=== PATIENT | male | born 1950 | race Caucasian/White ===

== ENCOUNTER → 2017-05-17 | Outpatient (CLI) | payer MEDICARE, OTHER ==
[~2017-05-17] MED LIST: ACYC200C8 PO; ALLO15TA PO; CELE1CAP9 PO; FLUT1SPR2; FOLI1TAB4 PO; JANU100T PO; LEVO75TA4 PO; META1TAB22 PO; OXYC1TAB23 PO; PARO20TA4 PO; PREG50CA PO; PREV1CAP PO; RISP1TAB3 PO; SYNT150T PO; TERA5CA PO; TRAZ-136 PO; TYLETAB14 PO; XANA0.5T PO; ZYRTTAB8 PO
--- NOTE | 2017-05-17 14:55 | REP ---
Chest two views HISTORY: Hypertension Comparison: 02/25/2016 The lungs are clear. The heart is normal in size. The pulmonary vasculature is normal in appearance. There is an old compression fracture of the T12 vertebral body. The bony structure is intact. IMPRESSION: No acute disease. Signed by Jason Saucedo MD 05/17/2017 02:46 P
[2017-05-17 15:11] LABS: MEAN CORPUSCULAR HEMOGLOBIN 32.1 pg (27.0-33.0); MEAN CORPUSCULAR HGB CONC 34.1 g/dl (32.0-36.5); MEAN CORPUSCULAR VOLUME 94.3 fl (80.0-96.0); RED CELL DISTRIBUTION WIDTH 13.7 % (11.5-14.5); WHITE BLOOD COUNT 5.9 K/mm3 (4.0-10.0)
[2017-05-17 15:31] LABS: ALBUMIN 3.8 GM/DL (3.2-5.2); ALBUMIN/GLOBULIN RATIO 1.19 (1.00-1.93); ALKALINE PHOSPHATASE 83 U/L (45-117); ALT/SGPT 20 U/L (12-78); ANION GAP 8 MEQ/L (8-16); AST/SGOT 13 U/L (15-37); BILIRUBIN,TOTAL 0.4 MG/DL (0.2-1.0); BLOOD UREA NITROGEN 8 MG/DL (7-18); CALCIUM LEVEL 8.2 MG/DL (8.8-10.2); CARBON DIOXIDE LEVEL 26 MEQ/L (21-32); CHLORIDE LEVEL 103 MEQ/L (98-107); CHOLESTEROL LEVEL 202 MG/DL (<200); CREATININE FOR GFR 0.99 MG/DL (0.70-1.30); GLOMERULAR FILTRATION RATE > 60.0 (>49); GLUCOSE, FASTING 127 MG/DL (80-110); POTASSIUM SERUM 4.3 MEQ/L (3.5-5.1); SODIUM LEVEL 137 MEQ/L (136-145); TRIGLYCERIDES LEVEL 127 MG/DL (<150)
--- NOTE | 2017-05-17 23:15 | ECGEPIP ---
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 Electronically Signed On 05-17-2017 23:15:37 EDT by Tyshawn Ramirez
== END ==
LOC: M LAB 14:04
PROVIDERS: ATTEND Family Medicine
DX: I10 Essential (primary) hypertension (principal); E11.9 Type 2 diabetes mellitus without complications; E29.1 Testicular hypofunction; G89.4 Chronic pain syndrome; E03.9 Hypothyroidism, unspecified

== ENCOUNTER → 2017-05-17 | Outpatient (REF) | payer MEDICARE, OTHER ==
[2017-05-28 06:31] LABS: SUMMARY SEE SEPARATE REPORT
== END ==
LOC: M LAB REF 21:18
PROVIDERS: ATTEND Family Medicine
DX: G89.4 Chronic pain syndrome (principal)

== ENCOUNTER → 2017-07-04 | Outpatient (REF) | payer MEDICARE, OTHER ==
[2017-07-04 15:53] LABS: FERRITIN 23 NG/ML (26-388)
[2017-07-04 15:56] LABS: FOLATE 19.1 NG/ML (>5.4); VITAMIN B12 LEVEL 545 PG/ML (247-911)
[2017-07-08 00:06] LABS: VITAMIN E LEVEL 8.2 mg/L (5.3-17.5)
== END ==
LOC: M LABDRAW1 14:09
PROVIDERS: ATTEND Psychiatry & Neurology Neurology
DX: E03.9 Hypothyroidism, unspecified (principal); M54.5 Low back pain; R53.1 Weakness; R25.1 Tremor, unspecified; Z13.88 Encounter for screening for disorder due to exposure to contaminants

== ENCOUNTER → 2017-11-18 | Outpatient (REF) | payer MEDICARE, OTHER ==
[2017-11-18 16:55] LABS: HEMATOCRIT 41.6 % (42.0-52.0); MEAN CORPUSCULAR HEMOGLOBIN 32.3 pg (27.0-33.0); MEAN CORPUSCULAR HGB CONC 33.7 g/dl (32.0-36.5); MEAN CORPUSCULAR VOLUME 96.1 fl (80.0-96.0); PLATELET COUNT, AUTOMATED 254 10^3/uL (150-450); RED BLOOD COUNT 4.33 10^6/uL (4.30-6.10); RED CELL DISTRIBUTION WIDTH 12.8 % (11.5-14.5); WHITE BLOOD COUNT 6.4 10^3/uL (4.0-10.0)
[2017-11-18 17:06] LABS: ALBUMIN 4.1 GM/DL (3.2-5.2); ALBUMIN/GLOBULIN RATIO 1.46 (1.00-1.93); ALKALINE PHOSPHATASE 89 U/L (45-117); ALT/SGPT 11 U/L (12-78); ANION GAP 6 MEQ/L (8-16); AST/SGOT 10 U/L (7-37); BILIRUBIN,TOTAL 0.3 MG/DL (0.2-1.0); BLOOD UREA NITROGEN 8 MG/DL (7-18); CARBON DIOXIDE LEVEL 28 MEQ/L (21-32); CHLORIDE LEVEL 105 MEQ/L (98-107); CHOLESTEROL LEVEL 176 MG/DL (<200); CHOLESTEROL RISK RATIO 3.666 (<5); CREATININE FOR GFR 0.88 MG/DL (0.70-1.30); GLOMERULAR FILTRATION RATE > 60.0 (>49); GLUCOSE, FASTING 127 MG/DL (80-110); HDL CHOLESTEROL 48 MG/DL (>40); LDL CHOLESTEROL 97.8 MG/DL (<100); NON-HDL-C 128 MG/DL; POTASSIUM SERUM 3.9 MEQ/L (3.5-5.1); PSA SCREENING 1.73 NG/ML (< 4.0); SODIUM LEVEL 139 MEQ/L (136-145); TOTAL PROTEIN 6.9 GM/DL (6.4-8.2); TRIGLYCERIDES LEVEL 151 MG/DL (<150)
[2017-11-18 17:08] LABS: ESTIMATED AVERAGE GLUCOSE 120 MG/DL (60-110); HEMOGLOBIN A1c 5.8 %
== END ==
LOC: M LABDRAW1 16:03
DX: E11.9 Type 2 diabetes mellitus without complications (principal); R53.83 Other fatigue
CPT/HCPCS: 84443

== ENCOUNTER → 2018-12-29 | Outpatient (REF) | payer MEDICARE, OTHER ==
[~2018-12-29] MED LIST changes: +FOLI1TAB11 PO; -FOLI1TAB4 PO; -TERA5CA PO; +TERA5CAP3 PO; -TRAZ-136 PO; +TRAZ-163 PO
[2018-12-29 14:19] LABS: BASO # 0.1 10^3/uL (0.0-0.2); BASO % 0.8 % (0.0-1.0); EOS # 0.4 10^3/uL (0.0-0.50); EOS % 3.2 % (0.0-3.0); HEMATOCRIT 44.4 % (42.0-52.0); HEMOGLOBIN 15.4 g/dl (13.5-17.5); LYMPH # 2.9 10^3/uL (1.5-4.5); LYMPH % 26.8 % (24.0-44.0); MEAN CORPUSCULAR HEMOGLOBIN 32.3 pg (27.0-33.0); MEAN CORPUSCULAR HGB CONC 34.7 g/dl (32.0-36.5); MEAN CORPUSCULAR VOLUME 93.1 fl (80.0-96.0); MONO # 0.6 10^3/uL (0.0-0.8); MONO % 5.9 % (0.0-5.0); NEUTROPHILS # 6.8 10^3/uL (1.8-7.7); PLATELET COUNT, AUTOMATED 283 10^3/uL (150-450); RED BLOOD COUNT 4.77 10^6/uL (4.30-6.10); WHITE BLOOD COUNT 10.9 10^3/uL (4.0-10.0)
[2018-12-29 14:52] LABS: ALBUMIN 4.1 GM/DL (3.2-5.2); ALT/SGPT 8 U/L (12-78); BILIRUBIN,TOTAL 0.5 MG/DL (0.2-1.0); BLOOD UREA NITROGEN 6 MG/DL (7-18); CALCIUM LEVEL 8.3 MG/DL (8.8-10.2); CARBON DIOXIDE LEVEL 24 MEQ/L (21-32); CHLORIDE LEVEL 107 MEQ/L (98-107); CHOLESTEROL LEVEL 202 MG/DL (<200); CHOLESTEROL RISK RATIO 4.809 (<5); CREATININE FOR GFR 0.89 MG/DL (0.70-1.30); GLOMERULAR FILTRATION RATE > 60.0 (>49); GLUCOSE, FASTING 92 MG/DL (70-100); HDL CHOLESTEROL 42 MG/DL (>40); LDL CHOLESTEROL 122 MG/DL (<100); NON-HDL-C 160 MG/DL; POTASSIUM SERUM 4.4 MEQ/L (3.5-5.1); SODIUM LEVEL 139 MEQ/L (136-145); THYROID STIMULATING HORMONE 0.951 uIU/ML (0.358-3.740); TOTAL PROTEIN 7.4 GM/DL (6.4-8.2); TRIGLYCERIDES LEVEL 190 MG/DL (<150)
== END ==
LOC: M LABDRAW1 13:21
DX: M79.18 Myalgia, other site (principal); F32.9 Major depressive disorder, single episode, unspecified; E03.8 Other specified hypothyroidism; G89.4 Chronic pain syndrome

== ENCOUNTER 2019-01-09 04:18 | Inpatient (IN) | payer MEDICARE, OTHER ==
[~2019-01-09] VITALS: Ht 180.3 cm; Wt 82.7 kg
[2019-01-09] MEDS ORDERED: IPRATROPIUM 0.5MG/ALBUTEROL 2.5MG INH SOL UD 3ML (DUONEB)(J7620) NEB ONE (05:15)
[2019-01-09 05:25] LABS: ABG BASE EXCESS -2.8 (-2.0-2.0); ABG HCO3 18.3 MEQ/L (22.0-26.0); ABG O2 SATURATION 98.3 % (95.0-99.0); ABG PARTIAL PRESSURE CO2 23.3 mmHg (35.0-45.0); ABG PARTIAL PRESSURE O2 122.5 mmHg (75.0-100.0); ABG STANDARD HCO3 22.2 MEQ/L (22.0-26.0); ABG pH (ARTERIAL) 7.513 UNITS (7.350-7.450)
[2019-01-09 05:46] LABS: BASO # 0.1 10^3/uL (0.0-0.2); BASO % 0.6 % (0.0-1.0); EOS # 0.1 10^3/uL (0.0-0.50); EOS % 1.4 % (0.0-3.0); HEMATOCRIT 39.4 % (42.0-52.0); HEMOGLOBIN 13.8 g/dl (13.5-17.5); LYMPH # 2.3 10^3/uL (1.5-4.5); LYMPH % 26.8 % (24.0-44.0); MEAN CORPUSCULAR HEMOGLOBIN 31.5 pg (27.0-33.0); MONO # 0.6 10^3/uL (0.0-0.8); MONO % 7.4 % (0.0-5.0); NEUTROPHILS # 5.4 10^3/uL (1.8-7.7); NEUTROPHILS % 63.4 % (36.0-66.0); PLATELET COUNT, AUTOMATED 244 10^3/uL (150-450); RED BLOOD COUNT 4.38 10^6/uL (4.30-6.10); WHITE BLOOD COUNT 8.6 10^3/uL (4.0-10.0)
[2019-01-09 06:07] LABS: BLOOD UREA NITROGEN 8 MG/DL (7-18); CALCIUM LEVEL 7.7 MG/DL (8.8-10.2); CARBON DIOXIDE LEVEL 23 MEQ/L (21-32); CHLORIDE LEVEL 100 MEQ/L (98-107); CPK CREATINE PHOSPHOKINASE 201 U/L (39-308); CREATININE FOR GFR 0.91 MG/DL (0.70-1.30); GLOMERULAR FILTRATION RATE > 60.0 (>49); GLUCOSE, FASTING 111 MG/DL (70-100); MB/CK RELATIVE INDEX 2.09 (< OR =4); NT-PRO BNP 99 PG/ML (<125); POTASSIUM SERUM 3.1 MEQ/L (3.5-5.1); SODIUM LEVEL 135 MEQ/L (136-145); TROPONIN I < 0.02 NG/ML (< 0.10)
[2019-01-09 06:14] LABS: INFLUENZA A AMPLIFICATION NEGATIVE (NEGATIVE); INFLUENZA B AMPLIFICATION NEGATIVE (NEGATIVE)
[2019-01-09] MEDS ORDERED: POTASSIUM CHLORIDE 10 MEQ SR TABLET PO ONE (06:30)
[2019-01-09] MEDS ORDERED: NS 2,590 ML in APPROPRIATE DILUENT 1 EA IV ONE (06:30)
[2019-01-09] MEDS ORDERED: ISOVUE-370 76% 100ML VIAL (Q9967) As Ordered ONE (06:43)
[2019-01-09] MEDS ORDERED: ONDANSETRON 4MG/2ML VIAL (J2405) IV ONE (07:00)
--- NOTE | 2019-01-09 07:04 | REP ---
Clinical: Cough and dyspnea . Comparison: 05/17/2017 . Findings: The mediastinum and cardiac silhouette are stable and within normal limits for portable technique. The lung gurrola are clear without acute consolidation, effusion, or pneumothorax. Skeletal structures are intact. Impression: No acute cardiopulmonary process appreciated. Electronically Signed by Miller Kumari MD 01/09/2019 06:56 A
--- NOTE | 2019-01-09 08:53 | REP ---
CT of the chest with IV contrast, CT pulmonary angiography protocol: There are no emboli in the pulmonary trunk or central pulmonary arteries. There are no emboli in the pulmonary lobe or segment branches. There is discoid atelectasis in the lower lobes bilaterally. Lung gurrola otherwise clear. There is no mediastinal, hilar or axillary adenopathy. The thoracic aorta is unremarkable. Cardiac size is normal. The visualized upper abdominal contents are unremarkable except I suspect there are surgical clips at the gastroesophageal junction. There are surgical clips in the gallbladder fossa. Impression: There are no pulmonary emboli. Otherwise, essentially negative CT study of the chest except for bilateral lower lobe discoid atelectasis. Cholecystectomy. Surgical clips at the gastroesophageal junction. Electronically Signed by Ford Richards MD 01/09/2019 08:44 A
[2019-01-09] MEDS ORDERED: CEFEPIME HCL 2 GM in D5W MINI-BAG PLUS 50 ML IV ONE (09:00)
[2019-01-09] MEDS: CETIRIZINE (ZyrTEC) 10 MG TAB PO SCH (09:00)
[2019-01-09] MEDS ORDERED: GLUCAGON FOR INJ 1 MG VIAL (J1610) SC PRN (10:30)
[2019-01-09] MEDS ORDERED: DEXTROSE 50% 50 ML SYRINGE IV PRN (10:30)
[2019-01-09] MEDS ORDERED: GLUCOSE 4 GM CHEW TABLET PO PRN (10:30)
[2019-01-09] MEDS ORDERED: IPRATROPIUM 0.5MG/ALBUTEROL 2.5MG INH SOL UD 3ML (DUONEB)(J7620) NEB PRN (10:30)
[2019-01-09] MEDS ORDERED: FLUO20CA19 PO (10:55)
[2019-01-09] MEDS ORDERED: CARB25TA9 PO (10:55)
[2019-01-09] MEDS ORDERED: ENTA1TAB PO (10:55)
[2019-01-09] MEDS ORDERED: LACT10SO29 PO (10:55)
[2019-01-09] MEDS ORDERED: FLON1SPR (10:55)
[2019-01-09] MEDS ORDERED: LEVO100T54 PO (10:55)
[2019-01-09] MEDS ORDERED: ZYLO300T6 PO (10:55)
[2019-01-09] MEDS ORDERED: CARB1TAB97 PO (10:55)
[2019-01-09] MEDS ORDERED: methylPREDNISolone INJ 125 MG/2 ML VIAL (J2930) IV ONE (11:00)
[2019-01-09] MEDS ORDERED: METAXALONE 800 MG TABLET PO PRN (11:30)
[2019-01-09] MEDS ORDERED: ACETAMINOPHEN TAB 650MG DOSE (2X325MG) PO PRN (11:30)
[2019-01-09] MEDS ORDERED: ACETAMINOPH W/CODEINE #3 TAB UD PO PRN (11:30)
[2019-01-09] MEDS ORDERED: FLUTICASONE PROP 0.05% NASAL SPRAY 16 GM (FLONASE) PRN (11:30)
--- NOTE | 2019-01-09 11:44 | ECGEPIP ---
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
[2019-01-09] MEDS: HumaLOG INSULIN (NovoLOG) PER UNIT SC SCH ×3 (12:00→21:54)
[2019-01-09] MEDS ORDERED: methylPREDNISolone INJ 40 MG/1 ML VIAL (J2920) IV SCH (14:00)
[2019-01-09] MEDS: IPRATROPIUM 0.5MG/ALBUTEROL 2.5MG INH SOL UD 3ML (DUONEB)(J7620) NEB SCH ×2 (14:00→20:00)
[2019-01-09 14:15] LABS: CPK CREATINE PHOSPHOKINASE 238 U/L (39-308); MB/CK RELATIVE INDEX 2.61 (< OR =4); TROPONIN I < 0.02 NG/ML (< 0.10)
[2019-01-09 14:20] VITALS: BP 158/86
[2019-01-09] MEDS: FLUoxetine 20 MG CAP PO SCH (14:34)
[2019-01-09] MEDS: OMEPRAZOLE 20 MG CAP PO SCH (14:34)
[2019-01-09] MEDS: ALLOPURINOL 300 MG TAB PO SCH (14:34)
[2019-01-09] MEDS: guaiFENesin ER 600 MG TAB PO SCH ×2 (14:34→21:53)
[2019-01-09] MEDS: FOLIC ACID 1 MG TAB PO SCH (14:35)
[2019-01-09] MEDS: LEVOTHYROXINE 100MCG TABLET (0.1MG) PO SCH (14:35)
[2019-01-09] MEDS: HEPARIN SOD (PORCINE) 5000 UNITS/ML VIAL SC SCH ×2 (14:36→21:54)
[2019-01-09] MEDS: SINEMET 25-100 MG TAB PO SCH ×2 (14:36→18:20)
[2019-01-09] MEDS: ENTACAPONE 200MG TABLET (COMTAN) PO SCH ×2 (15:36→18:20)
[2019-01-09] MEDS: PREGABALIN 50 MG CAP (LYRICA) PO SCH ×2 (15:37→21:58)
[2019-01-09] MEDS: TERAZOSIN 5 MG CAP PO SCH (15:37)
[2019-01-09] MEDS ORDERED: ALPRAZolam 0.5 MG TAB PO ONE (16:00)
--- NOTE | 2019-01-09 17:00 | HPEPDOC ---
General Date of Admission Jan 09, 2019 at 11:17 Chief Complaint The patient is a 68-year-old male who Presented to the ER with complaints of jyoti rt of breath History of Present Illness Patient is a 68-year-old male with a PMHx of Parkinsons, NIDDM2, Hypothyroidism, Chronic back pain, Gout, BPH, Anxiety / Depression, Environmental allergies , who presented to the ER with complaints of shortness of breath associated with nonproductive cough. Patient noted that it occurred suddenly this morning he noted that he had chest pain and may have been expressing some palpitations. He noted that he had some nausea but did not have any vomiting. Patient denied any excessive sweating. Patient denies any abdominal pain. He did have constipation initially but has been taking several stool softeners and is having some loose stools at this time. Patient denies any discomfort with urination. Has not experienced any fevers or chills. Patient denies any lower extremity swelling. Does not experience any shortness o f breath by lying flat on his back and does not experience any nighttime awakenings for shortness of breath. As per the daughter, patient has been expressing upper respiratory tract symptoms including a dry cough and congestion over the last several days. She notes that she was expressing symptoms prior and may have passed it on to her father. Patient does report a poor appetite but is unsure of any weight change. Home Medications Scheduled (Zyrtec-D Allergy/Congesti 5-120 mg) 1 Tab Tab, 1 TAB PO BID, (Reported) (Celecoxib) 200 Mg Cap, 200 MG PO BID, (Reported) (Acyclovir) 200 Mg Cap, 200 MG PO BID, (Reported) Allopurinol (Zyloprim) 300 Mg Tab, 300 MG PO DAILY, (Reported) Alprazolam (Xanax) 0.5 Mg Tab, 1 MG PO BID, (Reported) Carbidopa/Levodopa (Carbidopa/Levodopa ER 50-200 mg) 1 Tab Tabcr, 1 TAB PO QHS, (Reported) Carbidopa/Levodopa (Carbidopa/Levodopa 25-100 mg) 1 Tab Tab, 1 TAB PO TID, (Reported) TAKES WITH ENTACAPONE AT 100, 1400, 1800 Entacapone (Entacapone) 200 Mg Tab, 200 MG PO TID, (Reported) TAKE WITH SINEMET TID AT 1000, 1400, 1800 Fluoxetine Hcl (Fluoxetine HCl) 20 Mg Cap, 20 MG PO DAILY, (Reported) Folic Acid (Folic Acid) 1 Mg Tab, 1 MG PO DAILY, (Reported) Lansoprazole (Prevacid) 30 Mg Cap, 30 MG PO DAILY, (Reported) Levothyroxine Sodium (Levoxyl) 100 Mcg Tab, 100 MCG PO DAILY, (Reported) Pregabalin (Lyrica) 50 Mg Cap, 50 MG PO TID, (Reported) Sitagliptin Phosphate (Januvia) 100 Mg Tab, 100 MG PO DAILY, (Reported) Terazosin HCl (Terazosin HCl) 5 Mg Cap, 5 MG PO DAILY, (Reported) Trazodone HCl (Trazodone HCl) 100 Mg Tab, 200 MG PO QHS, (Reported) Scheduled PRN Acetaminophen/Codeine (Tylenol/Codeine #3 300-30 mg) 1 Tab Tab, 1 TAB PO Q4H PRN for HEADACHE, (Reported) Fluticasone Propionate (Flonase Allergy Relief) 50 Mcg/Act Spr, 2 SPRAY NA DAILY PRN for NASAL CONGESTION, (Reported) Lactulose (Lactulose) 10 Gm/15 Ml Laura, 30 ML PO QID PRN for CONSTIPATION, (Reported) Metaxalone (Metaxalone) 800 Mg Tab, 800 MG PO TID PRN for MUSCLE SPASMS, (Reported) Allergies Coded Allergies: Pentazocine (Verified Allergy, Unknown, 02/13/13) Past Medical History Medical History Parkinsons, NIDDM2, Hypothyroidism, Chronic back pain, Gout, BPH, Anxiety / Depression, Environmental allergies Surgical History Right shoulder repair Cholecystectomy Esophageal repair for what appears to be reported esophagitis / Barretts esophagus Family History - Mother at 101 - Father at 90 - Daughter with history of thyroid cancer Social History - Denies the use of alcohol or illicit drugs; quit smoking approximately 35 years ago was a smoker of 5 years but only cigars - Denies recent travel - Lives with sister - 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; 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 Review of Systems Other systems 10 point review of systems complete, all negative otherwise stated in HPI Vital Signs - Vitals: BP 158/86, HR 97, RR 18, Sat 97RA, Temp 97.8F - General: Lying in bed, No acute distress, Speaking in full sentences, AAOx3 - HEENT: NC, AT, PERRLA, EOMI - CVS: RRR, +S1S2, - Murmurs / rubs / gallops - Lungs: Fair air entry bilaterally, mild wheezing is appreciated, no appreciable rhonchi or crackles - Abdomen: Soft, Non-distended, Non-tender - Extremities: No lower extremity edema, No calf tenderness - Neuro: No focal motor or sensory deficit - Skin: No visible rashes Laboratory Data Labs 24H Laboratory Tests 2 01/09/19 05:04: Anion Gap 12, Glomerular Filtration Rate > 60.0, Blood Urea Nitrogen 8, Creatinine 0.91, Sodium Level 135L, Potassium Level 3.1L, Chloride Level 100, Carbon Dioxide Level 23, Calcium Level 7.7L, Total Creatine Kinase 201, Creatine Kinase MB 4.0H, Creatine Kinase MB Relative Index 2.09, Troponin I < 0.02, MF-Aez-D-Type Natriuretic Peptide 99 01/09/19 05:21: Blood Gas Bicarbonate Standard 22.2, Arterial Blood pH 7.513H, Arterial Blood Partial Pressure CO2 23.3L, Arterial Blood Partial Pressure O2 122.5H, Arterial Blood Total CO2 19.0L, Arterial Blood HCO3 18.3L, Arterial Blood Base Excess - 2.8L, Arterial Blood Oxygen Saturation 98.3 01/09/19 05:30: Immature Granulocyte % (Auto) 0.4, White Blood Count 8.6, Red Blood Count 4.38, Hemoglobin 13.8, Hematocrit 39.4L, Mean Corpuscular Volume 90.0, Mean Corpuscular Hemoglobin 31.5, Mean Corpuscular Hemoglobin Concent 35.0, Red Cell Distribution Width 12.1, Platelet Count 244, Neutrophils (%) (Auto) 63.4, Lymphocytes (%) (Auto) 26.8, Monocytes (%) (Auto) 7.4H, Eosinophils (%) (Auto) 1.4, Basophils (%) (Auto) 0.6, Neutrophils # (Auto) 5.4, Lymphocytes # (Auto) 2.3, Monocytes # (Auto) 0.6, Eosinophils # (Auto) 0.1, Basophils # (Auto) 0.1, Nucleated Red Blood Cells % (auto) 0.0, Lactic Acid Level 4.2*H, Influenza Type A (RT-PCR) NEGATIVE, Influenza Type B (RT-PCR) NEGATIVE 01/09/19 09:57: Lactic Acid Followup at 4 Hours 1.8 01/09/19 12:06: Bedside Glucose (Misc Panel) 119H 01/09/19 13:41: Total Creatine Kinase 238, Creatine Kinase MB 6.0H, Creatine Kinase MB Relative Index 2.61, Troponin I < 0.02 CBC/BMP Laboratory Tests 01/09/19 05:04 Calcium Level 7.7 L, Total Creatine Kinase 201 01/09/19 05:30 Red Blood Count 4.38, Mean Corpuscular Volume 90.0, Mean Corpuscular Hemoglobin 31.5, Mean Corpuscular Hemoglobin Concent 35.0, Red Cell Distribution Width 12.1, Neutrophils (%) (Auto) 63.4, Lymphocytes (%) (Auto) 26.8, Monocytes (%) (Auto) 7.4 H, Eosinophils (%) (Auto) 1.4, Basophils (%) (Auto) 0.6, Neutrophils # (Auto) 5.4, Lymphocytes # (Auto) 2.3, Monocytes # (Auto) 0.6, Eosinophils # (Auto) 0.1, Basophils # (Auto) 0.1 Microbiology Microbiology 01/09/19 Blood Culture, Received Pending 01/09/19 Blood Culture, Received Pending 01/09/19 Respiratory Virus Panel (PCR) ([facility]USY) - Final, Complete 01/09/19 Urine Culture, Received Pending Plan / VTE VTE Prophylaxis Ordered?: Yes Plan Plan Shortness of breath - possibly 2/2 lung disease (obstructive etiology), unlikely 2/2 embolism, unlikely 2/2 infection, possibly 2/2 viral illness / congestion, possibly 2/2 panic attack / anxiety attack - Presented to the ER with complaints of shortness of breath and chest pain - Patient has a history of smoking remotely; however has 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 Upon arrival - Lab work remains benign - Respiratory panel 01/09: Negative; Cultures pending - CXR 01/09: No acute cardiopulmonary process appreciated. - CTA Chest 01/09: There are no pulmonary emboli. Otherwise, essentially negative CT study of the chest except for bilateral lower lobe discoid atelectasis. Cholecystectomy. Surgical clips at the gastroesophageal junction. - Will start methylprednisolone and Duoneb inhaled therapy - Will start PT tomorrow if clinically stable - See anxiety below Chest pain - possibly 2/2 anxiety, less likely 2/2 cardiac etiology - Currently patient is no longer expressing any chest pain - No reproducible chest pain on physical exam - Troponin 2 sets have been negative - EKG performed in the ER reveals sinus tachycardia with occasional supraventricular complexes at a rate of 104, QTC of 456 - Will order ECHO - Will continue with telemetry monitoring and completion of troponin trend s/p Lactic acidosis - Has improved with IV fluid hydration Parkinsons - c/w Entacapone, Carbidopa / Levodopa NIDDM2 Hypothyroidism - c/w Levothyroxine Chronic back pain - c/w Metaxalone Gout - c/w Allopurinol BPH - c/w Terazosin Anxiety / Depression / Insomnia - c/w Trazodone, Fluoxetine, Alprazolam Neuropathy - c/w Lyrica Environmental allergies - c/w Zyrtec GERD - c/w Omeprazole DVT prophylaxis - Will start Heparin MOISE CALDWELL MD Jan 09, 2019 17:00
[2019-01-09 20:10] LABS: CPK CREATINE PHOSPHOKINASE 249 U/L (39-308); MB/CK RELATIVE INDEX 2.33 (< OR =4); TROPONIN I < 0.02 NG/ML (< 0.10)
[2019-01-09] MEDS: CelecoXIB (CeleBREX) 100 MG CAP PO SCH (21:53)
[2019-01-09] MEDS: traZODone 100 MG TAB PO SCH (21:53)
[2019-01-09] MEDS: ACYCLOVIR 200 MG CAPSULE PO SCH (21:54)
[2019-01-09] MEDS: SINEMET**CR** 25/100 TABCR PO SCH (21:54)
[2019-01-09] MEDS: ALPRAZolam 0.5 MG TAB PO SCH (21:54)
[2019-01-09 22:00] VITALS: BP 148/78
[2019-01-10] MEDS: IPRATROPIUM 0.5MG/ALBUTEROL 2.5MG INH SOL UD 3ML (DUONEB)(J7620) NEB SCH ×2 (02:00→08:22)
[2019-01-10] MEDS ORDERED: methylPREDNISolone INJ 40 MG/1 ML VIAL (J2920) IV SCH (02:00)
[2019-01-10] MEDS: HEPARIN SOD (PORCINE) 5000 UNITS/ML VIAL SC SCH ×3 (05:59→23:32)
[2019-01-10] MEDS: LEVOTHYROXINE 100MCG TABLET (0.1MG) PO SCH (05:59)
[2019-01-10 06:00] VITALS: BP 141/79
[2019-01-10 06:32] LABS: BASO % 0.3 % (0.0-1.0); HEMATOCRIT 38.4 % (42.0-52.0); HEMOGLOBIN 13.4 g/dl (13.5-17.5); LYMPH # 0.8 10^3/uL (1.5-4.5); LYMPH % 11.9 % (24.0-44.0); MEAN CORPUSCULAR HEMOGLOBIN 31.4 pg (27.0-33.0); MEAN CORPUSCULAR HGB CONC 34.9 g/dl (32.0-36.5); MEAN CORPUSCULAR VOLUME 89.9 fl (80.0-96.0); MONO # 0.1 10^3/uL (0.0-0.8); NEUTROPHILS % 86.4 % (36.0-66.0); PLATELET COUNT, AUTOMATED 230 10^3/uL (150-450); RED BLOOD COUNT 4.27 10^6/uL (4.30-6.10)
[2019-01-10 06:52] LABS: BLOOD UREA NITROGEN 7 MG/DL (7-18); CALCIUM LEVEL 7.6 MG/DL (8.8-10.2); CARBON DIOXIDE LEVEL 25 MEQ/L (21-32); CHLORIDE LEVEL 105 MEQ/L (98-107); CREATININE FOR GFR 0.61 MG/DL (0.70-1.30); GLOMERULAR FILTRATION RATE > 60.0 (>49); GLUCOSE, FASTING 128 MG/DL (70-100); MAGNESIUM LEVEL 2.5 MG/DL (1.8-2.4); POTASSIUM SERUM 3.7 MEQ/L (3.5-5.1); SODIUM LEVEL 137 MEQ/L (136-145)
[2019-01-10] MEDS: HumaLOG INSULIN (NovoLOG) PER UNIT SC SCH ×4 (07:30→21:00)
[2019-01-10] MEDS: ACYCLOVIR 200 MG CAPSULE PO SCH ×2 (09:40→20:19)
[2019-01-10] MEDS: guaiFENesin ER 600 MG TAB PO SCH ×2 (09:41→20:18)
[2019-01-10] MEDS: FLUoxetine 20 MG CAP PO SCH (09:41)
[2019-01-10] MEDS: ALLOPURINOL 300 MG TAB PO SCH (09:41)
[2019-01-10] MEDS: FOLIC ACID 1 MG TAB PO SCH (09:41)
[2019-01-10] MEDS: CelecoXIB (CeleBREX) 100 MG CAP PO SCH ×2 (09:41→20:18)
[2019-01-10] MEDS: OMEPRAZOLE 20 MG CAP PO SCH (09:41)
[2019-01-10] MEDS: SINEMET 25-100 MG TAB PO SCH ×3 (09:41→17:06)
[2019-01-10] MEDS: TERAZOSIN 5 MG CAP PO SCH (09:42)
[2019-01-10] MEDS: ENTACAPONE 200MG TABLET (COMTAN) PO SCH ×3 (09:42→17:06)
[2019-01-10] MEDS: PREGABALIN 50 MG CAP (LYRICA) PO SCH ×3 (09:42→20:19)
[2019-01-10] MEDS: ALPRAZolam 0.5 MG TAB PO SCH ×2 (09:42→20:18)
[2019-01-10] MEDS: CETIRIZINE (ZyrTEC) 10 MG TAB PO SCH (09:44)
[2019-01-10 14:00] VITALS: BP 122/70
[2019-01-10] MEDS: SINEMET**CR** 25/100 TABCR PO SCH (20:18)
[2019-01-10] MEDS: traZODone 100 MG TAB PO SCH (20:19)
[2019-01-10 22:00] VITALS: BP 133/74
--- NOTE | 2019-01-11 02:12 | IPNPDOC ---
Text Note Date of Service The patient was seen on 01/10/19. NOTE Subjective: Feels better this morning. Does not have any SOB or cough. No fever or chills, no chest pain , no abodminal pain or nausea or vomiting. Physical Exam: Vitals: As below General: Lying in bed, No acute distress, Speaking in full sentences, AAOx3 HEENT: NC, AT, PERRLA, EOMI CVS: RRR, +S1S2, - Murmurs / rubs / gallops Lungs: Fair air entry bilaterally, mild wheezing is appreciated, no appreciable rhonchi or crackles Abdomen: Soft, Non-distended, Non-tender Extremities: No lower extremity edema, No calf tenderness Neuro: No focal motor or sensory deficit Skin: No visible rashes Labs and Radiology: Reviewed Assessment and Plan: Patient is a 68-year-old male with a PMHx of Parkinsons, NIDDM2, Hypothyroidism, Chronic back pain, Gout, BPH, Anxiety / Depression, Environmental allergies, seizure disorder, GERD, who presented to the ER with complaints of shortness of breath associated with nonproductive cough. Patient noted that it occurred suddenly this morning he noted that he had chest pain and may have been expressing some palpitations. He noted that he had some nausea but did not have any vomiting. Patient denied any excessive sweating. As per the daughter, patient has been expressing upper respiratory tract symptoms including a dry cough and congestion over the last several days. She notes that she was expressing symptoms prior and may have passed it on to her father. 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 Upon arrival - On methylprednisolone and Duoneb inhaled therapy - See anxiety below - Cleared PT. Chest pain - possibly 2/2 anxiety - cardiac work up was negative. - ECHO pending. - telemetry did not show any acute arrhythmias. s/p Lactic acidosis - Has improved with IV fluid hydration Parkinsons - c/w Entacapone, Carbidopa / Levodopa NIDDM2 -diet controlled Hypothyroidism - c/w Levothyroxine Chronic back pain - c/w Metaxalone Gout - c/w Allopurinol BPH - c/w Terazosin Anxiety / Depression / Insomnia - c/w Trazodone, Fluoxetine, Alprazolam Neuropathy - c/w Lyrica Environmental allergies - c/w Zyrtec GERD - c/w Omeprazole DVT prophylaxis - Will start Heparin VS,Fishbone, I+O VS, Fishbone, I+O Laboratory Tests 01/10/19 05:52 Red Blood Count 4.27 L, Mean Corpuscular Volume 89.9, Mean Corpuscular Hemoglobin 31.4, Mean Corpuscular Hemoglobin Concent 34.9, Red Cell Distribution Width 12.3, Neutrophils (%) (Auto) 86.4 H, Lymphocytes (%) (Auto) 11.9 L, Monocytes (%) (Auto) 1.0, Eosinophils (%) (Auto) 0.0, Basophils (%) (Auto) 0.3, Neutrophils # (Auto) 6.0, Lymphocytes # (Auto) 0.8 L, Monocytes # (Auto) 0.1, Eosinophils # (Auto) 0.0, Basophils # (Auto) 0.0, Calcium Level 7.6 L Vital Signs Date Time Temp Pulse Resp B/P (MAP) Pulse Ox O2 Delivery O2 Flow Rate FiO2 01/10/19 22:00 97.6 96 16 133/74 (93) 97 01/09/19 13:56 1.0 01/09/19 11:21 Room Air I&O- Last 24 Hours up to 6 AM 01/11/19 06:00 Intake Total 570 ml Output Total 0 ml Balance 570 ml TODD FELIZ MD Jan 11, 2019 02:11
[2019-01-11 06:00] VITALS: BP 146/76
[2019-01-11 06:49] LABS: BASO % 0.4 % (0.0-1.0); EOS # 0.1 10^3/uL (0.0-0.50); EOS % 1.4 % (0.0-3.0); HEMATOCRIT 35.2 % (42.0-52.0); HEMOGLOBIN 12.1 g/dl (13.5-17.5); LYMPH # 2.3 10^3/uL (1.5-4.5); LYMPH % 30.6 % (24.0-44.0); MEAN CORPUSCULAR HEMOGLOBIN 30.9 pg (27.0-33.0); MEAN CORPUSCULAR HGB CONC 34.4 g/dl (32.0-36.5); MONO # 0.5 10^3/uL (0.0-0.8); MONO % 6.5 % (0.0-5.0); NEUTROPHILS # 4.5 10^3/uL (1.8-7.7); NEUTROPHILS % 60.7 % (36.0-66.0); PLATELET COUNT, AUTOMATED 216 10^3/uL (150-450); RED BLOOD COUNT 3.91 10^6/uL (4.30-6.10); WHITE BLOOD COUNT 7.4 10^3/uL (4.0-10.0)
[2019-01-11] MEDS: LEVOTHYROXINE 100MCG TABLET (0.1MG) PO SCH (06:53)
[2019-01-11] MEDS: HEPARIN SOD (PORCINE) 5000 UNITS/ML VIAL SC SCH ×2 (06:54→13:37)
[2019-01-11 07:07] LABS: BLOOD UREA NITROGEN 9 MG/DL (7-18); CALCIUM LEVEL 7.4 MG/DL (8.8-10.2); CARBON DIOXIDE LEVEL 27 MEQ/L (21-32); CHLORIDE LEVEL 104 MEQ/L (98-107); CREATININE FOR GFR 0.72 MG/DL (0.70-1.30); GLOMERULAR FILTRATION RATE > 60.0 (>49); GLUCOSE, FASTING 96 MG/DL (70-100); MAGNESIUM LEVEL 2.4 MG/DL (1.8-2.4); POTASSIUM SERUM 3.2 MEQ/L (3.5-5.1); SODIUM LEVEL 137 MEQ/L (136-145)
[2019-01-11] MEDS: HumaLOG INSULIN (NovoLOG) PER UNIT SC SCH ×2 (07:30→12:00)
[2019-01-11] MEDS ORDERED: POTASSIUM CHLORIDE 10 MEQ SR TABLET PO ONE (08:15)
[2019-01-11] MEDS: OMEPRAZOLE 20 MG CAP PO SCH (09:35)
[2019-01-11] MEDS: ALLOPURINOL 300 MG TAB PO SCH (09:35)
[2019-01-11] MEDS: FOLIC ACID 1 MG TAB PO SCH (09:35)
[2019-01-11] MEDS: ACYCLOVIR 200 MG CAPSULE PO SCH (09:35)
[2019-01-11] MEDS: CETIRIZINE (ZyrTEC) 10 MG TAB PO SCH (09:35)
[2019-01-11] MEDS: PREGABALIN 50 MG CAP (LYRICA) PO SCH (09:35)
[2019-01-11] MEDS: guaiFENesin ER 600 MG TAB PO SCH (09:35)
[2019-01-11 09:36] VITALS: BP 146/68
[2019-01-11] MEDS: CelecoXIB (CeleBREX) 100 MG CAP PO SCH (09:36)
[2019-01-11] MEDS: TERAZOSIN 5 MG CAP PO SCH (09:36)
[2019-01-11] MEDS: ALPRAZolam 0.5 MG TAB PO SCH (09:36)
[2019-01-11] MEDS: FLUoxetine 20 MG CAP PO SCH (09:36)
[2019-01-11] MEDS: SINEMET 25-100 MG TAB PO SCH ×2 (09:37→13:37)
[2019-01-11] MEDS: ENTACAPONE 200MG TABLET (COMTAN) PO SCH ×2 (09:37→13:37)
--- NOTE | 2019-01-11 10:24 | PFTRPT ---
Height: 71.00 Inches Weight: 190.00 Lbs BSA: 2.06 Diagnosis: COPD DATE OF PROCEDURE: 01/11/2019 ORDERED BY: Dr. Socrates Douglas Spirometry: Study of excellent technical quality. Forced vital capacity normal. FEV1 in proportion. Obstructive index is, therefore, normal. Flow Volume Loop: Expiratory limb of the flow volume loop is normal. IMPRESSION: Normal study. MTDD
--- NOTE | 2019-01-11 11:18 | NUR ---
Pt tolerated regular solids & thin liquids w/o s/sx aspiration or penetration. Recommend continue regular diet, thin liquids. Please provide pt w/ medications 1-2 at a time. Addendum: 01/11/19 at [address] [facility] Amended: Links added.
--- NOTE | 2019-01-11 21:54 | ECHO ---
DATE OF PROCEDURE: 01/09/2019 REFERRING PHYSICIAN: Socrates Douglas MD INDICATION: dyspnea. HEIGHT: 180 cm WEIGHT: 86.4 kg 2D MEASUREMENTS: Ventricular septum: 1.12 cm Posterior wall: 0.86 cm Left atrium: 3.3 cm LVOT: 2.2 cm DOPPLER MEASUREMENTS: Aortic valve velocity: 168 cm/s LVOT velocity: 114 cm/s LVOT VTI: 19.5 cm Mitral E velocity: 60.1 cm/s Mitral A velocity: 118 cm/s MITRAL ANNULAR TISSUE DOPPLER: E prime septal: 7.0 cm/s E prime lateral: 10.7 cm/s DESCRIPTION: Rhythm was sinus. This was a technically difficult echocardiogram. Images were available from the apical and subcostal windows. No pericardial effusion. CONCLUSIONS: 1. Mildly reduced left ventricle (LV) cavity size. Hyperdynamic LV systolic function. Left ventricular ejection fraction (LVEF) 75% by visual esitmate. No regional wall motion abnormalities. Grade I LV diastolic dysfunction (impaired relaxation filling pattern) at 94 BPM. 2. Mild mitral annular calcification. 3. Mild right ventricle hypertrophy with normal right ventricle (RV) systolic function. 4. Technically difficult echocardiogram.
--- NOTE | 2019-01-16 01:57 | DS.PDOC ---
Discharge Summary General Date of Admission Jan 09, 2019 at 11:17 Date of Discharge 01/11/19 Attending Physician: TODD FELIZ MD Discharge Summary PROCEDURES PERFORMED DURING STAY: None DISCHARGE DIAGNOSES: Viral upper respiratory tract infection Post Infective bronchospasm Parkinson's disease Anxiety and depression Diabetes with neuropathy Gout BPH Chronic back pain GERD COMPLICATIONS/CHIEF COMPLAINT: Shortness Of Breath. HISTORY OF PRESENT ILLNESS: Please see history and physical HOSPITAL COURSE: General: Lying in bed, No acute distress, Speaking in full sentences, AAOx3 HEENT: NC, AT, PERRLA, EOMI CVS: RRR, +S1S2, - Murmurs / rubs / gallops Lungs: Fair air entry bilaterally, mild wheezing is appreciated, no appreciable rhonchi or crackles Abdomen: Soft, Non-distended, Non-tender Extremities: No lower extremity edema, No calf tenderness Neuro: No focal motor or sensory deficit Skin: No visible rashes Labs and Radiology: Reviewed Assessment and Plan: Patient is a 68-year-old male with a PMHx of Parkinsons, NIDDM2, Hypothyroidism, Chronic back pain, Gout, BPH, Anxiety / Depression, Environmental allergies, seizure disorder, GERD, who presented to the ER with complaints of shortness of breath associated with nonproductive cough. Patient noted that it occurred suddenly this morning he noted that he had chest pain and may have been expressing some palpitations. He noted that he had some nausea but did not have any vomiting. Patient denied any excessive sweating. As per the daughter, patient has been expressing upper respiratory tract symptoms including a dry cough and congestion over the last several days. He notesd that he was expressing symptoms prior and may have passed it on to her father. Shortness of breath - possibly 2/2 post infective bronchospasm after a URI. - ruled out lung disease (obstructive etiology). PFT was normal - Presented to the ER with complaints of shortness of breath and chest pain - Physical had revealed mild wheezing - ER had reported significant coughing and wheezing. Upon arrival - responded to Steroids and Duoneb inhaled therapy - Cleared PT. Chest pain - possibly 2/2 bronchospasm. - cardiac work up was negative. - ECHO reviewed shows grade 1 diastolic dysfunction with preserved systolic function. - telemetry did not show any acute arrhythmias. s/p Lactic acidosis - Due to increased work of breathing. - Has improved with IV fluid hydration Parkinsons - c/w Entacapone, Carbidopa / Levodopa - had complained of some difficulty in swallowing with a few choking episodes so had a swallow eval which was good NIDDM2 -diet controlled Hypothyroidism - c/w Levothyroxine Chronic back pain - c/w Metaxalone Gout - c/w Allopurinol BPH - c/w Terazosin Anxiety / Depression / Insomnia - c/w Trazodone, Fluoxetine, Alprazolam Neuropathy - c/w Lyrica Environmental allergies - c/w Zyrtec GERD - c/w Omeprazole DISCHARGE MEDICATIONS: Please see below. ALLERGIES: Please see below. PHYSICAL EXAMINATION ON DISCHARGE: VITAL SIGNS: Please see below. GENERAL: Lying in bed, No acute distress, Speaking in full sentences, AAOx3 HEENT: NC, AT, PERRLA, EOMI CVS: RRR, +S1S2, - Murmurs / rubs / gallops Lungs: Fair air entry bilaterally, mild wheezing is appreciated, no appreciable rhonchi or crackles Abdomen: Soft, Non-distended, Non-tender Extremities: No lower extremity edema, No calf tenderness Neuro: No focal motor or sensory deficit Skin: No visible rashes LABORATORY DATA: Please see below. ACTIVITY: [As tolerated]. DIET: As tolerated DISPOSITION: 01 Home, Self-Care. DISCHARGE INSTRUCTIONS: 1. . ITEMS TO FOLLOWUP ON ON OUTPATIENT: 1. . DISCHARGE CONDITION: [Stable]. TIME SPENT ON DISCHARGE: Greater than minutes. Vital Signs/I&Os Vital Signs Date Time Temp Pulse Resp B/P (MAP) Pulse Ox O2 Delivery O2 Flow Rate FiO2 01/11/19 09:36 146/68 01/11/19 06:00 98.8 91 20 96 Laboratory Data CBC/BMP Item Value Date Time White Blood Count 7.4 10^3/uL 01/11/19 0625 Red Blood Count 3.91 10^6/uL L 01/11/19624 Hemoglobin 12.1 g/dl L 01/11/19624 Hematocrit 35.2 % L 01/11/19624 Mean Corpuscular Volume 90.0 fl 01/11/19624 Mean Corpuscular Hemoglobin 30.9 pg 01/11/19624 Mean Corpuscular Hemoglobin Concent 34.4 g/dl 01/11/19624 Red Cell Distribution Width 12.4 % 3/7/19 0625 Platelet Count 216 10^3/uL 01/11/19 0625 Immature Granulocyte % (Auto) 0.4 % 01/11/19 0625 Neutrophils (%) (Auto) 60.7 % 01/11/19 0625 Lymphocytes (%) (Auto) 30.6 % 01/11/19 0625 Monocytes (%) (Auto) 6.5 % H 01/11/19 0625 Eosinophils (%) (Auto) 1.4 % 01/11/19 0625 Basophils (%) (Auto) 0.4 % 01/11/19 0625 Neutrophils # (Auto) 4.5 10^3/uL 01/11/19 0625 Lymphocytes # (Auto) 2.3 10^3/uL 01/11/19 0625 Monocytes # (Auto) 0.5 10^3/uL 01/11/19 0625 Eosinophils # (Auto) 0.1 10^3/uL 01/11/19 0625 Basophils # (Auto) 0.0 10^3/uL 01/11/19 0625 Nucleated Red Blood Cells % (auto) 0.0 % 01/11/19 0625 Sodium Level 137 MEQ/L 01/11/19 0625 Potassium Level 3.2 MEQ/L L 01/11/19 0625 Chloride Level 104 MEQ/L 01/11/19 0625 Carbon Dioxide Level 27 MEQ/L 01/11/19 0625 Anion Gap 6 MEQ/L L 01/11/19 0625 Blood Urea Nitrogen 9 MG/DL 01/11/19 0625 Creatinine 0.72 MG/DL 01/11/19 0625 Glomerular Filtration Rate > 60.0 01/11/1925 Fasting Glucose 96 MG/DL 01/11/19 0625 Calcium Level 7.4 MG/DL L 01/11/19 0625 Magnesium Level 2.4 MG/DL 01/11/19 0625 Microbiology Microbiology 01/09/19 Blood Culture - Final, Complete NO GROWTH AFTER 5 DAYS 01/09/19 Blood Culture - Final, Complete NO GROWTH AFTER 5 DAYS 01/09/19 Respiratory Virus Panel (PCR) (S[facility]) - Final, Complete 01/09/19 Urine Culture - Final, Complete Discharge Medications Scheduled (Zyrtec-D Allergy/Congesti 5-120 mg) 1 Tab Tab, 1 TAB PO BID, (Reported) (Celecoxib) 200 Mg Cap, 200 MG PO BID, (Reported) (Acyclovir) 200 Mg Cap, 200 MG PO BID, (Reported) Allopurinol (Zyloprim) 300 Mg Tab, 300 MG PO DAILY, (Reported) Alprazolam (Xanax) 0.5 Mg Tab, 1 MG PO BID, (Reported) Carbidopa/Levodopa (Carbidopa/Levodopa ER 50-200 mg) 1 Tab Tabcr, 1 TAB PO QHS, (Reported) Carbidopa/Levodopa (Carbidopa/Levodopa 25-100 mg) 1 Tab Tab, 1 TAB PO TID, (Reported) TAKES WITH ENTACAPONE AT 100, 1400, 1800 Entacapone (Entacapone) 200 Mg Tab, 200 MG PO TID, (Reported) TAKE WITH SINEMET TID AT 1000, 1400, 1800 Fluoxetine Hcl (Fluoxetine HCl) 20 Mg Cap, 20 MG PO DAILY, (Reported) Folic Acid (Folic Acid) 1 Mg Tab, 1 MG PO DAILY, (Reported) Lansoprazole (Prevacid) 30 Mg Cap, 30 MG PO DAILY, (Reported) Levothyroxine Sodium (Levoxyl) 100 Mcg Tab, 100 MCG PO DAILY, (Reported) Pregabalin (Lyrica) 50 Mg Cap, 50 MG PO TID, (Reported) Sitagliptin Phosphate (Januvia) 100 Mg Tab, 100 MG PO DAILY, (Reported) Terazosin HCl (Terazosin HCl) 5 Mg Cap, 5 MG PO DAILY, (Reported) Trazodone HCl (Trazodone HCl) 100 Mg Tab, 200 MG PO QHS, (Reported) Scheduled PRN Acetaminophen/Codeine (Tylenol/Codeine #3 300-30 mg) 1 Tab Tab, 1 TAB PO Q4H PRN for HEADACHE, (Reported) Fluticasone Propionate (Flonase Allergy Relief) 50 Mcg/Act Spr, 2 SPRAY NA DAILY PRN for NASAL CONGESTION, (Reported) Lactulose (Lactulose) 10 Gm/15 Ml Laura, 30 ML PO QID PRN for CONSTIPATION, (Reported) Metaxalone (Metaxalone) 800 Mg Tab, 800 MG PO TID PRN for MUSCLE SPASMS, (Reported) Allergies Coded Allergies: Pentazocine (Verified Allergy, Unknown, 02/13/13) TODD FELIZ MD Jan 16, 2019 01:57
== END 2019-01-11 13:46 | disposition home or self-care (01) | DRG 153 ==
LOC: M ED 04:18 → M ED INP 11:17 → M MSPAV 14:21
PROVIDERS: ADMIT Internal Medicine; ATTEND Internal Medicine Nephrology
DX: J06.9 Acute upper respiratory infection, unspecified (principal); E87.2 Acidosis; G20 Parkinson's disease; E11.40 Type 2 diabetes mellitus with diabetic neuropathy, unspecified; E03.9 Hypothyroidism, unspecified; M10.9 Gout, unspecified; G40.909 Epilepsy, unspecified, not intractable, without status epilepticus; R06.02 Shortness of breath; K21.9 Gastro-esophageal reflux disease without esophagitis; N40.0 Benign prostatic hyperplasia without lower urinary tract symptoms; M54.9 Dorsalgia, unspecified; F41.9 Anxiety disorder, unspecified; R07.9 Chest pain, unspecified; J98.01 Acute bronchospasm; F32.9 Major depressive disorder, single episode, unspecified; J30.9 Allergic rhinitis, unspecified; Z88.8 Allergy status to other drugs, medicaments and biological substances; Z90.49 Acquired absence of other specified parts of digestive tract; Z79.899 Other long term (current) drug therapy; Z77.22 Contact with and (suspected) exposure to environmental tobacco smoke (acute) (chronic); Z87.891 Personal history of nicotine dependence

== ENCOUNTER 2019-02-17 12:10 | Emergency (ER) | payer MEDICARE, OTHER ==
[~2019-02-17] VITALS: Ht 180.3 cm; Wt 73.5 kg
[~2019-02-17 12:10] MED LIST changes: -ALLO15TA PO; +ALLO300T2 PO; +AMOX500C PO; +CARB1TAB97 PO; +CARB25TA9 PO; +ENTA1TAB PO; +FLOM0.4C39 PO; +FLON1SPR; +FLUO20CA19 PO; +LACT10SO29 PO; +LEVO100T54 PO; +LISI-542 PO; +PEG1POW PO; +SENN1TAB40 PO; +ZYLO300T6 PO
[2019-02-17] MEDS ORDERED: ZOFR4TAB16 PO ×2 (12:36→16:57)
[2019-02-17 12:56] LABS: BASO % 0.2 % (0.0-1.0); EOS % 0.1 % (0.0-3.0); HEMATOCRIT 39.5 % (42.0-52.0); HEMOGLOBIN 13.8 g/dl (13.5-17.5); LYMPH # 1.8 10^3/uL (1.5-4.5); LYMPH % 16.1 % (24.0-44.0); MEAN CORPUSCULAR HEMOGLOBIN 31.1 pg (27.0-33.0); MEAN CORPUSCULAR HGB CONC 34.9 g/dl (32.0-36.5); MONO # 0.7 10^3/uL (0.0-0.8); MONO % 6.6 % (0.0-5.0); NEUTROPHILS # 8.4 10^3/uL (1.8-7.7); NEUTROPHILS % 76.3 % (36.0-66.0); PLATELET COUNT, AUTOMATED 333 10^3/uL (150-450); RED BLOOD COUNT 4.44 10^6/uL (4.30-6.10)
[2019-02-17 13:24] LABS: ALBUMIN 3.8 GM/DL (3.2-5.2); ALT/SGPT 56 U/L (12-78); BILIRUBIN,DIRECT 0.1 MG/DL (0.0-0.2); BILIRUBIN,TOTAL 0.9 MG/DL (0.2-1.0); BLOOD UREA NITROGEN 7 MG/DL (7-18); CALCIUM LEVEL 8.6 MG/DL (8.8-10.2); CARBON DIOXIDE LEVEL 23 MEQ/L (21-32); CHLORIDE LEVEL 94 MEQ/L (98-107); CREATININE FOR GFR 0.99 MG/DL (0.70-1.30); GLOMERULAR FILTRATION RATE > 60.0 (>42); GLUCOSE, FASTING 144 MG/DL (70-100); LIPASE 192 U/L (73-393); POTASSIUM SERUM 3.2 MEQ/L (3.5-5.1); SODIUM LEVEL 134 MEQ/L (136-145); TOTAL PROTEIN 7.1 GM/DL (6.4-8.2)
[2019-02-17] MEDS ORDERED: POTASSIUM CHLORIDE 10 MEQ SR TABLET PO ONE (14:00)
[2019-02-17] MEDS ORDERED: CIPROFLOXACIN 500 MG TAB PO ONE (14:00)
[2019-02-17] MEDS ORDERED: ONDANSETRON 4MG/2ML VIAL (J2405) IV ONE (14:30)
[2019-02-17] MEDS: GASTROGRAFIN SOLUTION 30ML PO SCH ×2 (14:40→15:10)
[2019-02-17] MEDS ORDERED: ISOVUE-370 76% 100ML VIAL (Q9967) As Ordered ONE (15:44)
[2019-02-17] MEDS ORDERED: CIPR-249 PO (16:58)
[2019-02-17 17:02] VITALS: BP 155/74
--- NOTE | 2019-02-18 07:32 | REP ---
CT abdomen and pelvis with IV and oral contrast: History: Abdomen pain and vomiting. Comparison study: January 22, 2019. CT contrast dose: 100 ml of intravenous Isovue 370. CT findings: The preliminary [employer] radiograph of the abdomen demonstrates air and fluid filled loops of colon and small bowel throughout the abdomen. Question ileus. The lung bases are clear on axial CT images. There is no evidence of pleural effusion or upper abdominal ascites. Gallbladder surgically absent. The liver and the spleen are normal in size homogeneous in texture on postcontrast images. No pancreatic abnormality is observed. No adrenal lesion is seen. There are clips in the gastroesophageal junction region as well. Stomach is otherwise unremarkable. No biliary ductal dilation is observed. The kidneys enhance symmetrically and appear morphologically intact. There is an intrarenal calculus in the lower pole of the right kidney measuring 2 mm in diameter. No hydronephrosis is seen. Vascular calcification is observed. The aorta is normal in caliber. No retroperitoneal mass or adenopathy is seen. The appendix is again noted to be somewhat to enlarged measuring 13 mm in greatest transverse dimension. There is no evidence of appendiceal inflammation or mural thickening. No fluid distension is seen. The appendix is unchanged in size and appearance from the January 03, 2019 study. There is a rim calcification in the cul-de-sac measuring 2.2 cm in greatest diameter unchanged from both prior studies as well. This is a chronic finding, most likely a calcified lymph node. There is an air bubble and the urinary bladder and there is diffuse moderate bladder wall thickening question cystitis. Urinary bladder is less distended than it was previously. Small bowel loops are opacified. Air and fluid filled small and large bowel loops are seen. No evidence of obstruction. No free air or abnormal fluid collection seen. Impression: 1. Intrarenal calculus lower pole right kidney without hydronephrosis. 2. Appendix at the upper range of normal in size but no inflammatory changes. Its appearance is unchanged from January 03, 2019. 3. Diffuse thickening of the urinary bladder wall question cystitis. 4. Post cholecystectomy. Clips in the gastroesophageal junction. Electronically Signed by Jadiel Adames MD 02/18/2019 07:53 A
== END 2019-02-17 18:05 | disposition home or self-care (01) ==
LOC: M ED 12:10
DX: N39.0 Urinary tract infection, site not specified (principal); R11.10 Vomiting, unspecified; E87.6 Hypokalemia; E11.9 Type 2 diabetes mellitus without complications; G20 Parkinson's disease; F41.9 Anxiety disorder, unspecified; F32.9 Major depressive disorder, single episode, unspecified; G89.29 Other chronic pain; M54.9 Dorsalgia, unspecified; M10.9 Gout, unspecified; N40.0 Benign prostatic hyperplasia without lower urinary tract symptoms; Z72.0 Tobacco use; N20.0 Calculus of kidney; Z79.899 Other long term (current) drug therapy; Z88.8 Allergy status to other drugs, medicaments and biological substances
CPT/HCPCS: 74177; 80048; 80076; 81001; 83690; 85025; 87088; 87186; 93041; 96374; 99284; J2405; Q9963; Q9967

== ENCOUNTER 2019-02-23 10:43 | Inpatient (IN) | payer MEDICARE, OTHER ==
[~2019-02-23] VITALS: Ht 180.3 cm; Wt 70.7 kg
[~2019-02-23 10:43] MED LIST changes: +CIPR-249 PO; +ZOFR4TAB16 PO
[2019-02-23] MEDS ORDERED: ONDANSETRON 4MG/2ML VIAL (J2405) IV ONE (11:00)
[2019-02-23] MEDS ORDERED: LIDOCAINE 2% 5ML JELLY UROJET TOP ONE ×2 (11:00→12:30)
[2019-02-23] MEDS ORDERED: NS 1,000 ML IV ONE ×3 (11:00→13:15)
[2019-02-23 11:06] LABS: BASO % 0.2 % (0.0-1.0); EOS % 0.1 % (0.0-3.0); HEMATOCRIT 34.2 % (42.0-52.0); HEMOGLOBIN 12.2 g/dl (13.5-17.5); MEAN CORPUSCULAR HGB CONC 35.7 g/dl (32.0-36.5); MONO # 0.9 10^3/uL (0.0-0.8); MONO % 4.7 % (0.0-5.0); NEUTROPHILS # 16.7 10^3/uL (1.8-7.7); NEUTROPHILS % 84.3 % (36.0-66.0); PLATELET COUNT, AUTOMATED 249 10^3/uL (150-450); RED BLOOD COUNT 3.93 10^6/uL (4.30-6.10); WHITE BLOOD COUNT 19.8 10^3/uL (4.0-10.0)
[2019-02-23 11:06] LABS: ABG BASE EXCESS 1.1 (-2.0-2.0); ABG HCO3 23.6 MEQ/L (22.0-26.0); ABG PARTIAL PRESSURE CO2 30.9 mmHg (35.0-45.0); ABG STANDARD HCO3 25.4 MEQ/L (22.0-26.0); ABG TOTAL CO2 24.5 MEQ/L (23.0-31.0)
[2019-02-23 11:17] LABS: INR 1.04; PARTIAL THROMBOPLASTIN TIME 27.4 SECONDS (25.4-37.6); PROTHROMBIN TIME 13.7 SECONDS (12.1-14.4)
--- NOTE | 2019-02-23 11:31 | REP ---
CT Head without contrast HISTORY: Altered mental status COMPARISON: 07/28/2014 Areas of decreased attenuation are present in the periventricular white matter. This represents small-vessel ischemic disease. There is no intraparenchymal hemorrhage, acute infarct, mass or midline shift. The ventricular system and cortical sulci and subarachnoid space in the posterior fossa are dilated consistent with moderate volume loss. There is no extra cerebral collection. There is no fracture. The visualized sinuses are clear. IMPRESSION: 1. Small vessel ischemic disease. 2. Moderate volume loss. Electronically Signed by Jason Saucedo MD 02/23/2019 11:23 A
--- NOTE | 2019-02-23 11:38 | REP ---
Portable chest, 11:04 a.m., single AP view, the patient semi upright: Comparison is 01/09/2019. The lung gurrola are clear. The cardiac size is normal. The jhonny, mediastinum, and skeletal structures are unremarkable. Impression: Negative portable chest. There is no interval change. Electronically Signed by Ford Richards MD 02/23/2019 11:30 A
[2019-02-23] MEDS ORDERED: PIPERACILLIN/TAZOBACTAM SOD 4.5 GM in D5W MINI-BAG PLUS 50 ML IV ONE (11:45)
[2019-02-23 12:04] LABS: BLOOD UREA NITROGEN 33 MG/DL (7-18); CREATININE FOR GFR 5.12 MG/DL (0.70-1.30); GLOMERULAR FILTRATION RATE 11.9 (>42); GLUCOSE, FASTING 128 MG/DL (70-100)
[2019-02-23 12:05] LABS: CARBON DIOXIDE LEVEL 23 MEQ/L (21-32); CHLORIDE LEVEL 90 MEQ/L (98-107); SODIUM LEVEL 129 MEQ/L (136-145)
[2019-02-23 12:06] LABS: ALT/SGPT 9 U/L (12-78); CALCIUM LEVEL 7.4 MG/DL (8.8-10.2); CK-MB VALUE MASS 14.4 NG/ML (<3.6); CPK CREATINE PHOSPHOKINASE 1301 U/L (39-308)
[2019-02-23 12:07] LABS: AMYLASE 41 U/L (25-115); BILIRUBIN,DIRECT 0.1 MG/DL (0.0-0.2); BILIRUBIN,TOTAL 0.5 MG/DL (0.2-1.0); MB/CK RELATIVE INDEX 1.11 (< OR =4)
[2019-02-23 12:08] LABS: ACETAMINOPHEN LEVEL < 2.0 UG/ML (10.0-30.0); ALBUMIN 3.5 GM/DL (3.2-5.2); ETHYL ALCOHOL (ETHANOL) < 0.003 % (0.000-0.010); LIPASE 115 U/L (73-393); SALICYLATE LEVEL 5.6 MG/DL (5.0-30.0); TOTAL PROTEIN 6.6 GM/DL (6.4-8.2); TROPONIN I 0.18 NG/ML (< 0.10)
[2019-02-23 12:09] LABS: THYROID STIMULATING HORMONE 0.848 uIU/ML (0.358-3.740)
[2019-02-23] MEDS ORDERED: ONDA-195 PO (12:27)
[2019-02-23] MEDS ORDERED: LISI-542 PO (12:27)
[2019-02-23] MEDS ORDERED: CIPR500T3 PO (12:27)
[2019-02-23] MEDS ORDERED: FLOM0.4C39 PO (12:27)
[2019-02-23] MEDS ORDERED: MIRA3350 PO (12:27)
[2019-02-23] MEDS ORDERED: SENN-23 PO (12:27)
[2019-02-23] MEDS ORDERED: KCL 10MEQ/100ML SWI (KRUN) 10 MEQ in APPROPRIATE DILUENT 1 EA IV ONE (12:30)
[2019-02-23 12:37] LABS: AMPHETAMINES LEVEL URINE NEGATIVE (NEGATIVE); BARBITURATES URINE NEGATIVE (NEGATIVE); BENZODIAZEPINES URINE POSITIVE (NEGATIVE); CANNABINOIDS URINE NEGATIVE (NEGATIVE); COCAINE METABOLITE URINE NEGATIVE (NEGATIVE); METHADONE URINE NEGATIVE (NEGATIVE); OPIATES URINE NEGATIVE (NEGATIVE)
[2019-02-23 12:38] LABS: PHENCYCLIDINE URINE NEGATIVE (NEGATIVE)
--- NOTE | 2019-02-23 12:55 | REP ---
CT of the chest without IV contrast: Comparison is 01/22/2019. There is bibasilar discoid atelectasis as an interval change. There are no pleural effusions. There are no masses or nodules. There is a calcified granuloma in the lingula and there are calcified granulomas in the left hilus and in the mediastinum. There is no mediastinal lymph node enlargement. In the absence of IV contrast the study is insensitive for hilar lymph node enlargement. There is no axillary lymph node enlargement. The unenhanced thoracic aorta is unremarkable. Cardiac size is normal. There is no pericardial effusion. There is calcified vascular atheroma in the coronary arteries. The upper abdomen. There are surgical clips in the gallbladder fossa. There is fatty atrophy of the pancreas. Spleen, adrenals and renal upper poles are unremarkable. There are surgical clips adjacent to the distal esophagus. Impression: Bibasilar discoid atelectasis. Calcified granulomas. No infiltrates, pleural effusions or masses. Electronically Signed by Ford Richards MD 02/23/2019 12:47 P
[2019-02-23 13:16] LABS: MAGNESIUM LEVEL 2.2 MG/DL (1.8-2.4)
--- NOTE | 2019-02-23 13:16 | REP ---
CT of the abdomen and pelvis without IV or bowel contrast: Comparison is 02/17/2019. The study is performed. Contiguous with the chest CT this same date. The unenhanced hepatic parenchyma is homogeneous. There are surgical clips in the gallbladder fossa, this is unchanged. There is fatty atrophy of the pancreas. This is unchanged. The spleen is normal size and unremarkable. There is a small renal calculus in the lower pole of the right kidney, nonobstructive, unchanged. There are no left renal calculi. There is no hydronephrosis. The there is no perinephric stranding. The abdominal aorta is unremarkable. There is no retroperitoneal or mesenteric lymph node enlargement. There is no ascites. There is no bowel distension or obstruction. The appendix is dilated measuring up to 11 mm, however, there is no periappendiceal inflammation or abscess. The appendix is unchanged from prior study of 01/03/2019. There is no diverticulosis or diverticulitis. The pelvic bowel loops are unremarkable. There is no pelvic ascites or adenopathy. The calcification in the cul-de-sac, unchanged, likely fat necrosis. The bladder is unremarkable. There is is small bubble of air in the bladder anteriorly, possibly from recent catheterization. Impression: Nonobstructive right renal calculus, unchanged. Dilated appendix without evidence of inflammation or abscess, unchanged from prior studies. Small volume of air in the bladder, likely from recent catheterization. Cholecystectomy. Surgical clips adjacent to the distal esophagus. No bowel distension or obstruction. No ascites. Electronically Signed by Ford Richards MD 02/23/2019 01:08 P
[2019-02-23 17:15] VITALS: BP 132/60
[2019-02-23 18:00] VITALS: BP 125/64
[2019-02-23] MEDS ORDERED: ACETAMINOPHEN TAB 650MG DOSE (2X325MG) PO PRN (18:45)
[2019-02-23] MEDS ORDERED: GLUCAGON FOR INJ 1 MG VIAL (J1610) SC PRN (19:00)
[2019-02-23] MEDS ORDERED: GLUCOSE 4 GM CHEW TABLET PO PRN (19:00)
[2019-02-23] MEDS ORDERED: DEXTROSE 50% 50 ML SYRINGE IV PRN (19:00)
[2019-02-23] MEDS ORDERED: PILL CRUSHER/CUTTER 1 EACH XX PRN (19:15)
--- NOTE | 2019-02-23 19:28 | HPEPDOC ---
General Date of Admission Feb 23, 2019 at 13:37 Chief Complaint The patient is a 69-year-old male admitted with a reason for visit of Sepsis,Ut i. Source: Patient, Family History of Present Illness The history is off and partly from the patient and partly from his daughter was present at bedside. The patient has some somnolence/U therefore history was limited from him. Further history the patient is a 69-year-old gentleman who was recently diagnosed as having a urinary tract infection following an ER visit. Urine cultures did subsequently grow Klebsiella. He was treated in the ER and sent home on antibiotics. However, his daughter reports that the patient has been progressively getting weaker. Reports he has not been eating drinking well for almost 10 days now. She reports he has been complaining of dysphagia when he swallows and he has been spitting for right back up. She is unsure if he had any true vomitingit seemed more that food seemed seem to be getting stuck. He has also not been drinking liquids. Subsequently, the patient also started getting more lethargic. She also reports he has had a couple of falls in the last few days. Given concerns regarding worsening mentation as well as was no weakness, she called EMS. Apparently when initially seen by EMS, blood pressure was in the 60s. In the ER on arrival, blood pressure was in the 80s. The patient received 30 ML per ki logram fluid bolus. Patient also was noticed to have new acute kidney injury with a creatinine of 5.1. Troponin was slightly elevated at 0.18. CT scan of the chest showed atelectasis, CT scan of abdomen and pelvis did not show acute findings, chest x-ray did not show acute findings, CT scan of the head did not show acute findings - there was some small vessel ischemic changes. Admission was requested for further management. Home Medications Scheduled Acyclovir (Acyclovir) 200 Mg Cap, 200 MG PO BID, (Reported) Allopurinol (Zyloprim) 300 Mg Tab, 300 MG PO DAILY, (Reported) Alprazolam (Xanax) 0.5 Mg Tab, 1 MG PO BID, (Reported) Carbidopa/Levodopa (Carbidopa-Levo ER 50-200 Tab) 1 Tab Tabcr, 1 TAB PO QHS, (Reported) Carbidopa/Levodopa (Carbidopa-Levodopa 25-100 Tab) 1 Tab Tab, 2.5 TAB PO TID, (Reported) TAKES WITH ENTACAPONE AT 1000, 1400, 1800 Cetirizine HCl/Pseudoephedrine (Zyrtec-D Tablet) 1 Tab Tab, 1 TAB PO BID, (Reported) Ciprofloxacin HCl (Ciprofloxacin HCl) 500 Mg Tablet, 500 MG PO BID, (Reported) FILLED 02/17/19 FOR 7 DAYS Entacapone (Entacapone) 200 Mg Tab, 200 MG PO TID, (Reported) TAKE WITH SINEMET TID AT 1000, 1400, 1800 Fluoxetine Hcl (Fluoxetine HCl) 20 Mg Cap, 20 MG PO DAILY, (Reported) Folic Acid (Folic Acid) 1 Mg Tab, 1 MG PO DAILY, (Reported) Lansoprazole (Prevacid) 30 Mg Cap, 30 MG PO DAILY, (Reported) Levothyroxine Sodium (Levoxyl) 100 Mcg Tab, 100 MCG PO DAILY, (Reported) Lisinopril (Lisinopril) 5 Mg Tablet, 5 MG PO DAILY, (Reported) Polyethylene Glycol 3350 (Miralax) 119 Gm Powder, 17 GM PO DAILY, (Reported) Pregabalin (Lyrica) 50 Mg Cap, 50 MG PO TID, (Reported) Sennosides/Docusate Sodium (Senna-S Tablet) 1 Each Tablet, 1 TAB PO DAILY, (Reported) Sitagliptin Phosphate (Januvia) 100 Mg Tab, 100 MG PO DAILY, (Reported) Tamsulosin HCl (Flomax) 0.4 Mg Capsule, 0.4 MG PO QHS, (Reported) Trazodone HCl (Trazodone HCl) 100 Mg Tab, 200 MG PO QHS, (Reported) Scheduled PRN Acetaminophen with Codeine (Tylenol with Codeine #3 Tablet) 1 Tab Tab, 1 TAB PO Q4H PRN for HEADACHE, (Reported) TAKE ONE TO TWO TABS Fluticasone Propionate (Flonase Allergy Relief) 50 Mcg/Act Spr, 2 SPRAY NA DAILY PRN for NASAL CONGESTION, (Reported) Metaxalone (Metaxalone) 800 Mg Tab, 800 MG PO TID PRN for MUSCLE SPASMS, (Report ed) Ondansetron HCl (Ondansetron HCl) 4 Mg Tablet, 4 MG PO Q6H PRN for NAUSEA OR VOMITING, (Reported) Allergies Coded Allergies: pentazocine (Verified Allergy, Unknown, unknown, 02/17/19) PT AND DAUGHTER SAYS THEY DON'T THINK THIS IS AN ALLERGY Past Medical History Medical History Parkinson's disease, diabetes mellitus type 2, hypothyroidism, chronic back pain, gout, anxiety, depression, BPH, environmental allergies Surgical History Right shoulder repair, cholecystectomy, esophageal repair for Huizar's esophagus Family History Mom passed at 101, father passed at 90, daughter has a history of thyroid cancer Social History No alcohol use or drug use. Remote history of smoking for 5 yearssmoked cigars, quit 34 years ago. Lives with his sister. 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 Review of Systems Other systems Negative for 10 systems except as noted under history of present illness. It was quite limited as patient is a little somnolent. Physical Examination General Exam: Positive: No Acute Distress, Other (lying in bed, a little somnolent, arousable but dozes off.) Eye Exam: Positive: PERRLA ENT Exam: Positive: Other ENT (whitish coating over the tongue) Neck Exam: Positive: Supple Chest Exam: Positive: Clear to auscultation, Other (no rales, no rhonchi, no wheeze) Heart Exam: Positive: Rate Normal, Normal S1, Normal S2 Abdomen Exam: Positive: Normal bowel sounds, Soft, Other (nontender) Skin Exam: Positive: Nl turgor and temperature, Other skin issue (patient has fungal/yeast rash in bilateral groins as well as area of erythema over the sacrum as well as a smaller area over the right gluteus with superficial denudation of skin); Negative: Rash Neuro Exam: Positive: Other (a little somnolent but arousable. He is oriented 3. Able to move all 4 extremities to command but weak.) Vital Signs Vital Signs Date Time Temp Pulse Resp B/P (MAP) Pulse Ox O2 Delivery O2 Flow Rate FiO2 02/23/19 18:00 86 16 125/64 (84) 96 02/23/19 17:15 99.0 02/23/19 10:57 Room Air Laboratory Data Labs 24H Laboratory Tests 2 02/23/19 10:46: Blood Gas Bicarbonate Standard 25.4, Arterial Blood pH 7.500H, Arterial Blood Partial Pressure CO2 30.9L, Arterial Blood Partial Pressure O2 146.0H, Arterial Blood Total CO2 24.5, Arterial Blood HCO3 23.6, Arterial Blood Base Excess 1.1, Arterial Blood Oxygen Saturation 99.0 02/23/19 10:50: Immature Granulocyte % (Auto) 0.7, White Blood Count 19.8H, Red Blood Count 3.93L, Hemoglobin 12.2L, Hematocrit 34.2L, Mean Corpuscular Volume 87.0, Mean Corpuscular Hemoglobin 31.0, Mean Corpuscular Hemoglobin Concent 35.7, Red Cell Distribution Width 14.1, Platelet Count 249, Neutrophils (%) (Auto) 84.3H, L ymphocytes (%) (Auto) 10.0L, Monocytes (%) (Auto) 4.7, Eosinophils (%) (Auto) 0.1, Basophils (%) (Auto) 0.2, Neutrophils # (Auto) 16.7H, Lymphocytes # (Auto) 2.0, Monocytes # (Auto) 0.9H, Eosinophils # (Auto) 0.0, Basophils # (Auto) 0.0, Nucleated Red Blood Cells % (auto) 0.0, Prothrombin Time 13.7, Prothromb Time International Ratio 1.04, Activated Partial Thromboplast Time 27.4, Anion Gap 16, Glomerular Filtration Rate 11.9L, Lactic Acid Level 2.0, Calcium Level 7.4L, Magnesium Level 2.2, Aspartate Amino Transf (AST/SGOT) 35, Alanine Aminotransferase (ALT/SGPT) 9L, Alkaline Phosphatase 92, Total Bilirubin 0.5, Direct Bilirubin 0.1, Ammonia 21, Total Creatine Kinase 1301H, Creatine Kinase M B 14.4H, Creatine Kinase MB Relative Index 1.11, Troponin I 0.18H, Total Protein 6.6, Albumin 3.5, Albumin/Globulin Ratio 1.13, Amylase Level 41, Lipase 115, Thyroid Stimulating Hormone (TSH) 0.848, Salicylates Level 5.6, Acetaminophen Level < 2.0L, Ethyl Alcohol Level < 0.003 02/23/19 11:28: Urine Color CHRISTIANO, Urine Appearance CLEAR, Urine pH 5.0, Urine Specific [place] 1.015, Urine Protein 2+H, Urine Glucose (UA) NEGATIVE, Urine Ketones TRACEH, Urine Blood 1+H, Urine Nitrite NEGATIVE, Urine Bilirubin NEGATIVE, Urine Urobilinogen 0.2, Urine Leukocyte Esterase NEGATIVE, Urine WBC (Auto) 11H, Urine RBC (Auto) 1, Urine Hyaline Casts (Auto) 2, Urine Bacteria (Auto) 1+H, Urine Squamous Epithelial Cells 0, Urine Granular Casts (Auto) 87, Urine Mucus (Auto) SMALL, Urine Sperm (Auto) , Urine Amphetamines Screen NEGATIVE, Urine Benzodiazepines Screen POSITIVEH, Urine Opiates Screen NEGATIVE, Urine Methadone Screen NEGATIVE, Urine Barbiturates Screen NEGATIVE, Urine Phencyclidine Screen NEGATIVE, Urine Cocaine Metabolite Screen NEGATIVE, Urine Cannabinoids Screen NEGATIVE 02/23/19 16:13: CBC/BMP Laboratory Tests 02/23/19 10:50 Red Blood Count 3.93 L, Mean Corpuscular Volume 87.0, Mean Corpuscular Hemoglobin 31.0, Mean Corpuscular Hemoglobin Concent 35.7, Red Cell Distribution Width 14.1, Neutrophils (%) (Auto) 84.3 H, Lymphocytes (%) (Auto) 10.0 L, Monocytes (%) (Auto) 4.7, Eosinophils (%) (Auto) 0.1, Basophils (%) (Auto) 0.2, Neutrophils # (Auto) 16.7 H, Lymphocytes # (Auto) 2.0, Monocytes # (Auto) 0.9 H, Eosinophils # (Auto) 0.0, Basophils # (Auto) 0.0 Microbiology Microbiology 02/23/19 Blood Culture, Received Pending 02/23/19 Blood Culture, Received Pending 02/23/19 Urine Culture, Received Pending Assessment/Plan Hypotension, possibly secondary to sepsis secondary to Klebsiella UTI present on admission: -Patient has known Klebsiella UTI for which she was recently treated with antibiotic -UA today does show bacteria. Pro-calcitonin has been sent -Treat with IV Zosyn. He received 30 ML per kilogram IV fluid bolus. Lactic acid was normal. Blood pressures have improved with fluids. -Well perfused extremities at this time. Capillary refill is brisk and less than 1 second. -Continue monitoring I's and O'spatient has Morales catheter in place. -Follow up on blood cultures -If pro-calcitonin is normal and cultures are negative, plan will be to discontinue antibiotics. -The patient has not been able to eat for the last 10 daysas suspect there is definitely a component of dehydration contributing to the hypotension Acute kidney injury, likely secondary to ATN secondary to dehydration: -Aggressive IV hydration -Morales catheter for input and output -CT scan does not show any obstructive uropathy -Avoid nephrotoxins -Renal dosing of medications -Monitor renal functionif not improving over the next 1-2 days, may need nephrology consultation Acute medical encephalopathy; -Likely secondary to ongoing sepsis/hypotension/dehydration -Avoid sedating medications -Head CT did not show acute findings Dysphagia in setting of history of Huizar's esophagus requiring repair: -We will need to assess patient's swallowing once he is more alert -May need endoscopy by GIat this time, he will not be stable for EGD in any case. -Anticipate possibly having GI see the patient either on Tuesday or Tuesday to evaluate for possible EGD -Currently nothing by mouth Diabetes mellitus type 2: -Patient was placed on sliding scale insulin for now with fingersticks every 6 hours Parkinson's: -Continue Sinemet Hypothyroidism: -Continue levothyroxin BPH: -Hold Flomax in view of hypotension Oral thrush: -Nystatin swish and swallow Groin yeast rash/tenia infection: -Topical nystatin Generalized weakness and recurrent falls: -PT/OT once patient is more alert GI/DVT prophylaxis: -Famotidine, subcutaneous heparin CODE STATUS: -Full code per my discussion with the patient and daughter Disposition: -Admit to ICU as an inpatient. Anticipated length of stay more than 2 midnights. Anticipate may need long-term facility placement was his home with home health on discharge. Plan / VTE VTE Prophylaxis Ordered?: Yes MARLENI GUZMAN MD Feb 23, 2019 19:28
--- NOTE | 2019-02-23 19:32 | ECGEPIP ---
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
[2019-02-23] MEDS: ENTACAPONE 200MG TABLET (COMTAN) PO SCH (19:52)
[2019-02-23] MEDS: SINEMET 25-100 MG TAB PO SCH (19:52)
[2019-02-23] MEDS: PIPERACILLIN/TAZOBACTAM SOD 2.25 GM in D5W MINI-BAG PLUS 50 ML IV SCH (19:54)
[2019-02-23] MEDS: NS 1,000 ML IV SCH (19:54)
[2019-02-23 20:00] VITALS: BP 123/60
[2019-02-23] MEDS: ACYCLOVIR 200 MG CAPSULE PO SCH (21:00)
[2019-02-23] MEDS: SINEMET**CR** 25/100 TABCR PO SCH (21:00)
[2019-02-23] MEDS: NYSTATIN 100,000 UNITS/GM TOPICAL PWD 15 GM TOP SCH (21:04)
[2019-02-23] MEDS: HEPARIN SOD (PORCINE) 5000 UNITS/ML VIAL SC SCH (21:04)
[2019-02-23] MEDS ORDERED: ACETAMINOPHEN 650 MG SUPP PR PRN (22:45)
[2019-02-23] MEDS: NYSTATIN 500,000 U/5 ML SUSP UDC SS SCH (22:54)
[2019-02-24] VITALS (12 sets, daily range): BP systolic 117–161; BP diastolic 64–86
[2019-02-24] MEDS ORDERED: ACETAMINOPHEN 120 MG SUPP PR ONE (00:45)
[2019-02-24] MEDS: PIPERACILLIN/TAZOBACTAM SOD 2.25 GM in D5W MINI-BAG PLUS 50 ML IV SCH ×2 (04:03→12:24)
[2019-02-24] MEDS: NS 1,000 ML IV SCH (04:03)
[2019-02-24 05:14] LABS: HEMOGLOBIN 10.9 g/dl (13.5-17.5); MEAN CORPUSCULAR HEMOGLOBIN 30.5 pg (27.0-33.0); MEAN CORPUSCULAR HGB CONC 35.2 g/dl (32.0-36.5); MEAN CORPUSCULAR VOLUME 86.8 fl (80.0-96.0); PLATELET COUNT, AUTOMATED 207 10^3/uL (150-450); RED BLOOD COUNT 3.57 10^6/uL (4.30-6.10); WHITE BLOOD COUNT 13.2 10^3/uL (4.0-10.0)
[2019-02-24 05:52] LABS: ALBUMIN 2.6 GM/DL (3.2-5.2); BILIRUBIN,TOTAL 0.5 MG/DL (0.2-1.0); CALCIUM LEVEL 6.8 MG/DL (8.8-10.2); CREATININE FOR GFR 2.02 MG/DL (0.70-1.30); GLOMERULAR FILTRATION RATE 34.9 (>42); MAGNESIUM LEVEL 1.5 MG/DL (1.8-2.4); POTASSIUM SERUM 2.3 MEQ/L (3.5-5.1); TOTAL PROTEIN 5.9 GM/DL (6.4-8.2)
[2019-02-24] MEDS: HumaLOG INSULIN (NovoLOG) PER UNIT SC SCH ×4 (05:56→18:00)
[2019-02-24] MEDS ORDERED: LEVOTHYROXINE 100MCG TABLET (0.1MG) PO SCH (06:00)
[2019-02-24] MEDS: KCL 10MEQ/100ML SWI (KRUN) 10 MEQ in APPROPRIATE DILUENT 1 EA IV SCH ×10 (06:42→23:00)
[2019-02-24] MEDS: MAG SULF 1GM/100ML (MAG RUN) 1 GM in APPROPRIATE DILUENT 1 EA IV SCH ×4 (06:50→19:24)
[2019-02-24] MEDS: NYSTATIN 500,000 U/5 ML SUSP UDC SS SCH ×4 (08:59→21:00)
[2019-02-24] MEDS: HEPARIN SOD (PORCINE) 5000 UNITS/ML VIAL SC SCH ×2 (08:59→20:38)
[2019-02-24] MEDS: NYSTATIN 100,000 UNITS/GM TOPICAL PWD 15 GM TOP SCH ×2 (09:00→20:38)
[2019-02-24] MEDS: ACYCLOVIR 200 MG CAPSULE PO SCH ×2 (09:00→21:00)
[2019-02-24] MEDS ORDERED: NS IV SCH (09:00)
[2019-02-24] MEDS ORDERED: FAMOTIDINE IV SCH (09:00)
[2019-02-24] MEDS: KCL 40MEQ in NS 1000ML 1,000 ML IV SCH ×2 (09:01→18:57)
[2019-02-24] MEDS: ENTACAPONE 200MG TABLET (COMTAN) PO SCH ×3 (10:00→18:00)
[2019-02-24] MEDS: SINEMET 25-100 MG TAB PO SCH ×3 (10:00→18:00)
[2019-02-24] MEDS ORDERED: MAGIC MOUTHWASH SUSPENSION BTL SSP PRN (16:00)
[2019-02-24] MEDS ORDERED: MAG SULF 1GM/100ML (MAG RUN) 1 GM in APPROPRIATE DILUENT 1 EA IV ONE (16:15)
--- NOTE | 2019-02-24 16:17 | IPNPDOC ---
Subjective Date Seen The patient was seen on 02/24/19. Subjective Chief Complaint/HPI Generalized weakness, recurrent falls, lethargy Events since last encounter The patient seems a little more alert today. Reports his mouth feels sore. Reports difficulty swallowing. Denies any chest pain. Denies any cough. Denies any abdominal pain. No vomiting. Nurse reports the patient did not do well with water sips yesterday and therefore has been maintained nothing by mouth. Denies any constipation. Objective Physical Examination General Exam: Positive: Other (lying in bed, awake. No distress. A little weak appearing still.) Eye Exam: Positive: PERRLA ENT Exam: Positive: Other ENT (whitish coating over the tongue, ? Oral thrush) Chest Exam: Positive: Clear to auscultation, Other (no rales, no rhonchi, no wheeze); Negative: Rhonchi, Wheezing Heart Exam: Positive: Rate Normal, Normal S1, Normal S2 Abdomen Exam: Positive: Normal bowel sounds, Soft; Negative: Tenderness Neuro Exam: Positive: Other (awake, alert, oriented 3. Answering questions appropriately. ) Assessment /Plan Assessment Hypotension, possibly secondary to sepsis secondary to Klebsiella UTI present on admission: -Patient has known Klebsiella UTI for which he was recently treated with antibiotic -Urine culture does not show any bacteria -Discontinue IV Zosyn -Blood pressures are better -Pro-calcitonin level is pending -Suspect that dehydration and poor oral intake was contributing to the hypotension Acute kidney injury, likely secondary to ATN secondary to dehydration: -Continue IV hydration -Creatinine improving - good urine output -Morales catheter for accurate input and output -CT scan did not show any obstructive uropathy -Avoid nephrotoxins -Renal dosing of medications Acute metabolic encephalopathy; -Likely secondary to hypotension/dehydration -Avoid sedating medications -Head CT did not show acute findings -Mentation is better today, although still a little weak appearing Dysphagia in setting of history of Huizar's esophagus requiring repair: -We will need to assess patient's swallowing once he is more alert -May need endoscopy by GI possibly on Tuesday or Tuesday -Currently nothing by mouth -Requested LOAD OUT PERSON evaluation of bedside swallowing as well as Diabetes mellitus type 2: -Continue sliding scale insulin for now with fingersticks every 6 hours Parkinson's: -Continue Sinemet Hypothyroidism: -IV levothyroxine BPH: -Holding Flomax in view of hypotension Oral thrush: -Nystatin swish and spit Groin yeast rash/tenia infection: -Topical nystatin Generalized weakness and recurrent falls: -PT/OT once patient is more alert GI/DVT prophylaxis: -Famotidine, subcutaneous heparin Plan/VTE VTE Prophylaxis Ordered?: Yes VS, I&O, 24H, Fishbone Vital Signs/I&O Vital Signs Date Time Temp Pulse Resp B/P (MAP) Pulse Ox O2 Delivery O2 Flow Rate FiO2 02/24/19 13:00 98 144/78 (100) 98 02/24/19 12:00 98.1 18 02/23/19 10:57 Room Air I&O- Last 24 Hours up to 6 AM 02/24/19 06:00 Intake Total 1195 ml Output Total 3260 ml Balance -2065 ml Laboratory Data 24H LABS Laboratory Tests 2 02/23/19 16:13: 02/23/19 18:58: Troponin I 0.15H 02/23/19 23:59: Bedside Glucose (Misc Panel) 106 02/24/19 00:51: Troponin I 0.15H 02/24/19 05:04: Nucleated Red Blood Cells % (auto) 0.0, Anion Gap 10, Glomerular Filtration Rate 34.9L, Blood Urea Nitrogen 24H, Creatinine 2.02#H, Sodium Level 137#, Potassium Level 2.3#*L, Chloride Level 101, Carbon Dioxide Level 26, Calcium Level 6.8L, Aspartate Amino Transf (AST/SGOT) 90H, Alanine Aminotransferase (ALT/SGPT) 17, Total Creatine Kinase 3327#H, Alkaline Phosphatase 83, Total Bilirubin 0.5, Total Protein 5.9L, Albumin 2.6#L, Magnesium Level 1.5L, Albumin/Globulin Ratio 0.79L 02/24/19 11:33: Bedside Glucose (Misc Panel) 106 CBC/BMP Laboratory Tests 02/24/19 05:04 Red Blood Count 3.57 L, Mean Corpuscular Volume 86.8, Mean Corpuscular Hemoglobin 30.5, Mean Corpuscular Hemoglobin Concent 35.2, Red Cell Distribution Width 13.8, Calcium Level 6.8 L, Aspartate Amino Transf (AST/SGOT) 90 H, Alanine Aminotransferase (ALT/SGPT) 17, Total Creatine Kinase 3327 #H, Alkaline Phosphatase 83, Total Bilirubin 0.5, Total Protein 5.9 L, Albumin 2.6 #L Microbiology Microbiology 02/23/19 Blood Culture - Preliminary, Resulted No growth after 24 hours . All specim... 02/23/19 Blood Culture - Preliminary, Resulted No growth after 24 hours . All specim... 02/23/19 Urine Culture - Final, Complete MARLENI GUZMAN MD Feb 24, 2019 16:17
[2019-02-24 16:56] LABS: BLOOD UREA NITROGEN 15 MG/DL (7-18); CALCIUM LEVEL 6.9 MG/DL (8.8-10.2); CARBON DIOXIDE LEVEL 28 MEQ/L (21-32); CHLORIDE LEVEL 103 MEQ/L (98-107); CREATININE FOR GFR 1.09 MG/DL (0.70-1.30); GLOMERULAR FILTRATION RATE > 60.0 (>42); GLUCOSE, FASTING 100 MG/DL (70-100); MAGNESIUM LEVEL 1.6 MG/DL (1.8-2.4); POTASSIUM SERUM 2.8 MEQ/L (3.5-5.1); SODIUM LEVEL 139 MEQ/L (136-145)
[2019-02-24] MEDS ORDERED: NYSTATIN 500,000 U/5 ML SUSP UDC SSP SCH (18:00)
[2019-02-24 18:13] LABS: CPK CREATINE PHOSPHOKINASE 2295 U/L (39-308)
[2019-02-24] MEDS: SINEMET**CR** 25/100 TABCR PO SCH (21:00)
[2019-02-25] VITALS (7 sets, daily range): BP systolic 144–172; BP diastolic 80–91
[2019-02-25] MEDS: HumaLOG INSULIN (NovoLOG) PER UNIT SC SCH ×5 (00:07→20:52)
[2019-02-25] MEDS: KCL 10MEQ/100ML SWI (KRUN) 10 MEQ in APPROPRIATE DILUENT 1 EA IV SCH ×6 (00:28→12:15)
[2019-02-25] MEDS: KCL 40MEQ in NS 1000ML 1,000 ML IV SCH ×3 (01:40→20:25)
[2019-02-25 06:10] LABS: BASO % 0.1 % (0.0-1.0); EOS % 0.4 % (0.0-3.0); HEMATOCRIT 31.4 % (42.0-52.0); HEMOGLOBIN 10.9 g/dl (13.5-17.5); LYMPH # 1.5 10^3/uL (1.5-4.5); LYMPH % 18.6 % (24.0-44.0); MEAN CORPUSCULAR HGB CONC 34.7 g/dl (32.0-36.5); MEAN CORPUSCULAR VOLUME 86.5 fl (80.0-96.0); MONO # 0.5 10^3/uL (0.0-0.8); MONO % 6.1 % (0.0-5.0); NEUTROPHILS % 73.9 % (36.0-66.0); PLATELET COUNT, AUTOMATED 232 10^3/uL (150-450); RED BLOOD COUNT 3.63 10^6/uL (4.30-6.10); WHITE BLOOD COUNT 8.1 10^3/uL (4.0-10.0)
[2019-02-25 06:36] LABS: BLOOD UREA NITROGEN 9 MG/DL (7-18); CALCIUM LEVEL 7.4 MG/DL (8.8-10.2); CARBON DIOXIDE LEVEL 25 MEQ/L (21-32); CHLORIDE LEVEL 103 MEQ/L (98-107); CREATININE FOR GFR 0.74 MG/DL (0.70-1.30); GLOMERULAR FILTRATION RATE > 60.0 (>42); GLUCOSE, FASTING 98 MG/DL (70-100); POTASSIUM SERUM 3.3 MEQ/L (3.5-5.1); SODIUM LEVEL 139 MEQ/L (136-145)
[2019-02-25 06:37] LABS: ALBUMIN 2.7 GM/DL (3.2-5.2); ALT/SGPT 27 U/L (12-78); BILIRUBIN,TOTAL 0.7 MG/DL (0.2-1.0); CPK CREATINE PHOSPHOKINASE 1696 U/L (39-308); MAGNESIUM LEVEL 1.5 MG/DL (1.8-2.4); PHOSPHORUS LEVEL 1.1 MG/DL (2.5-4.9); TOTAL PROTEIN 6.3 GM/DL (6.4-8.2)
--- NOTE | 2019-02-25 07:16 | ECHO ---
DATE OF PROCEDURE: 02/24/2019 AGE: 69 GENDER: Male REFERRING PHYSICIAN: Dr. Nithin Eaton. HEIGHT: 71 inches. WEIGHT: 156 pounds. BODY SURFACE AREA: 1.9 sq m. INPATIENT: Intensive care unit (ICU) room 3208. INDICATION: Elevated troponin. MEASUREMENTS: 2D MEASUREMENTS: RV - 3.6 cm LV- 4.2 cm Septum - 1.2 cm Posterior wall - 1.2 cm Aortic root - 3.1 cm LA - 3.6 cm LVEF - 75% DOPPLER MEASUREMENTS: AV - 1.5 m/s LVOT - 1.3 m/s LVOT diameter - 2.0 cm MV-E: 86 A: 115 EA ratio 0.8 Early mitral deacceleration time: 285 ms E-prime - 7.5 A-prime - 13 E/E prime ratio - 11.5 PTWP - 15 mmHg PV - 1.2 ms Pulmonary artery acceleration time 91 ms PASP - 41 mmHg IVC - 1.8 cm COMMENTS: Normal sinus rhythm without intraventricular conduction disturbance. Technically challenging study in light of the patient's body habitus such that were not able to obtain very satisfactory left sternal, left parasternal views but apical and subcostal imaging was fair. M-mode and two-dimensional echocardiography was performed with pulsed, continuous wave, color flow and tissue Doppler studies. Borderline left ventricular hypertrophy with hyperkinetic wall motion. No localized wall motion abnormality. Left atrial size upper limits of normal with Doppler evidence of an impairment of LV diastolic function but current estimated mean left atrial pressure was upper limits of normal. Normal right heart chamber sizes and motion with Doppler evidence of moderate pulmonary hypertension. Normal IVC size and collapse against an elevated central venous pressure. What we could visualize of his aortic valve was slightly sclerotic but it still opened normally and there was no functional abnormality. Aortic root appeared to be normal in size. Normal-appearing mitral valvular apparatus and function. No apparent intracardiac mass or pericardial effusion. MTDD
[2019-02-25] MEDS: NYSTATIN 500,000 U/5 ML SUSP UDC SS SCH ×4 (09:00→20:26)
[2019-02-25] MEDS: ACYCLOVIR 200 MG CAPSULE PO SCH ×2 (09:00→20:26)
[2019-02-25] MEDS: NYSTATIN 100,000 UNITS/GM TOPICAL PWD 15 GM TOP SCH ×2 (09:00→20:26)
--- NOTE | 2019-02-25 09:01 | ECGEPIP ---
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
[2019-02-25] MEDS: ENTACAPONE 200MG TABLET (COMTAN) PO SCH ×3 (09:41→17:21)
[2019-02-25] MEDS: SINEMET 25-100 MG TAB PO SCH ×3 (09:41→17:21)
[2019-02-25] MEDS: FAMOTIDINE IV BAG 20 MG in APPROPRIATE DILUENT 1 EA IV SCH ×2 (09:57→20:25)
[2019-02-25] MEDS: LEVOTHYROXINE 100 MCG (0.1MG) VIAL IV SCH (09:57)
[2019-02-25] MEDS: HEPARIN SOD (PORCINE) 5000 UNITS/ML VIAL SC SCH (09:57)
--- NOTE | 2019-02-25 10:17 | REP ---
REASON FOR EXAM: Blurred vision. COMPARISON: Two days ago. There is no change from two days ago. There is volume loss and deep white matter ischemic change. No acute intracranial hemorrhagic or nonhemorrhagic event has developed since the last exam. There is no acute fracture. IMPRESSION: No change from two days ago. No acute disease. Electronically Signed by William Washington DO 02/25/2019 01:50 P
[2019-02-25] MEDS: MAG SULF 1GM/100ML (MAG RUN) 1 GM in APPROPRIATE DILUENT 1 EA IV SCH ×3 (10:38→12:44)
--- NOTE | 2019-02-25 15:36 | IPNPDOC ---
Subjective Date Seen The patient was seen on 02/25/19. Subjective Chief Complaint/HPI Generalized weakness, recurrent falls, lethargy Events since last encounter The patient seems more alert this morning. He reports he was having some cramping in his bilateral upper extremities especially most in the left hand. Also reports some associated numbness. Also reports some blurriness of vision which he reports had been ongoing for a few minutes prior to me evaluating him as well as reports headache. Also reports chest pain ongoing for a few minutes prior to me evaluating him. Reports he also feels a little short of breath. Patient did seem quite anxious during my evaluation. Denies any nausea or vomiting. Also reports that he wants to have some liquids by mouthadvised patient to a rate swallow evaluation by D[employer] BRUSH ASSEMBLER until tomorrow, however, he remains quite adamant about having liquids today despite discussing with him regarding risk of aspiration pneumonia. Discussed with patient that we will assess a bedside swallow screen again and if he does well, I will start him on clear liquids. Objective Physical Examination General Exam: Positive: Other (more awake and alert today. Lying in bed. No distress) Eye Exam: Positive: PERRLA ENT Exam: Positive: Other ENT (whitish coating over tongue) Chest Exam: Positive: Clear to auscultation, Other (no distress); Negative: Rhonchi, Wheezing Heart Exam: Positive: Rate Normal, Normal S1, Normal S2 Abdomen Exam: Positive: Normal bowel sounds, Soft; Negative: Tenderness Neuro Exam: Positive: Other (extraocular muscle testing was a little limited as patient had a hard time following the instructions accurately. Otherwise cranial2-12 appear intact. No pronator drift noted. Patient did seem to have some spasm office fingers in the left hand. Strength appears 4+ over 5 in jesse ateral upper and lower extremities. Intact fine touch. No obvious lateralizing deficit noted on my exam.) Psych Exam: Positive: Anxiety RAD Interpretation STUDY: Head CT noncontrast done stat this morning shows no changes from head CT from 2 days ago. No acute findings. Assessment /Plan Assessment 12-lead EKG done stat this morning shows sinus tachycardia, no acute ST changes. Echo: Borderline left ventricular hypertrophy with hyperkinetic wall motion. No localized wall motion abnormality. Hypotension, possibly secondary to sepsis secondary to Klebsiella UTI present on admission: -Patient has known Klebsiella UTI for which he was recently treated with antibiotic -Urine culture does not show any bacteria -Off IV Zosyn -Blood pressures are normal -Pro-calcitonin level is pending -Suspect that dehydration and poor oral intake was contributing to the hypotension Acute kidney injury, likely secondary to ATN secondary to dehydration: -Resolved -Continue IV fluids until he is able to tolerate oral intake -Good urine output -Morales catheter to be discontinued. Resume Flomax. 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 Will discuss with on-call tomorrow regarding same -Requested [employer] ASSEMBLER evaluation of bedside swallowing as well as Elevated troponin on presentation, suspect related to cognition of acute kidney injury and rhabdomyolysis: -Echocardiogram does not show any wall motion abnormality as noted above -I will plan on starting aspirin once he is able to tolerate oral intake/ take PO meds -He was reporting some chest pain, which seemed atypical, today -Stat 12-lead EKG did not show any acute ST changes -Troponins have been negative 2 - 6 hours apart Headache/blurry vision/bilateral hand numbness/spasms -Patient reported these symptomsreported this started a few minutes prior to me evaluating him this morning -Neurologic exam did not show any lateralizing deficits -Head CT did not show any acute findings -Suspect at least the spasms and perhaps the numbness may be related to his electrolyte abnormalities Acute rhabdomyolysis: -CPK improving -Continue IV hydration -Recheck CPK in a.m. Diabetes mellitus type 2: -Continue sliding scale insulin for now with fingersticks every 6 hours Parkinson's: -Continue Sinemet Hypothyroidism: -IV levothyroxine BPH: -Resume Flomax -Check post void residual after Morales discontinued today Oral thrush: -Nystatin swish and spit Groin yeast rash/tenia infection: -Topical nystatin Generalized weakness and recurrent falls: -PT/OT GI/DVT prophylaxis: -Famotidine, subcutaneous heparin Disposition: Patient will likely require EGD as noted above. Anticipate discharge home with home health versus nursing home facility thereafter pending PT/OT eval and recommendations Plan/VTE VTE Prophylaxis Ordered?: Yes VS, I&O, 24H, Fishbone Vital Signs/I&O Vital Signs Date Time Temp Pulse Resp B/P (MAP) Pulse Ox O2 Delivery O2 Flow Rate FiO2 02/25/19 12:00 98.4 106 18 146/83 (104) 95 02/23/19 10:57 Room Air I&O- Last 24 Hours up to 6 AM 02/25/19 06:00 Intake Total 2200 ml Output Total 3520 ml Balance -1320 ml Laboratory Data 24H LABS Laboratory Tests 2 02/24/19 16:22: Anion Gap 8, Glomerular Filtration Rate > 60.0, Blood Urea Nitrogen 15, Creatinine 1.09, Sodium Level 139, Potassium Level 2.8#*L, Chloride Level 103, Carbon Dioxide Level 28, Calcium Level 6.9L, Magnesium Level 1.6L, Total Creatine Kinase 2295H 02/24/19 23:57: Bedside Glucose (Misc Panel) 121H 02/25/19 05:46: Anion Gap 11, Glomerular Filtration Rate > 60.0, Blood Urea Nitrogen 9, Creatinine 0.74, Sodium Level 139, Potassium Level 3.3L, Chloride Level 103, Carbon Dioxide Level 25, Calcium Level 7.4L, Magnesium Level 1.5L, Total Creatine Kinase 1696H, Immature Granulocyte % (Auto) 0.9, White Blood Count 8.1, Red Blood Count 3.63L, Hemoglobin 10.9L, Hematocrit 31.4L, Mean Corpuscular Volume 86.5, Mean Corpuscular Hemoglobin 30.0, Mean Corpuscular Hemoglobin Concent 34.7, Red Cell Distribution Width 13.9, Platelet Count 232, Neutrophils (%) (Auto) 73.9H, Lymphocytes (%) (Auto) 18.6L, Monocytes (%) (Auto) 6.1H, Eosinophils (%) (Auto) 0.4, Basophils (%) (Auto) 0.1, Neutrophils # (Auto) 6.0, Lymphocytes # (Auto) 1.5, Monocytes # (Auto) 0.5, Eosinophils # (Auto) 0.0, Basophils # (Auto) 0.0, Nucleated Red Blood Cells % (auto) 0.0, Phosphorus Level 1.1L, Aspartate Amino Transf (AST/SGOT) 60H, Alanine Aminotransferase (ALT/SGPT) 27, Alkaline Phosphatase 86, Total Bilirubin 0.7, Total Protein 6.3L, Albumin 2.7L, Albumin/Globulin Ratio 0.75L 02/25/19 06:37: Bedside Glucose (Misc Panel) 102 02/25/19 08:58: Troponin I 0.06# 02/25/19 11:45: Bedside Glucose (Misc Panel) 129H 02/25/19 14:36: CBC/BMP Laboratory Tests 02/24/19 16:22 Calcium Level 6.9 L 02/25/19 05:46 Calcium Level 7.4 L, Red Blood Count 3.63 L, Mean Corpuscular Volume 86.5, Mean Corpuscular Hemoglobin 30.0, Mean Corpuscular Hemoglobin Concent 34.7, Red Cell Distribution Width 13.9, Neutrophils (%) (Auto) 73.9 H, Lymphocytes (%) (Auto) 18.6 L, Monocytes (%) (Auto) 6.1 H, Eosinophils (%) (Auto) 0.4, Basophils (%) (Auto) 0.1, Neutrophils # (Auto) 6.0, Lymphocytes # (Auto) 1.5, Monocytes # (Auto) 0.5, Eosinophils # (Auto) 0.0, Basophils # (Auto) 0.0, Phosphorus Level 1.1 L, Aspartate Amino Transf (AST/SGOT) 60 H, Alanine Aminotransferase (ALT/SGPT) 27, Total Creatine Kinase 1696 H, Alkaline Phosphatase 86, Total Bilirubin 0.7, Total Protein 6.3 L, Albumin 2.7 L Microbiology Microbiology 02/23/19 Blood Culture - Preliminary, Resulted No Growth after 48 hours. All Specime... 02/23/19 Blood Culture - Preliminary, Resulted No Growth after 48 hours. All Specime... 02/23/19 Urine Culture - Final, Complete GUZMAN,MARLENI Lilly MD Feb 25, 2019 15:04
[2019-02-25] MEDS ORDERED: POTASSIUM PHOSPHATE INJ 30 MMOL in D5W 500 ML IV ONE (17:00)
[2019-02-25] MEDS: ENOXAPARIN 40 MG/0.4 ML SYRINGE (J1650) SC SCH (20:25)
[2019-02-25] MEDS: SINEMET**CR** 25/100 TABCR PO SCH (20:26)
[2019-02-25] MEDS: TAMSULOSIN 0.4 MG CAP PO SCH (20:27)
[2019-02-26] VITALS (7 sets, daily range): BP systolic 114–159; BP diastolic 69–96
[2019-02-26 05:52] LABS: BASO % 0.1 % (0.0-1.0); EOS % 0.6 % (0.0-3.0); HEMATOCRIT 31.2 % (42.0-52.0); LYMPH # 1.7 10^3/uL (1.5-4.5); LYMPH % 24.4 % (24.0-44.0); MEAN CORPUSCULAR HEMOGLOBIN 30.4 pg (27.0-33.0); MEAN CORPUSCULAR HGB CONC 35.3 g/dl (32.0-36.5); MEAN CORPUSCULAR VOLUME 86.2 fl (80.0-96.0); MONO # 0.6 10^3/uL (0.0-0.8); MONO % 8.8 % (0.0-5.0); NEUTROPHILS # 4.5 10^3/uL (1.8-7.7); NEUTROPHILS % 65.8 % (36.0-66.0); PLATELET COUNT, AUTOMATED 228 10^3/uL (150-450); RED BLOOD COUNT 3.62 10^6/uL (4.30-6.10); WHITE BLOOD COUNT 6.8 10^3/uL (4.0-10.0)
[2019-02-26] MEDS: KCL 40MEQ in NS 1000ML 1,000 ML IV SCH ×2 (06:01→09:19)
[2019-02-26 06:29] LABS: ALBUMIN 2.8 GM/DL (3.2-5.2); ALT/SGPT 27 U/L (12-78); BILIRUBIN,TOTAL 0.6 MG/DL (0.2-1.0); BLOOD UREA NITROGEN 8 MG/DL (7-18); CALCIUM LEVEL 6.8 MG/DL (8.8-10.2); CARBON DIOXIDE LEVEL 24 MEQ/L (21-32); CHLORIDE LEVEL 104 MEQ/L (98-107); CPK CREATINE PHOSPHOKINASE 1078 U/L (39-308); GLOMERULAR FILTRATION RATE > 60.0 (>42); GLUCOSE, FASTING 118 MG/DL (70-100); MAGNESIUM LEVEL 1.3 MG/DL (1.8-2.4); PHOSPHORUS LEVEL 1.9 MG/DL (2.5-4.9); POTASSIUM SERUM 3.5 MEQ/L (3.5-5.1); SODIUM LEVEL 138 MEQ/L (136-145); TOTAL PROTEIN 6.3 GM/DL (6.4-8.2)
[2019-02-26] MEDS: HumaLOG INSULIN (NovoLOG) PER UNIT SC SCH ×4 (07:30→21:00)
[2019-02-26] MEDS: LEVOTHYROXINE 100 MCG (0.1MG) VIAL IV SCH (08:25)
[2019-02-26] MEDS: NYSTATIN 100,000 UNITS/GM TOPICAL PWD 15 GM TOP SCH ×2 (08:25→21:18)
[2019-02-26] MEDS: NYSTATIN 500,000 U/5 ML SUSP UDC SS SCH ×4 (08:25→21:09)
[2019-02-26] MEDS: FAMOTIDINE IV BAG 20 MG in APPROPRIATE DILUENT 1 EA IV SCH ×2 (08:25→21:09)
[2019-02-26] MEDS: ACYCLOVIR 200 MG CAPSULE PO SCH ×2 (08:25→21:07)
[2019-02-26] MEDS: MAG SULF 1GM/100ML (MAG RUN) 1 GM in APPROPRIATE DILUENT 1 EA IV SCH ×4 (08:26→12:39)
[2019-02-26] MEDS: SINEMET 25-100 MG TAB PO SCH ×3 (09:20→17:55)
[2019-02-26] MEDS: ENTACAPONE 200MG TABLET (COMTAN) PO SCH ×3 (09:20→17:56)
[2019-02-26] MEDS: PANTOPRAZOLE 40MG TAB (PROTONIX) PO SCH (09:56)
[2019-02-26] MEDS: ALPRAZolam 0.5 MG TAB PO SCH ×2 (09:57→21:07)
[2019-02-26] MEDS: ALLOPURINOL 300 MG TAB PO SCH (09:57)
[2019-02-26] MEDS: PREGABALIN 50 MG CAP (LYRICA) PO SCH ×3 (09:58→21:09)
[2019-02-26] MEDS: FLUoxetine 20 MG CAP PO SCH (09:58)
[2019-02-26] MEDS ORDERED: POTASSIUM PHOSPHATE INJ 30 MMOL in D5W 500 ML IV ONE (10:00)
[2019-02-26] MEDS ORDERED: SLF 3 ML SYR IV PRN (11:00)
[2019-02-26] MEDS: SLF 3 ML SYR IV SCH ×2 (14:31→21:00)
--- NOTE | 2019-02-26 14:54 | NUR ---
Patient presents w/oropharyngeal dysphagia which impacts his ability to safely chew and swallow regular solid food. ST recommends level 2 diet with regular/thin liquids. Sit patient up and assure his dentures are in prior to PO intake. Do not lay down for at least a half hour after meals. Assure he only swallows 1 pill at a time. ST also recommends GI consult due to patient reporting that he feels like food "gets stuck" and he is "sick to his stomach" during and immediately after PO intake. Addendum: 02/26/19 at 1457 by МАРИНА ROGERS Amended: Links added.
--- NOTE | 2019-02-26 18:32 | IPNPDOC ---
Subjective Date Seen The patient was seen on 02/26/19. Subjective Chief Complaint/HPI Generalized weakness, recurrent falls, lethargy Events since last encounter Patient reports he is feeling better today. Reports no problems with blurriness of vision today. Denies headache. No muscle spasms today. No numbness in his upper extremities. Denies any chest pain today. Tolerating oral liquids okay. No abdominal pain. Denies feeling constipated. Reports he has been urinating often after the Morales catheter was discontinued. Objective Physical Examination General Exam: Positive: Alert, Cooperative, No Acute Distress, Other (lying in bed) Eye Exam: Positive: PERRLA Chest Exam: Positive: Clear to auscultation; Negative: Rhonchi, Wheezing Heart Exam: Positive: Rate Normal, Normal S1, Normal S2 Abdomen Exam: Positive: Normal bowel sounds, Soft; Negative: Tenderness Neuro Exam: Positive: Other (awake, alert, answering questions appropriately and moving all 4 extremities to command) Assessment /Plan Assessment Hypotension, secondary to sepsis secondary to Klebsiella UTI present on admission: -Patient had known Klebsiella UTI for which he was recently treated with antibiotic -Urine culture did not show any bacteria -Dced IV Zosyn -Blood pressures are normal now -Pro-calcitonin level was elevated at 2.26 indicating underlying bacterial infection as etiology -Suspect that dehydration and poor oral intake was also contributing to the hypotension Acute kidney injury, likely secondary to ATN secondary to dehydration: -Resolved -Continue IV fluids until he is able to tolerate oral intake -Good urine output -Morales catheter was discontinued. Ct Flomax. 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 Sneed from gastroenterology - we will keep nothing by mouth for planned EGD tomorrow -Patient was also seen by EXTERNAL RELATIONS DIRECTOR and has been ordered modified diet Elevated troponin on presentation, suspect related to combination of acute kidney injury and rhabdomyolysis: -Echo: Borderline left ventricular hypertrophy with hyperkinetic wall motion. No localized wall motion abnormality. -Start aspirin Acute rhabdomyolysis: -CPK continues to improve -Continue IV fluids -Monitor Diabetes mellitus type 2: -Continue sliding scale Parkinson's disease: -Continue Sinemet Hypothyroidism: -Continue levothyroxine BPH: -Ct Flomax Oral thrush: -Nystatin swish and spit Groin yeast rash/tenia infection: -Topical nystatin Generalized weakness and recurrent falls: -Ct PT/OT GI/DVT prophylaxis: -Famotidine, subcutaneous heparin Disposition: Plan EGD tomorrow. Anticipate discharge home with home health versus half-way facility once able to tolerate oral intake Plan/VTE VTE Prophylaxis Ordered?: Yes VS, I&O, 24H, Fishbone Vital Signs/I&O Vital Signs Date Time Temp Pulse Resp B/P (MAP) Pulse Ox O2 Delivery O2 Flow Rate FiO2 02/26/19 16:00 98.1 99 20 136/79 (98) 95 02/23/19 10:57 Room Air I&O- Last 24 Hours up to 6 AM 02/26/19 06:00 Intake Total 3280 ml Output Total 5190 ml Balance -1910 ml Laboratory Data 24H LABS Laboratory Tests 2 02/25/19 20:34: Bedside Glucose (Misc Panel) 128H 02/25/19 20:47: Troponin I 0.05 02/26/19 05:21: Immature Granulocyte % (Auto) 0.3, White Blood Count 6.8, Red Blood Count 3.62L, Hemoglobin 11.0L, Hematocrit 31.2L, Mean Corpuscular Volume 86.2, Mean Corpuscular Hemoglobin 30.4, Mean Corpuscular Hemoglobin Concent 35.3, Red Cell Distribution Width 14.1, Platelet Count 228, Neutrophils (%) (Auto) 65.8, Lymphocytes (%) (Auto) 24.4, Monocytes (%) (Auto) 8.8H, Eosinophils (%) (Auto) 0 .6, Basophils (%) (Auto) 0.1, Neutrophils # (Auto) 4.5, Lymphocytes # (Auto) 1.7, Monocytes # (Auto) 0.6, Eosinophils # (Auto) 0.0, Basophils # (Auto) 0.0, Nucleated Red Blood Cells % (auto) 0.0, Anion Gap 10, Glomerular Filtration Rate > 60.0, Blood Urea Nitrogen 8, Creatinine 0.70, Sodium Level 138, Potassium Level 3.5, Chloride Level 104, Carbon Dioxide Level 24, Calcium Level 6.8L, Phosphorus Level 1.9#L, Aspartate Amino Transf (AST/SGOT) 46H, Alanine Aminotransferase (ALT/SGPT) 27, Total Creatine Kinase 1078H, Alkaline Phosphatase 77, Total Bilirubin 0.6, Total Protein 6.3L, Albumin 2.8L, Magnesium Level 1.3L, Albumin/Globulin Ratio 0.80L 02/26/19 12:13: Bedside Glucose (Misc Panel) 214H 02/26/19 16:56: Bedside Glucose (Misc Panel) 121H CBC/BMP Laboratory Tests 02/26/19 05:21 Red Blood Count 3.62 L, Mean Corpuscular Volume 86.2, Mean Corpuscular Hemoglobin 30.4, Mean Corpuscular Hemoglobin Concent 35.3, Red Cell Distribution Width 14.1, Neutrophils (%) (Auto) 65.8, Lymphocytes (%) (Auto) 24.4, Monocytes (%) (Auto) 8.8 H, Eosinophils (%) (Auto) 0.6, Basophils (%) (Auto) 0.1, Neutrophils # (Auto) 4.5, Lymphocytes # (Auto) 1.7, Monocytes # (Auto) 0.6, Eosinophils # (Auto) 0.0, Basophils # (Auto) 0.0, Calcium Level 6.8 L, Phosphorus Level 1.9 #L, Aspartate Amino Transf (AST/SGOT) 46 H, Alanine Aminotransferase (ALT/SGPT) 27, Total Creatine Kinase 1078 H, Alkaline Phosphatase 77, Total Bilirubin 0.6, Total Protein 6.3 L, Albumin 2.8 L Microbiology Microbiology 02/23/19 Blood Culture - Preliminary, Resulted No Growth after 72 hours. All specime... 02/23/19 Blood Culture - Preliminary, Resulted No Growth after 72 hours. All specime... 02/23/19 Urine Culture - Final, Complete GUZMANMARLENI Morrison MD Feb 26, 2019 18:32
[2019-02-26] MEDS: ACETAMINOPHEN TAB 650MG DOSE (2X325MG) PO PRN (19:04)
[2019-02-26] MEDS: SINEMET**CR** 25/100 TABCR PO SCH (21:07)
[2019-02-26] MEDS: traZODone 100 MG TAB PO SCH (21:07)
[2019-02-26] MEDS: METAXALONE 800 MG TABLET PO PRN (21:09)
[2019-02-26] MEDS: TAMSULOSIN 0.4 MG CAP PO SCH (21:13)
[2019-02-26] MEDS: ENOXAPARIN 40 MG/0.4 ML SYRINGE (J1650) SC SCH (21:14)
[2019-02-26 22:12] LABS: MB/CK RELATIVE INDEX 0.58 (< OR =4); TROPONIN I 0.03 NG/ML (< 0.10)
[2019-02-27] MEDS: KCL 40MEQ in NS 1000ML 1,000 ML IV SCH ×2 (01:04→14:07)
[2019-02-27] MEDS: ACETAMINOPHEN TAB 650MG DOSE (2X325MG) PO PRN (01:04)
[2019-02-27 04:00] VITALS: BP 142/87
[2019-02-27 06:09] LABS: BASO % 0.3 % (0.0-1.0); EOS # 0.1 10^3/uL (0.0-0.50); EOS % 2.3 % (0.0-3.0); HEMATOCRIT 29.3 % (42.0-52.0); LYMPH # 1.9 10^3/uL (1.5-4.5); LYMPH % 32.1 % (24.0-44.0); MEAN CORPUSCULAR HEMOGLOBIN 29.9 pg (27.0-33.0); MEAN CORPUSCULAR HGB CONC 34.1 g/dl (32.0-36.5); MEAN CORPUSCULAR VOLUME 87.7 fl (80.0-96.0); MONO # 0.5 10^3/uL (0.0-0.8); NEUTROPHILS # 3.4 10^3/uL (1.8-7.7); PLATELET COUNT, AUTOMATED 211 10^3/uL (150-450); RED BLOOD COUNT 3.34 10^6/uL (4.30-6.10)
[2019-02-27 06:42] LABS: BLOOD UREA NITROGEN 6 MG/DL (7-18); CALCIUM LEVEL 6.7 MG/DL (8.8-10.2); CARBON DIOXIDE LEVEL 24 MEQ/L (21-32); CHLORIDE LEVEL 105 MEQ/L (98-107); CPK CREATINE PHOSPHOKINASE 582 U/L (39-308); CREATININE FOR GFR 0.73 MG/DL (0.70-1.30); GLOMERULAR FILTRATION RATE > 60.0 (>42); GLUCOSE, FASTING 110 MG/DL (70-100); MAGNESIUM LEVEL 1.4 MG/DL (1.8-2.4); MB/CK RELATIVE INDEX 0.58 (< OR =4); PHOSPHORUS LEVEL 2.5 MG/DL (2.5-4.9); POTASSIUM SERUM 3.7 MEQ/L (3.5-5.1); SODIUM LEVEL 136 MEQ/L (136-145); TROPONIN I 0.02 NG/ML (< 0.10)
[2019-02-27] MEDS: SLF 3 ML SYR IV SCH ×3 (06:58→21:52)
[2019-02-27] MEDS ORDERED: CALCIUM GLUCONATE 1,000 MG in D5W MINI-BAG PLUS 100 ML IV ONE (07:15)
[2019-02-27] MEDS: HumaLOG INSULIN (NovoLOG) PER UNIT SC SCH ×4 (07:30→21:54)
[2019-02-27 08:00] VITALS: BP 141/84
[2019-02-27] MEDS: ASPIRIN 81 MG ENTERIC TAB PO SCH (09:00)
[2019-02-27] MEDS: FLUoxetine 20 MG CAP PO SCH (09:00)
[2019-02-27] MEDS: PANTOPRAZOLE 40MG TAB (PROTONIX) PO SCH (09:00)
[2019-02-27] MEDS: MAG SULF 1GM/100ML (MAG RUN) 1 GM in APPROPRIATE DILUENT 1 EA IV SCH ×4 (09:35→16:26)
[2019-02-27] MEDS: LEVOTHYROXINE 100 MCG (0.1MG) VIAL IV SCH (09:35)
[2019-02-27] MEDS: SINEMET 25-100 MG TAB PO SCH ×4 (09:36→18:00)
[2019-02-27] MEDS: ENTACAPONE 200MG TABLET (COMTAN) PO SCH ×4 (09:36→18:00)
[2019-02-27] MEDS: ACYCLOVIR 200 MG CAPSULE PO SCH ×2 (09:36→21:48)
[2019-02-27] MEDS: PREGABALIN 50 MG CAP (LYRICA) PO SCH ×2 (09:36→21:00)
[2019-02-27] MEDS: ALLOPURINOL 300 MG TAB PO SCH (09:37)
[2019-02-27] MEDS: ALPRAZolam 0.5 MG TAB PO SCH ×2 (09:37→21:00)
[2019-02-27 12:00] VITALS: BP 151/91
[2019-02-27 16:00] VITALS: BP 161/95
[2019-02-27] MEDS ORDERED: MAGNESIUM SULFATE 1 GM/100 ML D5W BAG (10MG/ML) (J3475) As Ordered ONE (16:22)
[2019-02-27] MEDS ORDERED: LIDOCAINE 2% INJ 100 MG/5 ML SDV (FOR ANES.) As Ordered ONE (17:51)
[2019-02-27] MEDS ORDERED: PROPOFOL 200 MG/20 ML VIAL As Ordered ONE (17:51)
[2019-02-27] MEDS ORDERED: PHENYLephrine HCL 500 MCG/5 ML (100MCG/ML) SYRINGE (J2370) As Ordered ONE (18:08)
--- NOTE | 2019-02-27 18:13 | ROOR ---
Patient Name: Vini Lundberg Procedure Date: 02/27/2019 5:37 PM Date of : 1950 Age: 69 Room: Main OR Gender: Male Note Status: Finalized Procedure: Upper GI endoscopy Indications: Dysphagia Providers: Tyshawn MESA MD Referring MD: 2. Inpatient 2. Inpatient Requesting Provider: Medicines: Monitored Anesthesia Care Complications: No immediate complications. Procedure: Pre-Anesthesia Assessment: - The heart rate, respiratory rate, oxygen saturations, blood pressure, adequacy of pulmonary ventilation, and response to care were monitored throughout the procedure. The Endoscope was introduced through the mouth, and advanced to the third part of duodenum. The upper GI endoscopy was accomplished without difficulty. The patient tolerated the procedure well. Findings: Mildly severe esophagitis was found in the lower third of the esophagus. Bilious fluid was found in the entire examined stomach. Fluid aspiration was performed. Diffuse mildly erythematous mucosa without bleeding was found in the entire examined stomach. This was biopsied with a cold forceps for histology. The examined duodenum was normal. Suspect gastroparesis due to absence of peristalsis, patient symptoms and retained gastric contents. Impression: - Mildly severe reflux esophagitis without stricture or obstruction/spasm. LES widely patent - Large amount of bilious gastric fluid and small food/puill particles. Fluid aspiration performed. - Erythematous mucosa in the stomach. Biopsied. - Pylorus widely patent with normal examined duodenum. - Gastroparesis. Recommendation: - Suggest surgical consultation for Jejunostomy feeding tube. +/- decompression G tube. - Try gastroparesis diet: - Eat smaller, more frequent meals throughout the day. - Low fat diet. - Liquid/soft foods are tolerated better than solid foods. - Low fiber/well cooked vegetables are tolerated better than high fiber/fibrous foods/raw vegetables. - Avoid medications that inhibit gastric/intestinal motility such as narcotic medications. Tyshawn Mesa MD Tyshawn MESA MD 02/27/2019 6:12:34 PM Electronically signed by Tyshawn MESA MD Number of Addenda: 0 Note Initiated On: 02/27/2019 5:37 PM Estimated Blood Loss: Estimated blood loss: none.
[2019-02-27] MEDS ORDERED: ONDANSETRON 4MG/2ML VIAL (J2405) IV PRN (18:45)
--- NOTE | 2019-02-27 19:39 | IPNPDOC ---
Subjective Date Seen The patient was seen on 02/27/19. Subjective Chief Complaint/HPI Generalized weakness, recurrent falls, lethargy Events since last encounter Patient reports he is doing okay. Denies any nausea/vomiting.tolerating liquids. Currently nothing by mouth this morning for planned EGD. Denies abdominal pain. No chest shortness of breath. Objective Physical Examination General Exam: Positive: Alert, Cooperative, No Acute Distress, Other (lying in bed) Eye Exam: Positive: PERRLA Chest Exam: Positive: Clear to auscultation; Negative: Rhonchi, Wheezing Heart Exam: Positive: Rate Normal, Normal S1, Normal S2 Abdomen Exam: Positive: Soft; Negative: Tenderness Neuro Exam: Positive: Other (awake, alert, answering questions appropriately. Moving all 4 extremities.) Assessment /Plan Assessment Hypotension, secondary to sepsis secondary to Klebsiella UTI present on admission: -Patient had known Klebsiella UTI for which he was recently treated with antibiotic -Urine culture did not show any bacteria -Dced IV Zosyn -Blood pressures are normal now -Pro-calcitonin level was elevated at 2.26 indicating underlying bacterial infection as etiology -Suspect that dehydration and poor oral intake was also contributing to the hypotension Acute kidney injury, likely secondary to ATN secondary to dehydration: -Resolved -Continue IV fluids until he is able to tolerate oral intake -Good urine output -Morales catheter was discontinued. Ct Flomax. 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 Mesa from gastroenterology - plan for EGD today -Patient was also seen by MEDICATION TECH and has been ordered modified diet Elevated troponin on presentation, suspect related to combination of acute kidney injury and rhabdomyolysis: -Echo: Borderline left ventricular hypertrophy with hyperkinetic wall motion. No localized wall motion abnormality. -Start aspirin Acute rhabdomyolysis: -CPK continues to improve -Continue IV fluids -Monitor Diabetes mellitus type 2: -Continue sliding scale Parkinson's disease: -Continue Sinemet Hypothyroidism: -Continue levothyroxine Hypomagnesemia: -Replete and recheck BPH: -Ct Flomax Oral thrush: -Nystatin swish and spit Groin yeast rash/tenia infection: -Topical nystatin Generalized weakness and recurrent falls: -Ct PT/OT GI/DVT prophylaxis: -Famotidine, subcutaneous heparin Plan/VTE VTE Prophylaxis Ordered?: Yes VS, I&O, 24H, Fishbone Vital Signs/I&O Vital Signs Date Time Temp Pulse Resp B/P (MAP) Pulse Ox O2 Delivery O2 Flow Rate FiO2 02/27/19 18:40 97.4 92 18 135/79 (97) 98 02/23/19 10:57 Room Air I&O- Last 24 Hours up to 6 AM 02/27/19 06:00 Intake Total 3525 ml Output Total 1600 ml Balance 1925 ml Laboratory Data 24H LABS Laboratory Tests 2 02/26/19 20:57: Bedside Glucose (Misc Panel) 151H 02/26/19 21:32: Total Creatine Kinase 719H, Creatine Kinase MB 4.0H, Creatine Kinase MB Relative Index 0.58, Troponin I 0.03# 02/27/19 05:38: Total Creatine Kinase 582H, Creatine Kinase MB 3.0, Creatine Kinase MB Relative Index 0.58, Troponin I 0.02#, Immature Granulocyte % (Auto) 0.3, White Blood Count 6.0, Red Blood Count 3.34L, Hemoglobin 10.0L, Hematocrit 29.3L, Mean Corpuscular Volume 87.7, Mean Corpuscular Hemoglobin 29.9, Mean Corpuscular Hemoglobin Concent 34.1, Red Cell Distribution Width 14.2, Platelet Count 211, Neutrophils (%) (Auto) 57.0, Lymphocytes (%) (Auto) 32.1, Monocytes (%) (Auto) 8.0H, Eosinophils (%) (Auto) 2.3, Basophils (%) (Auto) 0.3, Neutrophils # (Auto) 3.4, Lymphocytes # (Auto) 1.9, Monocytes # (Auto) 0.5, Eosinophils # (Auto) 0.1, Basophils # (Auto) 0.0, Nucleated Red Blood Cells % (auto) 0.0, Anion Gap 7L, Glomerular Filtration Rate > 60.0, Blood Urea Nitrogen 6L, Creatinine 0.73, Sodium Level 136, Potassium Level 3.7, Chloride Level 105, Carbon Dioxide Level 24, Calcium Level 6.7L, Phosphorus Level 2.5#, Magnesium Level 1.4L 02/27/19 11:50: Bedside Glucose (Misc Panel) 114H 02/27/19 16:31: Bedside Glucose (Misc Panel) 120H CBC/BMP Laboratory Tests 02/27/19 05:38 Red Blood Count 3.34 L, Mean Corpuscular Volume 87.7, Mean Corpuscular Hemoglobin 29.9, Mean Corpuscular Hemoglobin Concent 34.1, Red Cell Distribution Width 14.2, Neutrophils (%) (Auto) 57.0, Lymphocytes (%) (Auto) 32.1, Monocytes (%) (Auto) 8.0 H, Eosinophils (%) (Auto) 2.3, Basophils (%) (Auto) 0.3, Neutrophils # (Auto) 3.4, Lymphocytes # (Auto) 1.9, Monocytes # (Auto) 0.5, Eosinophils # (Auto) 0.1, Basophils # (Auto) 0.0, Calcium Level 6.7 L, Phosphorus Level 2.5 #, Total Creatine Kinase 582 H Microbiology Microbiology 02/23/19 Blood Culture - Preliminary, Resulted No Growth after 72 hours. All specime... 02/23/19 Blood Culture - Preliminary, Resulted No Growth after 72 hours. All specime... 02/23/19 Urine Culture - Final, Complete GUZMAN,MARLENI Lilly MD Feb 27, 2019 19:39
[2019-02-27] MEDS: ENOXAPARIN 40 MG/0.4 ML SYRINGE (J1650) SC SCH (21:41)
[2019-02-27] MEDS: traZODone 100 MG TAB PO SCH (21:46)
[2019-02-27] MEDS: NYSTATIN 500,000 U/5 ML SUSP UDC SS SCH (21:47)
[2019-02-27] MEDS: SINEMET**CR** 25/100 TABCR PO SCH (21:48)
[2019-02-27] MEDS: NYSTATIN 100,000 UNITS/GM TOPICAL PWD 15 GM TOP SCH (21:48)
[2019-02-27] MEDS: TAMSULOSIN 0.4 MG CAP PO SCH (21:49)
[2019-02-27 22:00] VITALS: BP 170/84
[2019-02-28 02:00] VITALS: BP 149/90
[2019-02-28] MEDS: KCL 40MEQ in NS 1000ML 1,000 ML IV SCH ×3 (03:09→17:44)
[2019-02-28 06:00] VITALS: BP 153/93
[2019-02-28 06:45] LABS: BASO % 0.3 % (0.0-1.0); EOS # 0.1 10^3/uL (0.0-0.50); HEMATOCRIT 33.1 % (42.0-52.0); HEMOGLOBIN 11.1 g/dl (13.5-17.5); LYMPH # 1.9 10^3/uL (1.5-4.5); LYMPH % 26.5 % (24.0-44.0); MEAN CORPUSCULAR HEMOGLOBIN 30.3 pg (27.0-33.0); MEAN CORPUSCULAR HGB CONC 33.5 g/dl (32.0-36.5); MEAN CORPUSCULAR VOLUME 90.4 fl (80.0-96.0); MONO # 0.5 10^3/uL (0.0-0.8); MONO % 7.3 % (0.0-5.0); NEUTROPHILS # 4.6 10^3/uL (1.8-7.7); NEUTROPHILS % 64.5 % (36.0-66.0); PLATELET COUNT, AUTOMATED 206 10^3/uL (150-450); RED BLOOD COUNT 3.66 10^6/uL (4.30-6.10); WHITE BLOOD COUNT 7.1 10^3/uL (4.0-10.0)
[2019-02-28 06:50] LABS: BLOOD UREA NITROGEN 8 MG/DL (7-18); CALCIUM LEVEL 6.9 MG/DL (8.8-10.2); CARBON DIOXIDE LEVEL 20 MEQ/L (21-32); CHLORIDE LEVEL 109 MEQ/L (98-107); CREATININE FOR GFR 0.74 MG/DL (0.70-1.30); GLOMERULAR FILTRATION RATE > 60.0 (>42); GLUCOSE, FASTING 110 MG/DL (70-100); MAGNESIUM LEVEL 1.6 MG/DL (1.8-2.4); PHOSPHORUS LEVEL 2.6 MG/DL (2.5-4.9); POTASSIUM SERUM 3.8 MEQ/L (3.5-5.1); SODIUM LEVEL 138 MEQ/L (136-145)
[2019-02-28] MEDS: PANTOPRAZOLE 40MG TAB (PROTONIX) PO SCH (10:19)
[2019-02-28] MEDS: ALPRAZolam 0.5 MG TAB PO SCH ×2 (10:19→21:50)
[2019-02-28] MEDS: ALLOPURINOL 300 MG TAB PO SCH (10:20)
[2019-02-28] MEDS: NYSTATIN 500,000 U/5 ML SUSP UDC SS SCH ×4 (10:20→21:50)
[2019-02-28] MEDS: FLUTICASONE PROP 0.05% NASAL SPRAY 16 GM (FLONASE) PRN (10:20)
[2019-02-28] MEDS: PREGABALIN 50 MG CAP (LYRICA) PO SCH ×3 (10:20→21:49)
[2019-02-28] MEDS: ASPIRIN 81 MG ENTERIC TAB PO SCH (10:20)
[2019-02-28] MEDS: SINEMET 25-100 MG TAB PO SCH ×3 (10:20→17:44)
[2019-02-28] MEDS: ENTACAPONE 200MG TABLET (COMTAN) PO SCH ×3 (10:20→17:43)
[2019-02-28] MEDS: ACYCLOVIR 200 MG CAPSULE PO SCH ×2 (10:20→21:49)
[2019-02-28] MEDS: LEVOTHYROXINE 100 MCG (0.1MG) VIAL IV SCH (10:20)
[2019-02-28] MEDS: NYSTATIN 100,000 UNITS/GM TOPICAL PWD 15 GM TOP SCH ×2 (10:21→21:00)
[2019-02-28] MEDS: HumaLOG INSULIN (NovoLOG) PER UNIT SC SCH ×4 (10:22→21:00)
[2019-02-28] MEDS: FLUoxetine 20 MG CAP PO SCH (10:23)
[2019-02-28] MEDS ORDERED: MAG SULF 1GM/100ML (MAG RUN) 1 GM in APPROPRIATE DILUENT 1 EA IV ONE (11:15)
--- NOTE | 2019-02-28 11:23 | IPNPDOC ---
Text Note Date of Service The patient was seen on 02/28/19. NOTE Subjective: patient seen and examined at bedside. No acute overnight events reported. No new medical complaints. Objective: General: NAD, lying comfortably in bed, elderly HEENT: NC/AT, EOMI Lungs: CTA B/L Heart: +S1S2, RRR Abd: soft, NT, +BS A/P: 69 yo male for UTI, weakness, dysphagia in the setting of sepsis secondary to Klebsiella UTI #Hypotension, secondary to sepsis secondary to Klebsiella UTI present on admission: -Patient had known Klebsiella UTI for which he was recently treated with antibiotic -Urine culture did not show any bacteria -Dced IV Zosyn -Blood pressures are normal now -Pro-calcitonin level was elevated at 2.26 indicating underlying bacterial i nfection as etiology -Suspect that dehydration and poor oral intake was also contributing to the hyp otension #Acute kidney injury, likely secondary to ATN secondary to dehydration: -Resolved -Continue IV fluids until he is able to tolerate oral intake -Good urine output -Morales catheter was discontinued. Ct Flomax. -CT scan did not show any obstructive uropathy -Avoid nephrotoxins #Acute metabolic encephalopathy; -Improving -Likely secondary to hypotension/dehydration -Avoid sedating medications -Head CT did not show acute findings #Dysphagia in setting of history of Huizar's esophagus requiring repair: -Tolerating oral liquids - s/p EGD - erosive esophagitis -Patient was also seen by CHAIR LIFT OPERATOR and has been ordered modified diet #Elevated troponin on presentation, suspect related to combination of acute kidney injury and rhabdomyolysis: -Echo: Borderline left ventricular hypertrophy with hyperkinetic wall motion. No localized wall motion abnormality. -Start aspirin #Acute rhabdomyolysis: -CPK continues to improve -on IV fluids - repeat CK pending, expecting resolution -Monitor #Diabetes mellitus type 2: -Continue sliding scale #Parkinson's disease: -Continue Sinemet #Hypothyroidism: -Continue levothyroxine #Hypomagnesemia: -Replete and recheck #BPH: -Ct Flomax #Oral thrush: -Nystatin swish and spit #Groin yeast rash/tenia infection: -Topical nystatin #Generalized weakness and recurrent falls: -Ct PT/OT #GI/DVT prophylaxis: -Famotidine, subcutaneous heparin Dispo: pt not interested in feeding tube; IV fluids, continue PT, PFS A-FIB/CHADSVASC A-FIB History Current/History of A-Fib/PAF?: No VS,Fishbone, I+O VS, Fishbone, I+O Laboratory Tests 02/28/19 06:18 Red Blood Count 3.66 L, Mean Corpuscular Volume 90.4, Mean Corpuscular Hemoglobin 30.3, Mean Corpuscular Hemoglobin Concent 33.5, Red Cell Distribution Width 14.6 H, Neutrophils (%) (Auto) 64.5, Lymphocytes (%) (Auto) 26.5, Monocytes (%) (Auto) 7.3 H, Eosinophils (%) (Auto) 1.0, Basophils (%) (Auto) 0.3, Neutrophils # (Auto) 4.6, Lymphocytes # (Auto) 1.9, Monocytes # (Auto) 0.5, Eosinophils # (Auto) 0.1, Basophils # (Auto) 0.0, Calcium Level 6.9 L Vital Signs Date Time Temp Pulse Resp B/P (MAP) Pulse Ox O2 Delivery O2 Flow Rate FiO2 02/28/19 06:00 97.8 99 18 153/93 (113) 98 02/23/19 10:57 Room Air I&O- Last 24 Hours up to 6 AM0 02/28/19 06:00 Intake Total 2110 ml Output Total 1780 ml Balance 330 ml HA FELIPE MD Feb 28, 2019 11:23
[2019-02-28 14:00] VITALS: BP 127/77
[2019-02-28 20:13] LABS: CPK CREATINE PHOSPHOKINASE 286 U/L (39-308)
[2019-02-28] MEDS: traZODone 100 MG TAB PO SCH (21:49)
[2019-02-28] MEDS: TAMSULOSIN 0.4 MG CAP PO SCH (21:49)
[2019-02-28] MEDS: SINEMET**CR** 25/100 TABCR PO SCH (21:50)
[2019-02-28] MEDS: ENOXAPARIN 40 MG/0.4 ML SYRINGE (J1650) SC SCH (21:50)
[2019-02-28 22:00] VITALS: BP 131/90
[2019-02-28] MEDS: ACETAMINOPHEN TAB 650MG DOSE (2X325MG) PO PRN (23:48)
[2019-03-01] MEDS ORDERED: ONDANSETRON 4 MG TAB (S0181) PO ONE (00:15)
[2019-03-01] MEDS ORDERED: CALCIUM CARBONATE 500 MG CHEW U/D PO ONE (00:15)
[2019-03-01] MEDS: KCL 40MEQ in NS 1000ML 1,000 ML IV SCH ×2 (00:57→10:06)
[2019-03-01] MEDS: METAXALONE 800 MG TABLET PO PRN (04:08)
[2019-03-01 08:04] LABS: BASO % 0.3 % (0.0-1.0); EOS # 0.1 10^3/uL (0.0-0.50); EOS % 1.5 % (0.0-3.0); HEMATOCRIT 31.6 % (42.0-52.0); LYMPH % 43.2 % (24.0-44.0); MEAN CORPUSCULAR HEMOGLOBIN 30.6 pg (27.0-33.0); MEAN CORPUSCULAR HGB CONC 34.8 g/dl (32.0-36.5); MONO # 0.7 10^3/uL (0.0-0.8); MONO % 7.4 % (0.0-5.0); NEUTROPHILS # 4.3 10^3/uL (1.8-7.7); NEUTROPHILS % 47.2 % (36.0-66.0); PLATELET COUNT, AUTOMATED 235 10^3/uL (150-450); RED BLOOD COUNT 3.59 10^6/uL (4.30-6.10); WHITE BLOOD COUNT 9.2 10^3/uL (4.0-10.0)
[2019-03-01] MEDS: HumaLOG INSULIN (NovoLOG) PER UNIT SC SCH ×4 (08:19→21:00)
[2019-03-01 08:25] LABS: ALBUMIN 2.9 GM/DL (3.2-5.2); ALT/SGPT 9 U/L (12-78); BILIRUBIN,TOTAL 0.8 MG/DL (0.2-1.0); BLOOD UREA NITROGEN 5 MG/DL (7-18); CALCIUM LEVEL 7.2 MG/DL (8.8-10.2); CARBON DIOXIDE LEVEL 18 MEQ/L (21-32); CHLORIDE LEVEL 104 MEQ/L (98-107); CREATININE FOR GFR 0.88 MG/DL (0.70-1.30); GLOMERULAR FILTRATION RATE > 60.0 (>42); GLUCOSE, FASTING 105 MG/DL (70-100); POTASSIUM SERUM 3.6 MEQ/L (3.5-5.1); SODIUM LEVEL 133 MEQ/L (136-145); TOTAL PROTEIN 6.4 GM/DL (6.4-8.2)
[2019-03-01 09:46] VITALS: BP 138/80
[2019-03-01] MEDS: ACETAMINOPHEN TAB 650MG DOSE (2X325MG) PO PRN ×3 (10:00→22:47)
[2019-03-01] MEDS: ALPRAZolam 0.5 MG TAB PO SCH ×2 (10:00→22:06)
[2019-03-01] MEDS: ACYCLOVIR 200 MG CAPSULE PO SCH ×2 (10:27→22:06)
[2019-03-01] MEDS: ENTACAPONE 200MG TABLET (COMTAN) PO SCH ×3 (10:27→17:52)
[2019-03-01] MEDS: SINEMET 25-100 MG TAB PO SCH ×3 (10:27→17:52)
[2019-03-01] MEDS: LEVOTHYROXINE 100MCG TABLET (0.1MG) PO SCH (10:28)
[2019-03-01] MEDS: PANTOPRAZOLE 40MG TAB (PROTONIX) PO SCH (10:28)
[2019-03-01] MEDS: ALLOPURINOL 300 MG TAB PO SCH (10:28)
[2019-03-01] MEDS: NYSTATIN 500,000 U/5 ML SUSP UDC SS SCH ×4 (10:29→22:16)
[2019-03-01] MEDS: PREGABALIN 50 MG CAP (LYRICA) PO SCH ×3 (10:29→22:05)
[2019-03-01] MEDS: FLUoxetine 20 MG CAP PO SCH (10:29)
[2019-03-01] MEDS: ASPIRIN 81 MG ENTERIC TAB PO SCH (10:29)
[2019-03-01] MEDS: NYSTATIN 100,000 UNITS/GM TOPICAL PWD 15 GM TOP SCH ×2 (10:30→22:07)
--- NOTE | 2019-03-01 12:24 | IPNPDOC ---
Text Note Date of Service The patient was seen on 03/01/19. NOTE Subjective: Patient seen and examined at bedside. No acute overnight events reported. No new medical complaints. Objective: General: NAD, lying comfortably in bed, elderly HEENT: NC/AT, EOMI Lungs: CTA B/L Heart: +S1S2, RRR Abd: soft, NT, +BS A/P: 69 yo male for UTI, weakness, dysphagia in the setting of sepsis secondary to Klebsiella UTI #Hypotension, secondary to sepsis secondary to Klebsiella UTI present on admission: -Patient had known Klebsiella UTI for which he was recently treated with antibiotic -Urine culture did not show any bacteria -Dced IV Zosyn -Blood pressures are normal now -Pro-calcitonin level was elevated at 2.26 indicating underlying bacterial i nfection as etiology -Suspect that dehydration and poor oral intake was also contributing to the hyp otension #Acute kidney injury, likely secondary to ATN secondary to dehydration: -Resolved -Continue IV fluids until he is able to tolerate oral intake -Good urine output -Morales catheter was discontinued. Continue Flomax. -CT scan did not show any obstructive uropathy -Avoid nephrotoxins #Acute metabolic encephalopathy; -Baseline not clear - d/w daughter at bedside who states last two months has been declining mentation -Head CT did not show acute findings #Dysphagia in setting of history of Huizar's esophagus requiring repair/gastroparesis: -Tolerating oral liquids - s/p EGD - erosive esophagitis, gastroparesis - no peristalsis -Patient was also seen by SUPERINTENDENT STEVEDORING and has been ordered modified diet - GI recs for J tube/G tube for decompression #Elevated troponin on presentation, suspect related to combination of acute kidney injury and rhabdomyolysis: -Echo: Borderline left ventricular hypertrophy with hyperkinetic wall motion. No localized wall motion abnormality. -Start aspirin #Acute rhabdomyolysis: - resolved #Diabetes mellitus type 2: -Continue sliding scale #Parkinson's disease: -Continue Sinemet #Hypothyroidism: -Continue levothyroxine #Hypomagnesemia: -Replete and recheck #BPH: -Flomax #Oral thrush: -Nystatin swish and spit #Groin yeast rash/tenia infection: -Topical nystatin #Generalized weakness and recurrent falls: -PT/OT #GI/DVT prophylaxis: -Famotidine, subcutaneous heparin Dispo: Returned to see patient later in day. Daughter was upset as she had not seen a physician. Patient's mentation had worsened. Daughter states this happens when his anxiety worsens. Patient complains of abdominals pain, he feels secondary to a tape worm. Extensive with discussion at bedside - advised her to notify nurses when she arrives, to notify attending. Daughter appeared to be satisfied with discussion. VS,Fishbone, I+O VS, Fishbone, I+O Laboratory Tests 03/01/19 07:33 Red Blood Count 3.59 L, Mean Corpuscular Volume 88.0, Mean Corpuscular Hemoglobin 30.6, Mean Corpuscular Hemoglobin Concent 34.8, Red Cell Distribution Width 14.0, Neutrophils (%) (Auto) 47.2, Lymphocytes (%) (Auto) 43.2, Monocytes (%) (Auto) 7.4 H, Eosinophils (%) (Auto) 1.5, Basophils (%) (Auto) 0.3, Neutrophils # (Auto) 4.3, Lymphocytes # (Auto) 4.0, Monocytes # (Auto) 0.7, Eosinophils # (Auto) 0.1, Basophils # (Auto) 0.0, Calcium Level 7.2 L, Aspartate Amino Transf (AST/SGOT) 22, Alanine Aminotransferase (ALT/SGPT) 9 L, Alkaline Phosphatase 91, Total Bilirubin 0.8, Total Protein 6.4, Albumin 2.9 L Vital Signs Date Time Temp Pulse Resp B/P (MAP) Pulse Ox O2 Delivery O2 Flow Rate FiO2 03/01/19 09:46 97.7 100 22 138/80 (99) 98 02/23/19 10:57 Room Air I&O- Last 24 Hours up to 6 AM 03/01/19 06:00 Intake Total 5240 ml Output Total 2650 ml Balance 2590 ml HA FELIPE MD Mar 01, 2019 12:24
[2019-03-01 14:00] VITALS: BP 128/78
[2019-03-01] MEDS ORDERED: LORazepam 2 MG/ML VIAL (J2060) IV STA (19:11)
[2019-03-01 22:00] VITALS: BP 137/88
[2019-03-01] MEDS: SINEMET**CR** 25/100 TABCR PO SCH (22:06)
[2019-03-01] MEDS: traZODone 100 MG TAB PO SCH (22:06)
[2019-03-01] MEDS: TAMSULOSIN 0.4 MG CAP PO SCH (22:06)
[2019-03-01] MEDS: ENOXAPARIN 40 MG/0.4 ML SYRINGE (J1650) SC SCH (22:07)
[2019-03-02] MEDS: KCL 40MEQ in NS 1000ML 1,000 ML IV SCH ×3 (00:20→20:09)
[2019-03-02] MEDS: LEVOTHYROXINE 100MCG TABLET (0.1MG) PO SCH (05:13)
[2019-03-02 06:00] VITALS: BP 103/92
[2019-03-02] MEDS ORDERED: LEVOTHYROXINE 50MCG TABLET (0.05MG) PO SCH (06:00)
[2019-03-02 08:08] LABS: HEMATOCRIT 34.1 % (42.0-52.0); HEMOGLOBIN 11.7 g/dl (13.5-17.5); MEAN CORPUSCULAR HEMOGLOBIN 30.2 pg (27.0-33.0); MEAN CORPUSCULAR HGB CONC 34.3 g/dl (32.0-36.5); MEAN CORPUSCULAR VOLUME 87.9 fl (80.0-96.0); PLATELET COUNT, AUTOMATED 243 10^3/uL (150-450); RED BLOOD COUNT 3.88 10^6/uL (4.30-6.10); WHITE BLOOD COUNT 5.9 10^3/uL (4.0-10.0)
[2019-03-02 08:34] LABS: BLOOD UREA NITROGEN 5 MG/DL (7-18); CALCIUM LEVEL 6.6 MG/DL (8.8-10.2); CARBON DIOXIDE LEVEL 22 MEQ/L (21-32); CHLORIDE LEVEL 106 MEQ/L (98-107); CREATININE FOR GFR 0.68 MG/DL (0.70-1.30); GLOMERULAR FILTRATION RATE > 60.0 (>42); GLUCOSE, FASTING 123 MG/DL (70-100); POTASSIUM SERUM 3.9 MEQ/L (3.5-5.1); SODIUM LEVEL 135 MEQ/L (136-145)
--- NOTE | 2019-03-02 08:41 | REP ---
Abdomen: Two views presented. HISTORY: Abdomen pain. Findings: Supine views of the abdomen demonstrate gaseous distension of multiple loops of large and small bowel throughout the upper abdomen. There are clips in the right upper quadrant and in the epigastric region in the upper abdomen. There is some vascular calcification in the pelvis. There is a triangular calcification overlying the lower sacrum which was seen on recent CT 02/23/2019 to be in the perirectal fat consistent with a dystrophic calcification. Impression: Ileus versus enteritis pattern. Electronically Signed by Jadiel Adames MD 03/02/2019 09:26 A
[2019-03-02] MEDS: SENNA 8.6 MG TAB (SENOKOT) PO SCH ×2 (09:00→20:57)
[2019-03-02] MEDS: ALLOPURINOL 300 MG TAB PO SCH (09:22)
[2019-03-02] MEDS: ACYCLOVIR 200 MG CAPSULE PO SCH ×2 (09:22→20:57)
[2019-03-02] MEDS: FLUoxetine 20 MG CAP PO SCH (09:22)
[2019-03-02] MEDS: PANTOPRAZOLE 40MG TAB (PROTONIX) PO SCH (09:22)
[2019-03-02] MEDS: ALPRAZolam 0.5 MG TAB PO SCH ×2 (09:22→20:57)
[2019-03-02] MEDS: SINEMET 25-100 MG TAB PO SCH ×3 (09:22→17:50)
[2019-03-02] MEDS: ASPIRIN 81 MG ENTERIC TAB PO SCH (09:22)
[2019-03-02] MEDS: NYSTATIN 500,000 U/5 ML SUSP UDC SS SCH ×4 (09:22→20:56)
[2019-03-02] MEDS: PREGABALIN 50 MG CAP (LYRICA) PO SCH ×3 (09:22→20:57)
[2019-03-02] MEDS: ENTACAPONE 200MG TABLET (COMTAN) PO SCH ×3 (09:22→17:50)
[2019-03-02] MEDS: NYSTATIN 100,000 UNITS/GM TOPICAL PWD 15 GM TOP SCH ×2 (09:23→20:58)
[2019-03-02] MEDS: HumaLOG INSULIN (NovoLOG) PER UNIT SC SCH ×4 (09:23→21:00)
[2019-03-02] MEDS: MAG SULF 1GM/100ML (MAG RUN) 1 GM in APPROPRIATE DILUENT 1 EA IV SCH ×3 (10:54→13:02)
--- NOTE | 2019-03-02 11:02 | IPNPDOC ---
Subjective Date Seen The patient was seen on 03/02/19. Subjective Chief Complaint/HPI Patient seen and examined at the bedside. States that he has been able to tolerate a liquid diet without any acute complaints. He has been encouraged to continue by mouth intake. We will hold off on feeding tube placement at this time, as the patient states that he has been taking in enough by mouth. Patient encouraged to work with PT/OT. Objective Physical Examination General Exam: Positive: Alert, Cooperative, No Acute Distress ENT Exam: Positive: Atraumatic, Mucous membr. moist/pink Chest Exam: Positive: Clear to auscultation, Normal air movement; Negative: Rhonchi, Wheezing Heart Exam: Positive: Rate Normal, Normal S1, Normal S2 Abdomen Exam: Positive: Soft; Negative: Tenderness Extremity Exam: Negative: Tenderness, Swelling A-FIB/CHADSVASC A-FIB History Current/History of A-Fib/PAF?: No Assessment /Plan Plan/VTE VTE Prophylaxis Ordered?: Yes Plan Acute kidney injury, likely secondary to ATN secondary to dehydration Resolved Continue IV fluids, PO Intake encouraged Acute metabolic encephalopathy 2/2 Above, resolved Head CT did not show acute findings Discussed with Daughter at the bedside, he is at his baseline at this time Dysphagia in setting of history of Huizar's esophagus requiring repair/gastroparesis Tolerating oral liquids at this time s/p EGD on 02/27 - erosive esophagitis, gastroparesis - no peristalsis GI has recommended J-Tube for feeding +/- decompression G Tube The patient/daughter have been reluctant about this--Speech therapy was consulted and a modified diet was recommended. At this time the patient/daughter have decided that the patient will try his best to follow the aforementioned modified diet recommendations and see how he does over the weekend. If his by mouth intake remains decreased, we will consider a feeding tube. Patient has been encouraged to get out of bed and into the chair. Elevated troponin on presentation, suspect related to combination of acute kidney injury and rhabdomyolysis EKG with no acute ST changes Patient with no acute complaints of chest pain, palpitations 2D Echo notable for borderline left ventricular hypertrophy with hyperkinetic wall motion. No localized wall motion abnormality. F/U outpatient Cardiology for Stress Testing Aspirin started Acute rhabdomyolysis: Resolved Diabetes mellitus type 2: Continue sliding scale Parkinson's disease: Continue Sinemet Hypothyroidism: Continue levothyroxine Hypomagnesemia Replete and recheck BPH Flomax Oral thrush: Nystatin swish and spit Generalized weakness and recurrent falls PT/OT Anxiety/Depression Cont regimen as ordered Constipation/Gastroparesis Low Residue diet encouraged Bowel regimen ordered Encourage OOB, Ambulation GI/DVT prophylaxis: Famotidine, subcutaneous lovenox VS, I&O, 24H, Fishbone Vital Signs/I&O Vital Signs Date Time Temp Pulse Resp B/P (MAP) Pulse Ox O2 Delivery O2 Flow Rate FiO2 03/02/19 06:00 97.7 82 18 103/92 (96) 99 I&O- Last 24 Hours up to 6 AM 03/02/19 06:00 Intake Total 3835 ml Output Total 3550 ml Balance 285 ml Laboratory Data 24H LABS Laboratory Tests 2 03/01/19 11:10: Bedside Glucose (Misc Panel) 124H 03/01/19 16:01: Bedside Glucose (Misc Panel) 106 03/01/19 20:40: Bedside Glucose (Misc Panel) 129H 03/02/19 07:44: Nucleated Red Blood Cells % (auto) 0.0, Anion Gap 7L, Glomerular Filtration Rate > 60.0, Blood Urea Nitrogen 5L, Creatinine 0.68L, Sodium Level 135L, Potassium Level 3.9, Chloride Level 106, Carbon Dioxide Level 22, Calcium Level 6.6L, Magnesium Level 1.0L CBC/BMP Laboratory Tests 03/02/19 07:44 Red Blood Count 3.88 L, Mean Corpuscular Volume 87.9, Mean Corpuscular Hemoglobin 30.2, Mean Corpuscular Hemoglobin Concent 34.3, Red Cell Distribution Width 14.1, Calcium Level 6.6 L Microbiology Microbiology 02/23/19 Blood Culture - Final, Complete NO GROWTH AFTER 5 DAYS 02/23/19 Blood Culture - Final, Complete NO GROWTH AFTER 5 DAYS 02/23/19 Urine Culture - Final, Complete CARA MORAN MD Mar 02, 2019 11:02
[2019-03-02 14:00] VITALS: BP 82/42
[2019-03-02] MEDS ORDERED: NS 500 ML IV ONE (14:15)
[2019-03-02] MEDS: TAMSULOSIN 0.4 MG CAP PO SCH (20:57)
[2019-03-02] MEDS: SINEMET**CR** 25/100 TABCR PO SCH (20:57)
[2019-03-02] MEDS: traZODone 100 MG TAB PO SCH (20:57)
[2019-03-02] MEDS: ENOXAPARIN 40 MG/0.4 ML SYRINGE (J1650) SC SCH (20:58)
[2019-03-02 22:00] VITALS: BP 110/66
[2019-03-03] MEDS: KCL 40MEQ in NS 1000ML 1,000 ML IV SCH (02:07)
[2019-03-03] MEDS: ACETAMINOPHEN TAB 650MG DOSE (2X325MG) PO PRN ×3 (03:19→20:11)
[2019-03-03 06:00] VITALS: BP 105/56
[2019-03-03] MEDS: LEVOTHYROXINE 100MCG TABLET (0.1MG) PO SCH (06:01)
[2019-03-03] MEDS: HumaLOG INSULIN (NovoLOG) PER UNIT SC SCH ×4 (07:30→20:12)
[2019-03-03 08:21] LABS: HEMATOCRIT 31.6 % (42.0-52.0); HEMOGLOBIN 10.6 g/dl (13.5-17.5); MEAN CORPUSCULAR HGB CONC 33.5 g/dl (32.0-36.5); MEAN CORPUSCULAR VOLUME 89.5 fl (80.0-96.0); PLATELET COUNT, AUTOMATED 246 10^3/uL (150-450); RED BLOOD COUNT 3.53 10^6/uL (4.30-6.10); WHITE BLOOD COUNT 8.5 10^3/uL (4.0-10.0)
[2019-03-03 08:52] LABS: BLOOD UREA NITROGEN 6 MG/DL (7-18); CALCIUM LEVEL 6.7 MG/DL (8.8-10.2); CARBON DIOXIDE LEVEL 18 MEQ/L (21-32); CHLORIDE LEVEL 106 MEQ/L (98-107); CREATININE FOR GFR 0.82 MG/DL (0.70-1.30); GLOMERULAR FILTRATION RATE > 60.0 (>42); GLUCOSE, FASTING 118 MG/DL (70-100); MAGNESIUM LEVEL 1.4 MG/DL (1.8-2.4); POTASSIUM SERUM 3.3 MEQ/L (3.5-5.1); SODIUM LEVEL 135 MEQ/L (136-145)
[2019-03-03] MEDS: FLUoxetine 20 MG CAP PO SCH (09:00)
[2019-03-03] MEDS: ALPRAZolam 0.5 MG TAB PO SCH ×2 (09:00→20:12)
[2019-03-03] MEDS: ALLOPURINOL 300 MG TAB PO SCH (09:00)
[2019-03-03] MEDS: SENNA 8.6 MG TAB (SENOKOT) PO SCH ×2 (09:00→20:11)
[2019-03-03] MEDS: PANTOPRAZOLE 40MG TAB (PROTONIX) PO SCH (09:00)
[2019-03-03] MEDS: ASPIRIN 81 MG ENTERIC TAB PO SCH (09:00)
[2019-03-03] MEDS: SINEMET 25-100 MG TAB PO SCH ×3 (09:00→17:23)
[2019-03-03] MEDS: NYSTATIN 500,000 U/5 ML SUSP UDC SS SCH ×4 (09:01→20:11)
[2019-03-03] MEDS: ACYCLOVIR 200 MG CAPSULE PO SCH ×2 (09:01→20:12)
[2019-03-03] MEDS: NYSTATIN 100,000 UNITS/GM TOPICAL PWD 15 GM TOP SCH ×2 (09:01→20:12)
[2019-03-03] MEDS: PREGABALIN 50 MG CAP (LYRICA) PO SCH ×3 (09:01→20:11)
[2019-03-03] MEDS: ENTACAPONE 200MG TABLET (COMTAN) PO SCH ×3 (09:01→17:23)
[2019-03-03] MEDS: MAG SULF 1GM/100ML (MAG RUN) 1 GM in APPROPRIATE DILUENT 1 EA IV SCH ×3 (10:36→13:05)
[2019-03-03] MEDS ORDERED: FLEET ENEMA PR ONE (11:00)
[2019-03-03] MEDS ORDERED: POTASSIUM CHLORIDE 10 MEQ SR TABLET PO ONE (11:00)
--- NOTE | 2019-03-03 12:51 | IPNPDOC ---
Subjective Date Seen The patient was seen on 03/03/19. Subjective Chief Complaint/HPI Patient seen and examined at the bedside. Reports that he has not had a BM in a few days. Fleet Enema ordered. Denies any other acute complaints at this time. Objective Physical Examination General Exam: Positive: Alert, Cooperative, No Acute Distress ENT Exam: Positive: Atraumatic, Mucous membr. moist/pink Chest Exam: Positive: Clear to auscultation, Normal air movement; Negative: Rhonchi, Wheezing Heart Exam: Positive: Rate Normal, Normal S1, Normal S2 Abdomen Exam: Positive: Soft; Negative: Tenderness Extremity Exam: Negative: Tenderness, Swelling Assessment /Plan Plan/VTE VTE Prophylaxis Ordered?: Yes Plan Dysphagia in setting of history of Huizar's esophagus requiring repair/gastroparesis Tolerating oral liquids at this time s/p EGD on 02/27 - erosive esophagitis, gastroparesis - no peristalsis GI has recommended J-Tube for feeding +/- decompression G Tube The patient/daughter have been reluctant about this--Speech therapy was consulted and a modified diet was recommended. At this time the patient/daughter have decided that the patient will try his best to follow the aforementioned modified diet recommendations and see how he does over the weekend. If his by mouth intake remains decreased, we will consider a feeding tube. Patient has been encouraged to get out of bed and into the chair, work with PT Acute kidney injury, likely secondary to ATN secondary to dehydration, resolved Acute metabolic encephalopathy 2/2 Above, resolved Head CT did not show acute findings Discussed with Daughter at the bedside, he is at his baseline at this time Elevated troponin on presentation, suspect related to combination of acute kidney injury and rhabdomyolysis EKG with no acute ST changes Patient with no acute complaints of chest pain, palpitations 2D Echo notable for borderline left ventricular hypertrophy with hyperkinetic wall motion. No localized wall motion abnormality. F/U outpatient Cardiology for Stress Testing Aspirin started Acute rhabdomyolysis: Resolved Diabetes mellitus type 2 Continue sliding scale Parkinson's disease Continue Sinemet Hypothyroidism: Continue levothyroxine Hypomagnesemia Replete and recheck BPH Flomax Oral thrush: Nystatin swish and spit Generalized weakness and recurrent falls PT/OT Anxiety/Depression Cont regimen as ordered Constipation/Gastroparesis Low Residue diet encouraged Bowel regimen ordered Encourage OOB, Ambulation GI/DVT prophylaxis: Famotidine, subcutaneous lovenox VS, I&O, 24H, Fishbone Vital Signs/I&O Vital Signs Date Time Temp Pulse Resp B/P (MAP) Pulse Ox O2 Delivery O2 Flow Rate FiO2 03/03/19 06:00 97.2 92 18 105/56 (72) 98 I&O- Last 24 Hours up to 6 AM 03/03/19 06:00 Intake Total 1960 ml Output Total 550 ml Balance 1410 ml Laboratory Data 24H LABS Laboratory Tests 2 03/02/19 17:07: Bedside Glucose (Misc Panel) 160H 03/02/19 21:01: Bedside Glucose (Misc Panel) 95 03/03/19 06:23: Bedside Glucose (Misc Panel) 130H 03/03/19 07:59: Nucleated Red Blood Cells % (auto) 0.0, Anion Gap 11, Glomerular Filtration Rate > 60.0, Blood Urea Nitrogen 6L, Creatinine 0.82, Sodium Level 135L, Potassium Level 3.3L, Chloride Level 106, Carbon Dioxide Level 18L, Calcium Level 6.7L, Magnesium Level 1.4L 03/03/19 11:25: Bedside Glucose (Misc Panel) 136H CBC/BMP Laboratory Tests 03/03/19 07:59 Red Blood Count 3.53 L, Mean Corpuscular Volume 89.5, Mean Corpuscular Hemoglobin 30.0, Mean Corpuscular Hemoglobin Concent 33.5, Red Cell Distribution Width 14.6 H, Calcium Level 6.7 L Microbiology Microbiology 02/23/19 Blood Culture - Final, Complete NO GROWTH AFTER 5 DAYS 02/23/19 Blood Culture - Final, Complete NO GROWTH AFTER 5 DAYS 02/23/19 Urine Culture - Final, Complete CARA MORAN MD Mar 03, 2019 12:51
[2019-03-03 14:00] VITALS: BP 117/65
[2019-03-03] MEDS: BISACODYL 10 MG SUPP PR PRN (17:23)
[2019-03-03] MEDS: ENOXAPARIN 40 MG/0.4 ML SYRINGE (J1650) SC SCH (20:12)
[2019-03-03] MEDS: TAMSULOSIN 0.4 MG CAP PO SCH (20:12)
[2019-03-03] MEDS: traZODone 100 MG TAB PO SCH (20:12)
[2019-03-03] MEDS: SINEMET**CR** 25/100 TABCR PO SCH (20:20)
[2019-03-03 22:00] VITALS: BP 141/64
[2019-03-04] MEDS: LEVOTHYROXINE 100MCG TABLET (0.1MG) PO SCH (05:16)
[2019-03-04 06:00] VITALS: BP 146/69
[2019-03-04 07:03] LABS: HEMATOCRIT 28.6 % (42.0-52.0); HEMOGLOBIN 9.9 g/dl (13.5-17.5); MEAN CORPUSCULAR HEMOGLOBIN 29.7 pg (27.0-33.0); MEAN CORPUSCULAR HGB CONC 34.6 g/dl (32.0-36.5); MEAN CORPUSCULAR VOLUME 85.9 fl (80.0-96.0); PLATELET COUNT, AUTOMATED 280 10^3/uL (150-450); RED BLOOD COUNT 3.33 10^6/uL (4.30-6.10); WHITE BLOOD COUNT 8.1 10^3/uL (4.0-10.0)
[2019-03-04 07:26] LABS: BLOOD UREA NITROGEN 3 MG/DL (7-18); CALCIUM LEVEL 6.9 MG/DL (8.8-10.2); CARBON DIOXIDE LEVEL 20 MEQ/L (21-32); CHLORIDE LEVEL 110 MEQ/L (98-107); CREATININE FOR GFR 0.78 MG/DL (0.70-1.30); GLOMERULAR FILTRATION RATE > 60.0 (>42); GLUCOSE, FASTING 89 MG/DL (70-100); MAGNESIUM LEVEL 1.6 MG/DL (1.8-2.4); POTASSIUM SERUM 3.4 MEQ/L (3.5-5.1); SODIUM LEVEL 137 MEQ/L (136-145)
[2019-03-04] MEDS: HumaLOG INSULIN (NovoLOG) PER UNIT SC SCH ×4 (07:30→21:00)
[2019-03-04] MEDS ORDERED: POTASSIUM CHLORIDE 10% LIQ 20 MEQ/15 ML UDC PO ONE (09:00)
[2019-03-04] MEDS ORDERED: MAGNESIUM OXIDE 400 MG TAB (MAG-OX) PO ONE ×2 (09:00→18:00)
[2019-03-04] MEDS: SINEMET 25-100 MG TAB PO SCH ×3 (09:23→17:21)
[2019-03-04] MEDS: ALLOPURINOL 300 MG TAB PO SCH (09:24)
[2019-03-04] MEDS: SENNA 8.6 MG TAB (SENOKOT) PO SCH (09:24)
[2019-03-04] MEDS: ALPRAZolam 0.5 MG TAB PO SCH ×2 (09:24→21:00)
[2019-03-04] MEDS: ACETAMINOPHEN TAB 650MG DOSE (2X325MG) PO PRN (09:24)
[2019-03-04] MEDS: ENTACAPONE 200MG TABLET (COMTAN) PO SCH ×3 (09:24→17:21)
[2019-03-04] MEDS: ASPIRIN 81 MG ENTERIC TAB PO SCH (09:25)
[2019-03-04] MEDS: PREGABALIN 50 MG CAP (LYRICA) PO SCH ×3 (09:25→21:00)
[2019-03-04] MEDS: ACYCLOVIR 200 MG CAPSULE PO SCH ×2 (09:25→21:00)
[2019-03-04] MEDS: NYSTATIN 500,000 U/5 ML SUSP UDC SS SCH ×4 (09:25→21:00)
[2019-03-04] MEDS: FLUoxetine 20 MG CAP PO SCH (09:25)
[2019-03-04] MEDS: NYSTATIN 100,000 UNITS/GM TOPICAL PWD 15 GM TOP SCH ×2 (09:26→21:00)
[2019-03-04] MEDS: PANTOPRAZOLE 40MG TAB (PROTONIX) PO SCH (09:35)
[2019-03-04 14:00] VITALS: BP 102/56
--- NOTE | 2019-03-04 14:10 | IPNPDOC ---
Subjective Date Seen The patient was seen on 03/04/19. Subjective Chief Complaint/HPI Patient seen and examined at the bedside. Reports that he has had several bowel movements since having an enema and bowel care added to his regimen yesterday. Denies any acute complaints at this time. He has been noted to be tolerating his advanced low residue diet at this time. Objective Physical Examination General Exam: Positive: Alert, Cooperative, No Acute Distress ENT Exam: Positive: Atraumatic, Mucous membr. moist/pink Chest Exam: Positive: Clear to auscultation, Normal air movement; Negative: Rhonchi, Wheezing Heart Exam: Positive: Rate Normal, Normal S1, Normal S2 Abdomen Exam: Positive: Soft; Negative: Tenderness Extremity Exam: Negative: Tenderness, Swelling Assessment /Plan Plan/VTE VTE Prophylaxis Ordered?: Yes Plan Dysphagia in setting of history of Huizar's esophagus requiring repair/gildardo roparesis Tolerating low residue diet at this time s/p EGD on 02/27 - erosive esophagitis, gastroparesis - no peristalsis GI has recommended J-Tube for feeding +/- decompression G Tube The patient/daughter have been reluctant about this--Speech therapy was consulted and a modified diet was recommended. At this time the patient/daughter have decided that the patient will try his best to follow the aforementioned modified diet recommendations and see how he does over the weekend. If his by mouth intake remains decreased, we will consider a feeding tube. Patient has been encouraged to get out of bed and into the chair, work with PT Acute kidney injury, likely secondary to ATN secondary to dehydration, resolved Acute metabolic encephalopathy 2/2 Above, resolved Head CT did not show acute findings Discussed with Daughter at the bedside, he is at his baseline at this time Elevated troponin on presentation, suspect related to combination of acute kidney injury and rhabdomyolysis EKG with no acute ST changes Patient with no acute complaints of chest pain, palpitations 2D Echo notable for borderline left ventricular hypertrophy with hyperkinetic wall motion. No localized wall motion abnormality. F/U outpatient Cardiology for Stress Testing Aspirin started Acute rhabdomyolysis: Resolved Diabetes mellitus type 2 Continue sliding scale Parkinson's disease Continue Sinemet Hypothyroidism: Continue levothyroxine Hypomagnesemia Replete and recheck BPH Flomax Oral thrush: Nystatin swish and spit Generalized weakness and recurrent falls PT/OT Anxiety/Depression Cont regimen as ordered Constipation/Gastroparesis Low Residue diet encouraged Bowel regimen ordered--patient has been having several bowel movements daily for the last 2 days Encourage OOB, Ambulation GI/DVT prophylaxis: Famotidine, subcutaneous lovenox Disposition-pending continued clinical improvement, physical therapy clearance. PFS on board. VS, I&O, 24H, Fishbone Vital Signs/I&O Vital Signs Date Time Temp Pulse Resp B/P (MAP) Pulse Ox O2 Delivery O2 Flow Rate FiO2 03/04/19 06:00 97.3 87 20 146/69 (94) 96 I&O- Last 24 Hours up to 6 AM 03/04/19 06:00 Intake Total 2240 ml Output Total 1550 ml Balance 690 ml Laboratory Data 24H LABS Laboratory Tests 2 03/03/19 16:08: Bedside Glucose (Misc Panel) 171H 03/03/19 19:56: Bedside Glucose (Misc Panel) 80L 03/04/19 06:34: Nucleated Red Blood Cells % (auto) 0.0, Anion Gap 7L, Glomerular Filtration Rate > 60.0, Blood Urea Nitrogen 3L, Creatinine 0.78, Sodium Level 137, Potassium Level 3.4L, Chloride Level 110H, Carbon Dioxide Level 20L, Calcium Level 6.9L, Magnesium Level 1.6L 03/04/19 12:02: Bedside Glucose (Misc Panel) 121H CBC/BMP Laboratory Tests 03/04/19 06:34 Red Blood Count 3.33 L, Mean Corpuscular Volume 85.9, Mean Corpuscular Hemoglobin 29.7, Mean Corpuscular Hemoglobin Concent 34.6, Red Cell Distribution Width 14.0, Calcium Level 6.9 L Microbiology Microbiology 02/23/19 Blood Culture - Final, Complete NO GROWTH AFTER 5 DAYS 02/23/19 Blood Culture - Final, Complete NO GROWTH AFTER 5 DAYS 02/23/19 Urine Culture - Final, Complete CARA MORAN MD Mar 04, 2019 14:10
[2019-03-04] MEDS: SINEMET**CR** 25/100 TABCR PO SCH (21:00)
[2019-03-04] MEDS: TAMSULOSIN 0.4 MG CAP PO SCH (21:00)
[2019-03-04] MEDS: DOCUSATE SODIUM 100 MG CAP PO SCH (21:00)
[2019-03-04] MEDS: traZODone 100 MG TAB PO SCH (21:00)
[2019-03-04] MEDS: ENOXAPARIN 40 MG/0.4 ML SYRINGE (J1650) SC SCH (21:57)
[2019-03-04 22:00] VITALS: BP 124/65
[2019-03-05] MEDS: LEVOTHYROXINE 100MCG TABLET (0.1MG) PO SCH (05:18)
[2019-03-05 06:00] VITALS: BP 113/65
[2019-03-05 06:09] LABS: HEMATOCRIT 30.3 % (42.0-52.0); HEMOGLOBIN 10.2 g/dl (13.5-17.5); MEAN CORPUSCULAR HEMOGLOBIN 29.8 pg (27.0-33.0); MEAN CORPUSCULAR HGB CONC 33.7 g/dl (32.0-36.5); MEAN CORPUSCULAR VOLUME 88.6 fl (80.0-96.0); PLATELET COUNT, AUTOMATED 257 10^3/uL (150-450); RED BLOOD COUNT 3.42 10^6/uL (4.30-6.10); WHITE BLOOD COUNT 7.4 10^3/uL (4.0-10.0)
[2019-03-05 06:32] LABS: BLOOD UREA NITROGEN 5 MG/DL (7-18); CALCIUM LEVEL 7.3 MG/DL (8.8-10.2); CARBON DIOXIDE LEVEL 22 MEQ/L (21-32); CHLORIDE LEVEL 109 MEQ/L (98-107); CREATININE FOR GFR 0.83 MG/DL (0.70-1.30); GLOMERULAR FILTRATION RATE > 60.0 (>42); GLUCOSE, FASTING 100 MG/DL (70-100); MAGNESIUM LEVEL 1.7 MG/DL (1.8-2.4); POTASSIUM SERUM 3.7 MEQ/L (3.5-5.1); SODIUM LEVEL 139 MEQ/L (136-145)
[2019-03-05] MEDS: HumaLOG INSULIN (NovoLOG) PER UNIT SC SCH ×4 (07:30→20:51)
[2019-03-05] MEDS: MAGNESIUM OXIDE 400 MG TAB (MAG-OX) PO SCH ×2 (08:52→20:49)
[2019-03-05] MEDS: ASPIRIN 81 MG ENTERIC TAB PO SCH (08:52)
[2019-03-05] MEDS: FLUoxetine 20 MG CAP PO SCH (08:53)
[2019-03-05] MEDS: DOCUSATE SODIUM 100 MG CAP PO SCH ×2 (08:53→20:49)
[2019-03-05] MEDS: ALLOPURINOL 300 MG TAB PO SCH (08:53)
[2019-03-05] MEDS: NYSTATIN 100,000 UNITS/GM TOPICAL PWD 15 GM TOP SCH ×2 (08:53→20:51)
[2019-03-05] MEDS: ACYCLOVIR 200 MG CAPSULE PO SCH ×2 (08:53→20:50)
[2019-03-05] MEDS: NYSTATIN 500,000 U/5 ML SUSP UDC SS SCH ×3 (08:53→18:01)
[2019-03-05] MEDS: PREGABALIN 50 MG CAP (LYRICA) PO SCH ×3 (09:01→20:49)
[2019-03-05] MEDS: SINEMET 25-100 MG TAB PO SCH ×3 (09:01→18:01)
[2019-03-05] MEDS: ENTACAPONE 200MG TABLET (COMTAN) PO SCH ×3 (09:01→18:01)
[2019-03-05] MEDS: PANTOPRAZOLE 40MG TAB (PROTONIX) PO SCH (09:01)
--- NOTE | 2019-03-05 12:26 | IPNPDOC ---
Subjective Date Seen The patient was seen on 03/05/19. Subjective Chief Complaint/HPI Patient seen and examined at the bedside. Denies any acute complaints at this time. Objective Physical Examination General Exam: Positive: Alert, Cooperative, No Acute Distress ENT Exam: Positive: Atraumatic, Mucous membr. moist/pink Chest Exam: Positive: Clear to auscultation, Normal air movement; Negative: Rhonchi, Wheezing Heart Exam: Positive: Rate Normal, Normal S1, Normal S2 Abdomen Exam: Positive: Soft; Negative: Tenderness Extremity Exam: Negative: Tenderness, Swelling A-FIB/CHADSVASC A-FIB History Current/History of A-Fib/PAF?: No Assessment /Plan Plan/VTE VTE Prophylaxis Ordered?: Yes Plan Dysphagia in setting of history of Huizar's esophagus requiring rep air/gastroparesis Tolerating low residue diet at this time s/p EGD on 02/27 - erosive esophagitis, gastroparesis - no peristalsis GI has recommended J-Tube for feeding +/- decompression G Tube The patient/daughter have been reluctant about this--Speech therapy was consulted and a modified diet was recommended. At this time the patient has been tolerating a PO diet w/o any acute complaints. Denies any abdominal pain and has been passing watery bowel movements (was previously on a liquid diet). Patient has been encouraged to get out of bed and into the chair, work with PT Acute kidney injury, likely secondary to ATN secondary to dehydration, resolved Acute metabolic encephalopathy 2/2 Above, resolved Head CT did not show acute findings Discussed with Daughter at the bedside, he is at his baseline at this time Elevated troponin on presentation, suspect related to combination of acute kid lynette injury and rhabdomyolysis EKG with no acute ST changes Patient with no acute complaints of chest pain, palpitations 2D Echo notable for borderline left ventricular hypertrophy with hyperkinetic wa ll motion. No localized wall motion abnormality. F/U outpatient Cardiology for Stress Testing Aspirin started Acute rhabdomyolysis: Resolved Diabetes mellitus type 2 Continue sliding scale Parkinson's disease Continue Sinemet Hypothyroidism: Continue levothyroxine Hypomagnesemia Replete and recheck BPH Flomax Oral thrush: Nystatin swish and spit Generalized weakness and recurrent falls PT/OT Anxiety/Depression Cont regimen as ordered Constipation/Gastroparesis Low Residue diet encouraged Bowel regimen ordered--Will follow up with a CT Abd/Pel Encourage OOB, Ambulation GI/DVT prophylaxis: Famotidine, subcutaneous lovenox Disposition-pending continued clinical improvement, physical therapy evaluation. PFS on board. VS, I&O, 24H, Fishbone Vital Signs/I&O Vital Signs Date Time Temp Pulse Resp B/P (MAP) Pulse Ox O2 Delivery O2 Flow Rate FiO2 03/05/19 06:00 96.4 81 18 113/65 (81) 95 I&O- Last 24 Hours up to 6 AM 03/05/19 06:00 Intake Total 840 ml Balance 840 ml Laboratory Data 24H LABS Laboratory Tests 2 03/04/19 17:08: Bedside Glucose (Misc Panel) 95 03/04/19 20:34: Bedside Glucose (Misc Panel) 105 03/05/19 05:56: Nucleated Red Blood Cells % (auto) 0.0, Anion Gap 8, Glomerular Filtration Rate > 60.0, Blood Urea Nitrogen 5#L, Creatinine 0.83, Sodium Level 139, Potassium Level 3.7, Chloride Level 109H, Carbon Dioxide Level 22, Calcium Level 7.3L, Magnesium Level 1.7L 03/05/19 11:26: Bedside Glucose (Misc Panel) 132H CBC/BMP Laboratory Tests 03/05/19 05:56 Red Blood Count 3.42 L, Mean Corpuscular Volume 88.6, Mean Corpuscular Hemoglobin 29.8, Mean Corpuscular Hemoglobin Concent 33.7, Red Cell Distribution Width 14.6 H, Calcium Level 7.3 L Microbiology Microbiology 02/23/19 Blood Culture - Final, Complete NO GROWTH AFTER 5 DAYS 02/23/19 Blood Culture - Final, Complete NO GROWTH AFTER 5 DAYS 02/23/19 Urine Culture - Final, Complete CARA MORAN MD Mar 05, 2019 12:26
[2019-03-05 14:00] VITALS: BP 111/73
--- NOTE | 2019-03-05 16:06 | REPVR ---
EXAM: CT Abdomen and Pelvis Without Contrast EXAM DATE/TIME: 03/04/2019 4:49 PM CLINICAL HISTORY: 69 years old, male; Abdominal pain; Generalized; Additional info: Abd pain TECHNIQUE: Imaging protocol: Axial computed tomography images of the abdomen and pelvis without contrast. Coronal and sagittal reformatted images were created and reviewed. Radiation optimization: All CT scans at this facility use at least one of these dose optimization techniques: automated exposure control; mA and/or kV adjustment per patient size (includes targeted exams where dose is matched to clinical indication); or iterative reconstruction. COMPARISON: CT ABD PELVIS W/O CONTRAST 02/23/2019 12:22 PM FINDINGS: Lungs: Stable calcified granuloma lingula lobe. There is bibasilar compressive atelectasis. ABDOMEN: Liver: Normal. No mass. Gallbladder and bile ducts: There has been a cholecystectomy. Pancreas: There is diffuse pancreatic atrophy. Spleen: Normal. No splenomegaly. Adrenals: Normal. No mass. Kidneys and ureters: Punctate nonobstructive calculus right kidney stable. Stomach and bowel: Surgical clips at the GE junction possibly related to prior vagotomy. There is increased fluid demonstrated in the colon consistent with the reported history of diarrhea. No mass demonstrated. Appendix: No evidence of appendicitis. PELVIS: Bladder: Unremarkable as visualized. Reproductive: Unremarkable as visualized. ABDOMEN and PELVIS: Intraperitoneal space: Normal. No free air. No significant fluid collection. Bones/joints: Stable compression deformity of L1. Soft tissues: Unremarkable. Vasculature: There is moderate atherosclerotic calcification of the coronary arteries. The aorta demonstrates mild atherosclerotic calcification. Lymph nodes: Normal. No enlarged lymph nodes. IMPRESSION: 1. There has been a cholecystectomy. 2. There is diffuse pancreatic atrophy. 3. There is increased fluid demonstrated in the colon consistent with the reported history of diarrhea. No mass demonstrated. 4. Stable nonobstructive right renal calculus. Electronically signed by: Gilberto Li On 03/05/2019 16:06:14 PM
[2019-03-05] MEDS: traZODone 100 MG TAB PO SCH (20:49)
[2019-03-05] MEDS: TAMSULOSIN 0.4 MG CAP PO SCH (20:49)
[2019-03-05] MEDS: SINEMET**CR** 25/100 TABCR PO SCH (20:49)
[2019-03-05] MEDS: ACETAMINOPHEN TAB 650MG DOSE (2X325MG) PO PRN (20:50)
[2019-03-05] MEDS: LORazepam 0.5 MG TAB PO PRN (20:50)
[2019-03-05] MEDS: ENOXAPARIN 40 MG/0.4 ML SYRINGE (J1650) SC SCH (20:51)
[2019-03-05 22:00] VITALS: BP 146/81
[2019-03-05] MEDS ORDERED: traMADol 50 MG TAB PO ONE (23:30)
[2019-03-06] MEDS: BISACODYL 10 MG SUPP PR PRN (02:51)
[2019-03-06 06:00] VITALS: BP 129/61
[2019-03-06] MEDS: LEVOTHYROXINE 100MCG TABLET (0.1MG) PO SCH (06:12)
[2019-03-06 06:53] LABS: HEMATOCRIT 28.7 % (42.0-52.0); HEMOGLOBIN 10.1 g/dl (13.5-17.5); MEAN CORPUSCULAR HEMOGLOBIN 30.1 pg (27.0-33.0); MEAN CORPUSCULAR HGB CONC 35.2 g/dl (32.0-36.5); MEAN CORPUSCULAR VOLUME 85.7 fl (80.0-96.0); PLATELET COUNT, AUTOMATED 338 10^3/uL (150-450); RED BLOOD COUNT 3.35 10^6/uL (4.30-6.10); WHITE BLOOD COUNT 11.9 10^3/uL (4.0-10.0)
[2019-03-06 07:17] LABS: BLOOD UREA NITROGEN 5 MG/DL (7-18); CALCIUM LEVEL 8.2 MG/DL (8.8-10.2); CARBON DIOXIDE LEVEL 18 MEQ/L (21-32); CHLORIDE LEVEL 108 MEQ/L (98-107); CREATININE FOR GFR 1.12 MG/DL (0.70-1.30); GLOMERULAR FILTRATION RATE > 60.0 (>42); GLUCOSE, FASTING 134 MG/DL (70-100); MAGNESIUM LEVEL 1.6 MG/DL (1.8-2.4); POTASSIUM SERUM 3.1 MEQ/L (3.5-5.1); SODIUM LEVEL 139 MEQ/L (136-145)
[2019-03-06] MEDS: HumaLOG INSULIN (NovoLOG) PER UNIT SC SCH ×4 (07:30→21:00)
[2019-03-06] MEDS ORDERED: LR 1,000 ML IV SCH (08:00)
[2019-03-06] MEDS ORDERED: POTASSIUM CHLORIDE 10 MEQ SR TABLET PO ONE ×2 (08:00→18:00)
[2019-03-06] MEDS: DOCUSATE SODIUM 100 MG CAP PO SCH ×2 (09:00→21:19)
[2019-03-06] MEDS: ACYCLOVIR 200 MG CAPSULE PO SCH ×3 (09:00→21:19)
[2019-03-06] MEDS: SINEMET 25-100 MG TAB PO SCH ×3 (09:29→17:12)
[2019-03-06] MEDS: ASPIRIN 81 MG ENTERIC TAB PO SCH (09:30)
[2019-03-06] MEDS: ENTACAPONE 200MG TABLET (COMTAN) PO SCH ×3 (09:31→17:11)
[2019-03-06] MEDS: ALLOPURINOL 300 MG TAB PO SCH (09:31)
[2019-03-06] MEDS: FLUoxetine 20 MG CAP PO SCH (09:31)
[2019-03-06] MEDS: PANTOPRAZOLE 40MG TAB (PROTONIX) PO SCH (09:31)
[2019-03-06] MEDS: PREGABALIN 50 MG CAP (LYRICA) PO SCH ×3 (09:32→21:19)
[2019-03-06] MEDS: NYSTATIN 100,000 UNITS/GM TOPICAL PWD 15 GM TOP SCH ×2 (09:34→21:20)
[2019-03-06] MEDS: LORazepam 0.5 MG TAB PO PRN (10:49)
[2019-03-06] MEDS: MAG SULF 1GM/100ML (MAG RUN) 1 GM in APPROPRIATE DILUENT 1 EA IV SCH ×2 (12:13→17:09)
--- NOTE | 2019-03-06 12:44 | IPNPDOC ---
Subjective Date Seen The patient was seen on 03/06/19. Subjective Chief Complaint/HPI Patient seen and examined at the bedside. Reports that he is having some abdominal discomfort which she describes as cramping. He did have a bowel movement this morning, and notes that he is passing flatus. Otherwise, no acute overnight events noted. Objective Physical Examination General Exam: Positive: Alert, Cooperative, Mild Distress (secondary to abdominal cramping) ENT Exam: Positive: Atraumatic, Mucous membr. moist/pink Chest Exam: Positive: Clear to auscultation, Normal air movement; Negative: Rhonchi, Wheezing Heart Exam: Positive: Rate Normal, Normal S1, Normal S2 Abdomen Exam: Positive: Soft, Tenderness (mild tenderness to deep palpation in the lower abdominal quadrants bilaterally. No rebound tenderness, guarding, or rigidity noted.) Extremity Exam: Negative: Tenderness, Swelling Assessment /Plan Plan/VTE VTE Prophylaxis Ordered?: Yes Plan Dysphagia/Abd Pain in setting of history of Huizar's esophagus requiring repair, gastroparesis s/p EGD on 02/27 - erosive esophagitis, gastroparesis - no peristalsis GI has recommended J-Tube for feeding +/- decompression G Tube The patient/daughter have been reluctant about this--Speech therapy was consulted and a modified diet was recommended. CT Abd/Pel done on 03/04/19 with no evidence of obstruction Patient complaining of some abdominal pain this morning but he is passing flatus and had a BM this AM. Abdomen remains soft, non-distended on exam We will encourage OOB, low residue diet Acute kidney injury, likely secondary to ATN secondary to dehydration, resolved Acute metabolic encephalopathy 2/2 Above, resolved Head CT did not show acute findings Discussed with Daughter at the bedside, he is at his baseline at this time Elevated troponin on presentation, suspect related to combination of acute kidney injury and rhabdomyolysis EKG with no acute ST changes Patient with no acute complaints of chest pain, palpitations 2D Echo notable for borderline left ventricular hypertrophy with hyperkinetic wall motion. No localized wall motion abnormality. F/U outpatient Cardiology for Stress Testing Aspirin started Acute rhabdomyolysis: Resolved Diabetes mellitus type 2 Continue sliding scale Parkinson's disease Continue Sinemet Hypothyroidism: Continue levothyroxine Hypomagnesemia Replete and recheck BPH Flomax Oral thrush: Nystatin swish and spit Generalized weakness and recurrent falls PT/OT Anxiety/Depression Cont regimen as ordered GI/DVT prophylaxis: Famotidine, subcutaneous lovenox Disposition-pending continued clinical improvement, physical therapy evaluation. PFS on board. VS, I&O, 24H, Fishbone Vital Signs/I&O Vital Signs Date Time Temp Pulse Resp B/P (MAP) Pulse Ox O2 Delivery O2 Flow Rate FiO2 03/06/19 06:00 97.7 105 22 129/61 (83) 99 I&O- Last 24 Hours up to 6 AM 03/06/19 06:00 Intake Total 4080 ml Output Total 950 ml Balance 3130 ml Laboratory Data 24H LABS Laboratory Tests 2 03/05/19 16:31: Bedside Glucose (Misc Panel) 152H 03/05/19 20:47: Bedside Glucose (Misc Panel) 122H 03/06/19 06:41: Nucleated Red Blood Cells % (auto) 0.0, Anion Gap 13, Glomerular Filtration Rate > 60.0, Blood Urea Nitrogen 5L, Creatinine 1.12, Sodium Level 139, Potassium Level 3.1L, Chloride Level 108H, Carbon Dioxide Level 18L, Calcium Level 8.2L, Magnesium Level 1.6L 03/06/19 11:35: Bedside Glucose (Misc Panel) 134H 03/06/19 11:50: CBC/BMP Laboratory Tests 03/06/19 06:41 Red Blood Count 3.35 L, Mean Corpuscular Volume 85.7, Mean Corpuscular Hemoglobin 30.1, Mean Corpuscular Hemoglobin Concent 35.2, Red Cell Distribution Width 14.2, Calcium Level 8.2 L CARA MORAN MD Mar 06, 2019 12:44
[2019-03-06] MEDS ORDERED: ACETAMINOPHEN *IV* 1,000 MG in APPROPRIATE DILUENT 1 EA IV ONE (13:00)
[2019-03-06 13:40] VITALS: BP 139/89
--- NOTE | 2019-03-06 14:38 | REP ---
CT Head without contrast HISTORY: Fall COMPARISON: 02/25/2019 Areas of decreased attenuation are present in the periventricular white matter. This represents small-vessel ischemic disease. There is no intraparenchymal hemorrhage, acute infarct, mass or midline shift. The ventricular system is and cortical sulci as well as subarachnoid space in the posterior fossa are dilated consistent with moderate volume loss. There is no extra cerebral collection. There is no fracture. The visualized sinuses are clear. IMPRESSION: 1. Small vessel ischemic disease. 2. Moderate volume loss. Electronically Signed by Jason Saucedo MD 03/06/2019 02:30 P
--- NOTE | 2019-03-06 16:16 | REP ---
REASON: Pain after trauma. AP and lateral views of the knee can not rule out a fracture. A trauma series consists of four views. This limited two view examination shows no gross fracture or dislocation. Electronically Signed by William Washington DO 03/06/2019 04:36 P
[2019-03-06] MEDS ORDERED: MAGNESIUM SULFATE 1 GM/100 ML D5W BAG (10MG/ML) (J3475) As Ordered ONE (17:02)
[2019-03-06] MEDS: SINEMET**CR** 25/100 TABCR PO SCH (21:19)
[2019-03-06] MEDS: TAMSULOSIN 0.4 MG CAP PO SCH (21:19)
[2019-03-06] MEDS: ENOXAPARIN 40 MG/0.4 ML SYRINGE (J1650) SC SCH (21:20)
[2019-03-06] MEDS: traZODone 100 MG TAB PO SCH (21:20)
[2019-03-06 22:00] VITALS: BP 141/86
[2019-03-07] MEDS: LEVOTHYROXINE 100MCG TABLET (0.1MG) PO SCH (05:38)
[2019-03-07 06:00] VITALS: BP 135/74
[2019-03-07 07:00] LABS: HEMATOCRIT 29.6 % (42.0-52.0); HEMOGLOBIN 9.9 g/dl (13.5-17.5); MEAN CORPUSCULAR HEMOGLOBIN 29.6 pg (27.0-33.0); MEAN CORPUSCULAR HGB CONC 33.4 g/dl (32.0-36.5); MEAN CORPUSCULAR VOLUME 88.6 fl (80.0-96.0); PLATELET COUNT, AUTOMATED 279 10^3/uL (150-450); RED BLOOD COUNT 3.34 10^6/uL (4.30-6.10); WHITE BLOOD COUNT 12.9 10^3/uL (4.0-10.0)
[2019-03-07 07:31] LABS: BLOOD UREA NITROGEN 6 MG/DL (7-18); CALCIUM LEVEL 7.6 MG/DL (8.8-10.2); CARBON DIOXIDE LEVEL 23 MEQ/L (21-32); CHLORIDE LEVEL 110 MEQ/L (98-107); CREATININE FOR GFR 0.86 MG/DL (0.70-1.30); GLOMERULAR FILTRATION RATE > 60.0 (>42); GLUCOSE, FASTING 96 MG/DL (70-100); MAGNESIUM LEVEL 2.1 MG/DL (1.8-2.4); SODIUM LEVEL 139 MEQ/L (136-145)
[2019-03-07] MEDS: ENTACAPONE 200MG TABLET (COMTAN) PO SCH ×3 (08:46→17:58)
[2019-03-07] MEDS: SINEMET 25-100 MG TAB PO SCH ×3 (08:46→17:58)
[2019-03-07] MEDS: PREGABALIN 50 MG CAP (LYRICA) PO SCH ×3 (08:46→20:35)
[2019-03-07] MEDS: ASPIRIN 81 MG ENTERIC TAB PO SCH (08:46)
[2019-03-07] MEDS: PANTOPRAZOLE 40MG TAB (PROTONIX) PO SCH (08:46)
[2019-03-07] MEDS: ALLOPURINOL 300 MG TAB PO SCH (08:46)
[2019-03-07] MEDS: ACYCLOVIR 200 MG CAPSULE PO SCH ×2 (08:46→20:35)
[2019-03-07] MEDS: FLUoxetine 20 MG CAP PO SCH (08:46)
[2019-03-07] MEDS: NYSTATIN 100,000 UNITS/GM TOPICAL PWD 15 GM TOP SCH ×2 (08:47→20:36)
[2019-03-07] MEDS: DOCUSATE SODIUM 100 MG CAP PO SCH ×2 (08:47→20:35)
[2019-03-07] MEDS: HumaLOG INSULIN (NovoLOG) PER UNIT SC SCH ×4 (08:48→20:36)
--- NOTE | 2019-03-07 11:01 | IPNPDOC ---
Subjective Date Seen The patient was seen on 03/07/19. Subjective Chief Complaint/HPI Patient seen and examined at bedside. Reports that he is feeling better today and denies any complaints of abdominal pain. States that he has been tolerating a by mouth diet and has been having bowel movements which have been loose. Objective Physical Examination General Exam: Positive: Alert, Cooperative, No Acute Distress ENT Exam: Positive: Atraumatic, Mucous membr. moist/pink Chest Exam: Positive: Clear to auscultation, Normal air movement; Negative: Rhonchi, Wheezing Heart Exam: Positive: Rate Normal, Normal S1, Normal S2 Abdomen Exam: Positive: Soft; Negative: Tenderness Extremity Exam: Negative: Tenderness, Swelling Assessment /Plan Plan/VTE VTE Prophylaxis Ordered?: Yes Plan Dysphagia/Abd Pain in setting of history of Huizar's esophagus requiring repair, gastroparesis s/p EGD on 02/27 - erosive esophagitis, gastroparesis - no peristalsis GI has recommended J-Tube for feeding +/- decompression G Tube The patient/daughter have been reluctant about this--Speech therapy was consulted and a modified diet was recommended. CT Abd/Pel done on 03/04/19 with no evidence of obstruction We will encourage OOB, low residue diet Diarrhea C. Diff PCR ordered to r/o infection given diarrhea and rising WBC Acute kidney injury, likely secondary to ATN secondary to dehydration, resolved Acute metabolic encephalopathy 2/2 Above, resolved Head CT did not show acute findings Discussed with Daughter at the bedside, he is at his baseline at this time Elevated troponin on presentation, suspect related to combination of acute kidney injury and rhabdomyolysis EKG with no acute ST changes Patient with no acute complaints of chest pain, palpitations 2D Echo notable for borderline left ventricular hypertrophy with hyperkinetic wall motion. No localized wall motion abnormality. F/U outpatient Cardiology for Stress Testing Aspirin started Acute rhabdomyolysis: Resolved Diabetes mellitus type 2 Continue sliding scale Parkinson's disease Continue Sinemet Hypothyroidism: Continue levothyroxine Hypomagnesemia Replete and recheck BPH Flomax Oral thrush: Nystatin swish and spit Generalized weakness and recurrent falls PT/OT Anxiety/Depression Cont regimen as ordered GI/DVT prophylaxis: Famotidine, subcutaneous lovenox Disposition-pending continued clinical improvement, physical therapy evaluation. PFS on board. VS, I&O, 24H, Fishbone Vital Signs/I&O Vital Signs Date Time Temp Pulse Resp B/P (MAP) Pulse Ox O2 Delivery O2 Flow Rate FiO2 03/07/19 06:00 97.6 91 18 135/74 (94) 94 I&O- Last 24 Hours up to 6 AM 03/07/19 06:00 Intake Total 750 ml Output Total 625 ml Balance 125 ml Laboratory Data 24H LABS Laboratory Tests 2 03/06/19 11:35: Bedside Glucose (Misc Panel) 134H 03/06/19 11:50: Lactic Acid Level 2.3*H 03/06/19 16:05: Lactic Acid Followup at 4 Hours 1.1 03/06/19 16:35: Bedside Glucose (Misc Panel) 142H 03/06/19 20:42: Bedside Glucose (Misc Panel) 110 03/07/19 06:31: Anion Gap 6L, Glomerular Filtration Rate > 60.0, Blood Urea Nitrogen 6L, Creatinine 0.86, Sodium Level 139, Potassium Level 4.0#, Chloride Level 110H, Carbon Dioxide Level 23, Calcium Level 7.6L, Magnesium Level 2.1 03/07/19 06:32: Nucleated Red Blood Cells % (auto) 0.0 03/07/19 08:14: Bedside Glucose (Misc Panel) 107 CBC/BMP Laboratory Tests 03/07/19 06:31 Calcium Level 7.6 L 03/07/19 06:32 Red Blood Count 3.34 L, Mean Corpuscular Volume 88.6, Mean Corpuscular Hemoglobin 29.6, Mean Corpuscular Hemoglobin Concent 33.4, Red Cell Distribution Width 14.7 H CARA MORAN MD March 07, 2019 11:01
[2019-03-07 14:00] VITALS: BP 113/61
[2019-03-07] MEDS: METAXALONE 800 MG TABLET PO PRN (20:35)
[2019-03-07] MEDS: SINEMET**CR** 25/100 TABCR PO SCH (20:35)
[2019-03-07] MEDS: traZODone 100 MG TAB PO SCH (20:35)
[2019-03-07] MEDS: ENOXAPARIN 40 MG/0.4 ML SYRINGE (J1650) SC SCH (20:36)
[2019-03-07] MEDS: ACETAMINOPHEN TAB 650MG DOSE (2X325MG) PO PRN (20:36)
[2019-03-07] MEDS: TAMSULOSIN 0.4 MG CAP PO SCH (20:37)
[2019-03-07 22:00] VITALS: BP 146/86
[2019-03-08] MEDS: LORazepam 0.5 MG TAB PO PRN ×2 (03:06→21:59)
[2019-03-08] MEDS: ACETAMINOPHEN TAB 650MG DOSE (2X325MG) PO PRN ×2 (03:06→21:50)
[2019-03-08] MEDS: LEVOTHYROXINE 100MCG TABLET (0.1MG) PO SCH (05:23)
[2019-03-08 06:00] VITALS: BP 149/70
[2019-03-08 06:16] LABS: HEMATOCRIT 28.4 % (42.0-52.0); HEMOGLOBIN 9.7 g/dl (13.5-17.5); MEAN CORPUSCULAR HEMOGLOBIN 29.8 pg (27.0-33.0); MEAN CORPUSCULAR HGB CONC 34.2 g/dl (32.0-36.5); MEAN CORPUSCULAR VOLUME 87.1 fl (80.0-96.0); PLATELET COUNT, AUTOMATED 322 10^3/uL (150-450); RED BLOOD COUNT 3.26 10^6/uL (4.30-6.10); WHITE BLOOD COUNT 9.3 10^3/uL (4.0-10.0)
[2019-03-08 06:53] LABS: BLOOD UREA NITROGEN 6 MG/DL (7-18); CARBON DIOXIDE LEVEL 20 MEQ/L (21-32); CHLORIDE LEVEL 106 MEQ/L (98-107); CREATININE FOR GFR 1.05 MG/DL (0.70-1.30); GLOMERULAR FILTRATION RATE > 60.0 (>42); GLUCOSE, FASTING 91 MG/DL (70-100); MAGNESIUM LEVEL 1.8 MG/DL (1.8-2.4); POTASSIUM SERUM 3.3 MEQ/L (3.5-5.1); SODIUM LEVEL 135 MEQ/L (136-145)
[2019-03-08] MEDS: HumaLOG INSULIN (NovoLOG) PER UNIT SC SCH ×4 (07:30→21:00)
[2019-03-08] MEDS: POTASSIUM CHLORIDE 10 MEQ SR TABLET PO ONE ×2 (08:00→09:31)
[2019-03-08] MEDS: DOCUSATE SODIUM 100 MG CAP PO SCH ×2 (09:32→21:50)
[2019-03-08] MEDS: ENTACAPONE 200MG TABLET (COMTAN) PO SCH ×3 (09:32→18:16)
[2019-03-08] MEDS: ALLOPURINOL 300 MG TAB PO SCH (09:33)
[2019-03-08] MEDS: FLUoxetine 20 MG CAP PO SCH (09:33)
[2019-03-08] MEDS: ACYCLOVIR 200 MG CAPSULE PO SCH ×2 (09:33→21:50)
[2019-03-08] MEDS: PANTOPRAZOLE 40MG TAB (PROTONIX) PO SCH (09:34)
[2019-03-08] MEDS: ASPIRIN 81 MG ENTERIC TAB PO SCH (09:34)
[2019-03-08] MEDS: SINEMET 25-100 MG TAB PO SCH ×3 (09:35→18:16)
[2019-03-08] MEDS: PREGABALIN 50 MG CAP (LYRICA) PO SCH ×3 (09:36→21:50)
[2019-03-08] MEDS: NYSTATIN 100,000 UNITS/GM TOPICAL PWD 15 GM TOP SCH ×2 (09:37→21:53)
--- NOTE | 2019-03-08 12:12 | IPNPDOC ---
Subjective Date Seen The patient was seen on 03/08/19. Subjective Chief Complaint/HPI Patient seen and examined at bedside this morning with his daughter present. I had an extensive conversation with the patient and his daughter at the bedside, and reiterated the importance of the patient working with physical therapy in an effort to assess whether the patient needs rehabilitation for further functional optimization, or if the patient is strong enough to return home. The patient has verbalized understanding of the same, and states that he is eager to work with physical therapy to show them that he can be discharged home Objective Physical Examination General Exam: Positive: Alert, Cooperative, No Acute Distress ENT Exam: Positive: Atraumatic, Mucous membr. moist/pink Chest Exam: Positive: Clear to auscultation, Normal air movement; Negative: Rhonchi, Wheezing Heart Exam: Positive: Rate Normal, Normal S1, Normal S2 Abdomen Exam: Positive: Soft; Negative: Tenderness Extremity Exam: Negative: Tenderness, Swelling Assessment /Plan Plan/VTE VTE Prophylaxis Ordered?: Yes Plan Dysphagia/Abd Pain in setting of history of Huizar's esophagus requiring repair, gastroparesis s/p EGD on 02/27 - erosive esophagitis, gastroparesis - no peristalsis GI has recommended J-Tube for feeding +/- decompression G Tube The patient/daughter have been reluctant about this--Speech therapy was consulted and a modified diet was recommended. CT Abd/Pel done on 03/04/19 with no evidence of obstruction We will encourage OOB, low residue diet Diarrhea C. Diff PCR ordered to r/o infection given diarrhea and rising WBC Acute kidney injury, likely secondary to ATN secondary to dehydration, resolved Acute metabolic encephalopathy 2/2 Above, resolved Head CT did not show acute findings Discussed with Daughter at the bedside, he is at his baseline at this time Elevated troponin on presentation, suspect related to combination of acute kidney injury and rhabdomyolysis EKG with no acute ST changes Patient with no acute complaints of chest pain, palpitations 2D Echo notable for borderline left ventricular hypertrophy with hyperkinetic wall motion. No localized wall motion abnormality. F/U outpatient Cardiology for Stress Testing Aspirin started Acute rhabdomyolysis: Resolved Diabetes mellitus type 2 Continue sliding scale Parkinson's disease Continue Sinemet Hypothyroidism: Continue levothyroxine Hypomagnesemia Replete and recheck BPH Flomax Oral thrush: Nystatin swish and spit Generalized weakness and recurrent falls PT/OT Anxiety/Depression Cont regimen as ordered GI/DVT prophylaxis: Famotidine, subcutaneous lovenox Disposition-pending continued clinical improvement, physical therapy clearance. PFS on board. VS, I&O, 24H, Fishbone Vital Signs/I&O Vital Signs Date Time Temp Pulse Resp B/P (MAP) Pulse Ox O2 Delivery O2 Flow Rate FiO2 03/08/19 06:00 97.8 93 20 149/70 (96) 98 I&O- Last 24 Hours up to 6 AM 03/08/19 06:00 Intake Total 3380 ml Output Total 1625 ml Balance 1755 ml Laboratory Data 24H LABS Laboratory Tests 2 03/07/19 17:21: Bedside Glucose (Misc Panel) 149H 03/07/19 19:54: Bedside Glucose (Misc Panel) 92 03/08/19 05:39: Nucleated Red Blood Cells % (auto) 0.0, Anion Gap 9, Glomerular Filtration Rate > 60.0, Blood Urea Nitrogen 6L, Creatinine 1.05, Sodium Level 135L, Potassium Level 3.3L, Chloride Level 106, Carbon Dioxide Level 20L, Calcium Level 8.0L, Magnesium Level 1.8 CBC/BMP Laboratory Tests 03/08/19 05:39 Red Blood Count 3.26 L, Mean Corpuscular Volume 87.1, Mean Corpuscular Hemoglobin 29.8, Mean Corpuscular Hemoglobin Concent 34.2, Red Cell Distribution Width 15.0 H, Calcium Level 8.0 L CARA MORAN MD March 08, 2019 12:12
[2019-03-08] MEDS: METAXALONE 800 MG TABLET PO PRN (12:17)
[2019-03-08] MEDS: ENOXAPARIN 40 MG/0.4 ML SYRINGE (J1650) SC SCH (21:50)
[2019-03-08] MEDS: SINEMET**CR** 25/100 TABCR PO SCH (21:50)
[2019-03-08] MEDS: traZODone 100 MG TAB PO SCH (21:50)
[2019-03-08] MEDS: TAMSULOSIN 0.4 MG CAP PO SCH (21:50)
[2019-03-08 22:00] VITALS: BP 123/71
[2019-03-09] MEDS: LEVOTHYROXINE 100MCG TABLET (0.1MG) PO SCH (05:26)
[2019-03-09 05:45] LABS: HEMATOCRIT 26.8 % (42.0-52.0); HEMOGLOBIN 9.1 g/dl (13.5-17.5); MEAN CORPUSCULAR HEMOGLOBIN 30.2 pg (27.0-33.0); PLATELET COUNT, AUTOMATED 291 10^3/uL (150-450); RED BLOOD COUNT 3.01 10^6/uL (4.30-6.10); WHITE BLOOD COUNT 5.1 10^3/uL (4.0-10.0)
[2019-03-09 06:00] VITALS: BP 141/81
[2019-03-09 06:08] LABS: BLOOD UREA NITROGEN 5 MG/DL (7-18); CALCIUM LEVEL 7.6 MG/DL (8.8-10.2); CARBON DIOXIDE LEVEL 22 MEQ/L (21-32); CHLORIDE LEVEL 110 MEQ/L (98-107); CREATININE FOR GFR 0.76 MG/DL (0.70-1.30); GLOMERULAR FILTRATION RATE > 60.0 (>42); GLUCOSE, FASTING 89 MG/DL (70-100); MAGNESIUM LEVEL 1.8 MG/DL (1.8-2.4); POTASSIUM SERUM 3.1 MEQ/L (3.5-5.1); SODIUM LEVEL 139 MEQ/L (136-145)
[2019-03-09] MEDS: HumaLOG INSULIN (NovoLOG) PER UNIT SC SCH ×4 (07:30→20:27)
[2019-03-09] MEDS ORDERED: POTASSIUM CHLORIDE 10% LIQ 20 MEQ/15 ML UDC PO ONE (09:00)
[2019-03-09] MEDS: DOCUSATE SODIUM 100 MG CAP PO SCH ×2 (09:00→19:58)
[2019-03-09] MEDS: ASPIRIN 81 MG ENTERIC TAB PO SCH (09:29)
[2019-03-09] MEDS: FLUoxetine 20 MG CAP PO SCH (09:29)
[2019-03-09] MEDS: PREGABALIN 50 MG CAP (LYRICA) PO SCH ×3 (09:29→19:57)
[2019-03-09] MEDS: ACYCLOVIR 200 MG CAPSULE PO SCH ×2 (09:29→19:58)
[2019-03-09] MEDS: PANTOPRAZOLE 40MG TAB (PROTONIX) PO SCH (09:29)
[2019-03-09] MEDS: NYSTATIN 100,000 UNITS/GM TOPICAL PWD 15 GM TOP SCH ×2 (09:29→19:58)
[2019-03-09] MEDS: SINEMET 25-100 MG TAB PO SCH ×3 (09:29→17:56)
[2019-03-09] MEDS: ALLOPURINOL 300 MG TAB PO SCH (09:29)
[2019-03-09] MEDS: ENTACAPONE 200MG TABLET (COMTAN) PO SCH ×3 (09:29→17:56)
--- NOTE | 2019-03-09 11:50 | IPNPDOC ---
Subjective Date Seen The patient was seen on 03/09/19. Subjective Chief Complaint/HPI Patient seen and examined at the bedside. No acute overnight events noted. The patient did sit in the chair for most of the day yesterday and did participate in physical therapy. Objective Physical Examination General Exam: Positive: Alert, Cooperative, No Acute Distress ENT Exam: Positive: Atraumatic, Mucous membr. moist/pink Chest Exam: Positive: Clear to auscultation, Normal air movement; Negative: Rhonchi, Wheezing Heart Exam: Positive: Rate Normal, Normal S1, Normal S2 Abdomen Exam: Positive: Soft; Negative: Tenderness Extremity Exam: Negative: Tenderness, Swelling A-FIB/CHADSVASC A-FIB History Current/History of A-Fib/PAF?: No Assessment /Plan Plan/VTE VTE Prophylaxis Ordered?: Yes Plan Dysphagia/Abd Pain in setting of history of Huizar's esophagus requiring repair, gastroparesis s/p EGD on 02/27 - erosive esophagitis, gastroparesis - no peristalsis GI has recommended J-Tube for feeding +/- decompression G Tube The patient/daughter have been reluctant about this--Speech therapy was consulted and a modified diet was recommended. CT Abd/Pel done on 03/04/19 with no evidence of obstruction Patient tolerating a by mouth diet without any acute complaints at this time. We will encourage OOB, low residue diet Diarrhea likely secondary to laxative use, resolved Acute kidney injury, likely secondary to ATN secondary to dehydration, resolved Acute metabolic encephalopathy 2/2 Above, resolved Head CT did not show acute findings Discussed with Daughter at the bedside, he is at his baseline at this time Elevated troponin on presentation, suspect related to combination of acute kidney injury and rhabdomyolysis EKG with no acute ST changes Patient with no acute complaints of chest pain, palpitations 2D Echo notable for borderline left ventricular hypertrophy with hyperkinetic wall motion. No localized wall motion abnormality. F/U outpatient Cardiology for Stress Testing Aspirin started Acute rhabdomyolysis: Resolved Diabetes mellitus type 2 Continue sliding scale Parkinson's disease Continue Sinemet Hypothyroidism: Continue levothyroxine Hypomagnesemia Replete and recheck BPH Flomax Oral thrush: Nystatin swish and spit Generalized weakness and recurrent falls PT/OT Anxiety/Depression Cont regimen as ordered GI/DVT prophylaxis: Famotidine, subcutaneous lovenox Disposition-pending continued clinical improvement, physical therapy clearance. PFS on board. VS, I&O, 24H, Fishbone Vital Signs/I&O Vital Signs Date Time Temp Pulse Resp B/P (MAP) Pulse Ox O2 Delivery O2 Flow Rate FiO2 03/09/19 06:00 96.5 65 18 141/81 (101) 96 I&O- Last 24 Hours up to 6 AM 03/09/19 06:00 Intake Total 700 ml Output Total 2100 ml Balance -1400 ml Laboratory Data 24H LABS Laboratory Tests 2 03/08/19 12:32: Bedside Glucose (Misc Panel) 132H 03/08/19 17:18: Bedside Glucose (Misc Panel) 119H 03/08/19 21:46: Bedside Glucose (Misc Panel) 95 03/09/19 05:05: Nucleated Red Blood Cells % (auto) 0.0, Anion Gap 7L, Glomerular Filtration Rate > 60.0, Blood Urea Nitrogen 5L, Creatinine 0.76, Sodium Level 139, Potassium Level 3.1L, Chloride Level 110H, Carbon Dioxide Level 22, Calcium Level 7.6L, Magnesium Level 1.8 03/09/19 11:28: Bedside Glucose (Misc Panel) 119H CBC/BMP Laboratory Tests 03/09/19 05:05 Red Blood Count 3.01 L, Mean Corpuscular Volume 89.0, Mean Corpuscular Hemoglobin 30.2, Mean Corpuscular Hemoglobin Concent 34.0, Red Cell Distribution Width 15.4 H, Calcium Level 7.6 L CARA MORAN MD March 09, 2019 11:50
[2019-03-09 14:00] VITALS: BP 125/73
[2019-03-09] MEDS: SINEMET**CR** 25/100 TABCR PO SCH (19:57)
[2019-03-09] MEDS: ENOXAPARIN 40 MG/0.4 ML SYRINGE (J1650) SC SCH (19:57)
[2019-03-09] MEDS: traZODone 100 MG TAB PO SCH (19:58)
[2019-03-09] MEDS: TAMSULOSIN 0.4 MG CAP PO SCH (19:58)
[2019-03-09] MEDS: LORazepam 0.5 MG TAB PO PRN (19:58)
[2019-03-09] MEDS: ACETAMINOPHEN TAB 650MG DOSE (2X325MG) PO PRN (19:58)
[2019-03-09] MEDS ORDERED: SIMETHICONE 80 MG CHEW TAB PO ONE (21:45)
[2019-03-09 22:00] VITALS: BP 121/70
[2019-03-10] MEDS ORDERED: FLEET ENEMA PR ONE ×2 (00:45→10:45)
[2019-03-10] MEDS ORDERED: METOCLOPRAMIDE 5 MG TAB PO ONE (01:45)
[2019-03-10] MEDS ORDERED: RAMELTEON 8 MG TAB (ROZEREM) PO ONE (01:45)
[2019-03-10] MEDS: METAXALONE 800 MG TABLET PO PRN (02:06)
[2019-03-10] MEDS: ACETAMINOPHEN TAB 650MG DOSE (2X325MG) PO PRN (02:07)
[2019-03-10] MEDS ORDERED: KETOROLAC 30 MG/ML VIAL (J1885) IV ONE (04:00)
[2019-03-10] MEDS ORDERED: PERCOCET 5MG/325MG TAB PO ONE (04:00)
[2019-03-10] MEDS: LEVOTHYROXINE 100MCG TABLET (0.1MG) PO SCH (04:18)
[2019-03-10 04:31] LABS: HEMATOCRIT 27.2 % (42.0-52.0); HEMOGLOBIN 9.4 g/dl (13.5-17.5); MEAN CORPUSCULAR HEMOGLOBIN 30.1 pg (27.0-33.0); MEAN CORPUSCULAR HGB CONC 34.6 g/dl (32.0-36.5); MEAN CORPUSCULAR VOLUME 87.2 fl (80.0-96.0); PLATELET COUNT, AUTOMATED 355 10^3/uL (150-450); RED BLOOD COUNT 3.12 10^6/uL (4.30-6.10); WHITE BLOOD COUNT 11.7 10^3/uL (4.0-10.0)
[2019-03-10 04:52] LABS: BLOOD UREA NITROGEN 6 MG/DL (7-18); CALCIUM LEVEL 7.9 MG/DL (8.8-10.2); CARBON DIOXIDE LEVEL 17 MEQ/L (21-32); CHLORIDE LEVEL 108 MEQ/L (98-107); CREATININE FOR GFR 0.98 MG/DL (0.70-1.30); GLOMERULAR FILTRATION RATE > 60.0 (>42); GLUCOSE, FASTING 118 MG/DL (70-100); MAGNESIUM LEVEL 1.5 MG/DL (1.8-2.4); POTASSIUM SERUM 3.4 MEQ/L (3.5-5.1); SODIUM LEVEL 137 MEQ/L (136-145)
[2019-03-10] MEDS: LR 1,000 ML IV SCH ×2 (05:15→15:38)
[2019-03-10 06:00] VITALS: BP 157/86
[2019-03-10] MEDS: MAG SULF 1GM/100ML (MAG RUN) 1 GM in APPROPRIATE DILUENT 1 EA IV SCH ×2 (08:24→09:36)
[2019-03-10] MEDS: ALLOPURINOL 300 MG TAB PO SCH (08:25)
[2019-03-10] MEDS: HumaLOG INSULIN (NovoLOG) PER UNIT SC SCH ×4 (08:25→20:56)
[2019-03-10] MEDS: PANTOPRAZOLE 40MG TAB (PROTONIX) PO SCH (08:25)
[2019-03-10] MEDS: ACYCLOVIR 200 MG CAPSULE PO SCH ×2 (08:25→20:55)
[2019-03-10] MEDS: FLUoxetine 20 MG CAP PO SCH (08:25)
[2019-03-10] MEDS: DOCUSATE SODIUM 100 MG CAP PO SCH ×2 (08:25→20:55)
[2019-03-10] MEDS: ASPIRIN 81 MG ENTERIC TAB PO SCH (08:26)
[2019-03-10] MEDS: NYSTATIN 100,000 UNITS/GM TOPICAL PWD 15 GM TOP SCH ×2 (08:26→20:56)
[2019-03-10] MEDS: PREGABALIN 50 MG CAP (LYRICA) PO SCH ×3 (08:26→20:55)
[2019-03-10] MEDS: LORazepam 0.5 MG TAB PO PRN ×2 (08:26→20:55)
[2019-03-10] MEDS: ENTACAPONE 200MG TABLET (COMTAN) PO SCH ×3 (09:37→17:21)
[2019-03-10] MEDS: SINEMET 25-100 MG TAB PO SCH ×3 (09:37→17:21)
--- NOTE | 2019-03-10 11:52 | IPNPDOC ---
Subjective Date Seen The patient was seen on 03/10/19. Subjective Chief Complaint/HPI Patient seen and examined at the bedside this point. The patient is complaining of abdominal pain this morning as he has not had a bowel movement in 2 days. He tells me that he has been passing flatus but remains constipated. He did have an enema ordered earlier this morning but he reports that he is still having the feeling of constipation. His abdomen is soft and nondistended. He otherwise denies any other acute complaints. Objective Physical Examination General Exam: Positive: Alert, Cooperative, No Acute Distress ENT Exam: Positive: Atraumatic, Mucous membr. moist/pink Chest Exam: Positive: Clear to auscultation, Normal air movement; Negative: Rhonchi, Wheezing Heart Exam: Positive: Rate Normal, Normal S1, Normal S2 Abdomen Exam: Positive: Soft, Tenderness (mild tenderness to deep palpation in the left lower quadrant. No rebound tenderness, guarding, or rigidity noted.) Extremity Exam: Negative: Tenderness, Swelling A-FIB/CHADSVASC A-FIB History Current/History of A-Fib/PAF?: No Assessment /Plan Plan/VTE VTE Prophylaxis Ordered?: Yes Plan Dysphagia/Abd Pain in setting of history of Huizar's esophagus requiring repair, gastroparesis s/p EGD on 02/27 - erosive esophagitis, gastroparesis - no peristalsis GI has recommended J-Tube for feeding +/- decompression G Tube The patient/daughter have been reluctant about this--Speech therapy was consulted and a modified diet was recommended. CT Abd/Pel done on 03/04/19 with no evidence of obstruction At this time it appears that the patient continues to have recurrent episodes of abdominal pain due to underlying gastroparesis which requires IV fluid hydration, bowel care, and enema therapy. The patient's gastroparesis is further complicated by the fact that he remains bed bound for most of the day and has not participated with physical therapy consistently. I'm afraid that the patient will indeed need a PEG tube for decompression as his symptoms have been recurring and cause him quite a bit of distress. I will discuss my findings and recommendations with the patient's daughter and hopefully set the patient up for a PEG tube for decompression early next week Diarrhea likely secondary to laxative use, resolved Acute kidney injury, likely secondary to ATN secondary to dehydration, resolved Acute metabolic encephalopathy 2/2 Above, resolved Head CT did not show acute findings Discussed with Daughter at the bedside, he is at his baseline at this time Elevated troponin on presentation, suspect related to combination of acute kidney injury and rhabdomyolysis EKG with no acute ST changes Patient with no acute complaints of chest pain, palpitations 2D Echo notable for borderline left ventricular hypertrophy with hyperkinetic wall motion. No localized wall motion abnormality. F/U outpatient Cardiology for Stress Testing Aspirin started Acute rhabdomyolysis: Resolved Diabetes mellitus type 2 Continue sliding scale Parkinson's disease Continue Sinemet Hypothyroidism: Continue levothyroxine Hypomagnesemia Replete and recheck BPH Flomax Oral thrush: Nystatin swish and spit Generalized weakness and recurrent falls PT/OT Anxiety/Depression Cont regimen as ordered GI/DVT prophylaxis: Famotidine, subcutaneous lovenox Disposition-pending continued clinical improvement, physical therapy clearance. PFS on board. VS, I&O, 24H, Fishbone Vital Signs/I&O Vital Signs Date Time Temp Pulse Resp B/P (MAP) Pulse Ox O2 Delivery O2 Flow Rate FiO2 03/10/19 06:00 98.2 102 22 157/86 (109) 96 I&O- Last 24 Hours up to 6 AM 03/10/19 06:00 Intake Total 1830 ml Output Total 1600 ml Balance 230 ml Laboratory Data 24H LABS Laboratory Tests 2 03/09/19 16:47: Bedside Glucose (Misc Panel) 124H 03/09/19 20:21: Bedside Glucose (Misc Panel) 145H 03/10/19 04:20: Nucleated Red Blood Cells % (auto) 0.0, Anion Gap 12, Glomerular Filtration Rate > 60.0, Lactic Acid Level 3.7*H, Blood Urea Nitrogen 6L, Creatinine 0.98, Sodium Level 137, Potassium Level 3.4L, Chloride Level 108H, Carbon Dioxide Level 17L, Calcium Level 7.9L, Magnesium Level 1.5L 03/10/19 07:40: Bedside Glucose (Misc Panel) 125H 03/10/19 08:44: Lactic Acid Followup at 4 Hours 2.4*H CBC/BMP Laboratory Tests 03/10/19 04:20 Red Blood Count 3.12 L, Mean Corpuscular Volume 87.2, Mean Corpuscular Hemoglobin 30.1, Mean Corpuscular Hemoglobin Concent 34.6, Red Cell Distribution Width 15.3 H, Calcium Level 7.9 L CARA MORAN MD March 10, 2019 11:52
[2019-03-10] MEDS: METOCLOPRAMIDE INJ 10MG/2ML VIAL (J2765) IV SCH ×3 (13:08→20:54)
[2019-03-10 14:00] VITALS: BP 119/72
[2019-03-10] MEDS: SINEMET**CR** 25/100 TABCR PO SCH (20:54)
[2019-03-10] MEDS: TAMSULOSIN 0.4 MG CAP PO SCH (20:55)
[2019-03-10] MEDS: traZODone 100 MG TAB PO SCH (20:55)
[2019-03-10] MEDS: ENOXAPARIN 40 MG/0.4 ML SYRINGE (J1650) SC SCH (20:56)
[2019-03-10 22:00] VITALS: BP 124/76
[2019-03-11] MEDS: LR 1,000 ML IV SCH ×3 (00:17→21:15)
[2019-03-11] MEDS: METAXALONE 800 MG TABLET PO PRN (00:18)
[2019-03-11] MEDS: ACETAMINOPHEN TAB 650MG DOSE (2X325MG) PO PRN (00:18)
[2019-03-11 06:00] VITALS: BP 163/89
[2019-03-11] MEDS: LEVOTHYROXINE 100MCG TABLET (0.1MG) PO SCH (06:14)
[2019-03-11] MEDS: HumaLOG INSULIN (NovoLOG) PER UNIT SC SCH ×4 (07:12→21:00)
[2019-03-11 07:46] LABS: HEMATOCRIT 26.4 % (42.0-52.0); HEMOGLOBIN 8.9 g/dl (13.5-17.5); MEAN CORPUSCULAR HGB CONC 33.7 g/dl (32.0-36.5); MEAN CORPUSCULAR VOLUME 88.9 fl (80.0-96.0); PLATELET COUNT, AUTOMATED 305 10^3/uL (150-450); RED BLOOD COUNT 2.97 10^6/uL (4.30-6.10); WHITE BLOOD COUNT 5.7 10^3/uL (4.0-10.0)
[2019-03-11] MEDS: ASPIRIN 81 MG ENTERIC TAB PO SCH (08:01)
[2019-03-11] MEDS: PREGABALIN 50 MG CAP (LYRICA) PO SCH ×3 (08:01→21:33)
[2019-03-11] MEDS: FLUoxetine 20 MG CAP PO SCH (08:01)
[2019-03-11] MEDS: ACYCLOVIR 200 MG CAPSULE PO SCH ×2 (08:01→21:33)
[2019-03-11] MEDS: METOCLOPRAMIDE INJ 10MG/2ML VIAL (J2765) IV SCH ×4 (08:01→21:32)
[2019-03-11] MEDS: PANTOPRAZOLE 40MG TAB (PROTONIX) PO SCH (08:01)
[2019-03-11] MEDS: ALLOPURINOL 300 MG TAB PO SCH (08:01)
[2019-03-11] MEDS: DOCUSATE SODIUM 100 MG CAP PO SCH ×2 (08:01→21:33)
[2019-03-11] MEDS: NYSTATIN 100,000 UNITS/GM TOPICAL PWD 15 GM TOP SCH ×2 (08:02→21:34)
[2019-03-11 08:25] LABS: BLOOD UREA NITROGEN 3 MG/DL (7-18); CALCIUM LEVEL 7.4 MG/DL (8.8-10.2); CARBON DIOXIDE LEVEL 23 MEQ/L (21-32); CHLORIDE LEVEL 110 MEQ/L (98-107); CREATININE FOR GFR 0.69 MG/DL (0.70-1.30); GLOMERULAR FILTRATION RATE > 60.0 (>42); GLUCOSE, FASTING 103 MG/DL (70-100); MAGNESIUM LEVEL 1.8 MG/DL (1.8-2.4); POTASSIUM SERUM 2.8 MEQ/L (3.5-5.1); SODIUM LEVEL 140 MEQ/L (136-145)
[2019-03-11] MEDS ORDERED: POTASSIUM CHLORIDE 10% LIQ 20 MEQ/15 ML UDC PO ONE (10:15)
[2019-03-11] MEDS: ENTACAPONE 200MG TABLET (COMTAN) PO SCH ×3 (10:27→17:18)
[2019-03-11] MEDS: KCL 10MEQ/100ML SWI (KRUN) 10 MEQ in APPROPRIATE DILUENT 1 EA IV SCH ×4 (10:27→14:00)
[2019-03-11] MEDS: SINEMET 25-100 MG TAB PO SCH ×3 (10:28→17:18)
--- NOTE | 2019-03-11 10:59 | IPNPDOC ---
Subjective Date Seen The patient was seen on 03/11/19. Subjective Chief Complaint/HPI Patient seen and examined at bedside. Denies any acute complaints at this time. States that he had several bowel movements yesterday which alleviated his abdominal cramping. Objective Physical Examination General Exam: Positive: Alert, Cooperative, No Acute Distress ENT Exam: Positive: Atraumatic, Mucous membr. moist/pink Chest Exam: Positive: Clear to auscultation, Normal air movement; Negative: Rhonchi, Wheezing Heart Exam: Positive: Rate Normal, Normal S1, Normal S2 Abdomen Exam: Positive: Soft; Negative: Tenderness Extremity Exam: Negative: Tenderness, Swelling A-FIB/CHADSVASC A-FIB History Current/History of A-Fib/PAF?: No Assessment /Plan Plan/VTE VTE Prophylaxis Ordered?: Yes Plan Dysphagia/Abd Pain in setting of history of Huizar's esophagus requiring repai r, gastroparesis s/p EGD on 02/27 - erosive esophagitis, gastroparesis - no peristalsis GI has recommended J-Tube for feeding +/- decompression G Tube The patient/daughter have been reluctant about this--Speech therapy was consulted and a modified diet was recommended. CT Abd/Pel done on 03/04/19 with no evidence of obstruction At this time it appears that the patient continues to have recurrent episodes of abdominal pain due to underlying gastroparesis which requires IV fluid hydration, bowel care, and enema therapy. The patient's gastroparesis is further complicated by the fact that he remains bed bound for most of the day and has not participated with physical therapy consistently. I'm afraid that the patient will indeed need a PEG tube for decompression as his symptoms have been recurring and cause him quite a bit of distress. I will discuss my findings and recommendations with the patient's daughter and hopefully set the patient up for a PEG tube for decompression early next week Diarrhea likely secondary to laxative use, resolved Acute kidney injury, likely secondary to ATN secondary to dehydration, resolved Acute metabolic encephalopathy 2/2 Above, resolved Head CT did not show acute findings Discussed with Daughter at the bedside, he is at his baseline at this time Elevated troponin on presentation, suspect related to combination of acute kidney injury and rhabdomyolysis EKG with no acute ST changes Patient with no acute complaints of chest pain, palpitations 2D Echo notable for borderline left ventricular hypertrophy with hyperkinetic wall motion. No localized wall motion abnormality. F/U outpatient Cardiology for Stress Testing Aspirin started Acute rhabdomyolysis: Resolved Diabetes mellitus type 2 Continue sliding scale Parkinson's disease Continue Sinemet Hypothyroidism: Continue levothyroxine Hypomagnesemia Replete and recheck BPH Flomax Oral thrush: Nystatin swish and spit Generalized weakness and recurrent falls PT/OT Anxiety/Depression Cont regimen as ordered GI/DVT prophylaxis: Famotidine, subcutaneous lovenox Disposition-pending continued clinical improvement, physical therapy clearance. PFS on board. VS, I&O, 24H, Fishbone Vital Signs/I&O Vital Signs Date Time Temp Pulse Resp B/P (MAP) Pulse Ox O2 Delivery O2 Flow Rate FiO2 03/11/19 06:00 97.6 75 18 163/89 (113) 98 2.0 I&O- Last 24 Hours up to 6 AM 03/11/19 06:00 Intake Total 2800 ml Output Total 2000 ml Balance 800 ml Laboratory Data 24H LABS Laboratory Tests 2 03/10/19 12:25: Bedside Glucose (Misc Panel) 110 03/10/19 16:22: Bedside Glucose (Misc Panel) 88 03/10/19 20:01: Bedside Glucose (Misc Panel) 179H 03/11/19 05:31: Bedside Glucose (Misc Panel) 94 03/11/19 07:36: Nucleated Red Blood Cells % (auto) 0.0, Anion Gap 7L, Glomerular Filtration Rate > 60.0, Blood Urea Nitrogen 3L, Creatinine 0.69L, Sodium Level 140, Potassium Level 2.8*L, Chloride Level 110H, Carbon Dioxide Level 23, Calcium Level 7.4L, Magnesium Level 1.8 CBC/BMP Laboratory Tests 03/11/19 07:36 Red Blood Count 2.97 L, Mean Corpuscular Volume 88.9, Mean Corpuscular Hemoglobin 30.0, Mean Corpuscular Hemoglobin Concent 33.7, Red Cell Distribution Width 16.0 H, Calcium Level 7.4 L CARA MORAN MD March 11, 2019 10:59
[2019-03-11] MEDS: LORazepam 0.5 MG TAB PO PRN (11:29)
[2019-03-11 14:00] VITALS: BP 121/71
[2019-03-11] MEDS: SINEMET**CR** 25/100 TABCR PO SCH (21:33)
[2019-03-11] MEDS: TAMSULOSIN 0.4 MG CAP PO SCH (21:33)
[2019-03-11] MEDS: traZODone 100 MG TAB PO SCH (21:33)
[2019-03-11] MEDS: ENOXAPARIN 40 MG/0.4 ML SYRINGE (J1650) SC SCH (21:34)
[2019-03-11 22:00] VITALS: BP 149/89
[2019-03-12] MEDS: LEVOTHYROXINE 100MCG TABLET (0.1MG) PO SCH (05:46)
[2019-03-12 06:00] LABS: HEMATOCRIT 26.1 % (42.0-52.0); HEMOGLOBIN 8.7 g/dl (13.5-17.5); MEAN CORPUSCULAR HEMOGLOBIN 29.7 pg (27.0-33.0); MEAN CORPUSCULAR HGB CONC 33.3 g/dl (32.0-36.5); MEAN CORPUSCULAR VOLUME 89.1 fl (80.0-96.0); PLATELET COUNT, AUTOMATED 296 10^3/uL (150-450); RED BLOOD COUNT 2.93 10^6/uL (4.30-6.10); WHITE BLOOD COUNT 6.2 10^3/uL (4.0-10.0)
[2019-03-12 06:24] LABS: BLOOD UREA NITROGEN 5 MG/DL (7-18); CALCIUM LEVEL 7.4 MG/DL (8.8-10.2); CARBON DIOXIDE LEVEL 25 MEQ/L (21-32); CHLORIDE LEVEL 112 MEQ/L (98-107); CREATININE FOR GFR 0.75 MG/DL (0.70-1.30); GLOMERULAR FILTRATION RATE > 60.0 (>42); GLUCOSE, FASTING 92 MG/DL (70-100); POTASSIUM SERUM 3.4 MEQ/L (3.5-5.1); SODIUM LEVEL 142 MEQ/L (136-145)
[2019-03-12] MEDS: HumaLOG INSULIN (NovoLOG) PER UNIT SC SCH ×4 (07:30→20:55)
[2019-03-12] MEDS ORDERED: POTASSIUM CHLORIDE 10% LIQ 20 MEQ/15 ML UDC PO ONE (07:30)
[2019-03-12] MEDS: LR 1,000 ML IV SCH (08:18)
[2019-03-12] MEDS: METOCLOPRAMIDE INJ 10MG/2ML VIAL (J2765) IV SCH ×4 (08:19→20:54)
[2019-03-12] MEDS: PANTOPRAZOLE 40MG TAB (PROTONIX) PO SCH (08:20)
[2019-03-12] MEDS: FLUoxetine 20 MG CAP PO SCH (08:20)
[2019-03-12] MEDS: ACYCLOVIR 200 MG CAPSULE PO SCH ×2 (08:20→20:54)
[2019-03-12] MEDS: ALLOPURINOL 300 MG TAB PO SCH (08:20)
[2019-03-12] MEDS: PREGABALIN 50 MG CAP (LYRICA) PO SCH ×3 (08:20→20:55)
[2019-03-12] MEDS: LORazepam 0.5 MG TAB PO PRN (08:20)
[2019-03-12] MEDS: DOCUSATE SODIUM 100 MG CAP PO SCH ×2 (08:20→20:55)
[2019-03-12] MEDS: ASPIRIN 81 MG ENTERIC TAB PO SCH (08:20)
[2019-03-12] MEDS: NYSTATIN 100,000 UNITS/GM TOPICAL PWD 15 GM TOP SCH ×2 (08:20→20:55)
[2019-03-12] MEDS: ENTACAPONE 200MG TABLET (COMTAN) PO SCH ×3 (09:35→17:04)
[2019-03-12] MEDS: SINEMET 25-100 MG TAB PO SCH ×3 (09:35→17:03)
--- NOTE | 2019-03-12 10:16 | IPNPDOC ---
Subjective Date Seen The patient was seen on 03/12/19. Subjective Chief Complaint/HPI Patient seen and examined at bedside. Denies any acute complaints at this time. States that he has been having bowel movements and denies any abdominal pain. Objective Physical Examination General Exam: Positive: Alert, Cooperative, No Acute Distress ENT Exam: Positive: Atraumatic, Mucous membr. moist/pink Chest Exam: Positive: Clear to auscultation, Normal air movement; Negative: Rhonchi, Wheezing Heart Exam: Positive: Rate Normal, Normal S1, Normal S2 Abdomen Exam: Positive: Soft; Negative: Tenderness Extremity Exam: Negative: Tenderness, Swelling Assessment /Plan Plan/VTE VTE Prophylaxis Ordered?: Yes Plan Dysphagia/Abd Pain in setting of history of Huizar's esophagus requiring repair, gastroparesis s/p EGD on 02/27 - erosive esophagitis, gastroparesis - no peristalsis GI has recommended J-Tube for feeding +/- decompression G Tube The patient/daughter have been reluctant about this--Speech therapy was cons ulted and a modified diet was recommended. CT Abd/Pel done on 03/04/19 with no evidence of obstruction The patient continues to have recurrent episodes of abdominal pain every few days due to underlying gastroparesis which requires IV fluid hydration, bowel care, and enema therapy. The patient's gastroparesis is further complicated by the fact that he remains bed bound for most of the day and has not participated with physical therapy consistently. I'm afraid that the patient will indeed need a PEG tube for decompression as his symptoms have been recurring and cause him quite a bit of distress. I did discuss these findings and recommendations with the patient and the patient's daughter (Rosa Camilo) at length. At this time they continue to decline the option of a feeding/decompression tube. Speech therapy has been ordered to evaluate the patient's swallowing function again this morning, as there are some concerns about continued aspiration. Diarrhea likely secondary to laxative use, resolved Acute kidney injury, likely secondary to ATN secondary to dehydration, resolved Acute metabolic encephalopathy 2/2 Above, resolved Head CT did not show acute findings Discussed with Daughter at the bedside, he is at his baseline at this time Elevated troponin on presentation, suspect related to combination of acute kidney injury and rhabdomyolysis EKG with no acute ST changes Patient with no acute complaints of chest pain, palpitations 2D Echo notable for borderline left ventricular hypertrophy with hyperkinetic wall motion. No localized wall motion abnormality. F/U outpatient Cardiology for Stress Testing Aspirin started Acute rhabdomyolysis: Resolved Diabetes mellitus type 2 Continue sliding scale Parkinson's disease Continue Sinemet Hypothyroidism: Continue levothyroxine Hypomagnesemia Replete and recheck BPH Flomax Oral thrush: Nystatin swish and spit Generalized weakness and recurrent falls PT/OT Anxiety/Depression Cont regimen as ordered GI/DVT prophylaxis: Famotidine, subcutaneous lovenox Disposition-pending continued clinical improvement, physical therapy clearance. PFS on board. VS, I&O, 24H, Fishbone Vital Signs/I&O Vital Signs Date Time Temp Pulse Resp B/P (MAP) Pulse Ox O2 Delivery O2 Flow Rate FiO2 03/11/19 22:00 98.9 91 20 149/89 (109) 97 03/11/19 06:00 2.0 I&O- Last 24 Hours up to 6 AM 03/12/19 06:00 Intake Total 2640 ml Output Total 1055 ml Balance 1585 ml Laboratory Data 24H LABS Laboratory Tests 2 03/11/19 11:50: Bedside Glucose (Misc Panel) 153H 03/11/19 16:25: Bedside Glucose (Misc Panel) 110 03/11/19 21:27: Bedside Glucose (Misc Panel) 119H 03/12/19 05:46: Nucleated Red Blood Cells % (auto) 0.0, Anion Gap 5L, Glomerular Filtration Rate > 60.0, Blood Urea Nitrogen 5#L, Creatinine 0.75, Sodium Level 142, Potassium Level 3.4#L, Chloride Level 112H, Carbon Dioxide Level 25, Calcium Level 7.4L, Magnesium Level 2.0 CBC/BMP Laboratory Tests 03/12/19 05:46 Red Blood Count 2.93 L, Mean Corpuscular Volume 89.1, Mean Corpuscular Hemoglobin 29.7, Mean Corpuscular Hemoglobin Concent 33.3, Red Cell Distribution Width 16.3 H, Calcium Level 7.4 L CARA MORAN MD March 12, 2019 10:16
[2019-03-12 14:00] VITALS: BP 151/77
--- NOTE | 2019-03-12 17:51 | NUR ---
Pt presents w/oropharyngeal dysphagia which impacts his ability to safely chew and swallow regular solid food. ST recommends level 2 diet w/thin liquids. Pt should be OOB for all meals. Pills should be taken 1 at a time. Dysphagia therapy is recommended to implement safe feeding strategies to maximize safety. Addendum: 03/12/19 at 1752 by МАРИНА ROGERS Amended: Links added.
[2019-03-12] MEDS: SINEMET**CR** 25/100 TABCR PO SCH (20:54)
[2019-03-12] MEDS: ENOXAPARIN 40 MG/0.4 ML SYRINGE (J1650) SC SCH (20:54)
[2019-03-12] MEDS: TAMSULOSIN 0.4 MG CAP PO SCH (20:55)
[2019-03-12] MEDS: traZODone 100 MG TAB PO SCH (20:55)
[2019-03-12 22:00] VITALS: BP 158/78
[2019-03-13] MEDS: LEVOTHYROXINE 100MCG TABLET (0.1MG) PO SCH (05:10)
[2019-03-13 06:00] VITALS: BP 159/83
[2019-03-13 07:16] LABS: HEMATOCRIT 29.8 % (42.0-52.0); HEMOGLOBIN 9.7 g/dl (13.5-17.5); MEAN CORPUSCULAR HEMOGLOBIN 30.5 pg (27.0-33.0); MEAN CORPUSCULAR HGB CONC 32.6 g/dl (32.0-36.5); MEAN CORPUSCULAR VOLUME 93.7 fl (80.0-96.0); PLATELET COUNT, AUTOMATED 274 10^3/uL (150-450); RED BLOOD COUNT 3.18 10^6/uL (4.30-6.10); WHITE BLOOD COUNT 7.9 10^3/uL (4.0-10.0)
[2019-03-13] MEDS: HumaLOG INSULIN (NovoLOG) PER UNIT SC SCH ×4 (07:30→21:00)
[2019-03-13 07:49] LABS: BLOOD UREA NITROGEN 4 MG/DL (7-18); CARBON DIOXIDE LEVEL 24 MEQ/L (21-32); CHLORIDE LEVEL 112 MEQ/L (98-107); GLOMERULAR FILTRATION RATE > 60.0 (>42); GLUCOSE, FASTING 94 MG/DL (70-100); MAGNESIUM LEVEL 1.7 MG/DL (1.8-2.4); POTASSIUM SERUM 3.9 MEQ/L (3.5-5.1); SODIUM LEVEL 143 MEQ/L (136-145)
[2019-03-13] MEDS: DOCUSATE SODIUM 100 MG CAP PO SCH ×2 (09:00→21:29)
[2019-03-13] MEDS: FLUoxetine 20 MG CAP PO SCH (09:10)
[2019-03-13] MEDS: PANTOPRAZOLE 40MG TAB (PROTONIX) PO SCH (09:10)
[2019-03-13] MEDS: ASPIRIN 81 MG ENTERIC TAB PO SCH (09:10)
[2019-03-13] MEDS: ACYCLOVIR 200 MG CAPSULE PO SCH ×2 (09:10→21:29)
[2019-03-13] MEDS: PREGABALIN 50 MG CAP (LYRICA) PO SCH ×3 (09:10→21:29)
[2019-03-13] MEDS: ENTACAPONE 200MG TABLET (COMTAN) PO SCH ×3 (09:10→17:50)
[2019-03-13] MEDS: ALLOPURINOL 300 MG TAB PO SCH (09:10)
[2019-03-13] MEDS: METOCLOPRAMIDE INJ 10MG/2ML VIAL (J2765) IV SCH ×3 (09:11→17:51)
[2019-03-13] MEDS: NYSTATIN 100,000 UNITS/GM TOPICAL PWD 15 GM TOP SCH ×2 (09:11→21:30)
[2019-03-13] MEDS: SINEMET 25-100 MG TAB PO SCH ×3 (09:11→17:50)
--- NOTE | 2019-03-13 11:44 | IPNPDOC ---
Subjective Date Seen The patient was seen on 03/13/19. Subjective Chief Complaint/HPI Patient is comfortable General: Reports: ROS Unobtainable Objective Physical Examination General Exam: Positive: Alert, Cooperative, No Acute Distress ENT Exam: Positive: Atraumatic, Mucous membr. moist/pink Chest Exam: Positive: Clear to auscultation, Normal air movement; Negative: Rhonchi, Wheezing Heart Exam: Positive: Rate Normal, Normal S1, Normal S2 Abdomen Exam: Positive: Soft; Negative: Tenderness Extremity Exam: Negative: Tenderness, Swelling A-FIB/CHADSVASC A-FIB History Current/History of A-Fib/PAF?: No Assessment /Plan Problems (1) Gastroparesis Problem Text: Dysphagia/Abd Pain in setting of history of Huizar's esophagus requiring repair, gastroparesis s/p EGD on 02/27 - erosive esophagitis, gastroparesis - no peristalsis GI has recommended J-Tube for feeding +/- decompression G Tube The patient/daughter have been reluctant about this--Speech therapy was consulted and a modified diet was recommended. CT Abd/Pel done on 03/04/19 with no evidence of obstruction The patient continues to have recurrent episodes of abdominal pain every few days due to underlying gastroparesis which requires IV fluid hydration, bowel care, and enema therapy. The patient's gastroparesis is further complicated by the fact that he remains bed bound for most of the day and has not participated with physical therapy consistently. I'm afraid that the patient will indeed need a PEG tube for decompression as his symptoms have been recurring and cause him quite a bit of distress. I did discuss these findings and recommendations with the patient and the patient's daughter (Rosa Camilo) at length. At this time they continue to decline the option of a feeding/decompression tube. Speech therapy has been ordered to evaluate the patient's swallowing function again this morning, as there are some concerns about continued aspiration. Awaiting clearance from physical therapy once he is able to be discharged home on home PT Continue in outpatient physical therapy of the meantime Continue all present medications Plan/VTE VTE Prophylaxis Ordered?: Yes VS, I&O, 24H, Fishbone Vital Signs/I&O Vital Signs Date Time Temp Pulse Resp B/P (MAP) Pulse Ox O2 Delivery O2 Flow Rate FiO2 03/13/19 06:00 98.0 89 18 159/83 (108) 91 5/5/19 06:00 2.0 I&O- Last 24 Hours up to 6 AM 03/13/19 06:00 Intake Total 660 ml Output Total 1250 ml Balance -590 ml Laboratory Data 24H LABS Laboratory Tests 2 03/12/19 12:08: Bedside Glucose (Misc Panel) 113H 03/12/19 16:35: Bedside Glucose (Misc Panel) 103 03/12/19 20:14: Bedside Glucose (Misc Panel) 119H 03/13/19 06:43: Nucleated Red Blood Cells % (auto) 0.0, Anion Gap 7L, Glomerular Filtration Rate > 60.0, Blood Urea Nitrogen 4L, Creatinine 0.70, Sodium Level 143, Potassium Level 3.9, Chloride Level 112H, Carbon Dioxide Level 24, Calcium Level 8.0L, Magnesium Level 1.7L CBC/BMP Laboratory Tests 03/13/19 06:43 Red Blood Count 3.18 L, Mean Corpuscular Volume 93.7, Mean Corpuscular Hemoglobin 30.5, Mean Corpuscular Hemoglobin Concent 32.6, Red Cell Distribution Width 16.8 H, Calcium Level 8.0 L RITA KRISHNA MD March 13, 2019 11:44
[2019-03-13 14:00] VITALS: BP 157/81
[2019-03-13] MEDS: traZODone 100 MG TAB PO SCH (21:28)
[2019-03-13] MEDS: SINEMET**CR** 25/100 TABCR PO SCH (21:28)
[2019-03-13] MEDS: ENOXAPARIN 40 MG/0.4 ML SYRINGE (J1650) SC SCH (21:28)
[2019-03-13] MEDS: TAMSULOSIN 0.4 MG CAP PO SCH (21:29)
[2019-03-13] MEDS: METOCLOPRAMIDE 10 MG TAB PO SCH (21:29)
[2019-03-13] MEDS: FLUTICASONE PROP 0.05% NASAL SPRAY 16 GM (FLONASE) PRN (21:30)
[2019-03-14] MEDS: LEVOTHYROXINE 100MCG TABLET (0.1MG) PO SCH (06:24)
[2019-03-14 06:34] LABS: HEMATOCRIT 26.8 % (42.0-52.0); HEMOGLOBIN 9.1 g/dl (13.5-17.5); MEAN CORPUSCULAR HEMOGLOBIN 30.1 pg (27.0-33.0); MEAN CORPUSCULAR VOLUME 88.7 fl (80.0-96.0); PLATELET COUNT, AUTOMATED 309 10^3/uL (150-450); RED BLOOD COUNT 3.02 10^6/uL (4.30-6.10)
[2019-03-14 06:49] LABS: BLOOD UREA NITROGEN 5 MG/DL (7-18); CALCIUM LEVEL 7.7 MG/DL (8.8-10.2); CARBON DIOXIDE LEVEL 23 MEQ/L (21-32); CHLORIDE LEVEL 111 MEQ/L (98-107); CREATININE FOR GFR 0.71 MG/DL (0.70-1.30); GLOMERULAR FILTRATION RATE > 60.0 (>42); GLUCOSE, FASTING 101 MG/DL (70-100); MAGNESIUM LEVEL 1.9 MG/DL (1.8-2.4); POTASSIUM SERUM 3.2 MEQ/L (3.5-5.1); SODIUM LEVEL 141 MEQ/L (136-145)
[2019-03-14] MEDS: METOCLOPRAMIDE 10 MG TAB PO SCH ×4 (07:30→23:03)
[2019-03-14] MEDS: HumaLOG INSULIN (NovoLOG) PER UNIT SC SCH ×4 (07:30→21:00)
[2019-03-14] MEDS: NYSTATIN 100,000 UNITS/GM TOPICAL PWD 15 GM TOP SCH ×2 (09:00→23:04)
[2019-03-14] MEDS: ASPIRIN 81 MG ENTERIC TAB PO SCH (09:38)
[2019-03-14] MEDS: FLUoxetine 20 MG CAP PO SCH (09:39)
[2019-03-14] MEDS: PANTOPRAZOLE 40MG TAB (PROTONIX) PO SCH (09:39)
[2019-03-14] MEDS: ACYCLOVIR 200 MG CAPSULE PO SCH ×2 (09:39→23:02)
[2019-03-14] MEDS: PREGABALIN 50 MG CAP (LYRICA) PO SCH ×3 (09:39→23:03)
[2019-03-14] MEDS: DOCUSATE SODIUM 100 MG CAP PO SCH ×2 (09:39→23:02)
[2019-03-14] MEDS: ALLOPURINOL 300 MG TAB PO SCH (09:39)
[2019-03-14] MEDS: ENTACAPONE 200MG TABLET (COMTAN) PO SCH ×3 (09:39→17:36)
[2019-03-14] MEDS: SINEMET 25-100 MG TAB PO SCH ×3 (09:39→17:36)
--- NOTE | 2019-03-14 11:44 | IPNPDOC ---
Subjective Date Seen The patient was seen on 03/14/19. Subjective Chief Complaint/HPI Patient comfortable's no apparent distress General: Denies: ROS Unobtainable, Chills, Night Sweats, Fatigue, Malaise, Normal Appetite, Other Symptoms Constitutional: Denies: Chills, Fever, Malaise, Night Sweats, Weakness, Fatigue, Weight Loss, Lethargy, Other Eyes: Denies: Pain, Vision change, Conjunctivae inflammation, Eyelid inflammation, Redness, Other ENT: Denies: Head Aches, Ear Pain, Dysphagia, Sinus Congestion, Post Nasal Drip, Sore Throat, Epistaxis, Other Symptoms Skin: Denies: Rash, Lesions, Jaundice, Bruising, Itching, Dry, Breakdown, Nail Changes, Other Pulmonary: Denies: Dyspnea, Cough, Pleuritic Chest Pain, Other Symptoms Cardiovascular: Denies: Chest Pain, Palpitations, Orthopnea, Paroxysmal Noc. Dyspnea, Edema, Lt Headedness, Other Symptoms Gastrointestinal: Denies: Nausea, Vomiting, Abdominal Pain, Diarrhea, Constipation, Melena, Hematochezia, Other Symptoms Genitourinary: Denies: Dysuria, Frequency, Incontinence, Hematuria, Retention, Other Symptoms Hematologic: Denies: Bruising, Bleeding Excessively, Petecchia, Purpura, Enlarged Lymph Nodes, Other Hematologic Endocrine: Denies: Polydipsia, Polyphagia, Polyuria, Heat Intolerance, Cold Intolerance, Other Endocrine Sx Musculoskeletal: Denies: Neck Pain, Back Pain, Shoulder Pain, Arm Pain, Hand Pa in, Leg Pain, Foot Pain, Joint Pain, Muscle Pain, Spasms, Other Symptoms Neurological: Denies: Weakness, Numbness, Incoordination, Change in speech, Confusion, Seizures, Other Symptoms Psych: Denies: Mood Normal, Anxiety, Depression, Memory Issues, Thoughts of Self Harm, Anger, Thoughts of Harming Other, Other Psych Objective Physical Examination General Exam: Positive: Alert, Cooperative, No Acute Distress ENT Exam: Positive: Atraumatic, Mucous membr. moist/pink Chest Exam: Positive: Clear to auscultation, Normal air movement; Negative: Rhonchi, Wheezing Heart Exam: Positive: Rate Normal, Normal S1, Normal S2 Abdomen Exam: Positive: Soft; Negative: Tenderness Extremity Exam: Negative: Tenderness, Swelling A-FIB/CHADSVASC A-FIB History Current/History of A-Fib/PAF?: No Assessment /Plan Problems (1) Gastroparesis Status: Chronic Response to Treatment: Stable Problem Text: Dysphagia/Abd Pain in setting of history of Huizar's esophagus requiring repair, gastroparesis s/p EGD on 02/27 - erosive esophagitis, gastroparesis - no peristalsis GI has recommended J-Tube for feeding +/- decompression G Tube The patient/daughter have been reluctant about this--Speech therapy was consulted and a modified diet was recommended. CT Abd/Pel done on 03/04/19 with no evidence of obstruction The patient continues to have recurrent episodes of abdominal pain every few days due to underlying gastroparesis which requires IV fluid hydration, bowel care, and enema therapy. The patient's gastroparesis is further complicated by the fact that he remains bed bound for most of the day and has not participated with physical therapy consistently. I'm afraid that the patient will indeed need a PEG tube for decompression as his symptoms have been recurring and cause him quite a bit of distress. I did discuss these findings and recommendations with the patient and the patient's daughter (Rosa Camilo) at length. At this time they continue to de green the option of a feeding/decompression tube. Speech therapy has been ordered to evaluate the patient's swallowing function again this morning, as there are some concerns about continued aspiration. Awaiting clearance from physical therapy once he is able to be discharged home on home PT Continue in outpatient physical therapy of the meantime Continue all present medications Plan/VTE VTE Prophylaxis Ordered?: Yes VS, I&O, 24H, Fishbone Vital Signs/I&O Vital Signs Date Time Temp Pulse Resp B/P (MAP) Pulse Ox O2 Delivery O2 Flow Rate FiO2 03/13/19 14:00 97.4 92 16 157/81 (106) 96 03/11/19 06:00 2.0 I&O- Last 24 Hours up to 6 AM 03/14/19 06:00 Intake Total 3100 ml Output Total 2920 ml Balance 180 ml Laboratory Data 24H LABS Laboratory Tests 2 03/13/19 11:47: Bedside Glucose (Misc Panel) 123H 03/13/19 17:09: Bedside Glucose (Misc Panel) 129H 03/13/19 21:31: Bedside Glucose (Misc Panel) 108 03/14/19 06:18: Nucleated Red Blood Cells % (auto) 0.0, Anion Gap 7L, Glomerular Filtration Rate > 60.0, Blood Urea Nitrogen 5L, Creatinine 0.71, Sodium Level 141, Potassium Level 3.2L, Chloride Level 111H, Carbon Dioxide Level 23, Calcium Level 7.7L, Magnesium Level 1.9 CBC/BMP Laboratory Tests 03/14/19 06:18 Red Blood Count 3.02 L, Mean Corpuscular Volume 88.7, Mean Corpuscular Hemoglobin 30.1, Mean Corpuscular Hemoglobin Concent 34.0, Red Cell Distribution Width 16.3 H, Calcium Level 7.7 L RITA KRISHNA MD March 14, 2019 11:44
[2019-03-14] MEDS: METAXALONE 800 MG TABLET PO PRN ×2 (12:20→23:10)
[2019-03-14] MEDS: ACETAMINOPHEN TAB 650MG DOSE (2X325MG) PO PRN (12:20)
[2019-03-14 14:00] VITALS: BP 130/66
[2019-03-14] MEDS ORDERED: FUROSEMIDE 20 MG/2 ML VIAL (J1940) IV ONE (19:30)
[2019-03-14] MEDS ORDERED: POTASSIUM CHLORIDE 10 MEQ SR TABLET PO ONE ×2 (19:30→23:00)
[2019-03-14 22:00] VITALS: BP 140/70
[2019-03-14] MEDS: TAMSULOSIN 0.4 MG CAP PO SCH (23:03)
[2019-03-14] MEDS: traZODone 100 MG TAB PO SCH (23:03)
[2019-03-14] MEDS: SINEMET**CR** 25/100 TABCR PO SCH (23:04)
[2019-03-14] MEDS: ENOXAPARIN 40 MG/0.4 ML SYRINGE (J1650) SC SCH (23:04)
[2019-03-15 06:00] VITALS: BP 135/65
[2019-03-15] MEDS: METAXALONE 800 MG TABLET PO PRN (06:26)
[2019-03-15] MEDS: LEVOTHYROXINE 100MCG TABLET (0.1MG) PO SCH (06:26)
[2019-03-15 06:49] LABS: HEMATOCRIT 29.7 % (42.0-52.0); HEMOGLOBIN 9.7 g/dl (13.5-17.5); MEAN CORPUSCULAR HEMOGLOBIN 30.8 pg (27.0-33.0); MEAN CORPUSCULAR HGB CONC 32.7 g/dl (32.0-36.5); MEAN CORPUSCULAR VOLUME 94.3 fl (80.0-96.0); PLATELET COUNT, AUTOMATED 303 10^3/uL (150-450); RED BLOOD COUNT 3.15 10^6/uL (4.30-6.10)
[2019-03-15 07:13] LABS: BLOOD UREA NITROGEN 4 MG/DL (7-18); CARBON DIOXIDE LEVEL 23 MEQ/L (21-32); CHLORIDE LEVEL 110 MEQ/L (98-107); CREATININE FOR GFR 0.64 MG/DL (0.70-1.30); GLOMERULAR FILTRATION RATE > 60.0 (>42); GLUCOSE, FASTING 91 MG/DL (70-100); POTASSIUM SERUM 3.1 MEQ/L (3.5-5.1); SODIUM LEVEL 141 MEQ/L (136-145)
[2019-03-15] MEDS: HumaLOG INSULIN (NovoLOG) PER UNIT SC SCH ×4 (07:14→20:34)
--- NOTE | 2019-03-15 08:20 | NUR ---
Patient and his daughter have been educated on current recommended diet and ways to minimize risk of aspiration/choking. Pt displayed understanding and was able to implement safe feeding strategies recommended by ST. He appears safe on current recommended diet consistency and the clinician recommends that he is discharge from dysphagia therapy at this time. Addendum: 03/15/19 at 0824 by МАРИНА ROGERS Amended: Links added.
[2019-03-15] MEDS: FLUoxetine 20 MG CAP PO SCH (08:37)
[2019-03-15] MEDS: ALLOPURINOL 300 MG TAB PO SCH (08:38)
[2019-03-15] MEDS: PREGABALIN 50 MG CAP (LYRICA) PO SCH ×3 (08:38→20:34)
[2019-03-15] MEDS: PANTOPRAZOLE 40MG TAB (PROTONIX) PO SCH (08:38)
[2019-03-15] MEDS: ASPIRIN 81 MG ENTERIC TAB PO SCH (08:38)
[2019-03-15] MEDS: METOCLOPRAMIDE 10 MG TAB PO SCH ×4 (08:38→20:33)
[2019-03-15] MEDS: DOCUSATE SODIUM 100 MG CAP PO SCH ×2 (08:38→20:33)
[2019-03-15] MEDS: ACYCLOVIR 200 MG CAPSULE PO SCH ×2 (08:38→20:33)
[2019-03-15] MEDS: NYSTATIN 100,000 UNITS/GM TOPICAL PWD 15 GM TOP SCH ×2 (08:40→20:35)
[2019-03-15] MEDS ORDERED: POTASSIUM CHLORIDE 10% LIQ 20 MEQ/15 ML UDC PO ONE (10:45)
[2019-03-15] MEDS ORDERED: POTASSIUM CHLORIDE 10 MEQ SR TABLET PO ONE (11:00)
[2019-03-15] MEDS: ENTACAPONE 200MG TABLET (COMTAN) PO SCH ×3 (11:36→18:19)
[2019-03-15] MEDS: SINEMET 25-100 MG TAB PO SCH ×3 (11:36→18:19)
--- NOTE | 2019-03-15 13:14 | IPNPDOC ---
Subjective Date Seen The patient was seen on 03/15/19. Subjective Chief Complaint/HPI Patient was to go home. His daughter is at bedside. He offers no acute any medical complaints at the present time General: Denies: ROS Unobtainable, Chills, Night Sweats, Fatigue, Malaise, Normal Appetite, Other Symptoms Constitutional: Denies: Chills, Fever, Malaise, Night Sweats, Weakness, Fatigue, Weight Loss, Lethargy, Other Eyes: Denies: Pain, Vision change, Conjunctivae inflammation, Eyelid inflammation, Redness, Other ENT: Denies: Head Aches, Ear Pain, Dysphagia, Sinus Congestion, Post Nasal Drip, Sore Throat, Epistaxis, Other Symptoms Skin: Denies: Rash, Lesions, Jaundice, Bruising, Itching, Dry, Breakdown, Nail Changes, Other Pulmonary: Denies: Dyspnea, Cough, Pleuritic Chest Pain, Other Symptoms Cardiovascular: Denies: Chest Pain, Palpitations, Orthopnea, Paroxysmal Noc. Dyspnea, Edema, Lt Headedness, Other Symptoms Gastrointestinal: Denies: Nausea, Vomiting, Abdominal Pain, Diarrhea, Constipation, Melena, Hematochezia, Other Symptoms Genitourinary: Denies: Dysuria, Frequency, Incontinence, Hematuria, Retention, Other Symptoms Hematologic: Denies: Bruising, Bleeding Excessively, Petecchia, Purpura, Enlarged Lymph Nodes, Other Hematologic Endocrine: Denies: Polydipsia, Polyphagia, Polyuria, Heat Intolerance, Cold Intolerance, Other Endocrine Sx Musculoskeletal: Denies: Neck Pain, Back Pain, Shoulder Pain, Arm Pain, Hand Pain, Leg Pain, Foot Pain, Joint Pain, Muscle Pain, Spasms, Other Symptoms Neurological: Denies: Weakness, Numbness, Incoordination, Change in speech, Confusion, Seizures, Other Symptoms Psych: Denies: Mood Normal, Anxiety, Depression, Memory Issues, Thoughts of Self Harm, Anger, Thoughts of Harming Other, Other Psych Objective Physical Examination General Exam: Positive: Alert, Cooperative, No Acute Distress ENT Exam: Positive: Atraumatic, Mucous membr. moist/pink Chest Exam: Positive: Clear to auscultation, Normal air movement; Negative: Rhonchi, Wheezing Heart Exam: Positive: Rate Normal, Normal S1, Normal S2 Abdomen Exam: Positive: Soft; Negative: Tenderness Extremity Exam: Negative: Tenderness, Swelling A-FIB/CHADSVASC A-FIB History Current/History of A-Fib/PAF?: No Assessment /Plan Problems (1) Gastroparesis Status: Chronic Response to Treatment: Stable Problem Text: Dysphagia/Abd Pain in setting of history of Huizar's esophagus requiring repair, gastroparesis s/p EGD on 02/27 - erosive esophagitis, gastroparesis - no peristalsis GI has recommended J-Tube for feeding +/- decompression G Tube The patient/daughter have been reluctant about this--Speech therapy was consulted and a modified diet was recommended. CT Abd/Pel done on 03/04/19 with no evidence of obstruction The patient continues to have recurrent episodes of abdominal pain every few day s due to underlying gastroparesis which requires IV fluid hydration, bowel care, and enema therapy. The patient's gastroparesis is further complicated by the fact that he remains bed bound for most of the day and has not participated with physical therapy consistently. I'm afraid that the patient will indeed need a PEG tube for decompression as his symptoms have been recurring and cause him quite a bit of distress. I did discuss these findings and recommendations with the patient and the patient's daughter (Rosa Camilo) at length. At this time they continue to decline the option of a feeding/decompression tube. Speech therapy has been ordered to evaluate the patient's swallowing function a gain this morning, as there are some concerns about continued aspiration. Awaiting clearance from physical therapy once he is able to be discharged home on home PT Continue in outpatient physical therapy of the meantime Continue all present medications I had asked extension discussion with patient and his daughter at bedside and we are awaiting physical therapy. His clearance before patient can be discharged home with assistive devices if needed. Patient and patient's daughter were insistent on speaking with physical therapy. I had a discussion with social work/case management has been and the medical pathologist and the physical therapist will meet with the patient and his family today to discuss further discharge planning. Plan/VTE VTE Prophylaxis Ordered?: Yes VS, I&O, 24H, Fishbone Vital Signs/I&O Vital Signs Date Time Temp Pulse Resp B/P (MAP) Pulse Ox O2 Delivery O2 Flow Rate FiO2 03/15/19 06:00 98.4 79 18 135/65 (88) 96 03/11/19 06:00 2.0 I&O- Last 24 Hours up to 6 AM 03/15/19 06:00 Intake Total 2460 ml Output Total 1475 ml Balance 985 ml Laboratory Data 24H LABS Laboratory Tests 2 03/15/19 05:44: Nucleated Red Blood Cells % (auto) 0.0, Anion Gap 8, Glomerular Filtration Rate > 60.0, Blood Urea Nitrogen 4L, Creatinine 0.64L, Sodium Level 141, Potassium Level 3.1L, Chloride Level 110H, Carbon Dioxide Level 23, Calcium Level 8.0L, Magnesium Level 2.0 CBC/BMP Laboratory Tests 03/15/19 05:44 Red Blood Count 3.15 L, Mean Corpuscular Volume 94.3, Mean Corpuscular Hemoglobin 30.8, Mean Corpuscular Hemoglobin Concent 32.7, Red Cell Distribution Width 17.1 H, Calcium Level 8.0 L RITA KRISHNA MD March 15, 2019 13:14
[2019-03-15 14:00] VITALS: BP 120/62
[2019-03-15] MEDS: TAMSULOSIN 0.4 MG CAP PO SCH (20:33)
[2019-03-15] MEDS: traZODone 100 MG TAB PO SCH (20:33)
[2019-03-15] MEDS: SINEMET**CR** 25/100 TABCR PO SCH (20:33)
[2019-03-15] MEDS: ENOXAPARIN 40 MG/0.4 ML SYRINGE (J1650) SC SCH (20:34)
[2019-03-15] MEDS: ACETAMINOPHEN TAB 650MG DOSE (2X325MG) PO PRN (20:34)
[2019-03-15 22:00] VITALS: BP 150/70
[2019-03-16] MEDS: METAXALONE 800 MG TABLET PO PRN ×2 (03:01→09:08)
[2019-03-16] MEDS: LEVOTHYROXINE 100MCG TABLET (0.1MG) PO SCH (05:08)
[2019-03-16 06:00] VITALS: BP 142/85
[2019-03-16 06:10] LABS: HEMATOCRIT 27.3 % (42.0-52.0); HEMOGLOBIN 9.1 g/dl (13.5-17.5); MEAN CORPUSCULAR HEMOGLOBIN 30.2 pg (27.0-33.0); MEAN CORPUSCULAR HGB CONC 33.3 g/dl (32.0-36.5); MEAN CORPUSCULAR VOLUME 90.7 fl (80.0-96.0); PLATELET COUNT, AUTOMATED 291 10^3/uL (150-450); RED BLOOD COUNT 3.01 10^6/uL (4.30-6.10); WHITE BLOOD COUNT 7.5 10^3/uL (4.0-10.0)
[2019-03-16 06:34] LABS: BLOOD UREA NITROGEN 5 MG/DL (7-18); CALCIUM LEVEL 7.8 MG/DL (8.8-10.2); CARBON DIOXIDE LEVEL 23 MEQ/L (21-32); CHLORIDE LEVEL 109 MEQ/L (98-107); CREATININE FOR GFR 0.66 MG/DL (0.70-1.30); GLOMERULAR FILTRATION RATE > 60.0 (>42); GLUCOSE, FASTING 94 MG/DL (70-100); POTASSIUM SERUM 3.2 MEQ/L (3.5-5.1); SODIUM LEVEL 141 MEQ/L (136-145)
[2019-03-16] MEDS: HumaLOG INSULIN (NovoLOG) PER UNIT SC SCH ×2 (07:30→11:59)
[2019-03-16] MEDS: ALLOPURINOL 300 MG TAB PO SCH (08:48)
[2019-03-16] MEDS: FLUoxetine 20 MG CAP PO SCH (08:48)
[2019-03-16] MEDS: DOCUSATE SODIUM 100 MG CAP PO SCH (08:49)
[2019-03-16] MEDS: METOCLOPRAMIDE 10 MG TAB PO SCH ×2 (08:49→12:04)
[2019-03-16] MEDS: ENTACAPONE 200MG TABLET (COMTAN) PO SCH (08:49)
[2019-03-16] MEDS: PREGABALIN 50 MG CAP (LYRICA) PO SCH (08:49)
[2019-03-16] MEDS: SINEMET 25-100 MG TAB PO SCH (08:49)
[2019-03-16] MEDS: PANTOPRAZOLE 40MG TAB (PROTONIX) PO SCH (08:49)
[2019-03-16] MEDS: ASPIRIN 81 MG ENTERIC TAB PO SCH (08:49)
[2019-03-16] MEDS: NYSTATIN 100,000 UNITS/GM TOPICAL PWD 15 GM TOP SCH (08:50)
[2019-03-16] MEDS: ACETAMINOPHEN TAB 650MG DOSE (2X325MG) PO PRN (09:08)
[2019-03-16] MEDS: ACYCLOVIR 200 MG CAPSULE PO SCH (09:08)
--- NOTE | 2019-03-16 11:00 | IPNPDOC ---
Subjective Date Seen The patient was seen on 03/16/19. Subjective Chief Complaint/HPI Patient offers no new complaints at the present time General: Denies: ROS Unobtainable, Chills, Night Sweats, Fatigue, Malaise, Normal Appetite, Other Symptoms Constitutional: Denies: Chills, Fever, Malaise, Night Sweats, Weakness, Fatigue, Weight Loss, Lethargy, Other Eyes: Denies: Pain, Vision change, Conjunctivae inflammation, Eyelid inflammation, Redness, Other ENT: Denies: Head Aches, Ear Pain, Dysphagia, Sinus Congestion, Post Nasal Drip, Sore Throat, Epistaxis, Other Symptoms Skin: Denies: Rash, Lesions, Jaundice, Bruising, Itching, Dry, Breakdown, Nail Changes, Other Pulmonary: Denies: Dyspnea, Cough, Pleuritic Chest Pain, Other Symptoms Cardiovascular: Denies: Chest Pain, Palpitations, Orthopnea, Paroxysmal Noc. Dyspnea, Edema, Lt Headedness, Other Symptoms Gastrointestinal: Denies: Nausea, Vomiting, Abdominal Pain, Diarrhea, Constipation, Melena, Hematochezia, Other Symptoms Genitourinary: Denies: Dysuria, Frequency, Incontinence, Hematuria, Retention, Other Symptoms Hematologic: Denies: Bruising, Bleeding Excessively, Petecchia, Purpura, Enlarged Lymph Nodes, Other Hematologic Endocrine: Denies: Polydipsia, Polyphagia, Polyuria, Heat Intolerance, Cold Intolerance, Other Endocrine Sx Musculoskeletal: Denies: Neck Pain, Back Pain, Shoulder Pain, Arm Pain, Hand Pain, Leg Pain, Foot Pain, Joint Pain, Muscle Pain, Spasms, Other Symptoms Neurological: Denies: Weakness, Numbness, Incoordination, Change in speech, Confusion, Seizures, Other Symptoms Psych: Denies: Mood Normal, Anxiety, Depression, Memory Issues, Thoughts of Self Harm, Anger, Thoughts of Harming Other, Other Psych Objective Physical Examination General Exam: Positive: Alert, Cooperative, No Acute Distress ENT Exam: Positive: Atraumatic, Mucous membr. moist/pink Chest Exam: Positive: Clear to auscultation, Normal air movement; Negative: Rhonchi, Wheezing Heart Exam: Positive: Rate Normal, Normal S1, Normal S2 Abdomen Exam: Positive: Soft; Negative: Tenderness Extremity Exam: Negative: Tenderness, Swelling A-FIB/CHADSVASC A-FIB History Current/History of A-Fib/PAF?: No Assessment /Plan Problems (1) Gastroparesis Status: Chronic Response to Treatment: Stable Problem Text: Dysphagia/Abd Pain in setting of history of Huizar's esophagus requiring repair, gastroparesis s/p EGD on 02/27 - erosive esophagitis, gastroparesis - no peristalsis GI has recommended J-Tube for feeding +/- decompression G Tube The patient/daughter have been reluctant about this--Speech therapy was consulted and a modified diet was recommended. CT Abd/Pel done on 03/04/19 with no evidence of obstruction The patient continues to have recurrent episodes of abdominal pain every few days due to underlying gastroparesis which requires IV fluid hydration, bowel care, and enema therapy. The patient's gastroparesis is further complicated by the fact that he remains bed bound for most of the day and has not participated with physical therapy consistently. I'm afraid that the patient will indeed need a PEG tube for decompression as his symptoms have been recurring and cause him quite a bit of distress. I did discuss these findings and recommendations with the patient and the patient's daughter (Rosa Camilo) at length. At this time they continue to decline the option of a feeding/decompression tube. Speech therapy has been ordered to evaluate the patient's swallowing function again this morning, as there are some concerns about continued aspiration. Awaiting clearance from physical therapy once he is able to be discharged home on home PT Continue in outpatient physical therapy of the meantime Continue all present medications I had asked extension discussion with patient and his daughter at bedside and we are awaiting physical therapy. His clearance before patient can be discharged home with assistive devices if needed. Patient and patient's daughter were insistent on speaking with physical therapy. I had a discussion with social work/case management has been and the linen checker and the physical therapist will meet with the patient and his family today to discuss further discharge planning. Continue present care. No new changes at the present time Plan/VTE VTE Prophylaxis Ordered?: Yes VS, I&O, 24H, Fishbone Vital Signs/I&O Vital Signs Date Time Temp Pulse Resp B/P (MAP) Pulse Ox O2 Delivery O2 Flow Rate FiO2 03/16/19 06:00 97.1 86 18 142/85 (104) 95 03/11/19 06:00 2.0 I&O- Last 24 Hours up to 6 AM 03/16/19 06:00 Intake Total 4860 ml Output Total 2475 ml Balance 2385 ml Laboratory Data 24H LABS Laboratory Tests 2 03/16/19 05:56: Nucleated Red Blood Cells % (auto) 0.0, Anion Gap 9, Glomerular Filtration Rate > 60.0, Blood Urea Nitrogen 5L, Creatinine 0.66L, Sodium Level 141, Potassium Level 3.2L, Chloride Level 109H, Carbon Dioxide Level 23, Calcium Level 7.8L, Magnesium Level 2.0 CBC/BMP Laboratory Tests 03/16/19 05:56 Red Blood Count 3.01 L, Mean Corpuscular Volume 90.7, Mean Corpuscular Hemoglobin 30.2, Mean Corpuscular Hemoglobin Concent 33.3, Red Cell Distribution Width 17.0 H, Calcium Level 7.8 L RITA KRISHNA MD March 16, 2019 11:00
[2019-03-16] MEDS ORDERED: PANT40TA3 PO (11:47)
[2019-03-16] MEDS ORDERED: METO10TA2 PO (11:47)
[2019-03-16] MEDS ORDERED: NYAM10003 TOP (11:47)
[2019-03-16] MEDS ORDERED: COLA100C5 PO (11:47)
[2019-03-16] MEDS ORDERED: POTASSIUM CHLORIDE 10 MEQ SR TABLET PO ONE (12:00)
--- NOTE | 2019-03-16 12:00 | DS.PDOC ---
Discharge Summary General Date of Admission Feb 23, 2019 at 13:37 Date of Discharge 03/16/19 Attending Physician: RITA KRISHNA MD Discharge Summary PROCEDURES PERFORMED DURING STAY: None. ADMITTING DIAGNOSES: 1. Dysphagia, abdominal pain. DISCHARGE DIAGNOSES: 1. Gastroparesis, UTI . COMPLICATIONS/CHIEF COMPLAINT: Sepsis,Uti. HISTORY OF PRESENT ILLNESS: . HOSPITAL COURSE: Dysphagia/Abd Pain in setting of history of Huizar's esophagus requiring repair, gastroparesis s/p EGD on 02/27 - erosive esophagitis, gastroparesis - no peristalsis GI has recommended J-Tube for feeding +/- decompression G Tube The patient/daughter have been reluctant about this--Speech therapy was consulted and a modified diet was recommended. CT Abd/Pel done on 03/04/19 with no evidence of obstruction The patient continues to have recurrent episodes of abdominal pain every few d ays due to underlying gastroparesis which requires IV fluid hydration, bowel care, and enema therapy. The patient's gastroparesis is further complicated by the fact that he remains bed bound for most of the day and has not participated with physical therapy consistently. I'm afraid that the patient will indeed need a PEG tube for decompression as his symptoms have been recurring and cause him quite a bit of distress. I did discuss these findings and recommendations with the patient and the patie nt's daughter (Rosa Camilo) at length. At this time they continue to decline the option of a feeding/decompression tube. Speech therapy has been ordered to evaluate the patient's swallowing function again this morning, as there are some concerns about continued aspiration. Awaiting clearance from physical therapy once he is able to be discharged home on home PT Continue in outpatient physical therapy of the meantime Continue all present medications I had asked extension discussion with patient and his daughter at bedside and we are awaiting physical therapy. His clearance before patient can be discharged home with assistive devices if needed. Patient and patient's daughter were insistent on speaking with physical therapy. I had a discussion with social work/case management has been and the fast food restaurant manager and the physical therapist will meet with the patient and his family today to discuss further discharge planning. Continue present care. No new changes at the present time ]. DISCHARGE MEDICATIONS: Please see below. ALLERGIES: Please see below. PHYSICAL EXAMINATION ON DISCHARGE: VITAL SIGNS: Please see below. GENERAL: Within normal limits HEENT: PERRLA. Extraocular muscles intact NECK: Supple neck, no JVD CARDIOVASCULAR EXAMINATION: S1, S2, regular RESPIRATORY EXAMINATION: Clear to A&P. No added sounds ABDOMINAL EXAMINATION: Benign EXTREMITIES: Negative clubbing, cyanosis, edema SKIN: Normal NEUROLOGICAL EXAMINATION: No focal motor or sensory deficit PSYCHIATRIC EXAMINATION: [Normal LABORATORY DATA: Please see below. IMAGING: Refer to chart PROGNOSIS: Good ACTIVITY: As tolerated. DIET: As tolerated DISCHARGE PLAN: Follow-up with PCP in one week DISPOSITION: Home. DISCHARGE INSTRUCTIONS: 1. As above. ITEMS TO FOLLOWUP ON ON OUTPATIENT: 1. . Follow-up with PCP in one week DISCHARGE CONDITION: Stable. TIME SPENT ON DISCHARGE: Greater than 40 minutes Vital Signs/I&Os Vital Signs Date Time Temp Pulse Resp B/P (MAP) Pulse Ox O2 Delivery O2 Flow Rate FiO2 03/16/19 06:00 97.1 86 18 142/85 (104) 95 03/11/19 06:00 2.0 I&O- Last 24 Hours up to 6 AM 03/16/19 06:00 Intake Total 4860 ml Output Total 2475 ml Balance 2385 ml Laboratory Data Labs 24H Laboratory Tests 2 03/16/19 05:56: Nucleated Red Blood Cells % (auto) 0.0, Anion Gap 9, Glomerular Filtration Rate > 60.0, Blood Urea Nitrogen 5L, Creatinine 0.66L, Sodium Level 141, Potassium Level 3.2L, Chloride Level 109H, Carbon Dioxide Level 23, Calcium Level 7.8L, Magnesium Level 2.0 CBC/BMP Laboratory Tests 03/16/19 05:56 Red Blood Count 3.01 L, Mean Corpuscular Volume 90.7, Mean Corpuscular Hemoglobin 30.2, Mean Corpuscular Hemoglobin Concent 33.3, Red Cell Distribution Width 17.0 H, Calcium Level 7.8 L Discharge Medications Scheduled Acyclovir (Acyclovir) 200 Mg Cap, 200 MG PO BID, (Reported) Allopurinol (Zyloprim) 300 Mg Tab, 300 MG PO DAILY, (Reported) Alprazolam (Xanax) 0.5 Mg Tab, 1 MG PO BID, (Reported) Carbidopa/Levodopa (Carbidopa-Levo ER 50-200 Tab) 1 Tab Tabcr, 1 TAB PO QHS, (Reported) Carbidopa/Levodopa (Carbidopa-Levodopa 25-100 Tab) 1 Tab Tab, 2.5 TAB PO TID, (Reported) TAKES WITH ENTACAPONE AT 1000, 1400, 1800 Cetirizine HCl/Pseudoephedrine (Zyrtec-D Tablet) 1 Tab Tab, 1 TAB PO BID, (Reported) Docusate Sodium (Colace) 100 Mg Capsule, 100 MG PO BID Entacapone (Entacapone) 200 Mg Tab, 200 MG PO TID, (Reported) TAKE WITH SINEMET TID AT 1000, 1400, 1800 Fluoxetine Hcl (Fluoxetine HCl) 20 Mg Cap, 20 MG PO DAILY, (Reported) Folic Acid (Folic Acid) 1 Mg Tab, 1 MG PO DAILY, (Reported) Lansoprazole (Prevacid) 30 Mg Cap, 30 MG PO DAILY, (Reported) Levothyroxine Sodium (Levoxyl) 100 Mcg Tab, 100 MCG PO DAILY, (Reported) Lisinopril (Lisinopril) 5 Mg Tablet, 5 MG PO DAILY, (Reported) Metoclopramide HCl (Metoclopramide HCl) 10 Mg Tablet, 5 MG PO ACHS Nystatin (Nyamyc) 15 Gm Powder, 0 DOSE TOP BID Pantoprazole Sodium (Pantoprazole Sodium) 40 Mg Tablet.dr, 40 MG PO DAILY Polyethylene Glycol 3350 (Miralax) 119 Gm Powder, 17 GM PO DAILY, (Reported) Pregabalin (Lyrica) 50 Mg Cap, 50 MG PO TID, (Reported) Sennosides/Docusate Sodium (Senna-S Tablet) 1 Each Tablet, 1 TAB PO DAILY, (Reported) Sitagliptin Phosphate (Januvia) 100 Mg Tab, 100 MG PO DAILY, (Reported) Tamsulosin HCl (Flomax) 0.4 Mg Capsule, 0.4 MG PO QHS, (Reported) Trazodone HCl (Trazodone HCl) 100 Mg Tab, 200 MG PO QHS, (Reported) Scheduled PRN Acetaminophen with Codeine (Tylenol with Codeine #3 Tablet) 1 Tab Tab, 1 TAB PO Q4H PRN for HEADACHE, (Reported) TAKE ONE TO TWO TABS Fluticasone Propionate (Flonase Allergy Relief) 50 Mcg/Act Spr, 2 SPRAY NA DAILY PRN for NASAL CONGESTION, (Reported) Metaxalone (Metaxalone) 800 Mg Tab, 800 MG PO TID PRN for MUSCLE SPASMS, (Reported) Ondansetron HCl (Ondansetron HCl) 4 Mg Tablet, 4 MG PO Q6H PRN for NAUSEA OR VOMITING, (Reported) Allergies Coded Allergies: pentazocine (Verified Allergy, Unknown, unknown, 02/17/19) PT AND DAUGHTER SAYS THEY DON'T THINK THIS IS AN ALLERGY RITA KRISHNA MD March 16, 2019 12:00
== END 2019-03-16 13:45 | disposition home or self-care (01) | DRG 871 ==
LOC: EDBD 10:43 → M ED 10:43 → M ED INP 13:37 → M ICU 16:59 → M PCU 02-24 23:35 → M MS5PR 02-27 16:51
PROVIDERS: ADMIT Internal Medicine; ATTEND Internal Medicine
PROC: 0DB78ZX Excision of Stomach, Pylorus, Via Natural or Artificial Opening Endoscopic, Diagnostic (ICD-10-PCS; principal; 2019-02-27 14:54)
DX: A41.9 Sepsis, unspecified organism (principal); N17.0 Acute kidney failure with tubular necrosis; G93.41 Metabolic encephalopathy; N39.0 Urinary tract infection, site not specified; J98.11 Atelectasis; B37.0 Candidal stomatitis; M62.82 Rhabdomyolysis; G20 Parkinson's disease; E11.43 Type 2 diabetes mellitus with diabetic autonomic (poly)neuropathy; E03.9 Hypothyroidism, unspecified; M10.9 Gout, unspecified; F41.9 Anxiety disorder, unspecified; K31.84 Gastroparesis; F32.9 Major depressive disorder, single episode, unspecified; E83.42 Hypomagnesemia; N40.0 Benign prostatic hyperplasia without lower urinary tract symptoms; J30.89 Other allergic rhinitis; K59.00 Constipation, unspecified; K21.0 Gastro-esophageal reflux disease with esophagitis; M54.9 Dorsalgia, unspecified; B96.1 Klebsiella pneumoniae [K. pneumoniae] as the cause of diseases classified elsewhere; E86.0 Dehydration; R13.10 Dysphagia, unspecified; B37.2 Candidiasis of skin and nail; R29.6 Repeated falls; R53.1 Weakness; Z90.49 Acquired absence of other specified parts of digestive tract; Z79.899 Other long term (current) drug therapy; Z79.84 Long term (current) use of oral hypoglycemic drugs; Z88.8 Allergy status to other drugs, medicaments and biological substances

== ENCOUNTER → 2019-10-25 | Outpatient (REF) | payer MEDICARE, OTHER ==
[~2019-10-25] MED LIST changes: +CIPR500T3 PO; +COLA100C5 PO; +METO10TA2 PO; +MIRA3350 PO; +NYAM10003 TOP; +ONDA-195 PO; +PANT40TA3 PO; +SENN-23 PO; +SENN-53 PO; -SENN1TAB40 PO
[2019-10-25 17:29] LABS: APPEARANCE, URINE CLEAR (CLEAR); BACTERIA, URINE AUTO NEGATIVE (NEGATIVE); BILIRUBIN, URINE AUTO NEGATIVE (NEGATIVE); BLOOD, URINE BLOOD NEGATIVE (NEGATIVE); COLOR, URINE YELLOW (YELLOW); GLUCOSE, URINE (UA) AUTO NEGATIVE (NEGATIVE); KETONE, URINE AUTO NEGATIVE (NEGATIVE); LEUKOCYTE ESTERASE, URINE AUTO NEGATIVE (NEGATIVE); NITRITE, URINE AUTO NEGATIVE (NEGATIVE); PROTEIN, URINE AUTO NEGATIVE (NEGATIVE); RBC, URINE AUTO 0 /HPF (0-3); SPECIFIC GRAVITY URINE AUTO 1.005 (1.002-1.035); SQUAMOUS EPITHELIAL CELL UR AU 0 /HPF (0-6); UROBILINOGEN, URINE AUTO 0.2 mg/dL (0.0-2.0); WBC, URINE AUTO 0 /HPF (0-3)
== END ==
LOC: M SMT 16:52
PROVIDERS: ATTEND Nurse Practitioner Women's Health
DX: R31.0 Gross hematuria (principal)

== ENCOUNTER → 2019-12-27 | Outpatient (REF) | payer MEDICARE, OTHER ==
[~2019-12-27] MED LIST changes: -FLUO20CA19 PO; +FLUO20CA22 PO; -TRAZ-163 PO; +TRAZ-257 PO
== END ==
LOC: M LABDRAW1 14:57
PROVIDERS: ATTEND Nurse Practitioner Women's Health
DX: Z12.5 Encounter for screening for malignant neoplasm of prostate (principal)
CPT/HCPCS: 36415; G0103

== ENCOUNTER → 2019-12-27 | Outpatient (REF) | payer MEDICARE, OTHER ==
[2019-12-27 15:24] LABS: HEMATOCRIT 38.9 % (42.0-52.0); MEAN CORPUSCULAR HEMOGLOBIN 32.7 pg (27.0-33.0); MEAN CORPUSCULAR HGB CONC 33.4 g/dl (32.0-36.5); PLATELET COUNT, AUTOMATED 265 10^3/uL (150-450); RED BLOOD COUNT 3.97 10^6/uL (4.30-6.10); WHITE BLOOD COUNT 10.1 10^3/uL (4.0-10.0)
[2019-12-27 15:35] LABS: ALT/SGPT 12 U/L (12-78); BILIRUBIN,TOTAL 0.3 MG/DL (0.2-1.0); BLOOD UREA NITROGEN 11 MG/DL (7-18); CALCIUM LEVEL 8.9 MG/DL (8.8-10.2); CARBON DIOXIDE LEVEL 34 MEQ/L (21-32); CHLORIDE LEVEL 102 MEQ/L (98-107); CHOLESTEROL LEVEL 205 MG/DL (<200); CHOLESTEROL RISK RATIO 3.867 (<5); CREATININE FOR GFR 0.98 MG/DL (0.70-1.30); GLOMERULAR FILTRATION RATE > 60.0 (>42); GLUCOSE, FASTING 97 MG/DL (70-100); HDL CHOLESTEROL 53 MG/DL (>40); LDL CHOLESTEROL 127 MG/DL (<100); NON-HDL-C 152 MG/DL; POTASSIUM SERUM 3.2 MEQ/L (3.5-5.1); PROSTATIC SPECIFIC AG MONITOR 1.79 NG/ML (< 4.00); SODIUM LEVEL 141 MEQ/L (136-145); TRIGLYCERIDES LEVEL 124 MG/DL (<150)
[2019-12-27 15:38] LABS: TESTOSTERONE 405 NG/DL (241-827)
[2019-12-27 15:53] LABS: HEMOGLOBIN A1c 5.7 %
== END ==
LOC: M LABDRAW1 14:53
PROVIDERS: ATTEND Family Medicine
DX: I10 Essential (primary) hypertension (principal); R53.83 Other fatigue; E03.9 Hypothyroidism, unspecified; Z12.5 Encounter for screening for malignant neoplasm of prostate

== ENCOUNTER → 2019-12-27 | Outpatient (REF) | payer MEDICARE, OTHER ==
[2019-12-27 15:38] LABS: FOLATE > 24.0 NG/ML; VITAMIN B12 LEVEL > 2000 PG/ML
[2020-01-03 08:06] LABS: VITAMIN B1 LEVEL WHOLE BLOOD 156.9 nmol/L (66.5-200.0); VITAMIN B6,PYRIDOXAL PHOSPHATE 4.2 ug/L (5.3-46.7); VITAMIN E(ALPHA TOCOPHEROL) 9.1 mg/L (9.0-29.0); VITAMIN E(GAMMA TOCOPHEROL) 0.8 mg/L (0.5-4.9)
== END ==
LOC: M LABDRAW1 14:59
PROVIDERS: ATTEND Psychiatry & Neurology Neurology
DX: R20.0 Anesthesia of skin (principal); R26.81 Unsteadiness on feet; I10 Essential (primary) hypertension; R53.83 Other fatigue; E03.9 Hypothyroidism, unspecified; Z12.5 Encounter for screening for malignant neoplasm of prostate; Z79.899 Other long term (current) drug therapy

== ENCOUNTER → 2020-08-13 | Outpatient (REF) | payer MEDICARE, OTHER ==
[~2020-08-13] MED LIST changes: +AMIT25TA PO; +AMLO1TAB25 PO; +CARV25TA PO; +FINA5TAB2 PO; -LACT10SO29 PO; +LACT20EL PO; +PANT40TA29 PO; -PANT40TA3 PO; +QUET1TAB7 PO
[2020-08-13 18:42] LABS: PERCENT SATURATION 32.2 % (19.7-50.0)
== END ==
LOC: M LAB REF 17:28
PROVIDERS: ATTEND Internal Medicine Nephrology
DX: D50.9 Iron deficiency anemia, unspecified (principal)

== ENCOUNTER 2021-01-29 13:10 | Emergency (ER) | payer MEDICARE, OTHER ==
[~2021-01-29 13:10] MED LIST changes: -AMIT25TA PO; +AMIT25TA17 PO; -LISI-542 PO; +LISI-898 PO; -PEG1POW PO; +POLY17PO18 PO; -QUET1TAB7 PO; +QUET25TA3 PO; +RISP-8 PO; -RISP1TAB3 PO
[2021-01-29 13:46] LABS: BASO # 0.1 10^3/uL (0.0-0.2); BASO % 0.6 % (0.0-1.0); EOS # 0.2 10^3/uL (0.0-0.5); EOS % 2.9 % (0.0-3.0); HEMATOCRIT 29.4 % (42.0-52.0); HEMOGLOBIN 10.1 g/dl (13.5-17.5); LYMPH # 2.3 10^3/uL (1.5-5.0); LYMPH % 28.9 % (24.0-44.0); MEAN CORPUSCULAR HGB CONC 34.4 g/dl (32.0-36.5); MONO # 0.5 10^3/uL (0.0-0.8); MONO % 6.3 % (2.0-8.0); NEUTROPHILS # 4.9 10^3/uL (1.5-8.5); NEUTROPHILS % 60.9 % (36.0-66.0); PLATELET COUNT, AUTOMATED 270 10^3/uL (150-450); RED BLOOD COUNT 2.97 10^6/uL (4.30-6.10)
[2021-01-29 14:33] LABS: ALBUMIN 3.4 GM/DL (3.2-5.2); ALT/SGPT 7 U/L (12-78); BILIRUBIN,DIRECT < 0.1 MG/DL (0.0-0.2); BILIRUBIN,TOTAL 0.3 MG/DL (0.2-1.0); TOTAL PROTEIN 6.6 GM/DL (6.4-8.2)
[2021-01-29] MEDS ORDERED: DIVA250T67 PO (15:05)
[2021-01-29] MEDS ORDERED: TRAZ-257 PO (15:05)
[2021-01-29] MEDS ORDERED: VITA50005 PO (15:05)
[2021-01-29] MEDS ORDERED: RETA1000 IM (15:05)
[2021-01-29] MEDS ORDERED: PREG50CA2 PO (15:05)
[2021-01-29] MEDS ORDERED: MIRA0.254 PO (15:05)
[2021-01-29] MEDS ORDERED: AMIT75TA PO (15:05)
[2021-01-29] MEDS ORDERED: SERO1TAB3 PO (15:09)
[2021-01-29] MEDS ORDERED: ENTA1TAB PO (15:09)
[2021-01-29] MEDS ORDERED: POTA10808 PO (15:09)
[2021-01-29] MEDS ORDERED: ACYC200C8 PO (15:09)
[2021-01-29] MEDS ORDERED: CENT1TAB PO (15:09)
[2021-01-29] MEDS ORDERED: AMLO1TAB24 PO (15:10)
[2021-01-29] MEDS ORDERED: rOPINIRole 0.25 MG TAB(REQUIP) PO ONE (15:15)
[2021-01-29] MEDS ORDERED: SINEMET 25-100 MG TAB PO ONE (15:15)
[2021-01-29] MEDS ORDERED: QUEtiapine FUMARATE 25 MG TAB PO ONE (15:15)
[2021-01-29] MEDS ORDERED: ENTACAPONE 200MG TABLET (COMTAN) PO ONE (15:15)
[2021-01-29] MEDS ORDERED: PREGABALIN 50 MG CAP (LYRICA) PO ONE (15:15)
[2021-01-29] MEDS ORDERED: PRAMIPEXOLE 0.25 MG TAB PO ONE (15:25)
[2021-01-29] MEDS ORDERED: NORCO, ANEXSIA 5/325MG TABLET (HYDROcodone/ACETAMINOPHEN) PO ONE (16:25)
[2021-01-29 18:08] VITALS: BP 155/72
--- NOTE | 2021-01-30 01:52 | ECGEPIP ---
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
== END 2021-01-29 18:10 | disposition home or self-care (01) ==
LOC: M ED 13:10 → EDBD 13:10 → M ED 18:10
DX: G20 Parkinson's disease (principal); F02.80 Dementia in other diseases classified elsewhere, unspecified severity, without behavioral disturbance, psychotic disturbance, mood disturbance, and anxiety; E11.9 Type 2 diabetes mellitus without complications; Z79.899 Other long term (current) drug therapy; Z88.6 Allergy status to analgesic agent

== ENCOUNTER 2021-03-06 21:42 | Emergency (ER) | payer MEDICARE, OTHER ==
[~2021-03-06] VITALS: Ht 182.9 cm; Wt 72.3 kg
[~2021-03-06 21:42] MED LIST changes: +AMIT75TA PO; +AMLO1TAB24 PO; +CENT1TAB PO; +DIVA250T67 PO; +MIRA0.254 PO; +POTA10808 PO; +PREG50CA2 PO; +RETA1000 IM; +SERO1TAB3 PO; +VITA50005 PO
[2021-03-06 23:00] VITALS: BP 159/81
== END 2021-03-06 23:31 | disposition home or self-care (01) ==
LOC: M ED 21:42
DX: K62.5 Hemorrhage of anus and rectum (principal); F02.80 Dementia in other diseases classified elsewhere, unspecified severity, without behavioral disturbance, psychotic disturbance, mood disturbance, and anxiety; G20 Parkinson's disease; M10.9 Gout, unspecified; K59.09 Other constipation; K64.9 Unspecified hemorrhoids; Z79.899 Other long term (current) drug therapy; Z88.8 Allergy status to other drugs, medicaments and biological substances

== ENCOUNTER → 2021-04-22 | Outpatient (REF) | payer MEDICARE, OTHER ==
[2021-04-22 18:01] LABS: PERCENT SATURATION 25.8 % (19.7-50.0)
== END ==
LOC: M LAB REF 16:51
PROVIDERS: ATTEND Internal Medicine Nephrology
DX: N17.9 Acute kidney failure, unspecified (principal); D50.9 Iron deficiency anemia, unspecified

== ENCOUNTER → 2021-09-23 | Outpatient (CLI) | payer MEDICARE, OTHER ==
[~2021-09-23] MED LIST changes: +E-Z-GAS II EFFERVESCENT PACKET (SODIUM BICARB./CITRIC ACID/SIMETHICONE) As Ordered ONE; +E-Z-HD 98% w/w 340GM SUSP BTL As Ordered ONE; +E-Z-PAQUE 96% w/w SUSP 176GM BTL As Ordered ONE; +ERGO500029 PO; +QUET1TAB17 PO; -QUET25TA3 PO; -VITA50005 PO
--- NOTE | 2021-09-23 16:23 | REP ---
INDICATION: DYSPHAGIA TO SOLIDS. COMPARISON: None TECHNIQUE: This procedure was performed by KRISTIE Cervantes, under the direct supervision of Dr Zimmerman. Images were reviewed with Dr Zimmerman prior to dictation. Liquid barium and gas producing crystals were given in the erect position in order to perform a double contrast esophagram examination. FINDINGS: A single view PA chest x-ray is submitted as a operations systems specialist film. The superior mediastinal structures are midline. The heart size is within normal limits. The lungs are clear. The oral and pharyngeal stages of deglutition were unremarkable. 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 This is causing barium to pool and requires multiple attempts at swallowing for the patient to clear. This pooled barium is also causing the patient to aspirate. There is no evidence of a hiatal hernia. . 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 This is causing barium to pool and requires multiple attempts at swallowing for the patient clear. This pooled barium is also causing the patient to aspirate. Recommend endoscopic evaluation and possible dilatation. 0.2 minutes of fluoroscopy time was utilized for this procedure. Some fluoroscopic images are performed with last image hold technology. These images require no additional radiation. <Electronically signed by Marisa Hassan > 09/23/21 1619 <Electronically signed by Bright Zimmerman > 09/23/21 1623
== END ==
LOC: M RAD 08:02
PROVIDERS: ATTEND Family Medicine
DX: R13.10 Dysphagia, unspecified (principal)

== ENCOUNTER 2021-12-25 13:28 | Inpatient (IN) | payer MEDICARE, OTHER ==
[~2021-12-25] VITALS: Ht 180.3 cm; Wt 74.2 kg
[~2021-12-25 13:28] MED LIST changes: +ASPI-161 PO; +ASPI81CH8 PO; +ATOR40TA75 PO; +CLOP75TA2 PO; +DEPA1TAB3 PO; +DEPA250T32 PO; -E-Z-GAS II EFFERVESCENT PACKET (SODIUM BICARB./CITRIC ACID/SIMETHICONE) As Ordered ONE; -E-Z-HD 98% w/w 340GM SUSP BTL As Ordered ONE; -E-Z-PAQUE 96% w/w SUSP 176GM BTL As Ordered ONE; +LEVO100T5 PO; +LEVOTAB10 PO; -LISI-898 PO; +LISI5TAB11 PO; +POTA1TAB23 PO; +RETA1000 SC; +SENN-80 PO; +SENN8.6T28 PO; +TAMS1CAP17 PO; +TRAZ-189 PO; +VITMTA PO
[2021-12-25 14:44] LABS: INR 1.09; PARTIAL THROMBOPLASTIN TIME 23.2 SECONDS (25.9-37.0); PROTHROMBIN TIME 14.5 SECONDS (12.7-14.5)
[2021-12-25 15:18] LABS: CK-MB VALUE MASS 3.2 NG/ML (<3.6); MB/CK RELATIVE INDEX 4.1 (< OR =4)
[2021-12-25 15:21] LABS: ACETAMINOPHEN LEVEL 3.8 UG/ML (10.0-30.0); ALBUMIN 2.7 GM/DL (3.2-5.2); ALT/SGPT 22 U/L (12-78); BILIRUBIN,DIRECT < 0.1 MG/DL (0.0-0.2); BILIRUBIN,TOTAL 0.6 MG/DL (0.2-1.0); BLOOD UREA NITROGEN 51 MG/DL (7-18); CALCIUM LEVEL 7.9 MG/DL (8.8-10.2); CARBON DIOXIDE LEVEL 21 MEQ/L (21-32); CHLORIDE LEVEL 113 MEQ/L (98-107); CREATININE FOR GFR 1.95 MG/DL (0.70-1.30); ETHYL ALCOHOL (ETHANOL) < 0.003 % (0.000-0.010); GLOMERULAR FILTRATION RATE 36.2 (>42); GLUCOSE, FASTING 167 MG/DL (70-100); POTASSIUM SERUM 6.4 MEQ/L (3.5-5.1); SALICYLATE LEVEL 7.8 MG/DL (5.0-30.0); SODIUM LEVEL 141 MEQ/L (136-145)
[2021-12-25] MEDS: NS 1,000 ML IV SCH ×2 (15:30→23:13)
[2021-12-25] MEDS ORDERED: CALCIUM GLUCONATE 1,000 MG in D5W MINI-BAG PLUS 100 ML IV ONE (15:30)
[2021-12-25] MEDS ORDERED: DEXTROSE 50% 50 ML SYRINGE IV STA (15:31)
[2021-12-25] MEDS ORDERED: HumuLIN R (REGULAR) INSULIN (NovoLIN R) **100U/ML** PER UNIT IV ONE (15:35)
[2021-12-25 15:38] LABS: BASO # 0.1 10^3/uL (0.0-0.2); BASO % 0.5 % (0.0-1.0); EOS # 0.1 10^3/uL (0.0-0.5); EOS % 0.8 % (0.0-3.0); HEMATOCRIT 26.5 % (42.0-52.0); HEMOGLOBIN 8.5 g/dl (13.5-17.5); LYMPH # 3.1 10^3/uL (1.5-5.0); LYMPH % 18.8 % (24.0-44.0); MEAN CORPUSCULAR HEMOGLOBIN 33.7 pg (27.0-33.0); MEAN CORPUSCULAR HGB CONC 32.1 g/dl (32.0-36.5); MEAN CORPUSCULAR VOLUME 105.2 fl (80.0-96.0); MONO # 0.9 10^3/uL (0.0-0.8); MONO % 5.5 % (2.0-8.0); NEUTROPHILS # 12.1 10^3/uL (1.5-8.5); NEUTROPHILS % 72.5 % (36.0-66.0); PLATELET COUNT, AUTOMATED 343 10^3/uL (150-450); RED BLOOD COUNT 2.52 10^6/uL (4.30-6.10); WHITE BLOOD COUNT 16.7 10^3/uL (4.0-10.0)
[2021-12-25] MEDS ORDERED: ALLO300T2 PO (16:36)
[2021-12-25] MEDS ORDERED: MOM 30ML SUSPENSION UDC PO PRN (17:25)
[2021-12-25] MEDS ORDERED: MAALOX 30 ML SUSP *UDC PO PRN (17:25)
[2021-12-25] MEDS ORDERED: CEPH500C PO (17:33)
[2021-12-25] MEDS ORDERED: HOME MED LIST COMPLETE! XX SCH (17:35)
[2021-12-25 17:46] LABS: AMPHETAMINES LEVEL URINE NEGATIVE (NEGATIVE); BARBITURATES URINE NEGATIVE (NEGATIVE); BENZODIAZEPINES URINE NEGATIVE (NEGATIVE); CANNABINOIDS URINE NEGATIVE (NEGATIVE); COCAINE METABOLITE URINE NEGATIVE (NEGATIVE); METHADONE URINE NEGATIVE (NEGATIVE); OPIATES URINE NEGATIVE (NEGATIVE); PHENCYCLIDINE URINE NEGATIVE (NEGATIVE)
[2021-12-25 18:09] LABS: C REACTIVE PROTEIN QUANTITATIV 0.44 MG/DL (0.00-0.30)
[2021-12-25] MEDS ORDERED: SOD POLYSTYRENE SULFONATE SUSP 15 GM/60 ML UD PO ONE (18:30)
[2021-12-25 19:06] LABS: ERYTHROCYTE SEDIMENTATION RATE 65 mm/hr (0-20)
[2021-12-25 20:55] LABS: CALCIUM LEVEL 8.5 MG/DL (8.8-10.2); CREATININE FOR GFR 1.95 MG/DL (0.70-1.30); GLOMERULAR FILTRATION RATE 36.2 (>42); POTASSIUM SERUM 4.8 MEQ/L (3.5-5.1)
[2021-12-25] MEDS ORDERED: DIVALPROEX 250 MG TAB PO SCH (21:00)
[2021-12-25] MEDS: ATORVASTATIN 20 MG TAB PO SCH (22:07)
[2021-12-25] MEDS: ENTACAPONE 200MG TABLET (COMTAN) PO SCH (22:08)
[2021-12-25] MEDS: PANTOPRAZOLE 40MG TAB (PROTONIX) PO SCH (22:08)
[2021-12-25] MEDS: traZODone 100 MG TAB PO SCH (22:08)
[2021-12-25] MEDS: SINEMET 25-100 MG TAB PO SCH (22:08)
[2021-12-25] MEDS: TAMSULOSIN 0.4 MG CAP PO SCH (22:08)
[2021-12-25] MEDS: QUEtiapine FUMARATE 25 MG TAB PO SCH (22:09)
[2021-12-25] MEDS: CARVedilol 12.5 MG TAB PO SCH (22:09)
[2021-12-25] MEDS: PRAMIPEXOLE 0.25 MG TAB PO SCH (22:10)
[2021-12-25] MEDS: PREGABALIN 50 MG CAP (LYRICA) PO SCH (22:10)
[2021-12-25] MEDS: DOCUSATE SODIUM 100MG CAPSULE PO SCH (22:10)
[2021-12-25 22:14] LABS: CALCIUM LEVEL 8.3 MG/DL (8.8-10.2); CREATININE FOR GFR 2.01 MG/DL (0.70-1.30); GLOMERULAR FILTRATION RATE 34.9 (>42)
[2021-12-25] MEDS: ACETAMINOPHEN TAB 650MG DOSE (2X325MG) PO PRN (22:20)
[2021-12-25] MEDS ORDERED: ONDANSETRON 4MG/2ML VIAL IV PRN (22:35)
[2021-12-25] MEDS: HEPARIN SOD (PORCINE) 5000UNITS/ML 1ML VIAL/SYRINGE SC SCH (23:13)
[2021-12-26] VITALS (8 sets, daily range): BP systolic 120–144; BP diastolic 66–82; PULSE 92
[2021-12-26 05:34] LABS: BASO # 0.1 10^3/uL (0.0-0.2); BASO % 0.3 % (0.0-1.0); EOS % 0.1 % (0.0-3.0); HEMATOCRIT 23.1 % (42.0-52.0); HEMOGLOBIN 7.3 g/dl (13.5-17.5); LYMPH # 3.4 10^3/uL (1.5-5.0); LYMPH % 17.6 % (24.0-44.0); MEAN CORPUSCULAR HEMOGLOBIN 32.7 pg (27.0-33.0); MEAN CORPUSCULAR HGB CONC 31.6 g/dl (32.0-36.5); MEAN CORPUSCULAR VOLUME 103.6 fl (80.0-96.0); MONO # 1.5 10^3/uL (0.0-0.8); MONO % 7.9 % (2.0-8.0); NEUTROPHILS % 73.1 % (36.0-66.0); PLATELET COUNT, AUTOMATED 300 10^3/uL (150-450); RED BLOOD COUNT 2.23 10^6/uL (4.30-6.10); WHITE BLOOD COUNT 19.2 10^3/uL (4.0-10.0)
[2021-12-26] MEDS: HEPARIN SOD (PORCINE) 5000UNITS/ML 1ML VIAL/SYRINGE SC SCH ×3 (06:26→22:00)
[2021-12-26] MEDS: NS 1,000 ML IV SCH ×3 (06:26→19:18)
[2021-12-26] MEDS: LEVOTHYROXINE 100MCG TABLET (0.1MG) PO SCH (06:26)
[2021-12-26 06:28] LABS: BLOOD UREA NITROGEN 63 MG/DL (7-18); CARBON DIOXIDE LEVEL 20 MEQ/L (21-32); CHLORIDE LEVEL 115 MEQ/L (98-107); CREATININE FOR GFR 1.81 MG/DL (0.70-1.30); FERRITIN 41 NG/ML (26-388); GLOMERULAR FILTRATION RATE 39.4 (>42); GLUCOSE, FASTING 122 MG/DL (70-100); IRON (FE) 73 UG/DL (65-175); MAGNESIUM LEVEL 2.4 MG/DL (1.8-2.4); PERCENT SATURATION 28.6 % (19.7-50.0); POTASSIUM SERUM 4.8 MEQ/L (3.5-5.1); SODIUM LEVEL 142 MEQ/L (136-145); TOTAL IRON BINDING CAPACITY 255 UG/DL (250-450)
[2021-12-26] MEDS: SINEMET 25-100 MG TAB PO SCH ×3 (09:00→21:00)
[2021-12-26] MEDS: FOLIC ACID 1 MG TAB PO SCH (09:00)
[2021-12-26] MEDS: PREGABALIN 50 MG CAP (LYRICA) PO SCH ×3 (09:00→21:00)
[2021-12-26] MEDS: CARVedilol 12.5 MG TAB PO SCH ×2 (09:00→21:00)
[2021-12-26] MEDS: DOCUSATE SODIUM 100MG CAPSULE PO SCH ×2 (09:00→21:00)
[2021-12-26] MEDS: ENTACAPONE 200MG TABLET (COMTAN) PO SCH ×3 (09:00→21:00)
[2021-12-26] MEDS: FINASTERIDE 5 MG TAB PO SCH (09:00)
[2021-12-26] MEDS: PRAMIPEXOLE 0.25 MG TAB PO SCH ×3 (09:00→21:00)
[2021-12-26] MEDS: SENNA 8.6 MG TAB (SENOKOT) PO SCH (09:00)
[2021-12-26] MEDS: DIVALPROEX 500 MG TAB PO SCH ×2 (09:00→21:00)
[2021-12-26] MEDS: MULTIVITAMINS/MINERALS THERAP 1 TAB PO SCH (09:00)
[2021-12-26] MEDS: amLODIPine 5 MG TAB PO SCH (09:00)
[2021-12-26] MEDS: CLOPIDOGREL 75 MG TAB PO SCH (09:00)
[2021-12-26] MEDS: ASPIRIN 81MG ENTERIC TABLET PO SCH (09:00)
[2021-12-26] MEDS: cefTRIAXone SOD 1 GM in D5W MINI-BAG PLUS 50 ML IV SCH (10:03)
[2021-12-26 14:12] LABS: CK-MB VALUE MASS 7.8 NG/ML (<3.6); MB/CK RELATIVE INDEX 6.9 (< OR =4)
[2021-12-26] MEDS ORDERED: ASPIRIN 300 MG SUPP PR ONE (15:00)
[2021-12-26 17:51] LABS: CK-MB VALUE MASS 10.4 NG/ML (<3.6); MB/CK RELATIVE INDEX 8.39 (< OR =4)
[2021-12-26] MEDS: ATORVASTATIN 20 MG TAB PO SCH (21:00)
[2021-12-26] MEDS: PANTOPRAZOLE 40MG TAB (PROTONIX) PO SCH (21:00)
[2021-12-26] MEDS: QUEtiapine FUMARATE 25 MG TAB PO SCH (21:00)
[2021-12-26] MEDS: traZODone 100 MG TAB PO SCH (21:00)
[2021-12-26] MEDS: TAMSULOSIN 0.4 MG CAP PO SCH (21:00)
[2021-12-27] VITALS (13 sets, daily range): BP systolic 104–140; BP diastolic 56–81
[2021-12-27] MEDS: LEVOTHYROXINE 100MCG TABLET (0.1MG) PO SCH (06:00)
[2021-12-27] MEDS ORDERED: OLANZapine INTRAMUSCULAR 10MG VIAL IM ONE (06:50)
[2021-12-27] MEDS: HEPARIN SOD (PORCINE) 5000UNITS/ML 1ML VIAL/SYRINGE SC SCH (07:01)
[2021-12-27] MEDS: SINEMET 25-100 MG TAB PO SCH ×3 (07:01→23:06)
[2021-12-27] MEDS: ENTACAPONE 200MG TABLET (COMTAN) PO SCH ×3 (07:03→23:05)
[2021-12-27] MEDS: PRAMIPEXOLE 0.25 MG TAB PO SCH ×3 (07:04→23:05)
[2021-12-27] MEDS: CARVedilol 12.5 MG TAB PO SCH ×2 (07:04→23:04)
[2021-12-27] MEDS: DIVALPROEX 500 MG TAB PO SCH ×2 (07:04→23:06)
[2021-12-27] MEDS: FOLIC ACID 1 MG TAB PO SCH (07:04)
[2021-12-27] MEDS: CLOPIDOGREL 75 MG TAB PO SCH (07:05)
[2021-12-27] MEDS: MULTIVITAMINS/MINERALS THERAP 1 TAB PO SCH (07:05)
[2021-12-27] MEDS: PREGABALIN 50 MG CAP (LYRICA) PO SCH ×3 (07:05→23:05)
[2021-12-27] MEDS: NS 1,000 ML IV SCH (08:15)
[2021-12-27] MEDS: SENNA 8.6 MG TAB (SENOKOT) PO SCH (08:15)
[2021-12-27] MEDS: amLODIPine 5 MG TAB PO SCH (08:15)
[2021-12-27] MEDS: ASPIRIN 81MG ENTERIC TABLET PO SCH (08:15)
[2021-12-27] MEDS: DOCUSATE SODIUM 100MG CAPSULE PO SCH ×2 (08:15→21:00)
[2021-12-27] MEDS: FINASTERIDE 5 MG TAB PO SCH (08:15)
[2021-12-27] MEDS: cefTRIAXone SOD 1 GM in D5W MINI-BAG PLUS 50 ML IV SCH (08:16)
[2021-12-27 08:39] LABS: CK-MB VALUE MASS 37.9 NG/ML (<3.6); MB/CK RELATIVE INDEX 12.89 (< OR =4)
[2021-12-27] MEDS: PANTOPRAZOLE 40MG VIAL (C9113 PER 1) IV SCH ×2 (09:00→23:07)
[2021-12-27 09:24] LABS: ALBUMIN 2.7 GM/DL (3.2-5.2); BILIRUBIN,TOTAL 0.2 MG/DL (0.2-1.0); CALCIUM LEVEL 8.1 MG/DL (8.8-10.2); CREATININE FOR GFR 1.33 MG/DL (0.70-1.30); GLOMERULAR FILTRATION RATE 56.3 (>42); POTASSIUM SERUM 4.6 MEQ/L (3.5-5.1)
[2021-12-27 09:37] LABS: BASO # 0.1 10^3/uL (0.0-0.2); BASO % 0.5 % (0.0-1.0); EOS # 0.4 10^3/uL (0.0-0.5); EOS % 2.9 % (0.0-3.0); HEMATOCRIT 21.2 % (42.0-52.0); LYMPH # 3.1 10^3/uL (1.5-5.0); LYMPH % 23.6 % (24.0-44.0); MEAN CORPUSCULAR HGB CONC 32.5 g/dl (32.0-36.5); MEAN CORPUSCULAR VOLUME 101.4 fl (80.0-96.0); MONO % 7.7 % (2.0-8.0); NEUTROPHILS # 8.5 10^3/uL (1.5-8.5); NEUTROPHILS % 64.2 % (36.0-66.0); PLATELET COUNT, AUTOMATED 276 10^3/uL (150-450); RED BLOOD COUNT 2.09 10^6/uL (4.30-6.10); WHITE BLOOD COUNT 13.3 10^3/uL (4.0-10.0)
[2021-12-27 09:47] LABS: HEMOGLOBIN 6.9 g/dl (13.5-17.5)
[2021-12-27 10:06] LABS: CK-MB VALUE MASS 39.2 NG/ML (<3.6); MB/CK RELATIVE INDEX 13.07 (< OR =4)
[2021-12-27] MEDS: NITROGLYCERIN 0.3 MG SUBL TAB SL PRN ×3 (11:57→12:46)
[2021-12-27] MEDS ORDERED: HEPARIN SOD (PORCINE) 5000UNITS/ML 1ML VIAL/SYRINGE IV PRN (12:55)
[2021-12-27] MEDS ORDERED: MORPHINE 2 MG/ML 1ML VIAL (J2270) IV ONE (13:15)
[2021-12-27 13:27] LABS: HEMATOCRIT 27.1 % (42.0-52.0); HEMOGLOBIN 8.6 g/dl (13.5-17.5); MEAN CORPUSCULAR HEMOGLOBIN 32.1 pg (27.0-33.0); MEAN CORPUSCULAR HGB CONC 31.7 g/dl (32.0-36.5); MEAN CORPUSCULAR VOLUME 101.1 fl (80.0-96.0); PLATELET COUNT, AUTOMATED 258 10^3/uL (150-450); RED BLOOD COUNT 2.68 10^6/uL (4.30-6.10); WHITE BLOOD COUNT 14.1 10^3/uL (4.0-10.0)
[2021-12-27 13:56] LABS: CK-MB VALUE MASS 41.1 NG/ML (<3.6); MB/CK RELATIVE INDEX 11.02 (< OR =4)
[2021-12-27] MEDS ORDERED: HEPARIN SOD (PORCINE) 5000UNITS/ML 1ML VIAL/SYRINGE IV ONE (14:00)
[2021-12-27] MEDS: HEPARIN DRIP 25,000 UNITS in IV 1 EA IV SCH (14:19)
[2021-12-27] MEDS ORDERED: MORPHINE 2 MG/ML 1ML VIAL (J2270) IV PRN (15:15)
[2021-12-27 17:47] LABS: HEMATOCRIT 29.8 % (42.0-52.0); HEMOGLOBIN 9.8 g/dl (13.5-17.5)
[2021-12-27 18:11] LABS: CK-MB VALUE MASS 45.6 NG/ML (<3.6); MB/CK RELATIVE INDEX 10.27 (< OR =4)
[2021-12-27] MEDS ORDERED: QUEtiapine FUMARATE 25 MG TAB PO SCH (21:00)
[2021-12-27] MEDS: traZODone 100 MG TAB PO SCH (23:04)
[2021-12-27] MEDS: TAMSULOSIN 0.4 MG CAP PO SCH (23:05)
[2021-12-27] MEDS: ATORVASTATIN 20 MG TAB PO SCH (23:05)
[2021-12-28] VITALS: BP 108/64
[2021-12-28 01:36] LABS: CK-MB VALUE MASS 52.9 NG/ML (<3.6); MB/CK RELATIVE INDEX 11.21 (< OR =4)
[2021-12-28 04:00] VITALS: BP 97/63
[2021-12-28] MEDS: LEVOTHYROXINE 100MCG TABLET (0.1MG) PO SCH (06:00)
[2021-12-28 08:00] VITALS: BP 105/66
[2021-12-28 08:34] LABS: BASO # 0.1 10^3/uL (0.0-0.2); BASO % 0.6 % (0.0-1.0); EOS # 0.4 10^3/uL (0.0-0.5); EOS % 3.3 % (0.0-3.0); HEMATOCRIT 30.7 % (42.0-52.0); HEMOGLOBIN 10.4 g/dl (13.5-17.5); LYMPH # 2.7 10^3/uL (1.5-5.0); LYMPH % 21.9 % (24.0-44.0); MEAN CORPUSCULAR HGB CONC 33.9 g/dl (32.0-36.5); MEAN CORPUSCULAR VOLUME 94.5 fl (80.0-96.0); MONO # 1.1 10^3/uL (0.0-0.8); MONO % 8.8 % (2.0-8.0); NEUTROPHILS # 7.7 10^3/uL (1.5-8.5); NEUTROPHILS % 63.7 % (36.0-66.0); PLATELET COUNT, AUTOMATED 234 10^3/uL (150-450); RED BLOOD COUNT 3.25 10^6/uL (4.30-6.10); WHITE BLOOD COUNT 12.1 10^3/uL (4.0-10.0)
[2021-12-28 09:00] LABS: CALCIUM LEVEL 8.4 MG/DL (8.8-10.2); CREATININE FOR GFR 1.27 MG/DL (0.70-1.30); GLOMERULAR FILTRATION RATE 59.3 (>42); MAGNESIUM LEVEL 2.3 MG/DL (1.8-2.4)
[2021-12-28] MEDS: DOCUSATE SODIUM 100MG CAPSULE PO SCH (09:00)
[2021-12-28] MEDS ORDERED: QUEtiapine FUMARATE 12.5 MG HALF-TAB PO SCH (09:00)
[2021-12-28 09:01] LABS: MB/CK RELATIVE INDEX 11.14 (< OR =4)
[2021-12-28 09:05] LABS: CK-MB VALUE MASS 43.5 NG/ML (<3.6); MB/CK RELATIVE INDEX 10.98 (< OR =4)
[2021-12-28] MEDS ORDERED: ASPIRIN 81MG ENTERIC TABLET PO SCH (09:40)
[2021-12-28] MEDS ORDERED: CLOPIDOGREL 75 MG TAB PO SCH (09:40)
[2021-12-28] MEDS: SINEMET 25-100 MG TAB PO SCH ×2 (09:46→16:39)
[2021-12-28] MEDS: PREGABALIN 50 MG CAP (LYRICA) PO SCH ×2 (09:46→16:38)
[2021-12-28] MEDS: PRAMIPEXOLE 0.25 MG TAB PO SCH ×2 (09:46→16:38)
[2021-12-28] MEDS: FOLIC ACID 1 MG TAB PO SCH (09:46)
[2021-12-28] MEDS: ENTACAPONE 200MG TABLET (COMTAN) PO SCH ×2 (09:46→16:38)
[2021-12-28] MEDS: SENNA 8.6 MG TAB (SENOKOT) PO SCH (09:47)
[2021-12-28] MEDS: FINASTERIDE 5 MG TAB PO SCH (09:47)
[2021-12-28] MEDS: amLODIPine 5 MG TAB PO SCH (09:47)
[2021-12-28] MEDS: CARVedilol 12.5 MG TAB PO SCH (09:47)
[2021-12-28] MEDS: MULTIVITAMINS/MINERALS THERAP 1 TAB PO SCH (09:47)
[2021-12-28] MEDS: PANTOPRAZOLE 40MG VIAL (C9113 PER 1) IV SCH (09:48)
[2021-12-28] MEDS: DIVALPROEX 500 MG TAB PO SCH (09:48)
[2021-12-28] MEDS: cefTRIAXone SOD 1 GM in D5W MINI-BAG PLUS 50 ML IV SCH (09:48)
[2021-12-28] MEDS: ACETAMINOPHEN TAB 650MG DOSE (2X325MG) PO PRN ×2 (10:00→16:46)
[2021-12-28 12:00] VITALS: BP 106/60
[2021-12-28 12:10] LABS: VITAMIN B12 LEVEL 755 PG/ML
[2021-12-28 12:11] LABS: FOLATE > 24.0 NG/ML
[2021-12-28 13:38] LABS: CK-MB VALUE MASS 31.5 NG/ML (<3.6); MB/CK RELATIVE INDEX 10.54 (< OR =4)
[2021-12-28] MEDS: HEPARIN DRIP 25,000 UNITS in IV 1 EA IV SCH (16:43)
[2021-12-28 16:58] LABS: INR 1.1; PROTHROMBIN TIME 14.6 SECONDS (12.7-14.5)
[2021-12-28 16:59] LABS: PARTIAL THROMBOPLASTIN TIME 47.4 SECONDS (25.9-37.0)
[2021-12-28] MEDS ORDERED: METOPROLOL TART 50 MG TAB PO ONE (17:55)
[2021-12-28 17:57] VITALS: BP 106/60
== END 2021-12-28 18:05 | disposition short-term general hospital (02) | DRG 56 ==
LOC: M ED 13:28 → EDBD 13:28 → M ED INP 17:22 → ENRESERV 19:02 → M PCU 21:01
PROVIDERS: ADMIT Family Medicine; ATTEND Family Medicine
PROC: 30233N1 Transfusion of Nonautologous Red Blood Cells into Peripheral Vein, Percutaneous Approach (ICD-10-PCS; principal; 2021-12-26)
DX: G31.83 Neurocognitive disorder with Lewy bodies (principal); G93.41 Metabolic encephalopathy; I21.3 ST elevation (STEMI) myocardial infarction of unspecified site; N17.9 Acute kidney failure, unspecified; M62.82 Rhabdomyolysis; I24.8 Other forms of acute ischemic heart disease; N18.9 Chronic kidney disease, unspecified; F02.80 Dementia in other diseases classified elsewhere, unspecified severity, without behavioral disturbance, psychotic disturbance, mood disturbance, and anxiety; M10.9 Gout, unspecified; E11.22 Type 2 diabetes mellitus with diabetic chronic kidney disease; N40.1 Benign prostatic hyperplasia with lower urinary tract symptoms; I12.9 Hypertensive chronic kidney disease with stage 1 through stage 4 chronic kidney disease, or unspecified chronic kidney disease; K56.41 Fecal impaction; R41.0 Disorientation, unspecified; D50.9 Iron deficiency anemia, unspecified; E03.9 Hypothyroidism, unspecified; E87.5 Hyperkalemia; R33.9 Retention of urine, unspecified; Z79.82 Long term (current) use of aspirin; Z79.899 Other long term (current) drug therapy; Z79.02 Long term (current) use of antithrombotics/antiplatelets; Z88.8 Allergy status to other drugs, medicaments and biological substances; Z20.822 Contact with and (suspected) exposure to COVID-19

== ENCOUNTER 2022-01-04 18:38 | Observation (INO) | payer MEDICARE, OTHER ==
[~2022-01-04] VITALS: Ht 182.9 cm; Wt 73.9 kg
[~2022-01-04 18:38] MED LIST changes: +CEPH500C PO
[2022-01-04 21:58] LABS: HEMATOCRIT 28.6 % (42.0-52.0); HEMOGLOBIN 9.4 g/dl (13.5-17.5); MEAN CORPUSCULAR HGB CONC 32.9 g/dl (32.0-36.5); MEAN CORPUSCULAR VOLUME 97.3 fl (80.0-96.0); PLATELET COUNT, AUTOMATED 369 10^3/uL (150-450); RED BLOOD COUNT 2.94 10^6/uL (4.30-6.10); WHITE BLOOD COUNT 19.7 10^3/uL (4.0-10.0)
[2022-01-04 22:16] LABS: CALCIUM LEVEL 8.9 MG/DL (8.8-10.2); CREATININE FOR GFR 1.89 MG/DL (0.70-1.30); GLOMERULAR FILTRATION RATE 37.5 (>42); POTASSIUM SERUM 4.2 MEQ/L (3.5-5.1)
[2022-01-05] MEDS ORDERED: NS 1,000 ML IV SCH (00:30)
[2022-01-05 00:57] LABS: RSV AMPLIFICATION NEGATIVE (NEGATIVE)
[2022-01-05] MEDS ORDERED: NITR4TASL SL (02:10)
[2022-01-05] MEDS ORDERED: PATIENT COMMENT (02:13)
[2022-01-05] MEDS ORDERED: HOME MED LIST COMPLETE! XX SCH (02:15)
[2022-01-05] MEDS ORDERED: NITROGLYCERIN 0.4 MG SUBL TABLET SL PRN (02:30)
[2022-01-05] MEDS ORDERED: PILL CUTTER 1 EACH XX PRN (04:35)
[2022-01-05 04:51] VITALS: BP 131/66
[2022-01-05] MEDS: LEVOTHYROXINE 100MCG TABLET (0.1MG) PO SCH (06:09)
[2022-01-05] MEDS: CLOPIDOGREL 75 MG TAB PO SCH (08:10)
[2022-01-05] MEDS ORDERED: MAGNESIUM CITRATE 300 ML BTL PO ONE (08:10)
[2022-01-05] MEDS: FOLIC ACID 1 MG TAB PO SCH (08:10)
[2022-01-05] MEDS: PREGABALIN 50 MG CAP (LYRICA) PO SCH ×3 (08:10→21:39)
[2022-01-05] MEDS: MIRALAX *UNIT DOSE* 17GM PACKET PO SCH (08:11)
[2022-01-05] MEDS: ASPIRIN 81MG ENTERIC TABLET PO SCH (08:11)
[2022-01-05] MEDS: SENNA 8.6 MG TAB (SENOKOT) PO SCH ×2 (08:11→21:37)
[2022-01-05] MEDS: FINASTERIDE 5 MG TAB PO SCH (08:12)
[2022-01-05] MEDS: DOCUSATE SODIUM 100MG CAPSULE PO SCH ×2 (08:12→21:38)
[2022-01-05] MEDS: DIVALPROEX 250 MG TAB PO SCH ×3 (08:12→21:38)
[2022-01-05] MEDS: ACETAMINOPHEN TAB 650MG DOSE (2X325MG) PO PRN ×2 (08:12→21:38)
[2022-01-05] MEDS: CARVedilol 12.5 MG TAB PO SCH ×2 (08:15→21:00)
[2022-01-05] MEDS: amLODIPine 5 MG TAB PO SCH (08:16)
[2022-01-05] MEDS: SINEMET 25-100 MG TAB PO SCH ×3 (10:32→17:26)
[2022-01-05] MEDS: ENTACAPONE 200MG TABLET (COMTAN) PO SCH ×3 (10:32→17:26)
[2022-01-05] MEDS: PRAMIPEXOLE 0.25 MG TAB PO SCH ×3 (10:32→17:26)
[2022-01-05 14:00] VITALS: BP 126/69
[2022-01-05 20:00] VITALS: BP 99/59
[2022-01-05] MEDS ORDERED: GLUCOSE 4GM CHEW TABLET PO PRN (20:15)
[2022-01-05] MEDS ORDERED: GLUCAGON INJ 1MG VIAL SC PRN (20:15)
[2022-01-05] MEDS ORDERED: D5W/0.45% SODIUM CHLORIDE 1,000 ML IV SCH (20:15)
[2022-01-05] MEDS ORDERED: DEXTROSE 50% 50 ML SYRINGE IV PRN (20:15)
[2022-01-05] MEDS ORDERED: ATORVASTATIN 20 MG TAB PO SCH (21:00)
[2022-01-05] MEDS ORDERED: PANTOPRAZOLE 40MG TAB (PROTONIX) PO SCH (21:00)
[2022-01-05] MEDS ORDERED: AMITRIPTYLINE 25MG TABLET PO SCH (21:00)
[2022-01-05] MEDS ORDERED: TAMSULOSIN 0.4 MG CAP PO SCH (21:00)
[2022-01-05 22:00] VITALS: BP 110/64
[2022-01-06] MEDS: LEVOTHYROXINE 100MCG TABLET (0.1MG) PO SCH (04:36)
[2022-01-06 05:47] LABS: HEMATOCRIT 26.8 % (42.0-52.0); HEMOGLOBIN 8.8 g/dl (13.5-17.5); MEAN CORPUSCULAR HEMOGLOBIN 32.7 pg (27.0-33.0); MEAN CORPUSCULAR HGB CONC 32.8 g/dl (32.0-36.5); MEAN CORPUSCULAR VOLUME 99.6 fl (80.0-96.0); PLATELET COUNT, AUTOMATED 331 10^3/uL (150-450); RED BLOOD COUNT 2.69 10^6/uL (4.30-6.10); WHITE BLOOD COUNT 10.2 10^3/uL (4.0-10.0)
[2022-01-06 06:00] VITALS: BP 122/69
[2022-01-06 06:15] LABS: CALCIUM LEVEL 8.1 MG/DL (8.8-10.2); CREATININE FOR GFR 1.46 MG/DL (0.70-1.30); GLOMERULAR FILTRATION RATE 50.5 (>42); POTASSIUM SERUM 3.9 MEQ/L (3.5-5.1)
[2022-01-06] MEDS ORDERED: QUEtiapine FUMARATE 25 MG TAB PO ONE (06:40)
[2022-01-06] MEDS: PREGABALIN 50 MG CAP (LYRICA) PO SCH ×2 (09:58→14:51)
[2022-01-06] MEDS: PRAMIPEXOLE 0.25 MG TAB PO SCH ×2 (09:58→14:52)
[2022-01-06] MEDS: ASPIRIN 81MG ENTERIC TABLET PO SCH (09:59)
[2022-01-06] MEDS: DIVALPROEX 250 MG TAB PO SCH (09:59)
[2022-01-06] MEDS: FOLIC ACID 1 MG TAB PO SCH (09:59)
[2022-01-06] MEDS: amLODIPine 5 MG TAB PO SCH (09:59)
[2022-01-06] MEDS: CLOPIDOGREL 75 MG TAB PO SCH (09:59)
[2022-01-06] MEDS: SENNA 8.6 MG TAB (SENOKOT) PO SCH (09:59)
[2022-01-06 10:00] VITALS: BP 122/69
[2022-01-06] MEDS: FINASTERIDE 5 MG TAB PO SCH (10:00)
[2022-01-06] MEDS: MIRALAX *UNIT DOSE* 17GM PACKET PO SCH (10:00)
[2022-01-06] MEDS: DOCUSATE SODIUM 100MG CAPSULE PO SCH (10:00)
[2022-01-06] MEDS: SINEMET 25-100 MG TAB PO SCH ×2 (10:00→14:51)
[2022-01-06] MEDS: CARVedilol 12.5 MG TAB PO SCH (10:00)
[2022-01-06] MEDS: ENTACAPONE 200MG TABLET (COMTAN) PO SCH ×2 (10:01→14:51)
[2022-01-06] MEDS: ACETAMINOPHEN TAB 650MG DOSE (2X325MG) PO PRN (11:41)
[2022-01-06 14:00] VITALS: BP 140/92
[2022-01-06] MEDS ORDERED: QUEtiapine FUMARATE 25 MG TAB PO SCH (21:00)
== END 2022-01-06 15:40 | disposition home or self-care (01) ==
LOC: EDBD 18:38 → M ED 18:38 → M ED INP 18:39 → M MS5PR 01-05 04:51
PROVIDERS: ADMIT Internal Medicine; ATTEND Family Medicine
DX: K59.00 Constipation, unspecified (principal); R19.7 Diarrhea, unspecified; I25.10 Atherosclerotic heart disease of native coronary artery without angina pectoris; D64.9 Anemia, unspecified; G20 Parkinson's disease; G31.83 Neurocognitive disorder with Lewy bodies; E11.9 Type 2 diabetes mellitus without complications; I12.9 Hypertensive chronic kidney disease with stage 1 through stage 4 chronic kidney disease, or unspecified chronic kidney disease; N17.9 Acute kidney failure, unspecified; N18.30 Chronic kidney disease, stage 3 unspecified; E78.2 Mixed hyperlipidemia; N40.0 Benign prostatic hyperplasia without lower urinary tract symptoms; E03.9 Hypothyroidism, unspecified; G40.909 Epilepsy, unspecified, not intractable, without status epilepticus; Z79.899 Other long term (current) drug therapy; I25.2 Old myocardial infarction; Z79.82 Long term (current) use of aspirin; Z79.02 Long term (current) use of antithrombotics/antiplatelets; Z87.891 Personal history of nicotine dependence
CPT/HCPCS: 36415; 74021; 80048; 82270; 85027; 87631; 92610; 93005; 96361; 96374; 99285; G0378

== ENCOUNTER → 2022-02-17 | Outpatient (CLI) | payer MEDICARE, OTHER ==
[~2022-02-17] MED LIST changes: +AMIT50TA PO; +NITR4TASL SL; +PATIENT COMMENT
== END ==
LOC: M RAD 12:14
PROVIDERS: ATTEND Family Medicine
DX: J20.9 Acute bronchitis, unspecified (principal)

== ENCOUNTER → 2022-03-10 | Outpatient (CLI) | payer MEDICARE, OTHER ==
[2022-03-10 16:28] LABS: HEMATOCRIT 34.1 % (42.0-52.0); MEAN CORPUSCULAR HEMOGLOBIN 33.4 pg (27.0-33.0); MEAN CORPUSCULAR HGB CONC 32.3 g/dl (32.0-36.5); MEAN CORPUSCULAR VOLUME 103.6 fl (80.0-96.0); PLATELET COUNT, AUTOMATED 251 10^3/uL (150-450); RED BLOOD COUNT 3.29 10^6/uL (4.30-6.10); WHITE BLOOD COUNT 9.5 10^3/uL (4.0-10.0)
[2022-03-10 16:44] LABS: INR 0.89; PROTHROMBIN TIME 12.4 SECONDS (12.7-14.5)
[2022-03-10 21:46] LABS: ALBUMIN 3.3 GM/DL (3.2-5.2); BILIRUBIN,TOTAL 0.5 MG/DL (0.2-1.0); CALCIUM LEVEL 9.1 MG/DL (8.8-10.2); CHOLESTEROL RISK RATIO 2.122 (<5); CREATININE FOR GFR 1.51 MG/DL (0.70-1.30); GLOMERULAR FILTRATION RATE 48.5 (>42); POTASSIUM SERUM 5.4 MEQ/L (3.5-5.1); PROSTATIC SPECIFIC AG MONITOR 0.52 NG/ML (< 4.00); THYROID STIMULATING HORMONE 1.33 uIU/ML (0.358-3.740); TOTAL PROTEIN 6.6 GM/DL (6.4-8.2)
[2022-03-10 22:23] LABS: HEMOGLOBIN A1c 5.7 %
== END ==
LOC: M LAB 15:50
PROVIDERS: ATTEND Family Medicine
DX: I10 Essential (primary) hypertension (principal); R97.20 Elevated prostate specific antigen [PSA]; Z79.01 Long term (current) use of anticoagulants

== ENCOUNTER 2022-12-23 13:38 | Emergency (ER) | payer MEDICARE, OTHER ==
[2022-12-23 14:28] LABS: BASO # 0.1 10^3/uL (0.0-0.2); BASO % 0.8 % (0.0-1.0); EOS # 0.7 10^3/uL (0.0-0.5); EOS % 5.8 % (0.0-3.0); HEMATOCRIT 27.8 % (42.0-52.0); HEMOGLOBIN 8.7 g/dl (13.5-17.5); LYMPH # 1.9 10^3/uL (1.5-5.0); LYMPH % 16.6 % (24.0-44.0); MEAN CORPUSCULAR HEMOGLOBIN 30.3 pg (27.0-33.0); MEAN CORPUSCULAR HGB CONC 31.3 g/dl (32.0-36.5); MEAN CORPUSCULAR VOLUME 96.9 fl (80.0-96.0); MONO # 0.6 10^3/uL (0.0-0.8); MONO % 5.6 % (2.0-8.0); NEUTROPHILS % 70.7 % (36.0-66.0); PLATELET COUNT, AUTOMATED 401 10^3/uL (150-450); RED BLOOD COUNT 2.87 10^6/uL (4.30-6.10); WHITE BLOOD COUNT 11.3 10^3/uL (4.0-10.0)
[2022-12-23 14:38] LABS: PROTHROMBIN TIME 13.4 SECONDS (12.5-14.5)
[2022-12-23 14:39] LABS: PARTIAL THROMBOPLASTIN TIME 25.2 SECONDS (24.8-34.2)
[2022-12-23 14:52] LABS: CK-MB VALUE MASS 3.5 NG/ML (<3.6)
[2022-12-23 14:53] LABS: LIPASE 25 U/L (12-53); VALPROIC ACID (DEPAKOTE) 6.6 UG/ML (50.0-100.0)
[2022-12-23 14:54] LABS: CPK CREATINE PHOSPHOKINASE 172 U/L (46-171); MB/CK RELATIVE INDEX 2.03 (< OR =4)
[2022-12-23 14:55] LABS: ALBUMIN 2.4 G/DL (3.2-5.2); ALKALINE PHOSPHATASE 87 U/L (46-116); ALT/SGPT 22 U/L (7.0-40); AST/SGOT 21 U/L (<34); BILIRUBIN,DIRECT < 0.1 MG/DL (<0.4); BILIRUBIN,TOTAL < 0.2 MG/DL (0.3-1.2); BLOOD UREA NITROGEN 23 MG/DL (9-23); CALCIUM LEVEL 8.4 MG/DL (8.3-10.6); CARBON DIOXIDE LEVEL 24 MMOL/L (20-31); CHLORIDE LEVEL 111 MMOL/L (98-107); CREATININE FOR GFR 1.64 MG/DL (0.70-1.30); GLOMERULAR FILTRATION RATE 44.1 (>42); GLUCOSE, FASTING 94 MG/DL (74-106); POTASSIUM SERUM 3.5 MMOL/L (3.5-5.1); SODIUM LEVEL 140 MMOL/L (136-145); TOTAL PROTEIN 5.5 G/DL (5.7-8.2)
[2022-12-23 14:56] LABS: FREE T4 1.08 NG/DL (0.89-1.76)
[2022-12-23] MEDS ORDERED: ISOVUE-370 76% 100ML VIAL As Ordered ONE (15:48)
[2022-12-23 16:16] LABS: CK-MB VALUE MASS 4.4 NG/ML (<3.6)
[2022-12-23 16:18] LABS: MB/CK RELATIVE INDEX 2.75 (< OR =4)
[2022-12-23 19:41] VITALS: BP 139/69
== END 2022-12-23 19:43 | disposition left against medical advice (07) ==
LOC: M ED 13:38
DX: D64.9 Anemia, unspecified (principal); R07.9 Chest pain, unspecified; Z53.9 Procedure and treatment not carried out, unspecified reason
CPT/HCPCS: 71045; 71275; 74177; 80048; 80076; 80164; 82550; 82553; 83690; 84439; 84443; 84484; 85025; 85610; 85730; 93005; 93041; 94760; 99285; Q9967

== ENCOUNTER 2023-01-07 21:26 | Emergency (ER) | payer MEDICARE, OTHER ==
[~2023-01-07] VITALS: Ht 182.9 cm; Wt 89.0 kg
[2023-01-07 22:17] LABS: VENOUS BASE EXCESS 0.3 (-2.0-2.0); VENOUS HCO3 26.4 MEQ/L (23.0-27.0); VENOUS O2 SATURATION 53.9 % (60.0-80.0); VENOUS PARTIAL PRESSURE CO2 50.1 mmHg (38.0-50.0)
[2023-01-07 22:20] LABS: BASO # 0.1 10^3/uL (0.0-0.2); BASO % 0.9 % (0.0-1.0); EOS # 1.1 10^3/uL (0.0-0.5); EOS % 8.6 % (0.0-3.0); HEMATOCRIT 28.8 % (42.0-52.0); LYMPH % 14.7 % (24.0-44.0); MEAN CORPUSCULAR HEMOGLOBIN 29.7 pg (27.0-33.0); MEAN CORPUSCULAR HGB CONC 31.3 g/dl (32.0-36.5); MONO # 0.8 10^3/uL (0.0-0.8); MONO % 6.3 % (2.0-8.0); NEUTROPHILS # 9.2 10^3/uL (1.5-8.5); NEUTROPHILS % 68.8 % (36.0-66.0); PLATELET COUNT, AUTOMATED 402 10^3/uL (150-450); RED BLOOD COUNT 3.03 10^6/uL (4.30-6.10); WHITE BLOOD COUNT 13.3 10^3/uL (4.0-10.0)
[2023-01-07 22:33] LABS: CK-MB VALUE MASS 2.3 NG/ML (<3.6)
[2023-01-07 22:35] LABS: CPK CREATINE PHOSPHOKINASE 55 U/L (46-171); MB/CK RELATIVE INDEX 4.18 (< OR =4)
[2023-01-07 22:36] LABS: ALBUMIN 2.3 G/DL (3.2-5.2); ALKALINE PHOSPHATASE 114 U/L (46-116); ALT/SGPT 11 U/L (7.0-40); AST/SGOT 16 U/L (<34); BILIRUBIN,DIRECT < 0.1 MG/DL (<0.4); BILIRUBIN,TOTAL < 0.2 MG/DL (0.3-1.2); BLOOD UREA NITROGEN 26 MG/DL (9-23); CALCIUM LEVEL 7.9 MG/DL (8.3-10.6); CARBON DIOXIDE LEVEL 30 MMOL/L (20-31); CHLORIDE LEVEL 105 MMOL/L (98-107); CREATININE FOR GFR 1.56 MG/DL (0.70-1.30); GLOMERULAR FILTRATION RATE 46.7 (>42); GLUCOSE, FASTING 115 MG/DL (74-106); POTASSIUM SERUM 3.4 MMOL/L (3.5-5.1); SODIUM LEVEL 140 MMOL/L (136-145); TOTAL PROTEIN 5.7 G/DL (5.7-8.2)
[2023-01-07 22:37] LABS: THYROID STIMULATING HORMONE 3.271 uIU/ML (0.55-4.78); THYROXINE (T4) 7.3 UG/DL (4.5-10.9)
[2023-01-07] MEDS ORDERED: ISOVUE-370 76% 100ML VIAL As Ordered ONE (22:49)
[2023-01-07 23:15] VITALS: BP 126/64
[2023-01-07] MEDS ORDERED: methylPREDNISolone 125MG 2ML VIAL IV ONE (23:50)
[2023-01-07] MEDS ORDERED: PRED10TA2 PO (23:54)
[2023-01-08] MEDS ORDERED: DULC10SU2 PR (19:51)
[2023-01-08] MEDS ORDERED: FURO40TA2 PO (20:28)
== END 2023-01-08 00:25 | disposition home or self-care (01) ==
LOC: M ED 21:26 → EDBD 21:26 → M ED 01-08 00:25
DX: J20.9 Acute bronchitis, unspecified (principal); E11.9 Type 2 diabetes mellitus without complications; N18.30 Chronic kidney disease, stage 3 unspecified; G20 Parkinson's disease; I25.10 Atherosclerotic heart disease of native coronary artery without angina pectoris; F17.200 Nicotine dependence, unspecified, uncomplicated; Z79.84 Long term (current) use of oral hypoglycemic drugs; Z79.82 Long term (current) use of aspirin; Z79.899 Other long term (current) drug therapy

== ENCOUNTER 2023-01-08 16:56 | Inpatient (IN) | payer MEDICARE, OTHER ==
[~2023-01-08] VITALS: Ht 182.9 cm; Wt 81.9 kg
[~2023-01-08 16:56] MED LIST changes: +PRED10TA2 PO
[2023-01-08] MEDS ORDERED: MORPHINE 2 MG/ML 1ML VIAL IV ONE ×3 (17:35→19:00)
[2023-01-08] MEDS ORDERED: ONDANSETRON 4MG 2ML VIAL IV ONE (17:35)
[2023-01-08] MEDS ORDERED: NS 1,000 ML IV ONE (17:40)
[2023-01-08] MEDS ORDERED: MORPHINE 2 MG/ML 1ML VIAL As Ordered ONE (17:58)
[2023-01-08 18:17] LABS: BASO # 0.1 10^3/uL (0.0-0.2); BASO % 0.6 % (0.0-1.0); EOS # 0.4 10^3/uL (0.0-0.5); EOS % 2.8 % (0.0-3.0); HEMATOCRIT 23.8 % (42.0-52.0); HEMOGLOBIN 7.5 g/dl (13.5-17.5); LYMPH # 2.4 10^3/uL (1.5-5.0); LYMPH % 18.7 % (24.0-44.0); MEAN CORPUSCULAR HEMOGLOBIN 29.6 pg (27.0-33.0); MEAN CORPUSCULAR HGB CONC 31.5 g/dl (32.0-36.5); MEAN CORPUSCULAR VOLUME 94.1 fl (80.0-96.0); MONO # 0.7 10^3/uL (0.0-0.8); MONO % 5.6 % (2.0-8.0); NEUTROPHILS # 9.3 10^3/uL (1.5-8.5); NEUTROPHILS % 71.8 % (36.0-66.0); PLATELET COUNT, AUTOMATED 356 10^3/uL (150-450); RED BLOOD COUNT 2.53 10^6/uL (4.30-6.10); WHITE BLOOD COUNT 12.9 10^3/uL (4.0-10.0)
[2023-01-08] MEDS ORDERED: MAG SULF 1GM/100ML (MAG RUN) 1 GM in IV 1 EA IV ONE (18:30)
[2023-01-08] MEDS ORDERED: POLYSPORIN TOPICAL OINTMENT 15GM TOP ONE (18:40)
[2023-01-08 18:42] LABS: LIPASE 21 U/L (12-53)
[2023-01-08 18:45] LABS: RSV AMPLIFICATION NEGATIVE (NEGATIVE)
[2023-01-08 18:49] LABS: ALBUMIN 2.1 G/DL (3.2-5.2); ALKALINE PHOSPHATASE 102 U/L (46-116); ALT/SGPT 25 U/L (7.0-40); AST/SGOT 29 U/L (<34); BILIRUBIN,DIRECT < 0.1 MG/DL (<0.4); BILIRUBIN,TOTAL < 0.2 MG/DL (0.3-1.2); BLOOD UREA NITROGEN 22 MG/DL (9-23); CALCIUM LEVEL 7.6 MG/DL (8.3-10.6); CARBON DIOXIDE LEVEL 25 MMOL/L (20-31); CHLORIDE LEVEL 107 MMOL/L (98-107); CREATININE FOR GFR 1.36 MG/DL (0.70-1.30); GLOMERULAR FILTRATION RATE 54.7 (>42); GLUCOSE, FASTING 104 MG/DL (74-106); POTASSIUM SERUM 4.1 MMOL/L (3.5-5.1); SODIUM LEVEL 138 MMOL/L (136-145); TOTAL PROTEIN 5.2 G/DL (5.7-8.2)
[2023-01-08] MEDS ORDERED: DULC10SU2 PR (19:51)
[2023-01-08] MEDS ORDERED: FLEET ENEMA PR ONE (19:55)
[2023-01-08] MEDS ORDERED: FURO40TA2 PO (20:28)
[2023-01-08] MEDS ORDERED: HOME MED LIST COMPLETE! XX SCH (20:30)
[2023-01-08] MEDS ORDERED: FIDAXOMICIN 200 MG TAB (DIFICID) PO SCH (21:00)
[2023-01-08] MEDS ORDERED: GLUCAGON INJ 1MG VIAL SC PRN (21:15)
[2023-01-08] MEDS ORDERED: GLUCOSE 4GM CHEW TABLET PO PRN (21:15)
[2023-01-08] MEDS ORDERED: DEXTROSE 50% 50ML SYRINGE IV PRN (21:15)
[2023-01-08] MEDS ORDERED: BISACODYL 10MG SUPP PR ONE (21:40)
[2023-01-08 21:49] LABS: IRON (FE) 17 UG/DL (65-175); PERCENT SATURATION 7.4 % (19.7-50.0); TOTAL IRON BINDING CAPACITY 230 UG/DL (250-425)
[2023-01-08 21:52] LABS: FERRITIN 6.1 NG/ML (10.5-307.3); VITAMIN B12 LEVEL 1099 PG/ML (211-911)
[2023-01-08 22:13] LABS: FOLATE 17.45 NG/ML (>5.4)
[2023-01-08 22:15] VITALS: BP 162/89
[2023-01-08] MEDS ORDERED: PILL CUTTER 1 EACH XX PRN (22:20)
[2023-01-08] MEDS: ACETAMINOPHEN TAB 650MG DOSE (2X325MG) PO PRN (22:27)
[2023-01-09] VITALS (10 sets, daily range): BP systolic 70–149; BP diastolic 44–82
[2023-01-09] MEDS: D5W/0.45% SODIUM CHLORIDE 1,000 ML IV SCH ×2 (01:40→10:22)
[2023-01-09] MEDS ORDERED: NYSTATIN 100,000 UNITS/GM TOPICAL PWD 15GM TOP PRN (02:25)
[2023-01-09] MEDS ORDERED: ACETAMINOPHEN 1000MG 100ML IV BAG IV ONE (04:00)
[2023-01-09] MEDS ORDERED: IRON SUCROSE 100MG 5ML VIAL IV ONE (04:00)
[2023-01-09] MEDS ORDERED: SODIUM CHLORIDE NASAL 0.65% SPRAY BTL (OCEAN) PRN (04:10)
[2023-01-09] MEDS: LEVOTHYROXINE 100MCG TABLET (0.1MG) PO SCH (05:24)
[2023-01-09 06:39] LABS: HEMATOCRIT 25.9 % (42.0-52.0); HEMOGLOBIN 8.2 g/dl (13.5-17.5); MEAN CORPUSCULAR HEMOGLOBIN 29.7 pg (27.0-33.0); MEAN CORPUSCULAR HGB CONC 31.7 g/dl (32.0-36.5); MEAN CORPUSCULAR VOLUME 93.8 fl (80.0-96.0); PLATELET COUNT, AUTOMATED 377 10^3/uL (150-450); RED BLOOD COUNT 2.76 10^6/uL (4.30-6.10); WHITE BLOOD COUNT 11.5 10^3/uL (4.0-10.0)
[2023-01-09 07:08] LABS: BLOOD UREA NITROGEN 17 MG/DL (9-23); CALCIUM LEVEL 7.1 MG/DL (8.3-10.6); CARBON DIOXIDE LEVEL 23 MMOL/L (20-31); CHLORIDE LEVEL 110 MMOL/L (98-107); CREATININE FOR GFR 1.19 MG/DL (0.70-1.30); GLOMERULAR FILTRATION RATE > 60.0 (>42); GLUCOSE, FASTING 113 MG/DL (74-106); MAGNESIUM LEVEL 1.8 MG/DL (1.8-2.4); POTASSIUM SERUM 4.5 MMOL/L (3.5-5.1); SODIUM LEVEL 139 MMOL/L (136-145)
[2023-01-09] MEDS: INSULIN LISPRO (NovoLOG) PER UNIT SC SCH ×4 (07:30→21:00)
[2023-01-09] MEDS ORDERED: ASPIRIN 81MG ENTERIC TABLET PO SCH (09:00)
[2023-01-09] MEDS ORDERED: SENNA 8.6 MG TAB (SENOKOT) PO SCH (09:00)
[2023-01-09] MEDS ORDERED: FIDAXOMICIN 200 MG TAB (DIFICID) PO SCH (09:00)
[2023-01-09] MEDS ORDERED: BISACODYL 10MG SUPP PR SCH (09:00)
[2023-01-09] MEDS ORDERED: DOCUSATE SODIUM 100MG CAPSULE PO SCH (09:00)
[2023-01-09] MEDS ORDERED: MIRALAX *UNIT DOSE* 17GM PACKET PO SCH (09:00)
[2023-01-09] MEDS: PRAMIPEXOLE 0.25 MG TAB PO SCH ×3 (09:00→22:42)
[2023-01-09] MEDS: PANTOPRAZOLE 40MG VIAL IV SCH (10:21)
[2023-01-09] MEDS: FUROSEMIDE 40 MG TAB PO SCH (10:23)
[2023-01-09] MEDS: DIVALPROEX 250MG TAB PO SCH ×2 (10:23→22:41)
[2023-01-09] MEDS: ACYCLOVIR 200 MG CAPSULE PO SCH ×3 (10:23→22:42)
[2023-01-09] MEDS: FINASTERIDE 5MG TAB PO SCH (10:23)
[2023-01-09] MEDS: ENTACAPONE 200MG TABLET (COMTAN) PO SCH ×3 (10:24→22:41)
[2023-01-09] MEDS: QUEtiapine FUMARATE 25 MG TAB PO SCH ×2 (10:24→22:42)
[2023-01-09] MEDS: FOLIC ACID 1MG TAB PO SCH (10:24)
[2023-01-09] MEDS: CARVedilol 12.5 MG TAB PO SCH ×2 (10:24→22:08)
[2023-01-09] MEDS: SINEMET 25-100 MG TAB PO SCH ×3 (10:25→22:42)
[2023-01-09] MEDS: PREGABALIN 50 MG CAP (LYRICA) PO SCH ×3 (10:25→22:41)
[2023-01-09] MEDS: FLEET ENEMA PR SCH ×2 (12:02→22:42)
[2023-01-09] MEDS: MUPIROCIN 2% OINT 22 GM TUBE TOP SCH ×2 (12:02→22:25)
[2023-01-09] MEDS ORDERED: PANTOPRAZOLE 40MG TAB (PROTONIX) PO SCH (21:00)
[2023-01-09] MEDS ORDERED: D5W/0.45% SODIUM CHLORIDE 1,000 ML IV SCH (21:30)
[2023-01-09] MEDS ORDERED: NS 1,000 ML IV ONE (22:15)
[2023-01-09 22:34] LABS: VENOUS BASE EXCESS -2.9 (-2.0-2.0); VENOUS HCO3 20.8 MEQ/L (23.0-27.0); VENOUS O2 SATURATION 99.2 % (60.0-80.0); VENOUS PARTIAL PRESSURE CO2 32.1 mmHg (38.0-50.0); VENOUS PARTIAL PRESSURE O2 197.2 mmHg (30.0-50.0); VENOUS TOTAL CO2 21.8 MEQ/L (24.0-28.0)
[2023-01-09 22:38] LABS: HEMATOCRIT 25.6 % (42.0-52.0); HEMOGLOBIN 8.1 g/dl (13.5-17.5)
[2023-01-09] MEDS: traZODone 100 MG TAB PO SCH (22:41)
[2023-01-09] MEDS: ATORVASTATIN 20 MG TAB PO SCH (22:41)
[2023-01-09] MEDS: TAMSULOSIN 0.4 MG CAP PO SCH (22:41)
[2023-01-09 23:03] LABS: BLOOD UREA NITROGEN 13 MG/DL (9-23); CALCIUM LEVEL 7.2 MG/DL (8.3-10.6); CARBON DIOXIDE LEVEL 23 MMOL/L (20-31); CHLORIDE LEVEL 108 MMOL/L (98-107); CREATININE FOR GFR 1.09 MG/DL (0.70-1.30); GLOMERULAR FILTRATION RATE > 60.0 (>42); GLUCOSE, FASTING 92 MG/DL (74-106); POTASSIUM SERUM 2.7 MMOL/L (3.5-5.1); SODIUM LEVEL 140 MMOL/L (136-145)
[2023-01-09] MEDS ORDERED: KCL 10MEQ IN D5/0.45NS 1000ML 1,000 ML IV SCH (23:10)
[2023-01-09] MEDS ORDERED: NS 500 ML IV ONE (23:10)
[2023-01-10] MEDS: KCL 10MEQ/100ML SWI (KRUN) 10 MEQ in IV 1 EA IV SCH ×5 (00:08→04:49)
[2023-01-10 05:12] LABS: HEMOGLOBIN A1c 5.6 % (4.0-6.0)
[2023-01-10] MEDS: LEVOTHYROXINE 100MCG TABLET (0.1MG) PO SCH (05:59)
[2023-01-10 06:00] VITALS: BP 128/77
[2023-01-10 06:53] LABS: BASO # 0.1 10^3/uL (0.0-0.2); BASO % 0.5 % (0.0-1.0); EOS # 0.4 10^3/uL (0.0-0.5); EOS % 3.5 % (0.0-3.0); HEMATOCRIT 27.2 % (42.0-52.0); HEMOGLOBIN 8.6 g/dl (13.5-17.5); LYMPH # 2.9 10^3/uL (1.5-5.0); LYMPH % 26.1 % (24.0-44.0); MEAN CORPUSCULAR HEMOGLOBIN 29.8 pg (27.0-33.0); MEAN CORPUSCULAR HGB CONC 31.6 g/dl (32.0-36.5); MEAN CORPUSCULAR VOLUME 94.1 fl (80.0-96.0); MONO # 0.8 10^3/uL (0.0-0.8); MONO % 7.1 % (2.0-8.0); NEUTROPHILS # 6.9 10^3/uL (1.5-8.5); NEUTROPHILS % 62.3 % (36.0-66.0); PLATELET COUNT, AUTOMATED 394 10^3/uL (150-450); RED BLOOD COUNT 2.89 10^6/uL (4.30-6.10)
[2023-01-10 07:24] LABS: BLOOD UREA NITROGEN 10 MG/DL (9-23); CALCIUM LEVEL 6.9 MG/DL (8.3-10.6); CARBON DIOXIDE LEVEL 22 MMOL/L (20-31); CHLORIDE LEVEL 110 MMOL/L (98-107); CREATININE FOR GFR 1.02 MG/DL (0.70-1.30); GLOMERULAR FILTRATION RATE > 60.0 (>42); GLUCOSE, FASTING 95 MG/DL (74-106); POTASSIUM SERUM 5.2 MMOL/L (3.5-5.1); SODIUM LEVEL 138 MMOL/L (136-145)
[2023-01-10] MEDS: INSULIN LISPRO (NovoLOG) PER UNIT SC SCH ×4 (07:30→21:00)
[2023-01-10 09:00] VITALS: BP_SYST 148; BP_SYST 150; BP_DIAS 84; BP_DIAS 86
[2023-01-10] MEDS: FLEET ENEMA PR SCH ×2 (09:00→22:59)
[2023-01-10] MEDS: DIVALPROEX 250MG TAB PO SCH ×2 (09:31→22:57)
[2023-01-10] MEDS: SINEMET 25-100 MG TAB PO SCH ×3 (09:31→22:58)
[2023-01-10] MEDS: ENTACAPONE 200MG TABLET (COMTAN) PO SCH ×3 (09:32→22:58)
[2023-01-10] MEDS: PANTOPRAZOLE 40MG VIAL IV SCH (09:32)
[2023-01-10] MEDS: FUROSEMIDE 40 MG TAB PO SCH (09:33)
[2023-01-10] MEDS: PRAMIPEXOLE 0.25 MG TAB PO SCH ×3 (09:33→22:57)
[2023-01-10] MEDS: FOLIC ACID 1MG TAB PO SCH (09:33)
[2023-01-10] MEDS: ACYCLOVIR 200 MG CAPSULE PO SCH ×3 (09:33→22:57)
[2023-01-10] MEDS: FINASTERIDE 5MG TAB PO SCH (09:33)
[2023-01-10] MEDS: QUEtiapine FUMARATE 25 MG TAB PO SCH ×2 (09:33→22:58)
[2023-01-10] MEDS: CARVedilol 12.5 MG TAB PO SCH ×2 (09:34→22:59)
[2023-01-10] MEDS: PREGABALIN 50 MG CAP (LYRICA) PO SCH ×3 (09:37→22:58)
[2023-01-10] MEDS: ACETAMINOPHEN TAB 650MG DOSE (2X325MG) PO PRN (11:09)
[2023-01-10] MEDS: MUPIROCIN 2% OINT 22 GM TUBE TOP SCH ×2 (12:23→22:59)
[2023-01-10] MEDS: ENOXAPARIN 40MG/0.4ML SYRINGE (J1650 PER 10MG) SC SCH (12:23)
[2023-01-10 14:00] VITALS: BP 119/74
[2023-01-10 19:51] VITALS: BP 136/73
[2023-01-10 22:56] VITALS: BP 131/73
[2023-01-10] MEDS: TAMSULOSIN 0.4 MG CAP PO SCH (22:57)
[2023-01-10] MEDS: traZODone 100 MG TAB PO SCH (22:58)
[2023-01-10] MEDS: ATORVASTATIN 20 MG TAB PO SCH (22:58)
[2023-01-11] MEDS: ACETAMINOPHEN TAB 650MG DOSE (2X325MG) PO PRN ×2 (02:25→11:21)
[2023-01-11 06:00] VITALS: BP 128/74
[2023-01-11] MEDS: LEVOTHYROXINE 100MCG TABLET (0.1MG) PO SCH (06:47)
[2023-01-11] MEDS: INSULIN LISPRO (NovoLOG) PER UNIT SC SCH ×2 (07:30→12:00)
[2023-01-11 08:00] VITALS: BP 130/79
[2023-01-11] MEDS: ENOXAPARIN 40MG/0.4ML SYRINGE (J1650 PER 10MG) SC SCH (09:11)
[2023-01-11] MEDS: PANTOPRAZOLE 40MG VIAL IV SCH (09:11)
[2023-01-11] MEDS: PREGABALIN 50 MG CAP (LYRICA) PO SCH (09:12)
[2023-01-11] MEDS: ENTACAPONE 200MG TABLET (COMTAN) PO SCH (09:12)
[2023-01-11] MEDS: PRAMIPEXOLE 0.25 MG TAB PO SCH (09:12)
[2023-01-11] MEDS: DIVALPROEX 250MG TAB PO SCH (09:13)
[2023-01-11] MEDS: FUROSEMIDE 40 MG TAB PO SCH (09:14)
[2023-01-11] MEDS: SINEMET 25-100 MG TAB PO SCH (09:15)
[2023-01-11] MEDS: ACYCLOVIR 200 MG CAPSULE PO SCH (09:15)
[2023-01-11] MEDS: FOLIC ACID 1MG TAB PO SCH (09:15)
[2023-01-11] MEDS: FINASTERIDE 5MG TAB PO SCH (09:16)
[2023-01-11] MEDS: QUEtiapine FUMARATE 25 MG TAB PO SCH (09:16)
[2023-01-11 09:17] VITALS: BP 120/74
[2023-01-11] MEDS: CARVedilol 12.5 MG TAB PO SCH (09:17)
[2023-01-11] MEDS: FLEET ENEMA PR SCH (09:18)
[2023-01-11] MEDS: MUPIROCIN 2% OINT 22 GM TUBE TOP SCH (09:18)
[2023-01-11] MEDS ORDERED: VARIBAR NECTAR 40% w/v 240ML SUSP BTL As Ordered ONE (11:44)
[2023-01-11] MEDS ORDERED: VARIBAR PUDDING 40% w/v 230ML TUBE As Ordered ONE (11:44)
[2023-01-11] MEDS ORDERED: BARIUM SULFATE 700 MG TABLET (E-Z-DISK) As Ordered ONE (11:45)
[2023-01-11] MEDS ORDERED: E-Z-PAQUE 96% w/w SUSP 176GM BTL As Ordered ONE (11:45)
[2023-01-11] MEDS ORDERED: META28PO PO (13:11)
[2023-01-11] MEDS ORDERED: MUPI2OI TOP (13:11)
[2023-01-11 14:00] VITALS: BP 109/71
== END 2023-01-11 15:55 | disposition home health service (06) | DRG 392 ==
LOC: M ED 16:56 → EDBD 16:56 → M ED INP 21:11 → M MSPAV 22:11 → OBSVTOIN 01-09 10:05
PROVIDERS: ADMIT Internal Medicine; ATTEND Internal Medicine
DX: K59.09 Other constipation (principal); E11.22 Type 2 diabetes mellitus with diabetic chronic kidney disease; E11.42 Type 2 diabetes mellitus with diabetic polyneuropathy; E11.649 Type 2 diabetes mellitus with hypoglycemia without coma; I25.10 Atherosclerotic heart disease of native coronary artery without angina pectoris; F41.8 Other specified anxiety disorders; G20 Parkinson's disease; R13.10 Dysphagia, unspecified; I25.2 Old myocardial infarction; F03.90 Unspecified dementia, unspecified severity, without behavioral disturbance, psychotic disturbance, mood disturbance, and anxiety; G40.909 Epilepsy, unspecified, not intractable, without status epilepticus; I12.9 Hypertensive chronic kidney disease with stage 1 through stage 4 chronic kidney disease, or unspecified chronic kidney disease; D64.9 Anemia, unspecified; K21.9 Gastro-esophageal reflux disease without esophagitis; E78.5 Hyperlipidemia, unspecified; N18.9 Chronic kidney disease, unspecified; N40.0 Benign prostatic hyperplasia without lower urinary tract symptoms; M10.9 Gout, unspecified; E03.9 Hypothyroidism, unspecified; Z90.49 Acquired absence of other specified parts of digestive tract; Z79.82 Long term (current) use of aspirin; Z79.899 Other long term (current) drug therapy; Z79.84 Long term (current) use of oral hypoglycemic drugs; Z79.890 Hormone replacement therapy; Z20.822 Contact with and (suspected) exposure to COVID-19

== ENCOUNTER 2023-01-26 03:54 | Inpatient (IN) | payer MEDICARE, OTHER ==
[~2023-01-26] VITALS: Ht 182.9 cm; Wt 82.4 kg
[~2023-01-26 03:54] MED LIST changes: +DULC10SU2 PR; +FURO40TA2 PO; +META28PO PO; +MUPI2OI TOP
[2023-01-26] MEDS ORDERED: NS 1,000 ML IV ONE (04:00)
[2023-01-26 04:44] LABS: BASO # 0.1 10^3/uL (0.0-0.2); BASO % 0.4 % (0.0-1.0); EOS # 0.3 10^3/uL (0.0-0.5); EOS % 2.3 % (0.0-3.0); HEMATOCRIT 27.8 % (42.0-52.0); HEMOGLOBIN 8.8 g/dl (13.5-17.5); LYMPH # 2.1 10^3/uL (1.5-5.0); LYMPH % 15.1 % (24.0-44.0); MEAN CORPUSCULAR HEMOGLOBIN 29.6 pg (27.0-33.0); MEAN CORPUSCULAR HGB CONC 31.7 g/dl (32.0-36.5); MEAN CORPUSCULAR VOLUME 93.6 fl (80.0-96.0); MONO # 1.2 10^3/uL (0.0-0.8); MONO % 8.6 % (2.0-8.0); NEUTROPHILS # 10.1 10^3/uL (1.5-8.5); NEUTROPHILS % 72.7 % (36.0-66.0); PLATELET COUNT, AUTOMATED 363 10^3/uL (150-450); RED BLOOD COUNT 2.97 10^6/uL (4.30-6.10); WHITE BLOOD COUNT 13.9 10^3/uL (4.0-10.0)
[2023-01-26 05:08] LABS: ETHYL ALCOHOL (ETHANOL) < 0.003 % (0.000-0.010)
[2023-01-26 05:10] LABS: ALBUMIN 2.2 G/DL (3.2-5.2); ALKALINE PHOSPHATASE 95 U/L (46-116); ALT/SGPT 9 U/L (7.0-40); AST/SGOT 23 U/L (<34); BILIRUBIN,DIRECT < 0.1 MG/DL (<0.4); BILIRUBIN,TOTAL < 0.2 MG/DL (0.3-1.2); BLOOD UREA NITROGEN 42 MG/DL (9-23); CALCIUM LEVEL 8.6 MG/DL (8.3-10.6); CARBON DIOXIDE LEVEL 22 MMOL/L (20-31); CHLORIDE LEVEL 112 MMOL/L (98-107); CPK CREATINE PHOSPHOKINASE 187 U/L (46-171); CREATININE FOR GFR 2.36 MG/DL (0.70-1.30); GLOMERULAR FILTRATION RATE 28.9 (>42); GLUCOSE, FASTING 88 MG/DL (74-106); MB/CK RELATIVE INDEX 3.74 (< OR =4); POTASSIUM SERUM 3.2 MMOL/L (3.5-5.1); SALICYLATE LEVEL < 3.0 MG/DL (<30); SODIUM LEVEL 143 MMOL/L (136-145); TOTAL PROTEIN 5.3 G/DL (5.7-8.2)
[2023-01-26 05:12] LABS: THYROID STIMULATING HORMONE 0.771 uIU/ML (0.55-4.78)
[2023-01-26] MEDS ORDERED: BACITRACIN OINTMENT 30GM TUBE TOP ONE (05:25)
[2023-01-26] MEDS ORDERED: NEOSPORIN OINT 0.9 GM PKT TOP ONE (05:30)
[2023-01-26 06:07] LABS: AMPHETAMINES LEVEL URINE NEGATIVE (NEGATIVE); BARBITURATES URINE NEGATIVE (NEGATIVE); BENZODIAZEPINES URINE NEGATIVE (NEGATIVE); CANNABINOIDS URINE NEGATIVE (NEGATIVE); COCAINE METABOLITE URINE NEGATIVE (NEGATIVE); METHADONE URINE NEGATIVE (NEGATIVE); PHENCYCLIDINE URINE NEGATIVE (NEGATIVE)
[2023-01-26 06:08] LABS: OPIATES URINE POSITIVE (NEGATIVE)
[2023-01-26 06:53] LABS: RSV AMPLIFICATION NEGATIVE (NEGATIVE)
[2023-01-26] MEDS ORDERED: fentaNYL 100 MCG/2 ML INJECTION IV ONE (07:40)
[2023-01-26] MEDS ORDERED: ONDANSETRON 4MG 2ML VIAL IV ONE (07:40)
[2023-01-26] MEDS ORDERED: SALI0.6530 NARES (08:29)
[2023-01-26] MEDS ORDERED: MUPI2OI EXT (08:29)
[2023-01-26] MEDS ORDERED: ACET300T48 PO (08:29)
[2023-01-26] MEDS ORDERED: META0.52 PO (08:29)
[2023-01-26] MEDS ORDERED: ACET325C5 PO (08:29)
[2023-01-26] MEDS ORDERED: HOME MED LIST COMPLETE! XX SCH (08:30)
[2023-01-26] MEDS ORDERED: POTASSIUM CHLORIDE 10% LIQ 20MEQ/15ML UDC PO ONE (08:55)
[2023-01-26 11:02] VITALS: BP 120/82
[2023-01-26] MEDS: PRAMIPEXOLE 0.25 MG TAB PO SCH ×3 (12:17→18:07)
[2023-01-26] MEDS: SINEMET 25-100 MG TAB PO SCH ×3 (12:18→18:07)
[2023-01-26] MEDS: FINASTERIDE 5MG TAB PO SCH (12:28)
[2023-01-26] MEDS: QUEtiapine FUMARATE 25 MG TAB PO SCH ×2 (12:28→20:30)
[2023-01-26] MEDS: SENNA 8.6 MG TAB (SENOKOT) PO SCH (12:28)
[2023-01-26] MEDS: FOLIC ACID 1MG TAB PO SCH (12:28)
[2023-01-26] MEDS: DOCUSATE SODIUM 100MG CAPSULE PO SCH (12:28)
[2023-01-26] MEDS: MULTIVITAMINS/MINERALS THERAP 1 TAB PO SCH (12:28)
[2023-01-26] MEDS: ASPIRIN 81MG ENTERIC TABLET PO SCH (12:28)
[2023-01-26] MEDS: DIVALPROEX 250MG TAB PO SCH ×2 (12:28→20:29)
[2023-01-26] MEDS: PREGABALIN 50 MG CAP (LYRICA) PO SCH ×3 (12:29→20:29)
[2023-01-26] MEDS: ENTACAPONE 200MG TABLET (COMTAN) PO SCH ×3 (12:29→18:07)
[2023-01-26] MEDS: ACYCLOVIR 200 MG CAPSULE PO SCH ×3 (12:29→20:29)
[2023-01-26] MEDS: METAMUCIL (PSYLLIUM) PACKET PO SCH (12:30)
[2023-01-26] MEDS: CARVedilol 12.5 MG TAB PO SCH ×2 (12:34→20:29)
[2023-01-26] MEDS: NS 1,000 ML IV SCH ×2 (12:45→22:46)
[2023-01-26 14:00] VITALS: BP 125/71
[2023-01-26] MEDS: HEPARIN SOD (PORCINE) 5000UNITS/ML 1ML VIAL/SYRINGE SC SCH ×2 (14:20→22:46)
[2023-01-26] MEDS: LEVOTHYROXINE 100MCG TABLET (0.1MG) PO SCH (14:45)
[2023-01-26] MEDS: ACETAMINOPH W/CODEINE #3 TAB UD PO PRN (16:09)
[2023-01-26 20:00] VITALS: BP 107/62
[2023-01-26 20:10] VITALS: BP_SYST 107; BP_SYST 112; BP_SYST 118; BP_DIAS 62; BP_DIAS 65; BP_DIAS 68
[2023-01-26] MEDS: traZODone 100 MG TAB PO SCH (20:29)
[2023-01-26] MEDS: PANTOPRAZOLE 40MG TAB (PROTONIX) PO SCH (20:29)
[2023-01-26] MEDS: ATORVASTATIN 20 MG TAB PO SCH (20:29)
[2023-01-26] MEDS: TAMSULOSIN 0.4 MG CAP PO SCH (20:30)
[2023-01-26] MEDS ORDERED: DICYCLOMINE 10 MG CAP PO PRN (21:10)
[2023-01-26] MEDS ORDERED: SENOKOT S TAB PO PRN (21:10)
[2023-01-26] MEDS ORDERED: guaiFENesin SYRUP 200MG 10ML UDC PO PRN (21:10)
[2023-01-26] MEDS ORDERED: ONDANSETRON 4MG 2ML VIAL IV PRN (21:10)
[2023-01-26] MEDS ORDERED: NORCO, ANEXSIA 5/325MG TABLET (HYDROcodone/ACETAMINOPHEN) PO PRN (21:10)
[2023-01-27] VITALS (10 sets, daily range): BP systolic 105–126; BP diastolic 61–68
[2023-01-27] MEDS: LEVOTHYROXINE 100MCG TABLET (0.1MG) PO SCH (06:30)
[2023-01-27] MEDS: HEPARIN SOD (PORCINE) 5000UNITS/ML 1ML VIAL/SYRINGE SC SCH ×3 (06:30→21:05)
[2023-01-27 06:43] LABS: HEMATOCRIT 23.4 % (42.0-52.0); HEMOGLOBIN 7.3 g/dl (13.5-17.5); MEAN CORPUSCULAR HEMOGLOBIN 29.7 pg (27.0-33.0); MEAN CORPUSCULAR HGB CONC 31.2 g/dl (32.0-36.5); MEAN CORPUSCULAR VOLUME 95.1 fl (80.0-96.0); PLATELET COUNT, AUTOMATED 282 10^3/uL (150-450); RED BLOOD COUNT 2.46 10^6/uL (4.30-6.10); WHITE BLOOD COUNT 10.9 10^3/uL (4.0-10.0)
[2023-01-27 07:10] LABS: CALCIUM LEVEL 7.4 MG/DL (8.3-10.6); CREATININE FOR GFR 1.45 MG/DL (0.70-1.30); GLOMERULAR FILTRATION RATE 50.6 (>42); POTASSIUM SERUM 3.7 MMOL/L (3.5-5.1)
[2023-01-27] MEDS: METAMUCIL (PSYLLIUM) PACKET PO SCH (09:00)
[2023-01-27] MEDS: DIVALPROEX 250MG TAB PO SCH ×2 (09:52→21:04)
[2023-01-27] MEDS: MULTIVITAMINS/MINERALS THERAP 1 TAB PO SCH (09:52)
[2023-01-27] MEDS: SINEMET 25-100 MG TAB PO SCH ×3 (09:52→17:53)
[2023-01-27] MEDS: QUEtiapine FUMARATE 25 MG TAB PO SCH ×2 (09:52→21:05)
[2023-01-27] MEDS: SENNA 8.6 MG TAB (SENOKOT) PO SCH (09:52)
[2023-01-27] MEDS: PREGABALIN 50 MG CAP (LYRICA) PO SCH ×3 (09:52→21:07)
[2023-01-27] MEDS: ACYCLOVIR 200 MG CAPSULE PO SCH ×3 (09:52→20:59)
[2023-01-27] MEDS: ASPIRIN 81MG ENTERIC TABLET PO SCH (09:52)
[2023-01-27] MEDS: FOLIC ACID 1MG TAB PO SCH (09:52)
[2023-01-27] MEDS: PRAMIPEXOLE 0.25 MG TAB PO SCH ×3 (09:53→17:53)
[2023-01-27] MEDS: CARVedilol 12.5 MG TAB PO SCH ×2 (09:53→21:05)
[2023-01-27] MEDS: ENTACAPONE 200MG TABLET (COMTAN) PO SCH ×3 (09:53→17:53)
[2023-01-27] MEDS: FINASTERIDE 5MG TAB PO SCH (09:53)
[2023-01-27] MEDS: DOCUSATE SODIUM 100MG CAPSULE PO SCH (09:53)
[2023-01-27] MEDS: AUGMENTIN 875 MG TAB PO SCH ×2 (12:13→20:59)
[2023-01-27] MEDS ORDERED: GLUCOSE 4GM CHEW TABLET PO PRN (16:05)
[2023-01-27] MEDS ORDERED: GLUCAGON INJ 1MG VIAL SC PRN (16:05)
[2023-01-27] MEDS ORDERED: DEXTROSE 50% 50ML SYRINGE IV PRN (16:05)
[2023-01-27] MEDS: INSULIN LISPRO (NovoLOG) PER UNIT SC SCH (17:54)
[2023-01-27] MEDS: ATORVASTATIN 20 MG TAB PO SCH (20:59)
[2023-01-27] MEDS ORDERED: INSULIN LISPRO (NovoLOG) PER UNIT SC SCH (21:00)
[2023-01-27] MEDS: traZODone 100 MG TAB PO SCH (21:04)
[2023-01-27] MEDS: PANTOPRAZOLE 40MG TAB (PROTONIX) PO SCH (21:04)
[2023-01-27] MEDS: ACETAMINOPH W/CODEINE #3 TAB UD PO PRN (21:04)
[2023-01-27] MEDS: TAMSULOSIN 0.4 MG CAP PO SCH (21:05)
[2023-01-27 22:15] LABS: HEMATOCRIT 26.7 % (42.0-52.0); HEMOGLOBIN 8.5 g/dl (13.5-17.5)
[2023-01-28] MEDS: LEVOTHYROXINE 100MCG TABLET (0.1MG) PO SCH (05:27)
[2023-01-28] MEDS: HEPARIN SOD (PORCINE) 5000UNITS/ML 1ML VIAL/SYRINGE SC SCH ×2 (05:27→14:38)
[2023-01-28 05:30] VITALS: BP 130/68
[2023-01-28 06:00] VITALS: BP 130/68
[2023-01-28 06:14] LABS: HEMATOCRIT 29.2 % (42.0-52.0); HEMOGLOBIN 9.2 g/dl (13.5-17.5); MEAN CORPUSCULAR HGB CONC 31.5 g/dl (32.0-36.5); MEAN CORPUSCULAR VOLUME 85.6 fl (80.0-96.0); PLATELET COUNT, AUTOMATED 254 10^3/uL (150-450); RED BLOOD COUNT 3.41 10^6/uL (4.30-6.10)
[2023-01-28 06:47] LABS: BLOOD UREA NITROGEN 11 MG/DL (9-23); CALCIUM LEVEL 7.6 MG/DL (8.3-10.6); CARBON DIOXIDE LEVEL 22 MMOL/L (20-31); CHLORIDE LEVEL 115 MMOL/L (98-107); CREATININE FOR GFR 1.05 MG/DL (0.70-1.30); GLOMERULAR FILTRATION RATE > 60.0 (>42); GLUCOSE, FASTING 107 MG/DL (74-106); MAGNESIUM LEVEL 1.9 MG/DL (1.8-2.4); PHOSPHORUS LEVEL 2.2 MG/DL (2.4-5.1); POTASSIUM SERUM 3.7 MMOL/L (3.5-5.1); SODIUM LEVEL 143 MMOL/L (136-145)
[2023-01-28] MEDS: INSULIN LISPRO (NovoLOG) PER UNIT SC SCH ×2 (07:30→13:31)
[2023-01-28] MEDS: ACYCLOVIR 200 MG CAPSULE PO SCH (08:54)
[2023-01-28 08:55] VITALS: BP 130/68
[2023-01-28] MEDS: DOCUSATE SODIUM 100MG CAPSULE PO SCH (08:55)
[2023-01-28] MEDS: ASPIRIN 81MG ENTERIC TABLET PO SCH (08:55)
[2023-01-28] MEDS: FINASTERIDE 5MG TAB PO SCH (08:55)
[2023-01-28] MEDS: SENNA 8.6 MG TAB (SENOKOT) PO SCH (08:55)
[2023-01-28] MEDS: PREGABALIN 50 MG CAP (LYRICA) PO SCH (08:55)
[2023-01-28] MEDS: AUGMENTIN 875 MG TAB PO SCH (08:55)
[2023-01-28] MEDS: MULTIVITAMINS/MINERALS THERAP 1 TAB PO SCH (08:55)
[2023-01-28] MEDS: FOLIC ACID 1MG TAB PO SCH (08:55)
[2023-01-28] MEDS: CARVedilol 12.5 MG TAB PO SCH (08:55)
[2023-01-28] MEDS: QUEtiapine FUMARATE 25 MG TAB PO SCH (08:55)
[2023-01-28] MEDS: DIVALPROEX 250MG TAB PO SCH (08:55)
[2023-01-28] MEDS: METAMUCIL (PSYLLIUM) PACKET PO SCH (09:00)
[2023-01-28] MEDS ORDERED: SODIUM PHOSPHATE INJ 20 MMOL in D5W 250 ML IV ONE (09:00)
[2023-01-28] MEDS ORDERED: AMOX875T2 PO (10:58)
[2023-01-28] MEDS: PRAMIPEXOLE 0.25 MG TAB PO SCH ×2 (11:05→13:30)
[2023-01-28] MEDS: SINEMET 25-100 MG TAB PO SCH ×2 (11:05→13:31)
[2023-01-28] MEDS: ENTACAPONE 200MG TABLET (COMTAN) PO SCH ×2 (11:05→13:30)
== END 2023-01-28 14:57 | disposition home or self-care (01) | DRG 682 ==
LOC: M ED 03:54 → M ED INP 08:46 → ENRESERV 10:00 → M MSPAV 11:02
PROVIDERS: ADMIT Internal Medicine; ATTEND Internal Medicine
PROC: B246ZZZ Ultrasonography of Right and Left Heart (ICD-10-PCS; principal; 2023-01-26)
PROC: 30233N1 Transfusion of Nonautologous Red Blood Cells into Peripheral Vein, Percutaneous Approach (ICD-10-PCS; 2023-01-27)
DX: N17.9 Acute kidney failure, unspecified (principal); J69.0 Pneumonitis due to inhalation of food and vomit; I25.10 Atherosclerotic heart disease of native coronary artery without angina pectoris; I25.2 Old myocardial infarction; G31.83 Neurocognitive disorder with Lewy bodies; F02.80 Dementia in other diseases classified elsewhere, unspecified severity, without behavioral disturbance, psychotic disturbance, mood disturbance, and anxiety; N18.30 Chronic kidney disease, stage 3 unspecified; E78.5 Hyperlipidemia, unspecified; I12.9 Hypertensive chronic kidney disease with stage 1 through stage 4 chronic kidney disease, or unspecified chronic kidney disease; K21.9 Gastro-esophageal reflux disease without esophagitis; D64.9 Anemia, unspecified; I36.0 Nonrheumatic tricuspid (valve) stenosis; N40.0 Benign prostatic hyperplasia without lower urinary tract symptoms; E03.9 Hypothyroidism, unspecified; M19.90 Unspecified osteoarthritis, unspecified site; R56.9 Unspecified convulsions; D72.829 Elevated white blood cell count, unspecified; B00.9 Herpesviral infection, unspecified; R13.10 Dysphagia, unspecified; Z79.82 Long term (current) use of aspirin; Z79.890 Hormone replacement therapy; E11.22 Type 2 diabetes mellitus with diabetic chronic kidney disease; Z79.84 Long term (current) use of oral hypoglycemic drugs; Z98.49 Cataract extraction status, unspecified eye

== ENCOUNTER 2023-02-23 14:23 | Inpatient (IN) | payer MEDICARE, OTHER ==
[~2023-02-23] VITALS: Ht 182.9 cm; Wt 82.6 kg
[~2023-02-23 14:23] MED LIST changes: +ACET300T48 PO; +ACET325C5 PO; +AMOX875T2 PO; +META0.52 PO; +MUPI2OI EXT; +SALI0.6530 NARES; +SENN-186 PO; -SENN-80 PO
[2023-02-23] MEDS ORDERED: FLUO20CA22 PO (14:36)
[2023-02-23 16:17] LABS: BASO # 0.1 10^3/uL (0.0-0.2); BASO % 1.1 % (0.0-1.0); EOS # 0.6 10^3/uL (0.0-0.5); EOS % 7.1 % (0.0-3.0); HEMATOCRIT 31.7 % (42.0-52.0); LYMPH # 2.1 10^3/uL (1.5-5.0); LYMPH % 25.9 % (24.0-44.0); MEAN CORPUSCULAR HEMOGLOBIN 27.9 pg (27.0-33.0); MEAN CORPUSCULAR HGB CONC 31.5 g/dl (32.0-36.5); MEAN CORPUSCULAR VOLUME 88.5 fl (80.0-96.0); MONO # 0.6 10^3/uL (0.0-0.8); MONO % 7.8 % (2.0-8.0); NEUTROPHILS # 4.7 10^3/uL (1.5-8.5); NEUTROPHILS % 57.9 % (36.0-66.0); PLATELET COUNT, AUTOMATED 236 10^3/uL (150-450); RED BLOOD COUNT 3.58 10^6/uL (4.30-6.10); WHITE BLOOD COUNT 8.1 10^3/uL (4.0-10.0)
[2023-02-23 17:28] LABS: ALBUMIN 2.3 G/DL (3.2-5.2); ALKALINE PHOSPHATASE 70 U/L (46-116); ALT/SGPT 15 U/L (7.0-40); AST/SGOT 28 U/L (<34); BILIRUBIN,DIRECT < 0.1 MG/DL (<0.4); BILIRUBIN,TOTAL < 0.2 MG/DL (0.3-1.2); BLOOD UREA NITROGEN 8 MG/DL (9-23); CALCIUM LEVEL 7.7 MG/DL (8.3-10.6); CARBON DIOXIDE LEVEL 30 MMOL/L (20-31); CHLORIDE LEVEL 103 MMOL/L (98-107); CK-MB VALUE MASS 1.7 NG/ML (<3.6); CREATININE FOR GFR 1.19 MG/DL (0.70-1.30); GLOMERULAR FILTRATION RATE > 60.0 (>42); GLUCOSE, FASTING 111 MG/DL (74-106); POTASSIUM SERUM 3.1 MMOL/L (3.5-5.1); SODIUM LEVEL 137 MMOL/L (136-145); TOTAL PROTEIN 5.3 G/DL (5.7-8.2)
[2023-02-23 17:29] LABS: THYROID STIMULATING HORMONE 0.511 uIU/ML (0.55-4.78)
[2023-02-23 17:30] LABS: FREE T4 1.29 NG/DL (0.89-1.76)
[2023-02-23 17:33] LABS: CPK CREATINE PHOSPHOKINASE 59 U/L (46-171); MB/CK RELATIVE INDEX 2.88 (< OR =4)
[2023-02-23 17:38] LABS: RSV AMPLIFICATION NEGATIVE (NEGATIVE)
[2023-02-23 17:48] LABS: MAGNESIUM LEVEL 1.9 MG/DL (1.8-2.4)
[2023-02-23] MEDS ORDERED: HOME MED LIST COMPLETE! XX SCH (20:00)
[2023-02-23] MEDS ORDERED: NITROGLYCERIN 0.4MG SUBL TABLET SL PRN (20:25)
[2023-02-23] MEDS ORDERED: SODIUM CHLORIDE NASAL 0.65% SPRAY BTL (OCEAN) PRN (20:25)
[2023-02-23] MEDS ORDERED: ACETAMINOPH W/CODEINE #3 TAB UD PO PRN (20:25)
[2023-02-23] MEDS ORDERED: MAALOX 30 ML SUSP *UDC PO PRN (20:25)
[2023-02-23] MEDS ORDERED: POTASSIUM CHLORIDE 10% LIQ 20MEQ/15ML UDC PO ONE (21:00)
[2023-02-23] MEDS: CARVedilol 12.5 MG TAB PO SCH (21:12)
[2023-02-23] MEDS: PREGABALIN 50 MG CAP (LYRICA) PO SCH (21:13)
[2023-02-23] MEDS: TAMSULOSIN 0.4 MG CAP PO SCH (21:13)
[2023-02-23] MEDS: traZODone 100 MG TAB PO SCH (21:13)
[2023-02-23] MEDS: DIVALPROEX 250MG TAB PO SCH (21:13)
[2023-02-23] MEDS: ATORVASTATIN 20 MG TAB PO SCH (21:13)
[2023-02-23] MEDS: PANTOPRAZOLE 40MG TAB (PROTONIX) PO SCH (21:14)
[2023-02-23] MEDS: QUEtiapine FUMARATE 25 MG TAB PO SCH (21:14)
[2023-02-23 22:18] VITALS: BP 154/89
[2023-02-24] MEDS: PRAMIPEXOLE 0.25 MG TAB PO SCH ×4 (00:39→21:49)
[2023-02-24] MEDS: ENTACAPONE 200MG TABLET (COMTAN) PO SCH ×4 (00:40→21:50)
[2023-02-24] MEDS: ACYCLOVIR 200 MG CAPSULE PO SCH ×4 (00:40→21:50)
[2023-02-24] MEDS: SINEMET 25-100 MG TAB PO SCH ×4 (00:40→21:49)
[2023-02-24 03:12] VITALS: BP 149/86
[2023-02-24] MEDS: ACETAMINOPH W/CODEINE #3 TAB UD PO PRN ×2 (04:12→17:16)
[2023-02-24] MEDS: LEVOTHYROXINE 100MCG TABLET (0.1MG) PO SCH (05:55)
[2023-02-24] MEDS: HEPARIN SOD (PORCINE) 5000UNITS/ML 1ML VIAL/SYRINGE SC SCH ×3 (05:55→21:50)
[2023-02-24 06:56] LABS: BLOOD UREA NITROGEN 9 MG/DL (9-23); CALCIUM LEVEL 7.8 MG/DL (8.3-10.6); CARBON DIOXIDE LEVEL 30 MMOL/L (20-31); CHLORIDE LEVEL 106 MMOL/L (98-107); CREATININE FOR GFR 1.08 MG/DL (0.70-1.30); GLOMERULAR FILTRATION RATE > 60.0 (>42); GLUCOSE, FASTING 91 MG/DL (74-106); POTASSIUM SERUM 3.2 MMOL/L (3.5-5.1); SODIUM LEVEL 140 MMOL/L (136-145)
[2023-02-24] MEDS ORDERED: POTASSIUM CHLORIDE 10MEQ SR TABLET PO ONE (07:50)
[2023-02-24] MEDS: CARVedilol 12.5 MG TAB PO SCH ×2 (09:00→21:51)
[2023-02-24 09:10] VITALS: BP 107/59
[2023-02-24] MEDS: FOLIC ACID 1MG TAB PO SCH (09:15)
[2023-02-24] MEDS: DIVALPROEX 250MG TAB PO SCH ×2 (09:15→21:49)
[2023-02-24] MEDS: ASPIRIN 81MG ENTERIC TABLET PO SCH (09:15)
[2023-02-24] MEDS: SENNA 8.6 MG TAB (SENOKOT) PO SCH (09:15)
[2023-02-24] MEDS: FLUoxetine 20MG CAP PO SCH (09:15)
[2023-02-24] MEDS: DOCUSATE SODIUM 100MG CAPSULE PO SCH (09:15)
[2023-02-24] MEDS: PREGABALIN 50 MG CAP (LYRICA) PO SCH ×3 (09:16→22:01)
[2023-02-24] MEDS: QUEtiapine FUMARATE 25 MG TAB PO SCH ×2 (09:16→21:50)
[2023-02-24] MEDS: FINASTERIDE 5MG TAB PO SCH (09:16)
[2023-02-24 10:00] VITALS: BP 111/60
[2023-02-24] MEDS ORDERED: guaiFENesin 200 MG TAB PO PRN (10:10)
[2023-02-24] MEDS ORDERED: OXYMETAZOLINE 0.05% NASAL SPRAY (AFRIN) PRN (10:10)
[2023-02-24] MEDS ORDERED: GLUCAGON INJ 1MG VIAL SC PRN (10:15)
[2023-02-24] MEDS ORDERED: DEXTROSE 50% 50ML SYRINGE IV PRN (10:15)
[2023-02-24] MEDS ORDERED: GLUCOSE 4GM CHEW TABLET PO PRN (10:15)
[2023-02-24] MEDS: INSULIN LISPRO (NovoLOG) PER UNIT SC SCH ×3 (11:52→21:00)
[2023-02-24 14:00] VITALS: BP 111/58
[2023-02-24] MEDS: MOM 30ML SUSPENSION UDC PO PRN (15:20)
[2023-02-24 16:21] LABS: VALPROIC ACID (DEPAKOTE) 21.4 UG/ML (50.0-100.0)
[2023-02-24 18:00] VITALS: BP 123/74
[2023-02-24] MEDS ORDERED: ENTER DRUG NAME HERE (PATIENT'S OWN MED) SCH (21:00)
[2023-02-24 21:30] VITALS: BP 112/66
[2023-02-24] MEDS: TAMSULOSIN 0.4 MG CAP PO SCH (21:49)
[2023-02-24] MEDS: PANTOPRAZOLE 40MG TAB (PROTONIX) PO SCH (21:50)
[2023-02-24] MEDS: guaiFENesin ER 600 MG TAB PO SCH (21:50)
[2023-02-24] MEDS: ATORVASTATIN 20 MG TAB PO SCH (21:50)
[2023-02-24] MEDS: traZODone 100 MG TAB PO SCH (21:50)
[2023-02-25 02:00] VITALS: BP 117/68
[2023-02-25] MEDS: HEPARIN SOD (PORCINE) 5000UNITS/ML 1ML VIAL/SYRINGE SC SCH ×2 (05:12→17:05)
[2023-02-25] MEDS: LEVOTHYROXINE 100MCG TABLET (0.1MG) PO SCH (05:12)
[2023-02-25 05:38] VITALS: BP 126/77
[2023-02-25 06:30] LABS: BASO # 0.1 10^3/uL (0.0-0.2); EOS # 0.8 10^3/uL (0.0-0.5); EOS % 10.2 % (0.0-3.0); HEMATOCRIT 29.9 % (42.0-52.0); HEMOGLOBIN 9.4 g/dl (13.5-17.5); LYMPH # 2.4 10^3/uL (1.5-5.0); LYMPH % 32.7 % (24.0-44.0); MEAN CORPUSCULAR HEMOGLOBIN 28.1 pg (27.0-33.0); MEAN CORPUSCULAR HGB CONC 31.4 g/dl (32.0-36.5); MEAN CORPUSCULAR VOLUME 89.3 fl (80.0-96.0); MONO # 0.5 10^3/uL (0.0-0.8); MONO % 7.4 % (2.0-8.0); NEUTROPHILS # 3.6 10^3/uL (1.5-8.5); NEUTROPHILS % 48.3 % (36.0-66.0); PLATELET COUNT, AUTOMATED 224 10^3/uL (150-450); RED BLOOD COUNT 3.35 10^6/uL (4.30-6.10); WHITE BLOOD COUNT 7.3 10^3/uL (4.0-10.0)
[2023-02-25 06:51] LABS: VALPROIC ACID (DEPAKOTE) 25.7 UG/ML (50.0-100.0)
[2023-02-25 06:52] LABS: BLOOD UREA NITROGEN 9 MG/DL (9-23); CALCIUM LEVEL 7.5 MG/DL (8.3-10.6); CARBON DIOXIDE LEVEL 30 MMOL/L (20-31); CHLORIDE LEVEL 107 MMOL/L (98-107); CREATININE FOR GFR 1.07 MG/DL (0.70-1.30); GLOMERULAR FILTRATION RATE > 60.0 (>42); GLUCOSE, FASTING 99 MG/DL (74-106); MAGNESIUM LEVEL 2.3 MG/DL (1.8-2.4); POTASSIUM SERUM 3.8 MMOL/L (3.5-5.1); SODIUM LEVEL 141 MMOL/L (136-145)
[2023-02-25] MEDS: INSULIN LISPRO (NovoLOG) PER UNIT SC SCH ×4 (07:30→21:00)
[2023-02-25] MEDS: DOCUSATE SODIUM 100MG CAPSULE PO SCH (08:46)
[2023-02-25] MEDS: DIVALPROEX 250MG TAB PO SCH ×2 (08:46→20:49)
[2023-02-25] MEDS: QUEtiapine FUMARATE 25 MG TAB PO SCH ×2 (08:47→20:51)
[2023-02-25] MEDS: SENNA 8.6 MG TAB (SENOKOT) PO SCH (08:47)
[2023-02-25] MEDS: FOLIC ACID 1MG TAB PO SCH (08:47)
[2023-02-25] MEDS: guaiFENesin ER 600 MG TAB PO SCH ×2 (08:47→20:50)
[2023-02-25] MEDS: ENTACAPONE 200MG TABLET (COMTAN) PO SCH ×3 (08:47→20:49)
[2023-02-25] MEDS: PREGABALIN 50 MG CAP (LYRICA) PO SCH ×3 (08:47→20:54)
[2023-02-25] MEDS: SINEMET 25-100 MG TAB PO SCH ×3 (08:47→20:51)
[2023-02-25] MEDS: ACYCLOVIR 200 MG CAPSULE PO SCH ×3 (08:47→20:54)
[2023-02-25] MEDS: FLUoxetine 20MG CAP PO SCH (08:47)
[2023-02-25] MEDS: FINASTERIDE 5MG TAB PO SCH (08:47)
[2023-02-25] MEDS: ASPIRIN 81MG ENTERIC TABLET PO SCH (08:47)
[2023-02-25] MEDS: CARVedilol 12.5 MG TAB PO SCH ×2 (08:49→20:53)
[2023-02-25] MEDS: PRAMIPEXOLE 0.25 MG TAB PO SCH ×3 (08:51→20:55)
[2023-02-25 10:00] VITALS: BP 131/80
[2023-02-25] MEDS: MULTIVITAMINS/MINERALS THERAP 1 TAB PO SCH (11:32)
[2023-02-25] MEDS: ACETAMINOPH W/CODEINE #3 TAB UD PO PRN (11:32)
[2023-02-25 14:00] VITALS: BP 126/79
[2023-02-25] MEDS: ACETAMINOPHEN TAB 650MG DOSE (2X325MG) PO PRN (15:41)
[2023-02-25] MEDS: traZODone 100 MG TAB PO SCH (20:50)
[2023-02-25] MEDS: PANTOPRAZOLE 40MG TAB (PROTONIX) PO SCH (20:52)
[2023-02-25] MEDS: ATORVASTATIN 20 MG TAB PO SCH (20:52)
[2023-02-25] MEDS: TAMSULOSIN 0.4 MG CAP PO SCH (20:56)
[2023-02-26] MEDS: ACETAMINOPH W/CODEINE #3 TAB UD PO PRN (00:59)
[2023-02-26] MEDS ORDERED: PILL CUTTER 1 EACH XX PRN (02:25)
[2023-02-26] MEDS ORDERED: LORATADINE 10 MG TAB PO ONE (03:00)
[2023-02-26] MEDS: ACETAMINOPHEN TAB 650MG DOSE (2X325MG) PO PRN (04:53)
[2023-02-26] MEDS: LEVOTHYROXINE 100MCG TABLET (0.1MG) PO SCH (04:56)
[2023-02-26] MEDS: HEPARIN SOD (PORCINE) 5000UNITS/ML 1ML VIAL/SYRINGE SC SCH ×2 (05:19→18:21)
[2023-02-26] MEDS: ANALGESIC BALM CRM 3OZ TOP SCH ×2 (05:36→05:37)
[2023-02-26 06:09] LABS: BASO # 0.1 10^3/uL (0.0-0.2); EOS % 12.1 % (0.0-3.0); HEMATOCRIT 29.8 % (42.0-52.0); HEMOGLOBIN 9.3 g/dl (13.5-17.5); LYMPH # 2.7 10^3/uL (1.5-5.0); MEAN CORPUSCULAR HEMOGLOBIN 28.1 pg (27.0-33.0); MEAN CORPUSCULAR HGB CONC 31.2 g/dl (32.0-36.5); MONO # 0.5 10^3/uL (0.0-0.8); MONO % 5.9 % (2.0-8.0); NEUTROPHILS # 3.7 10^3/uL (1.5-8.5); NEUTROPHILS % 46.6 % (36.0-66.0); PLATELET COUNT, AUTOMATED 212 10^3/uL (150-450); RED BLOOD COUNT 3.31 10^6/uL (4.30-6.10); WHITE BLOOD COUNT 7.9 10^3/uL (4.0-10.0)
[2023-02-26 06:20] VITALS: BP 107/57
[2023-02-26 06:38] LABS: VALPROIC ACID (DEPAKOTE) 26.6 UG/ML (50.0-100.0)
[2023-02-26 06:39] LABS: BLOOD UREA NITROGEN 10 MG/DL (9-23); CALCIUM LEVEL 7.7 MG/DL (8.3-10.6); CARBON DIOXIDE LEVEL 25 MMOL/L (20-31); CHLORIDE LEVEL 106 MMOL/L (98-107); CREATININE FOR GFR 0.96 MG/DL (0.70-1.30); GLOMERULAR FILTRATION RATE > 60.0 (>42); GLUCOSE, FASTING 174 MG/DL (74-106); POTASSIUM SERUM 3.6 MMOL/L (3.5-5.1); SODIUM LEVEL 139 MMOL/L (136-145)
[2023-02-26] MEDS: ENTACAPONE 200MG TABLET (COMTAN) PO SCH ×3 (09:59→20:19)
[2023-02-26] MEDS: guaiFENesin ER 600 MG TAB PO SCH ×2 (09:59→20:19)
[2023-02-26] MEDS: FOLIC ACID 1MG TAB PO SCH (09:59)
[2023-02-26] MEDS: FINASTERIDE 5MG TAB PO SCH (09:59)
[2023-02-26] MEDS: FLUoxetine 20MG CAP PO SCH (09:59)
[2023-02-26] MEDS: DOCUSATE SODIUM 100MG CAPSULE PO SCH (09:59)
[2023-02-26] MEDS: ACYCLOVIR 200 MG CAPSULE PO SCH ×3 (09:59→20:19)
[2023-02-26] MEDS: DIVALPROEX 250MG TAB PO SCH ×2 (09:59→20:19)
[2023-02-26] MEDS: INSULIN LISPRO (NovoLOG) PER UNIT SC SCH ×4 (09:59→20:39)
[2023-02-26] MEDS: QUEtiapine FUMARATE 25 MG TAB PO SCH ×2 (09:59→20:25)
[2023-02-26] MEDS: CARVedilol 12.5 MG TAB PO SCH ×2 (10:00→20:23)
[2023-02-26] MEDS: ASPIRIN 81MG ENTERIC TABLET PO SCH (10:00)
[2023-02-26] MEDS: SINEMET 25-100 MG TAB PO SCH ×3 (10:00→20:19)
[2023-02-26] MEDS: PREGABALIN 50 MG CAP (LYRICA) PO SCH ×3 (10:00→20:19)
[2023-02-26] MEDS: SENNA 8.6 MG TAB (SENOKOT) PO SCH (10:00)
[2023-02-26] MEDS: PRAMIPEXOLE 0.25 MG TAB PO SCH ×3 (10:00→20:19)
[2023-02-26] MEDS: MULTIVITAMINS/MINERALS THERAP 1 TAB PO SCH (12:58)
[2023-02-26] MEDS ORDERED: FUROSEMIDE 40 MG TAB PO ONE (16:30)
[2023-02-26] MEDS: MOM 30ML SUSPENSION UDC PO PRN (18:21)
[2023-02-26] MEDS: PANTOPRAZOLE 40MG TAB (PROTONIX) PO SCH (20:18)
[2023-02-26] MEDS: traZODone 100 MG TAB PO SCH (20:18)
[2023-02-26] MEDS: TAMSULOSIN 0.4 MG CAP PO SCH (20:18)
[2023-02-26] MEDS: ATORVASTATIN 20 MG TAB PO SCH (20:19)
[2023-02-27 05:10] VITALS: BP 121/74
[2023-02-27] MEDS: HEPARIN SOD (PORCINE) 5000UNITS/ML 1ML VIAL/SYRINGE SC SCH ×2 (05:43→17:22)
[2023-02-27] MEDS: LEVOTHYROXINE 100MCG TABLET (0.1MG) PO SCH (05:43)
[2023-02-27 05:50] LABS: BASO # 0.1 10^3/uL (0.0-0.2); BASO % 1.1 % (0.0-1.0); EOS # 0.9 10^3/uL (0.0-0.5); EOS % 10.4 % (0.0-3.0); HEMOGLOBIN 9.4 g/dl (13.5-17.5); LYMPH # 2.3 10^3/uL (1.5-5.0); LYMPH % 28.3 % (24.0-44.0); MEAN CORPUSCULAR HEMOGLOBIN 27.8 pg (27.0-33.0); MEAN CORPUSCULAR HGB CONC 31.3 g/dl (32.0-36.5); MEAN CORPUSCULAR VOLUME 88.8 fl (80.0-96.0); MONO # 0.6 10^3/uL (0.0-0.8); MONO % 7.1 % (2.0-8.0); NEUTROPHILS # 4.3 10^3/uL (1.5-8.5); NEUTROPHILS % 52.6 % (36.0-66.0); PLATELET COUNT, AUTOMATED 222 10^3/uL (150-450); RED BLOOD COUNT 3.38 10^6/uL (4.30-6.10); WHITE BLOOD COUNT 8.2 10^3/uL (4.0-10.0)
[2023-02-27 06:13] LABS: VALPROIC ACID (DEPAKOTE) 23.1 UG/ML (50.0-100.0)
[2023-02-27 06:15] LABS: BLOOD UREA NITROGEN 11 MG/DL (9-23); CALCIUM LEVEL 7.4 MG/DL (8.3-10.6); CARBON DIOXIDE LEVEL 29 MMOL/L (20-31); CHLORIDE LEVEL 109 MMOL/L (98-107); GLOMERULAR FILTRATION RATE > 60.0 (>42); GLUCOSE, FASTING 99 MG/DL (74-106); MAGNESIUM LEVEL 2.2 MG/DL (1.8-2.4); POTASSIUM SERUM 3.4 MMOL/L (3.5-5.1); SODIUM LEVEL 142 MMOL/L (136-145)
[2023-02-27] MEDS: INSULIN LISPRO (NovoLOG) PER UNIT SC SCH ×4 (07:23→20:24)
[2023-02-27] MEDS ORDERED: POTASSIUM CHLORIDE 10MEQ SR TABLET PO ONE (09:00)
[2023-02-27] MEDS: ASPIRIN 81MG ENTERIC TABLET PO SCH (09:58)
[2023-02-27] MEDS: guaiFENesin ER 600 MG TAB PO SCH ×2 (09:58→22:33)
[2023-02-27] MEDS: SENNA 8.6 MG TAB (SENOKOT) PO SCH (09:59)
[2023-02-27] MEDS: FUROSEMIDE 40 MG TAB PO SCH (09:59)
[2023-02-27] MEDS: FLUoxetine 20MG CAP PO SCH (09:59)
[2023-02-27] MEDS: QUEtiapine FUMARATE 25 MG TAB PO SCH ×2 (09:59→19:27)
[2023-02-27] MEDS: ENTACAPONE 200MG TABLET (COMTAN) PO SCH ×3 (09:59→22:32)
[2023-02-27] MEDS: FINASTERIDE 5MG TAB PO SCH (09:59)
[2023-02-27] MEDS: DOCUSATE SODIUM 100MG CAPSULE PO SCH (09:59)
[2023-02-27] MEDS: SINEMET 25-100 MG TAB PO SCH ×3 (09:59→22:33)
[2023-02-27] MEDS: DIVALPROEX 250MG TAB PO SCH ×2 (09:59→22:33)
[2023-02-27] MEDS: ACYCLOVIR 200 MG CAPSULE PO SCH ×3 (09:59→22:32)
[2023-02-27] MEDS: CARVedilol 12.5 MG TAB PO SCH ×2 (10:00→22:32)
[2023-02-27] MEDS: FOLIC ACID 1MG TAB PO SCH (10:00)
[2023-02-27] MEDS: MOM 30ML SUSPENSION UDC PO PRN (10:00)
[2023-02-27] MEDS: PRAMIPEXOLE 0.25 MG TAB PO SCH ×3 (10:00→22:31)
[2023-02-27] MEDS: ANALGESIC BALM CRM 3OZ TOP SCH ×2 (10:05→22:35)
[2023-02-27] MEDS: PREGABALIN 50 MG CAP (LYRICA) PO SCH ×3 (10:08→22:35)
[2023-02-27] MEDS: ACETAMINOPH W/CODEINE #3 TAB UD PO PRN ×2 (10:08→22:51)
[2023-02-27] MEDS: FLUTICASONE PROP 0.05% NASAL SPRAY 16 GM (FLONASE) NARES PRN (10:09)
[2023-02-27] MEDS: MULTIVITAMINS/MINERALS THERAP 1 TAB PO SCH (13:18)
[2023-02-27] MEDS: ACETAMINOPHEN TAB 650MG DOSE (2X325MG) PO PRN (13:18)
[2023-02-27] MEDS: ATORVASTATIN 20 MG TAB PO SCH (22:31)
[2023-02-27] MEDS: traZODone 100 MG TAB PO SCH (22:32)
[2023-02-27] MEDS: TAMSULOSIN 0.4 MG CAP PO SCH (22:32)
[2023-02-27] MEDS: PANTOPRAZOLE 40MG TAB (PROTONIX) PO SCH (22:33)
[2023-02-28 05:00] VITALS: BP 114/68
[2023-02-28] MEDS: LEVOTHYROXINE 100MCG TABLET (0.1MG) PO SCH (05:22)
[2023-02-28] MEDS: HEPARIN SOD (PORCINE) 5000UNITS/ML 1ML VIAL/SYRINGE SC SCH ×2 (05:23→18:30)
[2023-02-28] MEDS: ACETAMINOPHEN TAB 650MG DOSE (2X325MG) PO PRN (06:04)
[2023-02-28] MEDS: FLUTICASONE PROP 0.05% NASAL SPRAY 16 GM (FLONASE) NARES PRN (08:13)
[2023-02-28] MEDS: guaiFENesin ER 600 MG TAB PO SCH ×2 (08:14→20:13)
[2023-02-28] MEDS: FINASTERIDE 5MG TAB PO SCH (08:14)
[2023-02-28] MEDS: ACYCLOVIR 200 MG CAPSULE PO SCH ×3 (08:14→20:13)
[2023-02-28] MEDS: SENNA 8.6 MG TAB (SENOKOT) PO SCH (08:14)
[2023-02-28] MEDS: ENTACAPONE 200MG TABLET (COMTAN) PO SCH ×3 (08:14→20:13)
[2023-02-28] MEDS: FLUoxetine 20MG CAP PO SCH (08:14)
[2023-02-28] MEDS: SINEMET 25-100 MG TAB PO SCH ×3 (08:14→20:14)
[2023-02-28] MEDS: ASPIRIN 81MG ENTERIC TABLET PO SCH (08:14)
[2023-02-28] MEDS: DOCUSATE SODIUM 100MG CAPSULE PO SCH (08:14)
[2023-02-28] MEDS: PRAMIPEXOLE 0.25 MG TAB PO SCH ×3 (08:14→20:18)
[2023-02-28] MEDS: PREGABALIN 50 MG CAP (LYRICA) PO SCH ×3 (08:14→20:18)
[2023-02-28] MEDS: DIVALPROEX 250MG TAB PO SCH ×2 (08:14→20:13)
[2023-02-28] MEDS: QUEtiapine FUMARATE 25 MG TAB PO SCH ×2 (08:15→20:13)
[2023-02-28] MEDS: INSULIN LISPRO (NovoLOG) PER UNIT SC SCH ×4 (08:15→20:00)
[2023-02-28] MEDS: FUROSEMIDE 40 MG TAB PO SCH (08:15)
[2023-02-28] MEDS: FOLIC ACID 1MG TAB PO SCH (08:15)
[2023-02-28] MEDS: CARVedilol 12.5 MG TAB PO SCH ×2 (08:16→20:13)
[2023-02-28] MEDS: ANALGESIC BALM CRM 3OZ TOP SCH ×2 (08:16→20:14)
[2023-02-28] MEDS: OXYMETAZOLINE 0.05% NASAL SPRAY (AFRIN) SCH ×2 (11:51→20:14)
[2023-02-28] MEDS: MULTIVITAMINS/MINERALS THERAP 1 TAB PO SCH (12:55)
[2023-02-28] MEDS: ACETAMINOPH W/CODEINE #3 TAB UD PO PRN (16:08)
[2023-02-28 20:00] VITALS: BP 112/68
[2023-02-28] MEDS: traZODone 100 MG TAB PO SCH (20:13)
[2023-02-28] MEDS: ATORVASTATIN 20 MG TAB PO SCH (20:13)
[2023-02-28] MEDS: TAMSULOSIN 0.4 MG CAP PO SCH (20:13)
[2023-02-28] MEDS: PANTOPRAZOLE 40MG TAB (PROTONIX) PO SCH (20:13)
[2023-03-01] MEDS ORDERED: BENZONATATE 100MG CAPSULE PO PRN (01:50)
[2023-03-01] MEDS: ACETAMINOPH W/CODEINE #3 TAB UD PO PRN ×2 (02:00→21:54)
[2023-03-01] MEDS: LEVOTHYROXINE 100MCG TABLET (0.1MG) PO SCH (05:52)
[2023-03-01] MEDS: HEPARIN SOD (PORCINE) 5000UNITS/ML 1ML VIAL/SYRINGE SC SCH ×2 (05:52→18:05)
[2023-03-01 06:00] VITALS: BP 139/84
[2023-03-01] MEDS: INSULIN LISPRO (NovoLOG) PER UNIT SC SCH ×4 (07:30→20:19)
[2023-03-01 08:00] VITALS: BP 124/77
[2023-03-01] MEDS: OXYMETAZOLINE 0.05% NASAL SPRAY (AFRIN) SCH ×3 (09:00→21:00)
[2023-03-01] MEDS: ASPIRIN 81MG ENTERIC TABLET PO SCH (09:17)
[2023-03-01] MEDS: FOLIC ACID 1MG TAB PO SCH (09:18)
[2023-03-01] MEDS: PRAMIPEXOLE 0.25 MG TAB PO SCH ×3 (09:18→21:53)
[2023-03-01] MEDS: QUEtiapine FUMARATE 25 MG TAB PO SCH ×2 (09:19→21:54)
[2023-03-01] MEDS: CARVedilol 12.5 MG TAB PO SCH ×2 (09:19→21:53)
[2023-03-01] MEDS: FLUoxetine 20MG CAP PO SCH (09:19)
[2023-03-01] MEDS: guaiFENesin ER 600 MG TAB PO SCH ×2 (09:19→21:53)
[2023-03-01] MEDS: SENNA 8.6 MG TAB (SENOKOT) PO SCH (09:21)
[2023-03-01] MEDS: FINASTERIDE 5MG TAB PO SCH (09:22)
[2023-03-01] MEDS: DIVALPROEX 250MG TAB PO SCH ×2 (09:22→21:53)
[2023-03-01] MEDS: ACYCLOVIR 200 MG CAPSULE PO SCH ×3 (09:22→21:54)
[2023-03-01] MEDS: SINEMET 25-100 MG TAB PO SCH ×3 (09:22→21:53)
[2023-03-01] MEDS: DOCUSATE SODIUM 100MG CAPSULE PO SCH (09:22)
[2023-03-01] MEDS: ENTACAPONE 200MG TABLET (COMTAN) PO SCH ×3 (09:22→21:53)
[2023-03-01] MEDS: ANALGESIC BALM CRM 3OZ TOP SCH ×2 (09:24→21:55)
[2023-03-01] MEDS: FUROSEMIDE 40 MG TAB PO SCH (09:25)
[2023-03-01] MEDS: PREGABALIN 50 MG CAP (LYRICA) PO SCH ×3 (09:33→21:53)
[2023-03-01] MEDS: POTASSIUM CHLORIDE 10MEQ SR TABLET PO SCH (11:54)
[2023-03-01] MEDS: MULTIVITAMINS/MINERALS THERAP 1 TAB PO SCH (11:54)
[2023-03-01] MEDS: ACETAMINOPHEN TAB 650MG DOSE (2X325MG) PO PRN (15:42)
[2023-03-01 21:11] VITALS: BP 131/80
[2023-03-01] MEDS ORDERED: BISACODYL 10MG SUPP PR ONE (21:40)
[2023-03-01] MEDS: TAMSULOSIN 0.4 MG CAP PO SCH (21:53)
[2023-03-01] MEDS: ATORVASTATIN 20 MG TAB PO SCH (21:54)
[2023-03-01] MEDS: PANTOPRAZOLE 40MG TAB (PROTONIX) PO SCH (21:54)
[2023-03-01] MEDS: traZODone 100 MG TAB PO SCH (21:54)
[2023-03-02] MEDS: LEVOTHYROXINE 100MCG TABLET (0.1MG) PO SCH (05:28)
[2023-03-02] MEDS: HEPARIN SOD (PORCINE) 5000UNITS/ML 1ML VIAL/SYRINGE SC SCH ×2 (05:28→18:07)
[2023-03-02 06:00] VITALS: BP 138/82
[2023-03-02] MEDS: INSULIN LISPRO (NovoLOG) PER UNIT SC SCH ×4 (09:05→21:00)
[2023-03-02] MEDS: ANALGESIC BALM CRM 3OZ TOP SCH ×2 (09:05→21:08)
[2023-03-02] MEDS: PRAMIPEXOLE 0.25 MG TAB PO SCH ×3 (09:06→20:59)
[2023-03-02] MEDS: PREGABALIN 50 MG CAP (LYRICA) PO SCH ×3 (09:06→20:58)
[2023-03-02] MEDS: DIVALPROEX 250MG TAB PO SCH ×2 (09:06→21:02)
[2023-03-02] MEDS: ASPIRIN 81MG ENTERIC TABLET PO SCH (09:06)
[2023-03-02] MEDS: OXYMETAZOLINE 0.05% NASAL SPRAY (AFRIN) SCH ×2 (09:06→21:07)
[2023-03-02] MEDS: FLUoxetine 20MG CAP PO SCH (09:06)
[2023-03-02] MEDS: POTASSIUM CHLORIDE 10MEQ SR TABLET PO SCH (09:06)
[2023-03-02] MEDS: DOCUSATE SODIUM 100MG CAPSULE PO SCH (09:07)
[2023-03-02] MEDS: ENTACAPONE 200MG TABLET (COMTAN) PO SCH ×3 (09:07→21:06)
[2023-03-02] MEDS: guaiFENesin ER 600 MG TAB PO SCH ×2 (09:07→21:06)
[2023-03-02] MEDS: FINASTERIDE 5MG TAB PO SCH (09:07)
[2023-03-02] MEDS: QUEtiapine FUMARATE 25 MG TAB PO SCH (09:07)
[2023-03-02] MEDS: FOLIC ACID 1MG TAB PO SCH (09:07)
[2023-03-02] MEDS: SENNA 8.6 MG TAB (SENOKOT) PO SCH (09:07)
[2023-03-02] MEDS: SINEMET 25-100 MG TAB PO SCH ×3 (09:07→21:04)
[2023-03-02] MEDS: FUROSEMIDE 40 MG TAB PO SCH (09:08)
[2023-03-02] MEDS: CARVedilol 12.5 MG TAB PO SCH ×2 (09:08→21:03)
[2023-03-02] MEDS: ACYCLOVIR 200 MG CAPSULE PO SCH ×3 (09:08→21:05)
[2023-03-02] MEDS: MULTIVITAMINS/MINERALS THERAP 1 TAB PO SCH (12:03)
[2023-03-02] MEDS: ACETAMINOPH W/CODEINE #3 TAB UD PO PRN (12:04)
[2023-03-02 14:00] VITALS: BP 119/65
[2023-03-02] MEDS ORDERED: QUEtiapine FUMARATE 25 MG TAB PO SCH (16:00)
[2023-03-02] MEDS: ATORVASTATIN 20 MG TAB PO SCH (20:55)
[2023-03-02] MEDS: traZODone 100 MG TAB PO SCH (20:59)
[2023-03-02] MEDS: TAMSULOSIN 0.4 MG CAP PO SCH (21:00)
[2023-03-02] MEDS: PANTOPRAZOLE 40MG TAB (PROTONIX) PO SCH (21:03)
[2023-03-03] MEDS: LEVOTHYROXINE 100MCG TABLET (0.1MG) PO SCH (05:10)
[2023-03-03] MEDS: ACETAMINOPH W/CODEINE #3 TAB UD PO PRN ×2 (05:10→17:50)
[2023-03-03] MEDS: HEPARIN SOD (PORCINE) 5000UNITS/ML 1ML VIAL/SYRINGE SC SCH ×2 (05:11→17:49)
[2023-03-03 06:00] VITALS: BP 137/85
[2023-03-03] MEDS: POTASSIUM CHLORIDE 10MEQ SR TABLET PO SCH (09:11)
[2023-03-03] MEDS: PRAMIPEXOLE 0.25 MG TAB PO SCH ×3 (09:11→21:01)
[2023-03-03] MEDS: PREGABALIN 50 MG CAP (LYRICA) PO SCH ×3 (09:11→21:02)
[2023-03-03] MEDS: guaiFENesin ER 600 MG TAB PO SCH ×2 (09:11→21:02)
[2023-03-03] MEDS: INSULIN LISPRO (NovoLOG) PER UNIT SC SCH ×4 (09:11→20:49)
[2023-03-03] MEDS: ASPIRIN 81MG ENTERIC TABLET PO SCH (09:12)
[2023-03-03] MEDS: DOCUSATE SODIUM 100MG CAPSULE PO SCH (09:12)
[2023-03-03] MEDS: SINEMET 25-100 MG TAB PO SCH ×3 (09:12→21:02)
[2023-03-03] MEDS: QUEtiapine FUMARATE 25 MG TAB PO SCH ×2 (09:12→16:18)
[2023-03-03] MEDS: FLUoxetine 20MG CAP PO SCH (09:12)
[2023-03-03] MEDS: FOLIC ACID 1MG TAB PO SCH (09:12)
[2023-03-03] MEDS: FINASTERIDE 5MG TAB PO SCH (09:12)
[2023-03-03] MEDS: ANALGESIC BALM CRM 3OZ TOP SCH ×2 (09:13→21:03)
[2023-03-03] MEDS: DIVALPROEX 250MG TAB PO SCH ×2 (09:13→21:01)
[2023-03-03] MEDS: ACYCLOVIR 200 MG CAPSULE PO SCH ×3 (09:13→21:03)
[2023-03-03] MEDS: SENNA 8.6 MG TAB (SENOKOT) PO SCH (09:13)
[2023-03-03] MEDS: CARVedilol 12.5 MG TAB PO SCH ×2 (09:14→21:03)
[2023-03-03] MEDS: ENTACAPONE 200MG TABLET (COMTAN) PO SCH ×3 (09:14→21:02)
[2023-03-03] MEDS: FUROSEMIDE 40 MG TAB PO SCH (09:14)
[2023-03-03] MEDS: ACETAMINOPHEN TAB 650MG DOSE (2X325MG) PO PRN (09:58)
[2023-03-03] MEDS: MULTIVITAMINS/MINERALS THERAP 1 TAB PO SCH (12:31)
[2023-03-03] MEDS: TAMSULOSIN 0.4 MG CAP PO SCH (21:01)
[2023-03-03] MEDS: RAMELTEON 8 MG TAB (ROZEREM) PO SCH (21:02)
[2023-03-03] MEDS: traZODone 100 MG TAB PO SCH (21:02)
[2023-03-03] MEDS: PANTOPRAZOLE 40MG TAB (PROTONIX) PO SCH (21:02)
[2023-03-03] MEDS: ATORVASTATIN 20 MG TAB PO SCH (21:02)
[2023-03-04] MEDS: ACETAMINOPHEN TAB 650MG DOSE (2X325MG) PO PRN (00:28)
[2023-03-04] MEDS: ACETAMINOPH W/CODEINE #3 TAB UD PO PRN ×2 (05:53→13:36)
[2023-03-04] MEDS: LEVOTHYROXINE 100MCG TABLET (0.1MG) PO SCH (05:54)
[2023-03-04] MEDS: HEPARIN SOD (PORCINE) 5000UNITS/ML 1ML VIAL/SYRINGE SC SCH ×2 (05:54→17:12)
[2023-03-04 06:00] VITALS: BP 108/66
[2023-03-04] MEDS: FLUoxetine 20MG CAP PO SCH (08:58)
[2023-03-04] MEDS: INSULIN LISPRO (NovoLOG) PER UNIT SC SCH ×4 (08:58→21:00)
[2023-03-04] MEDS: PREGABALIN 50 MG CAP (LYRICA) PO SCH ×3 (08:58→21:37)
[2023-03-04] MEDS: SENNA 8.6 MG TAB (SENOKOT) PO SCH (08:59)
[2023-03-04] MEDS: FOLIC ACID 1MG TAB PO SCH (08:59)
[2023-03-04] MEDS: DIVALPROEX 250MG TAB PO SCH ×2 (08:59→21:39)
[2023-03-04] MEDS: POTASSIUM CHLORIDE 10MEQ SR TABLET PO SCH (08:59)
[2023-03-04] MEDS: FUROSEMIDE 40 MG TAB PO SCH (08:59)
[2023-03-04] MEDS: ACYCLOVIR 200 MG CAPSULE PO SCH ×3 (08:59→21:38)
[2023-03-04] MEDS: ENTACAPONE 200MG TABLET (COMTAN) PO SCH ×3 (08:59→21:38)
[2023-03-04] MEDS: PRAMIPEXOLE 0.25 MG TAB PO SCH ×3 (08:59→21:37)
[2023-03-04] MEDS: FINASTERIDE 5MG TAB PO SCH (08:59)
[2023-03-04] MEDS: DOCUSATE SODIUM 100MG CAPSULE PO SCH (08:59)
[2023-03-04] MEDS: guaiFENesin ER 600 MG TAB PO SCH ×2 (09:00→21:37)
[2023-03-04] MEDS: QUEtiapine FUMARATE 25 MG TAB PO SCH ×2 (09:00→15:57)
[2023-03-04] MEDS: ASPIRIN 81MG ENTERIC TABLET PO SCH (09:00)
[2023-03-04] MEDS: SINEMET 25-100 MG TAB PO SCH ×3 (09:00→21:37)
[2023-03-04] MEDS: ANALGESIC BALM CRM 3OZ TOP SCH ×2 (09:02→21:40)
[2023-03-04] MEDS: CARVedilol 12.5 MG TAB PO SCH ×2 (09:02→21:39)
[2023-03-04] MEDS: MULTIVITAMINS/MINERALS THERAP 1 TAB PO SCH (12:18)
[2023-03-04] MEDS: TAMSULOSIN 0.4 MG CAP PO SCH (21:37)
[2023-03-04] MEDS: RAMELTEON 8 MG TAB (ROZEREM) PO SCH (21:38)
[2023-03-04] MEDS: PANTOPRAZOLE 40MG TAB (PROTONIX) PO SCH (21:38)
[2023-03-04] MEDS: ATORVASTATIN 20 MG TAB PO SCH (21:38)
[2023-03-04] MEDS: traZODone 100 MG TAB PO SCH (21:39)
[2023-03-05 05:36] VITALS: BP 108/61
[2023-03-05] MEDS: HEPARIN SOD (PORCINE) 5000UNITS/ML 1ML VIAL/SYRINGE SC SCH (05:39)
[2023-03-05] MEDS: LEVOTHYROXINE 100MCG TABLET (0.1MG) PO SCH (05:39)
[2023-03-05] MEDS: MIRALAX *UNIT DOSE* 17GM PACKET PO SCH ×2 (09:00→20:36)
[2023-03-05] MEDS: METAMUCIL (PSYLLIUM) PACKET PO SCH ×2 (09:00→20:36)
[2023-03-05] MEDS: INSULIN LISPRO (NovoLOG) PER UNIT SC SCH ×2 (09:34→12:35)
[2023-03-05] MEDS: DOCUSATE SODIUM 100MG CAPSULE PO SCH (09:34)
[2023-03-05] MEDS: ASPIRIN 81MG ENTERIC TABLET PO SCH (09:34)
[2023-03-05] MEDS: DIVALPROEX 250MG TAB PO SCH (09:34)
[2023-03-05] MEDS: FUROSEMIDE 40 MG TAB PO SCH (09:34)
[2023-03-05] MEDS: SINEMET 25-100 MG TAB PO SCH ×3 (09:34→20:43)
[2023-03-05] MEDS: FINASTERIDE 5MG TAB PO SCH (09:34)
[2023-03-05] MEDS: FOLIC ACID 1MG TAB PO SCH (09:34)
[2023-03-05] MEDS: ENTACAPONE 200MG TABLET (COMTAN) PO SCH ×3 (09:34→20:43)
[2023-03-05] MEDS: ACYCLOVIR 200 MG CAPSULE PO SCH ×3 (09:34→20:43)
[2023-03-05] MEDS: guaiFENesin ER 600 MG TAB PO SCH ×2 (09:34→20:44)
[2023-03-05] MEDS: ACETAMINOPH W/CODEINE #3 TAB UD PO PRN ×2 (09:35→20:57)
[2023-03-05] MEDS: FLUoxetine 20MG CAP PO SCH (09:35)
[2023-03-05] MEDS: CARVedilol 12.5 MG TAB PO SCH ×2 (09:36→20:48)
[2023-03-05] MEDS: POTASSIUM CHLORIDE 10MEQ SR TABLET PO SCH (09:38)
[2023-03-05] MEDS: PREGABALIN 50 MG CAP (LYRICA) PO SCH ×3 (09:38→20:44)
[2023-03-05] MEDS: SENNA 8.6 MG TAB (SENOKOT) PO SCH (09:38)
[2023-03-05] MEDS: QUEtiapine FUMARATE 25 MG TAB PO SCH ×2 (09:39→16:20)
[2023-03-05] MEDS: ANALGESIC BALM CRM 3OZ TOP SCH ×2 (09:39→20:51)
[2023-03-05] MEDS: PRAMIPEXOLE 0.25 MG TAB PO SCH ×3 (09:40→20:43)
[2023-03-05] MEDS ORDERED: DIVALPROEX 250MG TAB PO ONE (12:15)
[2023-03-05] MEDS: MULTIVITAMINS/MINERALS THERAP 1 TAB PO SCH (12:35)
[2023-03-05] MEDS: DIVALPROEX 500 MG TAB PO SCH (20:43)
[2023-03-05] MEDS: RAMELTEON 8 MG TAB (ROZEREM) PO SCH (20:43)
[2023-03-05] MEDS: TAMSULOSIN 0.4 MG CAP PO SCH (20:43)
[2023-03-05] MEDS: ATORVASTATIN 20 MG TAB PO SCH (20:44)
[2023-03-05] MEDS: traZODone 100 MG TAB PO SCH (20:44)
[2023-03-05] MEDS: PANTOPRAZOLE 40MG TAB (PROTONIX) PO SCH (20:44)
[2023-03-06 06:00] VITALS: BP 121/78
[2023-03-06] MEDS: LEVOTHYROXINE 100MCG TABLET (0.1MG) PO SCH (06:14)
[2023-03-06] MEDS ORDERED: ENOXAPARIN 30MG/0.3ML SYRINGE (J1650 PER 10MG) SC SCH (09:00)
[2023-03-06] MEDS: MIRALAX *UNIT DOSE* 17GM PACKET PO SCH ×2 (09:47→21:08)
[2023-03-06] MEDS: ACETAMINOPH W/CODEINE #3 TAB UD PO PRN ×2 (09:48→21:09)
[2023-03-06] MEDS: ENTACAPONE 200MG TABLET (COMTAN) PO SCH ×3 (09:48→21:06)
[2023-03-06] MEDS: PRAMIPEXOLE 0.25 MG TAB PO SCH ×3 (09:48→21:05)
[2023-03-06] MEDS: ACYCLOVIR 200 MG CAPSULE PO SCH ×3 (09:48→21:06)
[2023-03-06] MEDS: POTASSIUM CHLORIDE 10MEQ SR TABLET PO SCH (09:48)
[2023-03-06] MEDS: DOCUSATE SODIUM 100MG CAPSULE PO SCH (09:48)
[2023-03-06] MEDS: METAMUCIL (PSYLLIUM) PACKET PO SCH ×2 (09:48→21:08)
[2023-03-06] MEDS: DIVALPROEX 500 MG TAB PO SCH ×2 (09:49→21:06)
[2023-03-06] MEDS: FLUoxetine 20MG CAP PO SCH (09:49)
[2023-03-06] MEDS: PREGABALIN 50 MG CAP (LYRICA) PO SCH ×3 (09:49→21:06)
[2023-03-06] MEDS: QUEtiapine FUMARATE 25 MG TAB PO SCH ×2 (09:49→16:17)
[2023-03-06] MEDS: ASPIRIN 81MG ENTERIC TABLET PO SCH (09:49)
[2023-03-06] MEDS: SINEMET 25-100 MG TAB PO SCH ×3 (09:49→21:06)
[2023-03-06] MEDS: guaiFENesin ER 600 MG TAB PO SCH ×2 (09:50→21:06)
[2023-03-06] MEDS: FUROSEMIDE 40 MG TAB PO SCH (09:50)
[2023-03-06] MEDS: FINASTERIDE 5MG TAB PO SCH (09:50)
[2023-03-06] MEDS: FOLIC ACID 1MG TAB PO SCH (09:50)
[2023-03-06] MEDS: SENNA 8.6 MG TAB (SENOKOT) PO SCH (09:50)
[2023-03-06] MEDS: ANALGESIC BALM CRM 3OZ TOP SCH ×2 (09:51→21:08)
[2023-03-06] MEDS: CARVedilol 12.5 MG TAB PO SCH ×2 (09:51→21:07)
[2023-03-06] MEDS: ENOXAPARIN 40MG/0.4ML SYRINGE (J1650 PER 10MG) SC SCH (09:51)
[2023-03-06] MEDS: MULTIVITAMINS/MINERALS THERAP 1 TAB PO SCH (12:08)
[2023-03-06] MEDS: TAMSULOSIN 0.4 MG CAP PO SCH (21:05)
[2023-03-06] MEDS: RAMELTEON 8 MG TAB (ROZEREM) PO SCH (21:06)
[2023-03-06] MEDS: ATORVASTATIN 20 MG TAB PO SCH (21:06)
[2023-03-06] MEDS: PANTOPRAZOLE 40MG TAB (PROTONIX) PO SCH (21:06)
[2023-03-06] MEDS: traZODone 100 MG TAB PO SCH (21:07)
[2023-03-07] MEDS: LEVOTHYROXINE 100MCG TABLET (0.1MG) PO SCH (05:44)
[2023-03-07 06:00] VITALS: BP 118/77
[2023-03-07 09:31] VITALS: BP 120/76
[2023-03-07] MEDS: CARVedilol 12.5 MG TAB PO SCH (09:31)
[2023-03-07] MEDS: ASPIRIN 81MG ENTERIC TABLET PO SCH (09:31)
[2023-03-07] MEDS: METAMUCIL (PSYLLIUM) PACKET PO SCH (09:32)
[2023-03-07] MEDS: SENNA 8.6 MG TAB (SENOKOT) PO SCH (09:32)
[2023-03-07] MEDS: MIRALAX *UNIT DOSE* 17GM PACKET PO SCH (09:32)
[2023-03-07] MEDS: DIVALPROEX 500 MG TAB PO SCH (09:32)
[2023-03-07] MEDS: POTASSIUM CHLORIDE 10MEQ SR TABLET PO SCH (09:32)
[2023-03-07] MEDS: FLUoxetine 20MG CAP PO SCH (09:32)
[2023-03-07] MEDS: DOCUSATE SODIUM 100MG CAPSULE PO SCH (09:32)
[2023-03-07] MEDS: QUEtiapine FUMARATE 25 MG TAB PO SCH (09:33)
[2023-03-07] MEDS: ENTACAPONE 200MG TABLET (COMTAN) PO SCH (09:33)
[2023-03-07] MEDS: ACETAMINOPHEN TAB 650MG DOSE (2X325MG) PO PRN (09:33)
[2023-03-07] MEDS: FOLIC ACID 1MG TAB PO SCH (09:33)
[2023-03-07] MEDS: PRAMIPEXOLE 0.25 MG TAB PO SCH (09:33)
[2023-03-07] MEDS: FINASTERIDE 5MG TAB PO SCH (09:33)
[2023-03-07] MEDS: PREGABALIN 50 MG CAP (LYRICA) PO SCH (09:33)
[2023-03-07] MEDS: FUROSEMIDE 40 MG TAB PO SCH (09:33)
[2023-03-07] MEDS: ACYCLOVIR 200 MG CAPSULE PO SCH (09:33)
[2023-03-07] MEDS: SINEMET 25-100 MG TAB PO SCH (09:33)
[2023-03-07] MEDS: ENOXAPARIN 40MG/0.4ML SYRINGE (J1650 PER 10MG) SC SCH (09:34)
[2023-03-07] MEDS: guaiFENesin ER 600 MG TAB PO SCH (09:34)
[2023-03-07] MEDS: ANALGESIC BALM CRM 3OZ TOP SCH (09:34)
[2023-03-07] MEDS ORDERED: MUCI600T31 PO (11:17)
[2023-03-07] MEDS ORDERED: MIRA1POW3 PO (11:17)
[2023-03-07] MEDS ORDERED: DEPA1TAB3 PO (11:17)
[2023-03-07] MEDS: MULTIVITAMINS/MINERALS THERAP 1 TAB PO SCH (11:25)
[2023-03-07] MEDS ORDERED: CARB25TA9 PO (11:31)
== END 2023-03-07 13:27 | disposition home health service (06) | DRG 57 ==
LOC: M ED 14:23 → M ED INP 20:25 → M MSPAV 22:13
PROVIDERS: ADMIT Family Medicine; ATTEND Student in an Organized Health Care Education/Training Program
DX: G31.83 Neurocognitive disorder with Lewy bodies (principal); E87.20 Acidosis, unspecified; F02.80 Dementia in other diseases classified elsewhere, unspecified severity, without behavioral disturbance, psychotic disturbance, mood disturbance, and anxiety; G40.909 Epilepsy, unspecified, not intractable, without status epilepticus; I12.9 Hypertensive chronic kidney disease with stage 1 through stage 4 chronic kidney disease, or unspecified chronic kidney disease; E03.9 Hypothyroidism, unspecified; N18.30 Chronic kidney disease, stage 3 unspecified; I25.119 Atherosclerotic heart disease of native coronary artery with unspecified angina pectoris; E86.0 Dehydration; F32.A Depression, unspecified; K21.9 Gastro-esophageal reflux disease without esophagitis; N40.0 Benign prostatic hyperplasia without lower urinary tract symptoms; D64.9 Anemia, unspecified; R53.1 Weakness; R51.9 Headache, unspecified; E78.5 Hyperlipidemia, unspecified; F41.9 Anxiety disorder, unspecified; K59.01 Slow transit constipation; R13.10 Dysphagia, unspecified; J45.909 Unspecified asthma, uncomplicated; R60.0 Localized edema; Z79.82 Long term (current) use of aspirin; Z79.890 Hormone replacement therapy; Z79.899 Other long term (current) drug therapy

== ENCOUNTER 2023-03-12 07:24 | Observation (INO) | payer MEDICARE, OTHER ==
[~2023-03-12] VITALS: Ht 182.9 cm; Wt 80.7 kg
[2023-03-12] MEDS: LEVOTHYROXINE 100MCG TABLET (0.1MG) PO SCH (06:00)
[~2023-03-12 07:24] MED LIST changes: +MIRA1POW3 PO; +MUCI600T31 PO
[2023-03-12 08:21] LABS: BASO # 0.1 10^3/uL (0.0-0.2); BASO % 0.7 % (0.0-1.0); EOS # 0.9 10^3/uL (0.0-0.5); EOS % 7.1 % (0.0-3.0); HEMATOCRIT 32.7 % (42.0-52.0); HEMOGLOBIN 10.5 g/dl (13.5-17.5); LYMPH # 2.5 10^3/uL (1.5-5.0); LYMPH % 19.7 % (24.0-44.0); MEAN CORPUSCULAR HEMOGLOBIN 28.8 pg (27.0-33.0); MEAN CORPUSCULAR HGB CONC 32.1 g/dl (32.0-36.5); MEAN CORPUSCULAR VOLUME 89.6 fl (80.0-96.0); MONO # 0.9 10^3/uL (0.0-0.8); MONO % 7.4 % (2.0-8.0); NEUTROPHILS # 8.1 10^3/uL (1.5-8.5); NEUTROPHILS % 64.3 % (36.0-66.0); PLATELET COUNT, AUTOMATED 316 10^3/uL (150-450); RED BLOOD COUNT 3.65 10^6/uL (4.30-6.10); WHITE BLOOD COUNT 12.7 10^3/uL (4.0-10.0)
[2023-03-12 08:44] LABS: ALBUMIN 2.8 G/DL (3.2-5.2); ALKALINE PHOSPHATASE 100 U/L (46-116); ALT/SGPT < 9 U/L (7.0-40); AST/SGOT 19 U/L (<34); BILIRUBIN,DIRECT < 0.1 MG/DL (<0.4); BILIRUBIN,TOTAL 0.2 MG/DL (0.3-1.2); BLOOD UREA NITROGEN 15 MG/DL (9-23); CALCIUM LEVEL 8.3 MG/DL (8.3-10.6); CARBON DIOXIDE LEVEL 25 MMOL/L (20-31); CHLORIDE LEVEL 104 MMOL/L (98-107); CREATININE FOR GFR 1.42 MG/DL (0.70-1.30); GLOMERULAR FILTRATION RATE 51.9 (>42); GLUCOSE, FASTING 94 MG/DL (74-106); POTASSIUM SERUM 3.5 MMOL/L (3.5-5.1); SODIUM LEVEL 138 MMOL/L (136-145); TOTAL PROTEIN 5.9 G/DL (5.7-8.2)
[2023-03-12 08:46] LABS: THYROID STIMULATING HORMONE 0.946 uIU/ML (0.55-4.78)
[2023-03-12] MEDS: CARVedilol 12.5 MG TAB PO SCH ×2 (09:00→22:12)
[2023-03-12] MEDS: QUEtiapine FUMARATE 25 MG TAB PO SCH ×2 (09:00→22:13)
[2023-03-12] MEDS ORDERED: NS 1,000 ML IV ONE (09:50)
[2023-03-12 10:12] LABS: ETHYL ALCOHOL (ETHANOL) < 0.003 % (0.000-0.010)
[2023-03-12 10:14] LABS: CK-MB VALUE MASS 2.9 NG/ML (<3.6)
[2023-03-12 10:15] LABS: CPK CREATINE PHOSPHOKINASE 88 U/L (46-171); MB/CK RELATIVE INDEX 3.29 (< OR =4)
[2023-03-12 10:32] LABS: RSV AMPLIFICATION NEGATIVE (NEGATIVE)
[2023-03-12 10:43] LABS: AMPHETAMINES LEVEL URINE NEGATIVE (NEGATIVE); BARBITURATES URINE NEGATIVE (NEGATIVE); BENZODIAZEPINES URINE NEGATIVE (NEGATIVE); CANNABINOIDS URINE NEGATIVE (NEGATIVE); COCAINE METABOLITE URINE NEGATIVE (NEGATIVE); METHADONE URINE NEGATIVE (NEGATIVE); PHENCYCLIDINE URINE NEGATIVE (NEGATIVE)
[2023-03-12 10:47] LABS: OPIATES URINE POSITIVE (NEGATIVE)
[2023-03-12] MEDS ORDERED: CARB25TA9 PO (10:52)
[2023-03-12] MEDS ORDERED: DIVA500T94 PO (10:52)
[2023-03-12] MEDS ORDERED: HOME MED LIST COMPLETE! XX SCH (10:55)
[2023-03-12] MEDS ORDERED: NITROGLYCERIN 0.4MG SUBL TABLET SL PRN (13:25)
[2023-03-12] MEDS ORDERED: MIRALAX *UNIT DOSE* 17GM PACKET PO PRN (13:25)
[2023-03-12 15:20] VITALS: BP 138/62
[2023-03-12] MEDS: FINASTERIDE 5MG TAB PO SCH (16:26)
[2023-03-12] MEDS: ACYCLOVIR 200 MG CAPSULE PO SCH ×2 (16:26→22:13)
[2023-03-12] MEDS: ASPIRIN 81MG ENTERIC TABLET PO SCH (16:29)
[2023-03-12] MEDS: DOCUSATE SODIUM 100MG CAPSULE PO SCH (16:29)
[2023-03-12] MEDS: MULTIVITAMINS/MINERALS THERAP 1 TAB PO SCH (16:29)
[2023-03-12] MEDS: SENNA 8.6 MG TAB (SENOKOT) PO SCH (16:29)
[2023-03-12] MEDS: FLUoxetine 20MG CAP PO SCH (16:29)
[2023-03-12] MEDS: guaiFENesin ER 600 MG TAB PO PRN (16:29)
[2023-03-12] MEDS: PRAMIPEXOLE 0.25 MG TAB PO SCH ×2 (16:29→18:24)
[2023-03-12] MEDS: FOLIC ACID 1MG TAB PO SCH (16:30)
[2023-03-12] MEDS: SINEMET 25-100 MG TAB PO SCH ×2 (16:30→18:22)
[2023-03-12] MEDS: FUROSEMIDE 40 MG TAB PO SCH (16:30)
[2023-03-12] MEDS: PREGABALIN 50 MG CAP (LYRICA) PO SCH ×2 (16:30→22:12)
[2023-03-12] MEDS: ENTACAPONE 200MG TABLET (COMTAN) PO SCH ×2 (16:33→18:22)
[2023-03-12] MEDS: RIVAROXABAN 10MG TAB (XARELTO) PO SCH (18:21)
[2023-03-12] MEDS: SODIUM CHLORIDE NASAL 0.65% SPRAY BTL (OCEAN) PRN (18:22)
[2023-03-12 21:00] VITALS: BP 122/58
[2023-03-12] MEDS: ATORVASTATIN 20 MG TAB PO SCH (22:12)
[2023-03-12] MEDS: TAMSULOSIN 0.4 MG CAP PO SCH (22:12)
[2023-03-12] MEDS: traZODone 100 MG TAB PO SCH (22:12)
[2023-03-12] MEDS: PANTOPRAZOLE 40MG TAB (PROTONIX) PO SCH (22:12)
[2023-03-12] MEDS: ACETAMINOPHEN TAB 650MG DOSE (2X325MG) PO PRN (22:30)
[2023-03-13 05:10] VITALS: BP 110/59
[2023-03-13] MEDS: LEVOTHYROXINE 100MCG TABLET (0.1MG) PO SCH (05:39)
[2023-03-13] MEDS ORDERED: NS 1,000 ML IV SCH (07:15)
[2023-03-13] MEDS: FLUoxetine 20MG CAP PO SCH (09:12)
[2023-03-13] MEDS: ASPIRIN 81MG ENTERIC TABLET PO SCH (09:13)
[2023-03-13] MEDS: PREGABALIN 50 MG CAP (LYRICA) PO SCH ×3 (09:13→21:14)
[2023-03-13] MEDS: ENTACAPONE 200MG TABLET (COMTAN) PO SCH ×3 (09:14→17:13)
[2023-03-13] MEDS: FINASTERIDE 5MG TAB PO SCH (09:14)
[2023-03-13] MEDS: CARVedilol 12.5 MG TAB PO SCH ×2 (09:14→21:15)
[2023-03-13] MEDS: ACYCLOVIR 200 MG CAPSULE PO SCH ×3 (09:14→21:13)
[2023-03-13] MEDS: SENNA 8.6 MG TAB (SENOKOT) PO SCH (09:15)
[2023-03-13] MEDS: FOLIC ACID 1MG TAB PO SCH (09:15)
[2023-03-13] MEDS: DOCUSATE SODIUM 100MG CAPSULE PO SCH (09:15)
[2023-03-13] MEDS: SINEMET 25-100 MG TAB PO SCH ×2 (09:15→15:05)
[2023-03-13] MEDS: QUEtiapine FUMARATE 25 MG TAB PO SCH ×2 (09:15→21:14)
[2023-03-13] MEDS: FUROSEMIDE 40 MG TAB PO SCH (09:15)
[2023-03-13 09:38] LABS: BASO # 0.1 10^3/uL (0.0-0.2); BASO % 0.7 % (0.0-1.0); EOS # 0.9 10^3/uL (0.0-0.5); EOS % 7.7 % (0.0-3.0); HEMATOCRIT 32.4 % (42.0-52.0); HEMOGLOBIN 10.4 g/dl (13.5-17.5); LYMPH # 2.5 10^3/uL (1.5-5.0); LYMPH % 20.8 % (24.0-44.0); MEAN CORPUSCULAR HEMOGLOBIN 28.4 pg (27.0-33.0); MEAN CORPUSCULAR HGB CONC 32.1 g/dl (32.0-36.5); MEAN CORPUSCULAR VOLUME 88.5 fl (80.0-96.0); MONO # 0.9 10^3/uL (0.0-0.8); MONO % 7.2 % (2.0-8.0); NEUTROPHILS # 7.6 10^3/uL (1.5-8.5); NEUTROPHILS % 62.9 % (36.0-66.0); PLATELET COUNT, AUTOMATED 334 10^3/uL (150-450); RED BLOOD COUNT 3.66 10^6/uL (4.30-6.10); WHITE BLOOD COUNT 12.1 10^3/uL (4.0-10.0)
[2023-03-13 10:22] LABS: CALCIUM LEVEL 8.2 MG/DL (8.3-10.6); CREATININE FOR GFR 1.27 MG/DL (0.70-1.30); MAGNESIUM LEVEL 1.7 MG/DL (1.8-2.4); POTASSIUM SERUM 2.9 MMOL/L (3.5-5.1)
[2023-03-13] MEDS ORDERED: MAGNESIUM OXIDE 400MG TAB (MAG-OX) PO ONE (11:30)
[2023-03-13] MEDS: MULTIVITAMINS/MINERALS THERAP 1 TAB PO SCH (11:59)
[2023-03-13] MEDS: POTASSIUM CHLORIDE 10MEQ SR TABLET PO SCH ×2 (12:00→15:06)
[2023-03-13] MEDS: PRAMIPEXOLE 0.25 MG TAB PO SCH ×3 (12:04→17:13)
[2023-03-13 14:00] VITALS: BP 123/72
[2023-03-13] MEDS: RIVAROXABAN 10MG TAB (XARELTO) PO SCH (17:13)
[2023-03-13] MEDS: TAMSULOSIN 0.4 MG CAP PO SCH (21:13)
[2023-03-13] MEDS: PANTOPRAZOLE 40MG TAB (PROTONIX) PO SCH (21:13)
[2023-03-13] MEDS: ATORVASTATIN 20 MG TAB PO SCH (21:13)
[2023-03-13] MEDS: traZODone 100 MG TAB PO SCH (21:13)
[2023-03-13] MEDS: guaiFENesin ER 600 MG TAB PO PRN (21:14)
[2023-03-13] MEDS: DIVALPROEX 250MG TAB PO SCH (21:14)
[2023-03-13 21:46] VITALS: BP 141/81
[2023-03-14] MEDS: LEVOTHYROXINE 100MCG TABLET (0.1MG) PO SCH (05:50)
[2023-03-14 06:00] VITALS: BP 131/95
[2023-03-14 06:06] LABS: HEMOGLOBIN 11.6 g/dl (13.5-17.5); MEAN CORPUSCULAR HEMOGLOBIN 29.1 pg (27.0-33.0); MEAN CORPUSCULAR HGB CONC 32.2 g/dl (32.0-36.5); MEAN CORPUSCULAR VOLUME 90.2 fl (80.0-96.0); PLATELET COUNT, AUTOMATED 332 10^3/uL (150-450); RED BLOOD COUNT 3.99 10^6/uL (4.30-6.10); WHITE BLOOD COUNT 11.6 10^3/uL (4.0-10.0)
[2023-03-14 06:44] LABS: BLOOD UREA NITROGEN 7 MG/DL (9-23); CALCIUM LEVEL 8.9 MG/DL (8.3-10.6); CARBON DIOXIDE LEVEL 28 MMOL/L (20-31); CHLORIDE LEVEL 107 MMOL/L (98-107); CREATININE FOR GFR 1.13 MG/DL (0.70-1.30); GLOMERULAR FILTRATION RATE > 60.0 (>42); GLUCOSE, FASTING 107 MG/DL (74-106); PHOSPHORUS LEVEL 3.2 MG/DL (2.4-5.1); POTASSIUM SERUM 3.7 MMOL/L (3.5-5.1); SODIUM LEVEL 138 MMOL/L (136-145)
[2023-03-14] MEDS: DOCUSATE SODIUM 100MG CAPSULE PO SCH (09:00)
[2023-03-14] MEDS: SENNA 8.6 MG TAB (SENOKOT) PO SCH (09:00)
[2023-03-14] MEDS: SINEMET 25-100 MG TAB PO SCH (09:14)
[2023-03-14] MEDS: FLUoxetine 20MG CAP PO SCH (09:14)
[2023-03-14] MEDS: PRAMIPEXOLE 0.25 MG TAB PO SCH ×3 (09:14→17:30)
[2023-03-14] MEDS: FOLIC ACID 1MG TAB PO SCH (09:15)
[2023-03-14] MEDS: FINASTERIDE 5MG TAB PO SCH (09:15)
[2023-03-14] MEDS: DIVALPROEX 250MG TAB PO SCH ×2 (09:15→21:07)
[2023-03-14] MEDS: FUROSEMIDE 40 MG TAB PO SCH (09:15)
[2023-03-14] MEDS: ACYCLOVIR 200 MG CAPSULE PO SCH ×3 (09:15→21:07)
[2023-03-14] MEDS: ENTACAPONE 200MG TABLET (COMTAN) PO SCH ×3 (09:15→17:30)
[2023-03-14] MEDS: QUEtiapine FUMARATE 25 MG TAB PO SCH ×2 (09:15→21:07)
[2023-03-14] MEDS: ASPIRIN 81MG ENTERIC TABLET PO SCH (09:15)
[2023-03-14] MEDS: CARVedilol 12.5 MG TAB PO SCH ×2 (09:16→21:08)
[2023-03-14] MEDS: PREGABALIN 50 MG CAP (LYRICA) PO SCH ×3 (09:17→21:07)
[2023-03-14] MEDS: SODIUM CHLORIDE NASAL 0.65% SPRAY BTL (OCEAN) PRN (09:22)
[2023-03-14] MEDS: MULTIVITAMINS/MINERALS THERAP 1 TAB PO SCH (12:58)
[2023-03-14 14:00] VITALS: BP 128/69
[2023-03-14] MEDS: ACETAMINOPHEN TAB 650MG DOSE (2X325MG) PO PRN (16:27)
[2023-03-14] MEDS: RIVAROXABAN 10MG TAB (XARELTO) PO SCH (17:29)
[2023-03-14 20:11] VITALS: BP 122/66
[2023-03-14] MEDS: traZODone 100 MG TAB PO SCH (21:07)
[2023-03-14] MEDS: PANTOPRAZOLE 40MG TAB (PROTONIX) PO SCH (21:07)
[2023-03-14] MEDS: TAMSULOSIN 0.4 MG CAP PO SCH (21:07)
[2023-03-14] MEDS: ATORVASTATIN 20 MG TAB PO SCH (21:07)
[2023-03-15] MEDS: ACETAMINOPHEN TAB 650MG DOSE (2X325MG) PO PRN ×2 (02:56→21:29)
[2023-03-15] MEDS: LEVOTHYROXINE 100MCG TABLET (0.1MG) PO SCH (05:53)
[2023-03-15 06:00] VITALS: BP 121/67
[2023-03-15 06:16] LABS: HEMATOCRIT 31.7 % (42.0-52.0); HEMOGLOBIN 10.3 g/dl (13.5-17.5); MEAN CORPUSCULAR HEMOGLOBIN 28.7 pg (27.0-33.0); MEAN CORPUSCULAR HGB CONC 32.5 g/dl (32.0-36.5); MEAN CORPUSCULAR VOLUME 88.3 fl (80.0-96.0); PLATELET COUNT, AUTOMATED 308 10^3/uL (150-450); RED BLOOD COUNT 3.59 10^6/uL (4.30-6.10); WHITE BLOOD COUNT 10.6 10^3/uL (4.0-10.0)
[2023-03-15 06:48] LABS: CALCIUM LEVEL 8.1 MG/DL (8.3-10.6); CREATININE FOR GFR 1.32 MG/DL (0.70-1.30); GLOMERULAR FILTRATION RATE 56.4 (>42); POTASSIUM SERUM 3.4 MMOL/L (3.5-5.1)
[2023-03-15] MEDS ORDERED: POTASSIUM CHLORIDE 10MEQ SR TABLET PO ONE (07:55)
[2023-03-15] MEDS: FOLIC ACID 1MG TAB PO SCH (09:26)
[2023-03-15] MEDS: PRAMIPEXOLE 0.25 MG TAB PO SCH ×3 (09:26→16:56)
[2023-03-15] MEDS: QUEtiapine FUMARATE 25 MG TAB PO SCH ×2 (09:26→21:30)
[2023-03-15] MEDS: FLUoxetine 20MG CAP PO SCH (09:26)
[2023-03-15] MEDS: SENNA 8.6 MG TAB (SENOKOT) PO SCH (09:26)
[2023-03-15] MEDS: ASPIRIN 81MG ENTERIC TABLET PO SCH (09:26)
[2023-03-15] MEDS: FINASTERIDE 5MG TAB PO SCH (09:26)
[2023-03-15] MEDS: ACYCLOVIR 200 MG CAPSULE PO SCH ×3 (09:26→22:02)
[2023-03-15] MEDS: DOCUSATE SODIUM 100MG CAPSULE PO SCH (09:26)
[2023-03-15] MEDS: DIVALPROEX 250MG TAB PO SCH ×2 (09:26→21:29)
[2023-03-15] MEDS: PREGABALIN 50 MG CAP (LYRICA) PO SCH ×3 (09:26→21:30)
[2023-03-15] MEDS: CARVedilol 12.5 MG TAB PO SCH ×2 (09:27→21:32)
[2023-03-15] MEDS: FUROSEMIDE 40 MG TAB PO SCH (09:27)
[2023-03-15] MEDS: MULTIVITAMINS/MINERALS THERAP 1 TAB PO SCH (12:41)
[2023-03-15 14:00] VITALS: BP 116/70
[2023-03-15] MEDS: RIVAROXABAN 10MG TAB (XARELTO) PO SCH (16:55)
[2023-03-15] MEDS: TAMSULOSIN 0.4 MG CAP PO SCH (21:29)
[2023-03-15] MEDS: ATORVASTATIN 20 MG TAB PO SCH (21:30)
[2023-03-15] MEDS: PANTOPRAZOLE 40MG TAB (PROTONIX) PO SCH (21:30)
[2023-03-15] MEDS: traZODone 100 MG TAB PO SCH (21:30)
[2023-03-15 21:35] VITALS: BP 119/73
[2023-03-16 05:06] VITALS: BP 103/59
[2023-03-16] MEDS: LEVOTHYROXINE 100MCG TABLET (0.1MG) PO SCH (05:40)
[2023-03-16] MEDS: FINASTERIDE 5MG TAB PO SCH (11:34)
[2023-03-16] MEDS: ACYCLOVIR 200 MG CAPSULE PO SCH ×3 (11:34→22:28)
[2023-03-16] MEDS: QUEtiapine FUMARATE 25 MG TAB PO SCH ×2 (11:34→22:31)
[2023-03-16] MEDS: FUROSEMIDE 40 MG TAB PO SCH (11:34)
[2023-03-16] MEDS: PREGABALIN 50 MG CAP (LYRICA) PO SCH ×3 (11:34→22:28)
[2023-03-16] MEDS: guaiFENesin ER 600 MG TAB PO PRN (11:34)
[2023-03-16] MEDS: FLUoxetine 20MG CAP PO SCH (11:34)
[2023-03-16] MEDS: ACETAMINOPHEN TAB 650MG DOSE (2X325MG) PO PRN ×2 (11:35→22:35)
[2023-03-16] MEDS: FOLIC ACID 1MG TAB PO SCH (11:35)
[2023-03-16] MEDS: DOCUSATE SODIUM 100MG CAPSULE PO SCH (11:35)
[2023-03-16] MEDS: SENNA 8.6 MG TAB (SENOKOT) PO SCH (11:35)
[2023-03-16] MEDS: PRAMIPEXOLE 0.25 MG TAB PO SCH ×3 (11:35→18:09)
[2023-03-16] MEDS: ASPIRIN 81MG ENTERIC TABLET PO SCH (11:35)
[2023-03-16] MEDS: DIVALPROEX 250MG TAB PO SCH ×2 (11:36→22:27)
[2023-03-16] MEDS: MULTIVITAMINS/MINERALS THERAP 1 TAB PO SCH (11:36)
[2023-03-16] MEDS: CARVedilol 12.5 MG TAB PO SCH ×2 (11:37→22:28)
[2023-03-16] MEDS: RIVAROXABAN 10MG TAB (XARELTO) PO SCH (18:03)
[2023-03-16] MEDS: SODIUM CHLORIDE NASAL 0.65% SPRAY BTL (OCEAN) SCH ×2 (18:08→22:31)
[2023-03-16] MEDS: TAMSULOSIN 0.4 MG CAP PO SCH (22:25)
[2023-03-16] MEDS: traZODone 100 MG TAB PO SCH (22:27)
[2023-03-16] MEDS: PANTOPRAZOLE 40MG TAB (PROTONIX) PO SCH (22:27)
[2023-03-16] MEDS: ATORVASTATIN 20 MG TAB PO SCH (22:28)
[2023-03-16] MEDS: FLUTICASONE PROP 0.05% NASAL SPRAY 16 GM (FLONASE) NARES SCH (22:31)
[2023-03-17 05:00] VITALS: BP 114/71
[2023-03-17] MEDS: LEVOTHYROXINE 100MCG TABLET (0.1MG) PO SCH (05:07)
[2023-03-17] MEDS: FINASTERIDE 5MG TAB PO SCH (09:46)
[2023-03-17] MEDS: QUEtiapine FUMARATE 25 MG TAB PO SCH ×2 (09:46→20:47)
[2023-03-17] MEDS: SENNA 8.6 MG TAB (SENOKOT) PO SCH (09:46)
[2023-03-17] MEDS: ASPIRIN 81MG ENTERIC TABLET PO SCH (09:46)
[2023-03-17] MEDS: DIVALPROEX 250MG TAB PO SCH ×2 (09:46→20:47)
[2023-03-17] MEDS: DOCUSATE SODIUM 100MG CAPSULE PO SCH (09:46)
[2023-03-17] MEDS: PREGABALIN 50 MG CAP (LYRICA) PO SCH ×3 (09:46→20:42)
[2023-03-17] MEDS: ACYCLOVIR 200 MG CAPSULE PO SCH ×3 (09:46→20:58)
[2023-03-17] MEDS: FUROSEMIDE 40 MG TAB PO SCH (09:47)
[2023-03-17] MEDS: FLUoxetine 20MG CAP PO SCH (09:47)
[2023-03-17] MEDS: PRAMIPEXOLE 0.25 MG TAB PO SCH ×3 (09:47→17:11)
[2023-03-17] MEDS: FOLIC ACID 1MG TAB PO SCH (09:47)
[2023-03-17] MEDS: SODIUM CHLORIDE NASAL 0.65% SPRAY BTL (OCEAN) SCH ×4 (09:48→20:48)
[2023-03-17] MEDS: FLUTICASONE PROP 0.05% NASAL SPRAY 16 GM (FLONASE) NARES SCH ×2 (09:48→20:48)
[2023-03-17] MEDS: CARVedilol 12.5 MG TAB PO SCH ×2 (09:58→20:46)
[2023-03-17] MEDS: MULTIVITAMINS/MINERALS THERAP 1 TAB PO SCH (12:22)
[2023-03-17] MEDS: ACETAMINOPHEN TAB 650MG DOSE (2X325MG) PO PRN ×2 (12:23→20:43)
[2023-03-17] MEDS: RIVAROXABAN 10MG TAB (XARELTO) PO SCH (17:12)
[2023-03-17] MEDS: TAMSULOSIN 0.4 MG CAP PO SCH (20:42)
[2023-03-17] MEDS: PANTOPRAZOLE 40MG TAB (PROTONIX) PO SCH (20:47)
[2023-03-17] MEDS: traZODone 100 MG TAB PO SCH (20:48)
[2023-03-17] MEDS: ATORVASTATIN 20 MG TAB PO SCH (20:48)
[2023-03-18] MEDS: LEVOTHYROXINE 100MCG TABLET (0.1MG) PO SCH (05:02)
[2023-03-18] MEDS: ACETAMINOPHEN TAB 650MG DOSE (2X325MG) PO PRN ×3 (05:04→17:18)
[2023-03-18 05:20] VITALS: BP 117/74
[2023-03-18] MEDS: PREGABALIN 50 MG CAP (LYRICA) PO SCH ×3 (10:18→21:31)
[2023-03-18] MEDS: CARVedilol 12.5 MG TAB PO SCH ×2 (10:19→21:35)
[2023-03-18] MEDS: MULTIVITAMINS/MINERALS THERAP 1 TAB PO SCH (10:20)
[2023-03-18] MEDS: DIVALPROEX 500 MG TAB PO SCH ×2 (10:20→21:30)
[2023-03-18] MEDS: FLUoxetine 20MG CAP PO SCH (10:20)
[2023-03-18] MEDS: FUROSEMIDE 40 MG TAB PO SCH (10:20)
[2023-03-18] MEDS: SENNA 8.6 MG TAB (SENOKOT) PO SCH (10:21)
[2023-03-18] MEDS: QUEtiapine FUMARATE 25 MG TAB PO SCH ×2 (10:21→21:30)
[2023-03-18] MEDS: ASPIRIN 81MG ENTERIC TABLET PO SCH (10:21)
[2023-03-18] MEDS: FOLIC ACID 1MG TAB PO SCH (10:21)
[2023-03-18] MEDS: PRAMIPEXOLE 0.25 MG TAB PO SCH ×3 (10:21→17:12)
[2023-03-18] MEDS: FINASTERIDE 5MG TAB PO SCH (10:21)
[2023-03-18] MEDS: DOCUSATE SODIUM 100MG CAPSULE PO SCH (10:21)
[2023-03-18] MEDS: SODIUM CHLORIDE NASAL 0.65% SPRAY BTL (OCEAN) SCH (10:22)
[2023-03-18] MEDS: FLUTICASONE PROP 0.05% NASAL SPRAY 16 GM (FLONASE) NARES SCH (10:22)
[2023-03-18] MEDS: METAMUCIL (PSYLLIUM) PACKET PO SCH ×2 (11:35→21:30)
[2023-03-18] MEDS: MIRALAX *UNIT DOSE* 17GM PACKET PO SCH ×2 (11:35→21:31)
[2023-03-18] MEDS: ACYCLOVIR 200 MG CAPSULE PO SCH ×3 (12:17→21:30)
[2023-03-18] MEDS: PYRIDOSTIGMINE 60MG TABLET PO SCH ×2 (12:17→17:12)
[2023-03-18] MEDS: RIVAROXABAN 10MG TAB (XARELTO) PO SCH (17:12)
[2023-03-18 20:37] VITALS: BP 123/70
[2023-03-18] MEDS: TAMSULOSIN 0.4 MG CAP PO SCH (21:30)
[2023-03-18] MEDS: PANTOPRAZOLE 40MG TAB (PROTONIX) PO SCH (21:31)
[2023-03-18] MEDS: ATORVASTATIN 20 MG TAB PO SCH (21:31)
[2023-03-18] MEDS: traZODone 100 MG TAB PO SCH (21:31)
[2023-03-19 05:23] VITALS: BP 117/73
[2023-03-19] MEDS: LEVOTHYROXINE 100MCG TABLET (0.1MG) PO SCH (05:40)
[2023-03-19] MEDS: CARVedilol 12.5 MG TAB PO SCH ×2 (10:11→21:51)
[2023-03-19] MEDS: ACYCLOVIR 200 MG CAPSULE PO SCH ×3 (10:12→21:51)
[2023-03-19] MEDS: MULTIVITAMINS/MINERALS THERAP 1 TAB PO SCH (10:13)
[2023-03-19] MEDS: SENNA 8.6 MG TAB (SENOKOT) PO SCH (10:14)
[2023-03-19] MEDS: ASPIRIN 81MG ENTERIC TABLET PO SCH (10:15)
[2023-03-19] MEDS: FUROSEMIDE 40 MG TAB PO SCH (10:16)
[2023-03-19] MEDS: DOCUSATE SODIUM 100MG CAPSULE PO SCH (10:17)
[2023-03-19] MEDS: PREGABALIN 50 MG CAP (LYRICA) PO SCH ×3 (10:17→21:52)
[2023-03-19] MEDS: DIVALPROEX 500 MG TAB PO SCH ×2 (10:18→21:51)
[2023-03-19] MEDS: FOLIC ACID 1MG TAB PO SCH (10:19)
[2023-03-19] MEDS: QUEtiapine FUMARATE 25 MG TAB PO SCH ×2 (10:21→21:52)
[2023-03-19] MEDS: FINASTERIDE 5MG TAB PO SCH (10:21)
[2023-03-19] MEDS: PRAMIPEXOLE 0.25 MG TAB PO SCH ×3 (10:22→17:44)
[2023-03-19] MEDS: FLUoxetine 20MG CAP PO SCH (10:22)
[2023-03-19] MEDS: MIRALAX *UNIT DOSE* 17GM PACKET PO SCH ×2 (10:24→21:50)
[2023-03-19] MEDS: METAMUCIL (PSYLLIUM) PACKET PO SCH ×2 (10:24→21:00)
[2023-03-19 10:27] VITALS: BP 98/56
[2023-03-19] MEDS: guaiFENesin ER 600 MG TAB PO PRN (10:27)
[2023-03-19] MEDS ORDERED: QUEtiapine FUMARATE 50MG TAB PO ONE (15:30)
[2023-03-19] MEDS: RIVAROXABAN 10MG TAB (XARELTO) PO SCH (17:45)
[2023-03-19] MEDS: PANTOPRAZOLE 40MG TAB (PROTONIX) PO SCH (21:50)
[2023-03-19] MEDS: traZODone 100 MG TAB PO SCH (21:51)
[2023-03-19] MEDS: TAMSULOSIN 0.4 MG CAP PO SCH (21:52)
[2023-03-19] MEDS: ATORVASTATIN 20 MG TAB PO SCH (21:52)
[2023-03-20 06:00] VITALS: BP 102/60
[2023-03-20] MEDS: LEVOTHYROXINE 100MCG TABLET (0.1MG) PO SCH (06:08)
[2023-03-20] MEDS ORDERED: META1POW PO (09:08)
[2023-03-20] MEDS ORDERED: MIRA1POW3 PO (09:08)
[2023-03-20] MEDS: SENNA 8.6 MG TAB (SENOKOT) PO SCH (09:55)
[2023-03-20] MEDS: FLUoxetine 20MG CAP PO SCH (09:55)
[2023-03-20] MEDS: DIVALPROEX 500 MG TAB PO SCH (09:56)
[2023-03-20] MEDS: ACYCLOVIR 200 MG CAPSULE PO SCH (09:57)
[2023-03-20] MEDS: PRAMIPEXOLE 0.25 MG TAB PO SCH (09:59)
[2023-03-20] MEDS: FUROSEMIDE 40 MG TAB PO SCH (09:59)
[2023-03-20] MEDS: FINASTERIDE 5MG TAB PO SCH (10:00)
[2023-03-20] MEDS: PREGABALIN 50 MG CAP (LYRICA) PO SCH (10:01)
[2023-03-20] MEDS: ASPIRIN 81MG ENTERIC TABLET PO SCH (10:02)
[2023-03-20] MEDS: QUEtiapine FUMARATE 25 MG TAB PO SCH (10:02)
[2023-03-20] MEDS: FOLIC ACID 1MG TAB PO SCH (10:03)
[2023-03-20] MEDS: DOCUSATE SODIUM 100MG CAPSULE PO SCH (10:03)
[2023-03-20 10:04] VITALS: BP 101/60
[2023-03-20] MEDS: METAMUCIL (PSYLLIUM) PACKET PO SCH (10:04)
[2023-03-20] MEDS: CARVedilol 12.5 MG TAB PO SCH (10:04)
[2023-03-20] MEDS: MIRALAX *UNIT DOSE* 17GM PACKET PO SCH (10:05)
[2023-03-20] MEDS: guaiFENesin ER 600 MG TAB PO PRN (10:07)
[2023-03-20] MEDS: MULTIVITAMINS/MINERALS THERAP 1 TAB PO SCH (11:41)
[2023-03-20] MEDS: ACETAMINOPHEN TAB 650MG DOSE (2X325MG) PO PRN (11:43)
== END 2023-03-20 13:16 | disposition home or self-care (01) ==
LOC: M ED 07:24 → M ED INP 07:25 → ENRESERV 13:36 → M MSPAV 15:02 → OBSVTOIN 03-14 13:00 → INTOOBSV 03-14 13:00
PROVIDERS: ADMIT Internal Medicine; ATTEND Student in an Organized Health Care Education/Training Program
DX: R44.1 Visual hallucinations (principal); H02.402 Unspecified ptosis of left eyelid; R41.82 Altered mental status, unspecified; R29.810 Facial weakness; G20 Parkinson's disease; F02.82 Dementia in other diseases classified elsewhere, unspecified severity, with psychotic disturbance; G31.83 Neurocognitive disorder with Lewy bodies; R51.9 Headache, unspecified; E87.6 Hypokalemia; R47.02 Dysphasia; N18.30 Chronic kidney disease, stage 3 unspecified; J45.909 Unspecified asthma, uncomplicated; E78.5 Hyperlipidemia, unspecified; I25.10 Atherosclerotic heart disease of native coronary artery without angina pectoris; R60.0 Localized edema; I12.9 Hypertensive chronic kidney disease with stage 1 through stage 4 chronic kidney disease, or unspecified chronic kidney disease; K21.9 Gastro-esophageal reflux disease without esophagitis; M19.90 Unspecified osteoarthritis, unspecified site; N40.1 Benign prostatic hyperplasia with lower urinary tract symptoms; E03.9 Hypothyroidism, unspecified; K59.01 Slow transit constipation; F41.9 Anxiety disorder, unspecified; F32.A Depression, unspecified; G47.00 Insomnia, unspecified; B00.9 Herpesviral infection, unspecified; I67.82 Cerebral ischemia; G31.1 Senile degeneration of brain, not elsewhere classified; F51.5 Nightmare disorder; Z79.899 Other long term (current) drug therapy; Z79.82 Long term (current) use of aspirin; Z79.890 Hormone replacement therapy
CPT/HCPCS: 36415; 70450; 71045; 80048; 80076; 80164; 80307; 81001; 82077; 82550; 82553; 83516; 83519; 83735; 84100; 84145; 84443; 84484; 85025; 85027; 85652; 86140; 86255; 87631; 92526; 92610; 93005; 93041; 94760; 96360; 97162; 97530; 99285; G0378

== ENCOUNTER 2023-06-05 20:09 | Emergency (ER) | payer MEDICARE, OTHER ==
[~2023-06-05 20:09] MED LIST changes: +DIVA500T94 PO; +META1POW PO
[2023-06-05 20:30] VITALS: BP 146/79; TEMP 97.8; O2SAT 99
== END 2023-06-05 22:23 | disposition home or self-care (01) ==
LOC: M ED 20:09 → EDBD 20:09 → M ED 22:23
DX: F43.9 Reaction to severe stress, unspecified (principal); I11.9 Hypertensive heart disease without heart failure; I25.10 Atherosclerotic heart disease of native coronary artery without angina pectoris; I25.2 Old myocardial infarction; G20 Parkinson's disease; G40.909 Epilepsy, unspecified, not intractable, without status epilepticus; E78.5 Hyperlipidemia, unspecified; G31.83 Neurocognitive disorder with Lewy bodies; Z79.899 Other long term (current) drug therapy; Z79.82 Long term (current) use of aspirin